=== PATIENT | female | born 1955 | race Caucasian/White ===

== ENCOUNTER → 2018-01-26 15:00 | Outpatient (CLI) | payer OTHER, MEDICAID, SELFPAY ==
--- NOTE | 2018-01-26 15:03 | DI.RAD.S_ITS ---
PROCEDURE: XR KNEE LT 3V INDICATIONS: s/p fall and hip replacement TECHNIQUE: 3 views of the knee were acquired. COMPARISON: [facility], , FEMUR TWO OR MORE VIEWS LEFT, 05/24/2016, 10:37. [facility], , PELVIS 1 OR 2 VIEWS, 05/24/2016, 10:37. FINDINGS: Bones: Extensive distal femoral ORIF is noted. There is no visualized hardware fracture. There is an approximate 1.5 mm area of lucency within the cortex of the femur distal to the middle screw, identified as fourth from the most inferior screw. It is not well-visualized if there appears to be retraction from the plate, as lateral view of this region is partially obscured. Soft tissues: No joint effusion. No suspicious soft tissue calcifications. IMPRESSION: Postsurgical changes as above. Area of lucency distal to the middle screw as above. This could represent focal area of loosening or screw retraction. However, evaluation is limited. Dictated by: Camelia Sandra M.D. on 01/26/2018 at 16:32 Approved by: Camelia Sandra M.D. on 01/26/2018 at 16:36
--- NOTE | 2018-01-26 15:03 | DI.RAD.S_ITS ---
PROCEDURE: XR HIP W PEL IF DONE RT 2V INDICATIONS: fall and hip replacement TECHNIQUE: AP pelvis with lateral view(s) of the right hip(s). COMPARISON: [facility], , FEMUR TWO OR MORE VIEWS LEFT, 05/24/2016, 10:37. [facility], , PELVIS 1 OR 2 VIEWS, 05/24/2016, 10:37. FINDINGS: Bones: No fractures or dislocations. Bilateral hip arthroplasties in expected alignment, revised since 05/24/16. Pelvic ring appears intact. There is prominent right acetabular lucency, grossly unchanged. 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 No suspicious bony lesions. Lower lumbar spine discogenic changes and facet arthropathy. Screw fragment projects in the subtrochanteric right femur as before. Soft tissues: The visualized bowel gas pattern is normal. No suspicious soft tissue calcifications. IMPRESSION: Bilateral hip arthroplasties since 05/24/16. Expected postoperative alignment. No definite fracture although suboptimal evaluation given the advanced degenerative changes. Dictated by: Magdi Antony M.D. on 01/26/2018 at 15:47 Approved by: Magdi Antony M.D. on 01/26/2018 at 15:51
== END ==
PROVIDERS: PCP Physician Assistant; Visit Provider Nurse Practitioner Family
DX: M47.816 Spondylosis without myelopathy or radiculopathy, lumbar region (principal); Z96.643 Presence of artificial hip joint, bilateral; W19.XXXA Unspecified fall, initial encounter
CPT/HCPCS: 73502; 73562

== ENCOUNTER 2018-04-17 14:30 | Outpatient (RCR) | payer OTHER, MEDICAID, SELFPAY ==
--- NOTE | 2017-08-16 15:05 | PT.OTN ---
On August 16, 2017 our therapy services consisting of Speech, Occupational, and Physical therapy transitioned from [employer] electronic documentation system to a new [employer] electronic system. All documentation prior to August 16 can be found under [employer] saved data. From August 16 forward, all medical record documentation will be in [employer] 6[employer]1.
--- NOTE | 2017-08-23 15:53 | PT.OTN ---
Current Diagnoses Presence of unspecified artificial hip joint (09/06/17) Physical Therapy Treatment Note PT-OP-A Visit Information Start: 08/23/17 15:37 Freq: Status: Active Protocol: Activity Type Activity Date Activity User E-Sign Co-Sign Detail Recorded Client Recorded Date Recorded By Document 08/23/17 15:38 EA [id number] 08/23/17 15:52 EA 08/23/17 15:38 Out-Patient Physical Therapy Visit Information [Visit Information] -Visit Type Treatment Note -Visit Number 09/08 PT-OP-C Subjective Start: 08/23/17 15:37 Freq: Status: Active Protocol: Activity Type Activity Date Activity User E-Sign Co-Sign Detail Recorded Client Recorded Date Recorded By Document 08/23/17 15:38 JUANCHO [id number] 08/23/17 15:52 EA 08/23/17 15:38 OP-PT Subjective [Patient Comments] -Patient Comments Patient presented w/ no HIP brace and stated allowed by her surgeon. Patient denies any pain though daily activities is increased, however states that she feels left hip is shorter than right and thats why she feels tipping to left foot frequently happenned. Patient reports compliant w/ HEP and feels she is improving. -Patient Reported Progress Improving PT-OP-Q Treatments Start: 08/23/17 15:37 Freq: Status: Active Protocol: Activity Type Activity Date Activity User E-Sign Co-Sign Detail Recorded Client Recorded Date Recorded By Document 08/23/17 15:38 EA [id number] 08/23/17 15:52 EA 08/23/17 15:38 Cardio Equipment [Recumbent Stepper (Sci-Fit)] -Duration (Minutes) 7 -Resistance 3 Gym Equipment [Cable Column (Body Solid)] Leg Extension -Resistance 2 plates -Reps/Time 12-15 reps x 13 Hip Adduction -Resistance 1.5 plates -Reps/Time 12-15 x 3 Hip Abduction -Resistance 2 plates -Reps/Time 12-15 reps x 3 [Shuttle Recovery] Unilateral Squats -Details right -Resistance 2 cords -Shuttle Recovery Platform Stable -Reps/Time 15 x 2 Bilateral Squats -Resistance 4 cords -Shuttle Recovery Platform Stable -Reps/Time 15 x 3 Therapeutic Exercises [Sitting Exercises] 2 -Sitting Exercise Name hip flexion -Side left -Resistance 2 lbs AW 1 -Sitting Exercise Name BTB hip ER/IR rotation -Side bilateral -Resistance BTB -Equipment Used theraband -Reps/Minutes 12 x 2 [Standing Exercises] 1 -Standing Exercise Name Side step squat w/ heel raises -Side bilateral -Resistance YTB -Reps/Minutes x 2 lines Gait Training [Gait Activity] 1 -Description Heel to toe gait -Device Used cane -Surface flat -Treatment Focus foot-hip alignment PT-OP-T Assessment and Plan Start: 08/23/17 15:37 Freq: Status: Active Protocol: Activity Type Activity Date Activity User E-Sign Co-Sign Detail Recorded Client Recorded Date Recorded By Document 08/23/17 15:38 EA [id number] 08/23/17 15:52 EA 08/23/17 15:38 Physical Therapy Assessment [Assessment Summary] -Assessment Patient exhibit left foot tipping and right hip IR at stance phase, however corrected with cues. Left hip pain noted w/ left hip flexion against gravity and no to less pain with hip flexion gravity eliminated. Possible strain to hip flexor muscle and recommended patient w/ ICE and soft issue massage to ant groin. Patient progressing well to fucntional mobility tolerance but still requires further strengthening as hip weakness still evident. Physical Therapy Plan [Next Visit Focus/Plan] -Next Visit Plan Cont. with current plan.
--- NOTE | 2017-09-12 09:03 | PT.OTRE ---
Addendum entered and electronically signed by Kevan Mcnair PT, D.C. 09/13/17 16:40: This note was late documented on 09/07/2017; however, the session date was 09/06/17 Original Note: Current Diagnoses Presence of unspecified artificial hip joint (08/26/17) Presence of unspecified artificial hip joint (09/06/17) Provider Visit Care Team Role Provider Type Susie Miller PA-C Family Provider Advanced Practioner Clinician Primary Care Provider Specialty: Medical Address: [address] [place] [id number] Email: [email or web address] Kishor Terrell MD Attending Provider Physician Specialty: Family Practice Address: [address] [place] [address], [id number] Email: [email or web address] Physical Therapy Re-Evaluation PT-OP-A Visit Information Start: 08/23/17 15:37 Freq: Status: Active Protocol: Document 09/07/17 08:21 EA (Rec: 09/12/17 09:03 EA [id number]) Out-Patient Physical Therapy Visit Information Visit Information Visit Type Treatment Note Visit Note No charge Re-assessment performed to this visit Visit Start Time 13:45 Visit Stop Time 14:30 Total Visit Minutes 45 Visit Number 10/09 Number of TINNING EQUIPMENT TENDER Visits 0 PT-OP-B Current Condition Start: 08/23/17 15:37 Freq: Status: Active Protocol: Document 09/07/17 08:21 EA (Rec: 09/12/17 09:03 EA [id number]) Current Condition History of Current Condition Onset Date 05/12/17 Current Complaints C/O difficulty in all weight bearing mobility d/t R hip weakness and pain History of Current Condition S/P R HYACINTH revision 05/12/17 with disclocation 4 days after revision. Prior Treatments and Tests Patient has undergone 6 skilled PT visits since Future Testing and Treatments Planned Had seen surgeun 2 weeks from todays date and removed hip adductor brace. Treatment Goals Patient/Caregiver Goals Patient wants to be able to wlak more than 2 miles with no hip discomfort, no assistive device and no gait difficulty. Prior Functional Status Baseline Function- ADL's Independent Baseline Function- Mobility Independent Baseline Function- Gait Unlimited amb. with no AD with near to normal gait. 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 Baseline Function- Recreation/Hobbies unable Current Functional Impairments (Reported) Functional Limitations- ADL's Indep Functional Limitations- Mobility/Gait Able to ambulate 3/4 a mile with STC to left hand Functional Limitations- Work/School Indep with difficulty Functional Limitations- Recreation/ Unable Hobbies PT-OP-C Subjective Start: 08/23/17 15:37 Freq: Status: Active Protocol: Document 09/07/17 08:21 EA (Rec: 09/12/17 09:03 EA [id number]) OP-PT Subjective Patient Comments Patient Comments Patient stated that she has increased her walking to ~ 3/ 4 a mile on even surface and less 1/4 a mile on uneven surface;states still have to use cane due to hip instability and pain to left knee. Patient Reported Progress Improving Patient Questionnaires Lower Extremity Functional Scale LEFS Impairment 40 to 59% Impaired (Score 32- 47) PT-OP-F Manual Assessment Start: 08/23/17 15:37 Freq: Status: Active Protocol: Document 09/07/17 08:21 EA (Rec: 09/12/17 09:03 EA [id number]) Manual Assessments Soft Tissue Assessment Soft Tissue Mobility Assessment Right: Limited hip ER/IR, Hip extension by ~ 10 degrees. Hip flexion ~ 0-100 with pain to groin area. Left: Limited knee flexion to 0-110 degrees w/ pain to anterolat knee upon passive overpressure. Joint Mobility Assessment Joint Mobility Assessment Hip joint limitation to right hip flexion with empty enfeel. Limitation to hip ER/IR rotation with empty endfeel. PT-OP-G Mobility & Gait Start: 08/23/17 15:37 Freq: Status: Active Protocol: Document 09/07/17 08:21 EA (Rec: 09/12/17 09:03 EA [id number]) OP Mobility Evaluation Bed Mobility Rolling indep Supine to and from Sit indep Functional Movements Lifting and Carrying With moderate difficulty Squats With High difficulty Running Assessment unable PT-OP-K Range of Motion Start: 08/23/17 15:37 Freq: Status: Active Protocol: Document 09/07/17 08:21 EA (Rec: 09/12/17 09:03 EA [id number]) Hip Goniometric Range of Motion Hip Measured in Degrees Right Active Hip ROM WFL No Testing Position Supine Flexion w/Knee Flexed 100 Extension 5 Internal Rotation 20 External Rotation 25 Knee Goniometric Range of Motion Knee Measured in Degrees Left Flexion Active (degrees) 110 PT-OP-M Strength Start: 08/23/17 15:37 Freq: Status: Active Protocol: Document 09/07/17 08:21 EA (Rec: 09/12/17 09:03 EA [id number]) Hip Strength Hip Manual Muscle Testing Right Flexion (L2) 3+ Fair+ Extension (S1) 3+ Fair+ Adduction 3+ Fair+ External Rotation 3 Fair Internal Rotation 3- Fair- Comments Manual ms Test to HIP IR is limited to 20 deg range PT-OP-Q Treatments Start: 08/23/17 15:37 Freq: Status: Active Protocol: Document 09/07/17 08:21 EA (Rec: 09/12/17 09:03 EA [id number]) Cardio Equipment Recumbent Stepper (Sci-Fit) Duration (Minutes) 7 Resistance 3 Gym Equipment Cable Column (Body Solid) Leg Extension Resistance 2-3 plates Reps/Time 12-15 reps x 13 Hip Adduction Resistance 1.5 plates Reps/Time 12-15 x 3 Hip Abduction Resistance 2 plates Reps/Time 12-15 reps x 3 Shuttle Recovery Unilateral Squats Details right Resistance 2-3 cords Shuttle Recovery Platform Stable Reps/Time 15 x 2 Bilateral Squats Resistance 4-6cords Shuttle Recovery Platform Stable Reps/Time 15 x 3 Therapeutic Exercises Sitting Exercises 2 Sitting Exercise Name hip flexion Side left Resistance 2 lbs AW 1 Sitting Exercise Name BTB hip ER/IR rotation Side bilateral Resistance BTB Equipment Used theraband Reps/Minutes 12 x 2 Standing Exercises 1 Standing Exercise Name Side step squat w/ heel raises Side bilateral Resistance YTB Reps/Minutes x 2 lines Gait Training Gait Activity 1 Description Heel to toe gait Device Used without the cane Surface flat Treatment Focus foot-hip alignment PT-OP-T Assessment and Plan Start: 08/23/17 15:37 Freq: Status: Active Protocol: Document 09/07/17 08:21 EA (Rec: 09/12/17 09:03 EA [id number]) Physical Therapy Assessment Rehab Potential Rehabilitation Potential Good Impairments Impairments Functional Activities Gait Pain ROM Soft Tissue Mobility Strength Goals Five Impairment Distance ambulation of less than 1 mile Long-Term Goal (LTG) Patient will exhibit > 1.5 mile distance ambulation. Four Impairment Antalgic gait w/ decreased WB to RLE Seismograph Computer Goal (LTG) Patient will exhibit near to normal gait with no AD on uneven/even surfaces LTG Duration 4 wks. Three Impairment LEFS score of 35 Short Term Goal (STG) Patient will reports LEFS score of > 50 STG Duration 4 wks Two Impairment Hip Flexion/EXT/ ER/IR limited by 5-10 degrees Seismograph Computer Goal (LTG) Patient will exhibit increase HIP ROM of 5-10 degrees for improve for functional squatting and lifting. LTG Duration 4wks One Impairment Hip Flexors/ ABD/ ADD/ Extensors/ Rotators strength of 3+/5 Long-Term Goal (LTG) Patient will exhibit increase hip strength by 1 level for improvement gait and functional mobility LTG Duration 4 wks Assessment Summary Assessment Patient demonstrates improved gait and distance ambulation during the course of 1/12 month skilled PT. Patient is now able to tolerated 4-6 hours of work related activities, however with limited bending and lifting activities due to weakness of right hip. Patient at this will continue to benefit with skilled PT to address the aforementioned impairement. Physical Therapy Plan Frequency and Duration Frequency of Treatment 2 Plan of Care Start Date 09/06/17 Plan of Care End Date 10/18/17 Therapeutic Interventions Therapeutic Interventions Balance Training Gait Training Home Exercise Program Joint Mobilizations Manual Therapy Self-Care/Home Management Soft Tissue Mobilization Therapeutic Activities Therapeutic Exercises Next Visit Focus/Plan Next Visit Plan Advanced as tolerated Please Sign and Return: I have reviewed this Plan of Care and certify that the skilled therapy services above are required to meet the patient???s needs. Physician Signature Date Printed Name and Credentials Clinical Instructor Signature Printed Name and Credentials
--- NOTE | 2017-09-12 09:06 | PT.OPPOC ---
Current Diagnoses Presence of unspecified artificial hip joint (08/26/17) Presence of unspecified artificial hip joint (09/06/17) Provider Visit Care Team Role Provider Type Susie Miller PA-C Family Provider Advanced Practioner Clinician Primary Care Provider Specialty: Medical Address: [address] [place] [address], [id number] Email: [email or web address] Kishor Terrell MD Attending Provider Physician Specialty: Family Practice Address: [address] [place] [address], [address] Email: [email or web address] Plan Of Care PT-OP-T Assessment and Plan Start: 08/23/17 15:37 Freq: Status: Active Protocol: Document 09/07/17 08:21 EA (Rec: 09/12/17 09:03 EA [id number]) Physical Therapy Assessment Rehab Potential Rehabilitation Potential Good Impairments Impairments Functional Activities Gait Pain ROM Soft Tissue Mobility Strength Goals Five Impairment Distance ambulation of less than 1 mile Residential Goal (LTG) Patient will exhibit > 1.5 mile distance ambulation. Four Impairment Antalgic gait w/ decreased WB to RLE Residential Goal (LTG) Patient will exhibit near to nomal gait with no AD on uneven/even surfaces LTG Duration 4 wks. Three Impairment LEFS score of 35 Short Term Goal (STG) Patient will reports LEFS score of > 50 STG Duration 4 wks Two Impairment Hip Flexion/EXT/ ER/IR limited by 5-10 degrees Cutting Machine Operator Helper Goal (LTG) Patient will exhibit increase HIP ROM of 5-10 degrees for improve for functional squatting and lifting. LTG Duration 4wks One Impairment Hip Flexors/ ABD/ ADD/ Extensors/ Rotators strength of 3+/5 Residential Goal (LTG) Patient will exhibit increase hip strength by 1 level for improvement gait and functional mobility LTG Duration 4 wks Assessment Summary Assessment Patient demonstrates improved gait and distance ambulation during the course of 1/12 month skilled PT. Patient is now able to tolerated 4-6 hours of work related activities, however with limited bending and lifting activities due to weakness of right hip. Patient at this will continue to benefit with skilled PT to address the aforementioned impairement. Physical Therapy Plan Frequency and Duration Frequency of Treatment 2 Plan of Care Start Date 09/06/17 Plan of Care End Date 10/18/17 Therapeutic Interventions Therapeutic Interventions Balance Training Gait Training Home Exercise Program Joint Mobilizations Manual Therapy Self-Care/Home Management Soft Tissue Mobilization Therapeutic Activities Therapeutic Exercises Next Visit Focus/Plan Next Visit Plan Advanced as tolerated Plan of Care Dates Plan of Care Start Date 09/06/17 Plan of Care End Date 10/18/17 Please Sign and Return: I have reviewed this Plan of Care and certify that the skilled therapy services above are required to meet the patient???s needs. Physician Signature Date Printed Name and Credentials Clinical Instructor Signature Printed Name and Credentials
--- NOTE | 2017-09-20 15:08 | PT.OTN ---
Current Diagnoses Presence of unspecified artificial hip joint (08/26/17) Presence of unspecified artificial hip joint (09/20/17) Physical Therapy Treatment Note PT-OP-A Visit Information Start: 08/23/17 15:37 Freq: Status: Active Protocol: Document 09/20/17 14:27 EA (Rec: 09/20/17 14:33 EA [id number]) Out-Patient Physical Therapy Visit Information Visit Information Visit Type Treatment Note Visit Start Time 13:45 Visit Stop Time 14:30 Total Visit Minutes 40 Visit Number 11/08 PT-OP-B Current Condition Start: 08/23/17 15:37 Freq: Status: Active Protocol: Document 09/07/17 08:21 EA (Rec: 09/12/17 09:03 EA [id number]) Current Condition History of Current Condition Onset Date 05/12/17 Current Complaints C/O difficulty in all weight bearing mobility d/t R hip weakness and pain History of Current Condition S/P R HYACINTH revision 05/12/17 with disclocation 4 days after revision. Prior Treatments and Tests Patient has undergone 6 skilled PT visits since Future Testing and Treatments Planned Had seen surgeun 2 weeks from todays date and removed hip adductor brace. Treatment Goals Patient/Caregiver Goals Patient wants to be able to wlak more than 2 miles with no hip discomfort, no assistive device and no gait difficulty. Prior Functional Status Baseline Function- ADL's Independent Baseline Function- Mobility Independent Baseline Function- Gait Unlimited amb. with no AD with near to normal gait. 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 Baseline Function- Recreation/Hobbies unable Current Functional Impairments (Reported) Functional Limitations- ADL's Indep Functional Limitations- Mobility/Gait Able to ambulate 3/4 a mile with STC to left hand Functional Limitations- Work/School Indep with difficulty Functional Limitations- Recreation/ Unable Hobbies PT-OP-C Subjective Start: 08/23/17 15:37 Freq: Status: Active Protocol: Document 09/20/17 14:27 EA (Rec: 09/20/17 14:33 EA [id number]) OP-PT Subjective Patient Comments Patient Comments Pt reports pain to hip region is improving; states both is quite achy and though might be from arthritis. 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 Patient Reported Progress Improving PT-OP-F Manual Assessment Start: 08/23/17 15:37 Freq: Status: Active Protocol: Document 09/07/17 08:21 EA (Rec: 09/12/17 09:03 EA [id number]) Manual Assessments Soft Tissue Assessment Soft Tissue Mobility Assessment Right: Limited hip ER/IR, Hip extension by ~ 10 degrees. Hip flexion ~ 0-100 with pain to groin area. Left: Limited knee flexion to 0-110 degress w/ pain to anterolat knee upon passive overpressure. Joint Mobility Assessment Joint Mobility Assessment Hip joint limitation to right hip flexion with empty enfeel. Limitation to hip ER/IR rotation with empty endfeel. PT-OP-G Mobility & Gait Start: 08/23/17 15:37 Freq: Status: Active Protocol: Document 09/07/17 08:21 EA (Rec: 09/12/17 09:03 EA [id number]) OP Mobility Evaluation Bed Mobility Rolling indep Supine to and from Sit indep Functional Movements Lifting and Carrying With moderate difficulty Squats With High diffcilty Running Assessment unable PT-OP-K Range of Motion Start: 08/23/17 15:37 Freq: Status: Active Protocol: Document 09/07/17 08:21 EA (Rec: 09/12/17 09:03 EA [id number]) Hip Goniometric Range of Motion Hip Measured in Degrees Right Active Hip ROM WFL No Testing Position Supine Flexion w/Knee Flexed 100 Extension 5 Internal Rotation 20 External Rotation 25 Knee Goniometric Range of Motion Knee Measured in Degrees Left Flexion Active (degrees) 110 PT-OP-M Strength Start: 08/23/17 15:37 Freq: Status: Active Protocol: Document 09/07/17 08:21 EA (Rec: 09/12/17 09:03 EA [id number]) Hip Strength Hip Manual Muscle Testing Right Flexion (L2) 3+ Fair+ Extension (S1) 3+ Fair+ Adduction 3+ Fair+ External Rotation 3 Fair Internal Rotation 3- Fair- Comments Manual ms Test to HIP IR is limited to 20 deg range PT-OP-Q Treatments Start: 08/23/17 15:37 Freq: Status: Active Protocol: Document 09/20/17 14:27 EA (Rec: 09/20/17 14:33 EA [id number]) Cardio Equipment Recumbent Stepper (Sci-Fit) Duration (Minutes) 10 Resistance 3 Other no hand support Gym Equipment Cable Column (Body Solid) Leg Extension Resistance 2-3 plates Reps/Time 12-15 reps x 13 Hip Adduction Resistance 1.5 plates Reps/Time 12-15 x 3 Hip Abduction Resistance 2 plates Reps/Time 12-15 reps x 3 Shuttle Recovery Unilateral Squats Details right Resistance 2-3 cords Shuttle Recovery Platform Stable Reps/Time 15 x 2 Bilateral Squats Resistance 4-6cords Shuttle Recovery Platform Stable Reps/Time 15 x 3 Therapeutic Exercises Sitting Exercises 2 Sitting Exercise Name hip flexion Side left Resistance 2 lbs AW 1 Sitting Exercise Name BTB hip ER/IR rotation Side bilateral Resistance BTB Equipment Used theraband Reps/Minutes 12 x 2 Standing Exercises 2 Standing Exercise Name Steady lunges: full Reps/Minutes x 10 reps x 2 sets 1 Standing Exercise Name Side step squat w/ heel raises Side bilateral Resistance YTB/BTB Reps/Minutes x 2 lines PT-OP-T Assessment and Plan Start: 08/23/17 15:37 Freq: Status: Active Protocol: Document 09/20/17 15:06 JUANCHO (Rec: 09/20/17 15:08 JUANCHO [id number]) Physical Therapy Assessment Assessment Summary Assessment Noted improved hip ROM, strength and decreased hip pain during therapeutic exercises. Patient is progressing well. Physical Therapy Plan Next Visit Focus/Plan Next Note Type Treatment Note Next Visit Plan Advance as tolerated. Please Sign and Return: I have reviewed this Plan of Care and certify that the skilled therapy services above are required to meet the patient?s needs. Physician Signature Date Printed Name and Credentials Clinical Instructor Signature Printed Name and Credentials
--- NOTE | 2017-09-29 15:54 | PT.OTN ---
Current Diagnoses Presence of unspecified artificial hip joint (08/26/17) Presence of unspecified artificial hip joint (09/29/17) Physical Therapy Treatment Note PT-OP-A Visit Information Start: 08/23/17 15:37 Freq: Status: Active Protocol: Document 09/29/17 14:35 EA (Rec: 09/29/17 14:50 EA [id number]) Out-Patient Physical Therapy Visit Information Visit Information Visit Type Treatment Note Visit Start Time 13:45 Visit Stop Time 14:30 Total Visit Minutes 40 Visit Number 12/09 PT-OP-B Current Condition Start: 08/23/17 15:37 Freq: Status: Active Protocol: Document 09/07/17 08:21 EA (Rec: 09/12/17 09:03 EA [id number]) Current Condition History of Current Condition Onset Date 05/12/17 Current Complaints C/O difficulty in all weight bearing mobility d/t R hip weakness and pain History of Current Condition S/P R HYACINTH revision 05/12/17 with disclocation 4 days after revision. Prior Treatments and Tests Patient has undergone 6 skilled PT visits since Future Testing and Treatments Planned Had seen surgeun 2 weeks from todays date and removed hip adductor brace. Treatment Goals Patient/Caregiver Goals Patient wants to be able to wlak more than 2 miles with no hip discomfort, no assistive device and no gait difficulty. Prior Functional Status Baseline Function- ADL's Independent Baseline Function- Mobility Independent Baseline Function- Gait Unlimited amb. with no AD with near to normal gait. 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 Baseline Function- Recreation/Hobbies unable Current Functional Impairments (Reported) Functional Limitations- ADL's Indep Functional Limitations- Mobility/Gait Able to ambulate 3/4 a mile with STC to left hand Functional Limitations- Work/School Indep with difficulty Functional Limitations- Recreation/ Unable Hobbies PT-OP-C Subjective Start: 08/23/17 15:37 Freq: Status: Active Protocol: Document 09/29/17 14:35 EA (Rec: 09/29/17 14:50 EA [id number]) OP-PT Subjective Patient Comments Patient Comments Pt reports she had a lot of wlaking while out of state vacation; states she was not able to perform HEP and is commited to get back on track. Patient denies hip pain but left knee pain cont. to bother her. PT-OP-F Manual Assessment Start: 08/23/17 15:37 Freq: Status: Active Protocol: Document 09/07/17 08:21 EA (Rec: 09/12/17 09:03 EA [id number]) Manual Assessments Soft Tissue Assessment Soft Tissue Mobility Assessment Right: Limited hip ER/IR, Hip extension by ~ 10 degrees. Hip flexion ~ 0-100 with pain to groin area. Left: Limited knee flexion to 0-110 degress w/ pain to anterolat knee upon passive overpressure. Joint Mobility Assessment Joint Mobility Assessment Hip joint limitation to right hip flexion with empty enfeel. Limitation to hip ER/IR rotation with empty endfeel. PT-OP-G Mobility & Gait Start: 08/23/17 15:37 Freq: Status: Active Protocol: Document 09/07/17 08:21 EA (Rec: 09/12/17 09:03 EA [id number]) OP Mobility Evaluation Bed Mobility Rolling indep Supine to and from Sit indep Functional Movements Lifting and Carrying With moderate difficulty Squats With High diffcilty Running Assessment unable PT-OP-K Range of Motion Start: 08/23/17 15:37 Freq: Status: Active Protocol: Document 09/07/17 08:21 EA (Rec: 09/12/17 09:03 EA [id number]) Hip Goniometric Range of Motion Hip Measured in Degrees Right Active Hip ROM WFL No Testing Position Supine Flexion w/Knee Flexed 100 Extension 5 Internal Rotation 20 External Rotation 25 Knee Goniometric Range of Motion Knee Measured in Degrees Left Flexion Active (degrees) 110 PT-OP-M Strength Start: 08/23/17 15:37 Freq: Status: Active Protocol: Document 09/07/17 08:21 EA (Rec: 09/12/17 09:03 EA [id number]) Hip Strength Hip Manual Muscle Testing Right Flexion (L2) 3+ Fair+ Extension (S1) 3+ Fair+ Adduction 3+ Fair+ External Rotation 3 Fair Internal Rotation 3- Fair- Comments Manual ms Test to HIP IR is limited to 20 deg range PT-OP-Q Treatments Start: 08/23/17 15:37 Freq: Status: Active Protocol: Document 09/29/17 14:35 EA (Rec: 09/29/17 14:50 EA [id number]) Cardio Equipment Recumbent Stepper (Sci-Fit) Duration (Minutes) 10 Resistance 3 Seat Position 9 Other no hand support Gym Equipment Cable Column (Body Solid) Leg Extension Resistance 2-3 plates Reps/Time 12-15 reps x 13 Hip Adduction Resistance 1.5 plates Reps/Time 12-15 x 3 Hip Abduction Resistance 2 plates Reps/Time 12-15 reps x 3 Shuttle Recovery Bilateral Squats Resistance 4-6cords Shuttle Recovery Platform Stable Reps/Time 15 x 3 Self-Care/Home Management Treatment Education Patient Education Home Exercise Program Other Education Written HEP PT-OP-T Assessment and Plan Start: 08/23/17 15:37 Freq: Status: Active Protocol: Document 09/29/17 14:35 EA (Rec: 09/29/17 14:50 EA [id number]) Physical Therapy Assessment Assessment Summary Assessment Patient is progressing with mobility endurance well; however, abnormal gait still noted and recommended patient to get back to [facility] to improved gait pattern. Weakness to both hip major muscle group still noted during quick assessment. Physical Therapy Plan Next Visit Focus/Plan Next Visit Plan Cont. with bilaterl hip strengthening as tolerated. ER/ IR hip ROM progression. Please Sign and Return: I have reviewed this Plan of Care and certify that the skilled therapy services above are required to meet the patient?s needs. Physician Signature Date Printed Name and Credentials Clinical Instructor Signature Printed Name and Credentials
--- NOTE | 2017-10-18 16:01 | PT.OTN ---
Current Diagnoses Presence of unspecified artificial hip joint (08/26/17) Presence of unspecified artificial hip joint (10/18/17) Physical Therapy Treatment Note PT-OP-A Visit Information Start: 08/23/17 15:37 Freq: Status: Active Protocol: Document 10/18/17 14:30 GGD (Rec: 10/18/17 16:00 GGD [email or web address]) Out-Patient Physical Therapy Visit Information Visit Information Visit Type Treatment Note Visit Start Time 14:30 Visit Stop Time 15:15 Total Visit Minutes 40 Visit Number 01/09 Number of COMPLAINT INSPECTOR Visits 1 PT-OP-B Current Condition Start: 08/23/17 15:37 Freq: Status: Active Protocol: Document 09/07/17 08:21 EA (Rec: 09/12/17 09:03 EA [id number]) Current Condition History of Current Condition Onset Date 05/12/17 Current Complaints C/O difficulty in all weight bearing mobility d/t R hip weakness and pain History of Current Condition S/P R HYACINTH revision 05/12/17 with disclocation 4 days after revision. Prior Treatments and Tests Patient has undergone 6 skilled PT visits since Future Testing and Treatments Planned Had seen surgeun 2 weeks from todays date and removed hip adductor brace. Treatment Goals Patient/Caregiver Goals Patient wants to be able to wlak more than 2 miles with no hip discomfort, no assistive device and no gait difficulty. Prior Functional Status Baseline Function- ADL's Independent Baseline Function- Mobility Independent Baseline Function- Gait Unlimited amb. with no AD with near to normal gait. 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 Baseline Function- Recreation/Hobbies unable Current Functional Impairments (Reported) Functional Limitations- ADL's Indep Functional Limitations- Mobility/Gait Able to ambulate 3/4 a mile with STC to left hand Functional Limitations- Work/School Indep with difficulty Functional Limitations- Recreation/ Unable Hobbies PT-OP-C Subjective Start: 08/23/17 15:37 Freq: Status: Active Protocol: Document 10/18/17 14:30 GGD (Rec: 10/18/17 16:00 GGD [email or web address]) OP-PT Subjective Patient Comments Patient Comments Pt states she feels her motion hasn't improved very much. She has been doing HEP. She been walking without AD and able to walk 2 blocks. Patient Questionnaires Lower Extremity Functional Scale LEFS Score 50/80, 62.5% LEFS Impairment 20 to 39% Impaired (Score 48- 62) PT-OP-F Manual Assessment Start: 08/23/17 15:37 Freq: Status: Active Protocol: Document 09/07/17 08:21 EA (Rec: 09/12/17 09:03 EA [id number]) Manual Assessments Soft Tissue Assessment Soft Tissue Mobility Assessment Right: Limited hip ER/IR, Hip extension by ~ 10 degrees. Hip flexion ~ 0-100 with pain to groin area. Left: Limited knee flexion to 0-110 degress w/ pain to anterolat knee upon passive overpressure. Joint Mobility Assessment Joint Mobility Assessment Hip joint limitation to right hip flexion with empty enfeel. Limitation to hip ER/IR rotation with empty endfeel. PT-OP-G Mobility & Gait Start: 08/23/17 15:37 Freq: Status: Active Protocol: Document 09/07/17 08:21 EA (Rec: 09/12/17 09:03 EA [id number]) OP Mobility Evaluation Bed Mobility Rolling indep Supine to and from Sit indep Functional Movements Lifting and Carrying With moderate difficulty Squats With High diffcilty Running Assessment unable PT-OP-K Range of Motion Start: 08/23/17 15:37 Freq: Status: Active Protocol: Document 10/18/17 14:30 GGD (Rec: 10/18/17 16:00 GGD [email or web address]) Hip Goniometric Range of Motion Hip Measured in Degrees Right Active Testing Position Supine Flexion w/Knee Flexed 100 Extension 5 Internal Rotation 25 External Rotation 30 PT-OP-M Strength Start: 08/23/17 15:37 Freq: Status: Active Protocol: Document 10/18/17 14:30 GGD (Rec: 10/18/17 16:00 GGD [email or web address]) Hip Strength Hip Manual Muscle Testing Right Flexion (L2) 3+ Fair+ Extension (S1) 4- Good- Adduction 4- Good- External Rotation 3+ Fair+ Internal Rotation 3 Fair PT-OP-Q Treatments Start: 08/23/17 15:37 Freq: Status: Active Protocol: Document 10/18/17 14:30 GGD (Rec: 10/18/17 16:00 GGD [email or web address]) Cardio Equipment Recumbent Stepper (Sci-Fit) Duration (Minutes) 10 Resistance 3 Seat Position 9 Other no hand support Gym Equipment Cable Column (Body Solid) Leg Extension Resistance 2-3 plates Reps/Time 12-15 reps x 13 Hip Adduction Resistance 1.5 plates Reps/Time 12-15 x 3 Hip Abduction Resistance 2 plates Reps/Time 12-15 reps x 3 Shuttle Recovery Bilateral Squats Resistance 4-6cords Shuttle Recovery Platform Stable Reps/Time 15 x 3 PT-OP-T Assessment and Plan Start: 08/23/17 15:37 Freq: Status: Active Protocol: Document 10/18/17 14:30 GGD (Rec: 10/18/17 16:00 GGD [email or web address]) Physical Therapy Assessment Goals Five Impairment Distance abulation of less than 1 mile Braille Coder Goal (LTG) Patient will exhibit > 1.5 mile distance ambulation. Four Impairment Antalgic gait w/ decreased WB to RLE Braille Coder Goal (LTG) Patient will exhibit near to nomal gait with no AD on uneven/even surfaces LTG Duration 4 wks. Three Impairment LEFS score of 35 Short Term Goal (STG) Patient will reports LEFS score of > 50 STG Duration 4 wks Two Impairment Hip Flexion/EXT/ ER/IR limited by 5-10 degrees Halfway Goal (LTG) Patient will exhibit increase HIP ROM of 5-10 degrees for improve for functional squating and lifting. LTG Duration 4wks One Impairment Hip Flexors/ ABD/ ADD/ Extensrs/ Rotators strength of 3+/5 Braille Coder Goal (LTG) Patient will exhibit increse hip strength by 1 level for improvement gait and functional mobility LTG Duration 4 wks Assessment Summary Assessment Pt is progessing slowly with strength and ROM. She still has abnormal gait pattern Physical Therapy Plan Frequency and Duration Frequency of Treatment 2 Plan of Care Start Date 09/06/17 Plan of Care End Date 10/18/17 Next Visit Focus/Plan Next Note Type Re-Evaluation Next Visit Plan Cont. with bilaterl hip strengtheing as tolerated. ER/ IR hip ROM progressiong.
--- NOTE | 2017-10-18 17:53 | PT.OPPN ---
Current Diagnoses Presence of unspecified artificial hip joint (08/26/17) Presence of unspecified artificial hip joint (10/18/17) Physical Therapy Progress Note PT-OP-A Visit Information Start: 08/23/17 15:37 Freq: Status: Active Protocol: Document 10/18/17 14:30 GGD (Rec: 10/18/17 16:00 GGD [email or web address]) Out-Patient Physical Therapy Visit Information Visit Information Visit Type Treatment Note Visit Start Time 14:30 Visit Stop Time 15:15 Total Visit Minutes 40 Visit Number 01/09 Number of GARAGE CONSTRUCTION EQUIPMENT MECHANIC Visits 1 PT-OP-B Current Condition Start: 08/23/17 15:37 Freq: Status: Active Protocol: Document 09/07/17 08:21 EA (Rec: 09/12/17 09:03 EA [id number]) Current Condition History of Current Condition Onset Date 05/12/17 Current Complaints C/O difficulty in all weight bearing mobility d/t R hip weakness and pain History of Current Condition S/P R HYACINTH revision 05/12/17 with disclocation 4 days after revision. Prior Treatments and Tests Patient has undergone 6 skilled PT visits since Future Testing and Treatments Planned Had seen surgeun 2 weeks from todays date and removed hip adductor brace. Treatment Goals Patient/Caregiver Goals Patient wants to be able to wlak more than 2 miles with no hip discomfort, no assistive device and no gait difficulty. Prior Functional Status Baseline Function- ADL's Independent Baseline Function- Mobility Independent Baseline Function- Gait Unlimited amb. with no AD with near to normal gait. 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 Baseline Function- Recreation/Hobbies unable Current Functional Impairments (Reported) Functional Limitations- ADL's Indep Functional Limitations- Mobility/Gait Able to ambulate 3/4 a mile with STC to left hand Functional Limitations- Work/School Indep with difficulty Functional Limitations- Recreation/ Unable Hobbies PT-OP-C Subjective Start: 08/23/17 15:37 Freq: Status: Active Protocol: Document 10/18/17 14:30 GGD (Rec: 10/18/17 16:00 GGD [email or web address]) OP-PT Subjective Patient Comments Patient Comments Pt states she feels her motion hasn't improved very much. She has been doing HEP. She been walking without AD and able to walk 2 blocks. Patient Questionnaires Lower Extremity Functional Scale LEFS Score 50/80, 62.5% LEFS Impairment 20 to 39% Impaired (Score 48- 62) PT-OP-F Manual Assessment Start: 08/23/17 15:37 Freq: Status: Active Protocol: Document 09/07/17 08:21 EA (Rec: 09/12/17 09:03 EA [id number]) Manual Assessments Soft Tissue Assessment Soft Tissue Mobility Assessment Right: Limited hip ER/IR, Hip extension by ~ 10 degrees. Hip flexion ~ 0-100 with pain to groin area. Left: Limited knee flexion to 0-110 degress w/ pain to anterolat knee upon passive overpressure. Joint Mobility Assessment Joint Mobility Assessment Hip joint limitation to right hip flexion with empty enfeel. Limitation to hip ER/IR rotation with empty endfeel. PT-OP-G Mobility & Gait Start: 08/23/17 15:37 Freq: Status: Active Protocol: Document 09/07/17 08:21 EA (Rec: 09/12/17 09:03 EA [id number]) OP Mobility Evaluation Bed Mobility Rolling indep Supine to and from Sit indep Functional Movements Lifting and Carrying With moderate difficulty Squats With High diffcilty Running Assessment unable PT-OP-K Range of Motion Start: 08/23/17 15:37 Freq: Status: Active Protocol: Document 10/18/17 14:30 GGD (Rec: 10/18/17 16:00 GGD [email or web address]) Hip Goniometric Range of Motion Hip Measured in Degrees Right Active Testing Position Supine Flexion w/Knee Flexed 100 Extension 5 Internal Rotation 25 External Rotation 30 PT-OP-M Strength Start: 08/23/17 15:37 Freq: Status: Active Protocol: Document 10/18/17 14:30 GGD (Rec: 10/18/17 16:00 GGD [email or web address]) Hip Strength Hip Manual Muscle Testing Right Flexion (L2) 3+ Fair+ Extension (S1) 4- Good- Adduction 4- Good- External Rotation 3+ Fair+ Internal Rotation 3 Fair PT-OP-T Assessment and Plan Start: 08/23/17 15:37 Freq: Status: Active Protocol: Document 10/18/17 14:30 GGD (Rec: 10/18/17 16:00 GGD [email or web address]) Physical Therapy Assessment Goals Five Impairment Distance abulation of less than 1 mile Alf Goal (LTG) Patient will exhibit > 1.5 mile distance ambulation. Four Impairment Antalgic gait w/ decreased WB to RLE Regional Sales Coordinator Goal (LTG) Patient will exhibit near to nomal gait with no AD on uneven/even surfaces LTG Duration 4 wks. Three Impairment LEFS score of 35 Short Term Goal (STG) Patient will reports LEFS score of > 50 STG Duration 4 wks Two Impairment Hip Flexion/EXT/ ER/IR limited by 5-10 degrees Alf Goal (LTG) Patient will exhibit increase HIP ROM of 5-10 degrees for improve for functional squating and lifting. LTG Duration 4wks One Impairment Hip Flexors/ ABD/ ADD/ Extensrs/ Rotators strength of 3+/5 Regional Sales Coordinator Goal (LTG) Patient will exhibit increse hip strength by 1 level for improvement gait and functional mobility LTG Duration 4 wks Assessment Summary Assessment Pt is progessing slowly with strength and ROM. She still has abnormal gait pattern Physical Therapy Plan Frequency and Duration Frequency of Treatment 2 Plan of Care Start Date 09/06/17 Plan of Care End Date 10/18/17 Next Visit Focus/Plan Next Note Type Re-Evaluation Next Visit Plan Cont. with bilaterl hip strengtheing as tolerated. ER/ IR hip ROM progressiong.
--- NOTE | 2017-10-18 17:53 | PT.OPPOC ---
Current Diagnoses Presence of unspecified artificial hip joint (08/26/17) Presence of unspecified artificial hip joint (10/18/17) Provider Visit Care Team Role Provider Type Susie Miller PA-C Family Provider Advanced Practioner Clinician Primary Care Provider Specialty: Medical Address: [address] [place] [address], [id number] Email: [email or web address] Terrell MD Attending Provider Physician Specialty: Family Practice Address: [address] [place] [address], [id number] Email: Plan Of Care PT-OP-T Assessment and Plan Start: 08/23/17 15:37 Freq: Status: Active Protocol: Document 10/18/17 14:30 GGD (Rec: 10/18/17 16:00 GGD [email or web address]) Physical Therapy Assessment Goals Five Impairment Distance abulation of less than 1 mile Transportation Mechanic Goal (LTG) Patient will exhibit > 1.5 mile distance ambulation. Four Impairment Antalgic gait w/ decreased WB to RLE Transportation Mechanic Goal (LTG) Patient will exhibit near to nomal gait with no AD on uneven/even surfaces LTG Duration 4 wks. Three Impairment LEFS score of 35 Short Term Goal (STG) Patient will reports LEFS score of > 50 STG Duration 4 wks Two Impairment Hip Flexion/EXT/ ER/IR limited by 5-10 degrees Transportation Mechanic Goal (LTG) Patient will exhibit increase HIP ROM of 5-10 degrees for improve for functional squating and lifting. LTG Duration 4wks One Impairment Hip Flexors/ ABD/ ADD/ Extensrs/ Rotators strength of 3+/5 Halfway Goal (LTG) Patient will exhibit increse hip strength by 1 level for improvement gait and functional mobility LTG Duration 4 wks Assessment Summary Assessment Pt is progessing slowly with strength and ROM. She still has abnormal gait pattern Physical Therapy Plan Frequency and Duration Frequency of Treatment 2 Plan of Care Start Date 09/06/17 Plan of Care End Date 10/18/17 Next Visit Focus/Plan Next Note Type Re-Evaluation Next Visit Plan Cont. with bilaterl hip strengtheing as tolerated. ER/ IR hip ROM progressiong. Plan of Care Dates Plan of Care Start Date 10/18/17 Plan of Care End Date 12/19/17 Please Sign and Return: I have reviewed this Plan of Care and certify that the skilled therapy services above are required to meet the patient?s needs. Physician Signature Date Printed Name and Credentials Clinical Instructor Signature Printed Name and Credentials
--- NOTE | 2017-10-25 15:18 | PT.OTN ---
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 Prior Treatments and Tests Patient has undergone 6 skilled PT visits since Future Testing and Treatments Planned Had seen surgeun 2 weeks from todays date and removed hip adductor brace. Treatment Goals Patient/Caregiver Goals Patient wants to be able to wlak more than 2 miles with no hip discomfort, no assistive device and no gait difficulty. Prior Functional Status Baseline Function- ADL's Independent Baseline Function- Mobility Independent Baseline Function- Gait Unlimited amb. with no AD with near to normal gait. 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 Baseline Function- Recreation/Hobbies unable Current Functional Impairments (Reported) Functional Limitations- ADL's Indep Functional Limitations- Mobility/Gait Able to ambulate 3/4 a mile with STC to left hand Functional Limitations- Work/School Indep with difficulty Functional Limitations- Recreation/ Unable Hobbies PT-OP-C Subjective Start: 08/23/17 15:37 Freq: Status: Active Protocol: Document 10/25/17 14:36 [facility] (Rec: 10/25/17 15:18 [facility] [id number]) OP-PT Subjective Patient Comments Patient Comments Pt reports she cannot squat down without falling over and knows that she needs more strengthening. PT-OP-F Manual Assessment Start: 08/23/17 15:37 Freq: Status: Active Protocol: Document 09/07/17 08:21 EA (Rec: 09/12/17 09:03 EA [id number]) Manual Assessments Soft Tissue Assessment Soft Tissue Mobility Assessment Right: Limited hip ER/IR, Hip extension by ~ 10 degrees. Hip flexion ~ 0-100 with pain to groin area. Left: Limited knee flexion to 0-110 degress w/ pain to anterolat knee upon passive overpressure. Joint Mobility Assessment Joint Mobility Assessment Hip joint limitation to right hip flexion with empty enfeel. Limitation to hip ER/IR rotation with empty endfeel. PT-OP-G Mobility & Gait Start: 08/23/17 15:37 Freq: Status: Active Protocol: Document 09/07/17 08:21 EA (Rec: 09/12/17 09:03 EA [id number]) OP Mobility Evaluation Bed Mobility Rolling indep Supine to and from Sit indep Functional Movements Lifting and Carrying With moderate difficulty Squats With High diffcilty Running Assessment unable PT-OP-K Range of Motion Start: 08/23/17 15:37 Freq: Status: Active Protocol: Document 10/18/17 14:30 GGD (Rec: 10/18/17 16:00 GGD [email or web address]) Hip Goniometric Range of Motion Hip Measured in Degrees Right Active Testing Position Supine Flexion w/Knee Flexed 100 Extension 5 Internal Rotation 25 External Rotation 30 PT-OP-M Strength Start: 08/23/17 15:37 Freq: Status: Active Protocol: Document 10/18/17 14:30 GGD (Rec: 10/18/17 16:00 GGD [email or web address]) Hip Strength Hip Manual Muscle Testing Right Flexion (L2) 3+ Fair+ Extension (S1) 4- Good- Adduction 4- Good- External Rotation 3+ Fair+ Internal Rotation 3 Fair PT-OP-Q Treatments Start: 08/23/17 15:37 Freq: Status: Active Protocol: Document 10/25/17 14:36 [facility] (Rec: 10/25/17 15:18 [facility] [id number]) Cardio Equipment Recumbent Stepper (Sci-Fit) Duration (Minutes) 10 Resistance 3 Seat Position 9 Other no hand support Gym Equipment Cable Column (Body Solid) Hip Abduction Resistance 2 plates Reps/Time 12-15 reps x 3 Shuttle Recovery Unilateral Squats Details Bilat Resistance 62 to 75 Reps/Time 2x15 Bilateral Squats Resistance 4-6cords Shuttle Recovery Platform Stable Reps/Time 15 x 3 Gait Training Gait Activity 3 Description amb in mirror Comments VC with push off & dec lat lean 2 Description SLS Comments in mirror with alt hip flex for focus on push off with gait-counter prn 1 Description gait press at wall PT-OP-T Assessment and Plan Start: 08/23/17 15:37 Freq: Status: Active Protocol: Document 10/25/17 14:36 [facility] (Rec: 10/25/17 15:18 [facility] [id number]) Physical Therapy Assessment Goals Five Impairment Distance abulation of less than 1 mile Long-Term Goal (LTG) Patient will exhibit > 1.5 mile distance ambulation. LTG Duration 12/19/17 Four Impairment Antalgic gait w/ decreased WB to RLE Long-Term Goal (LTG) Patient will exhibit near to nomal gait with no AD on uneven/even surfaces LTG Duration 12/19/17 Three Impairment LEFS score of 35 Short Term Goal (STG) Patient will reports LEFS score of > 50 STG Duration 11/18/17 Two Impairment Hip Flexion/EXT/ ER/IR limited by 5-10 degrees Long-Term Goal (LTG) Patient will exhibit increase HIP ROM of 5-10 degrees for improve for functional squating and lifting. LTG Duration 11/18/17 One Impairment Hip Flexors/ ABD/ ADD/ Extensrs/ Rotators strength of 3+/5 [employer] Concrete Ironworker Goal (LTG) Patient will exhibit increse hip strength by 1 level for improvement gait and functional mobility LTG Duration 11/18/17 Assessment Summary Assessment Pt has poor automatic glute activation with gait & with squatting. Attempted gait press at wall, but pt unable to get glute activation & gets ER of pelvis instead. Able to achieve glute activiation with SLS with alt march with mirror cueing & 1 hand support . Physical Therapy Plan Frequency and Duration Frequency of Treatment 2x/Week Duration of Treatment 2 months Plan of Care Start Date 10/18/17 Plan of Care End Date 12/19/17 Next Visit Focus/Plan Next Note Type Treatment Note Next Visit Plan Cont to work on hip strength & gait mechanics.
--- NOTE | 2017-11-09 17:21 | PT.OTN ---
Current Diagnoses Presence of unspecified artificial hip joint (08/26/17) Presence of unspecified artificial hip joint (11/09/17) Physical Therapy Treatment Note PT-OP-A Visit Information Start: 08/23/17 15:37 Freq: Status: Active Protocol: Document 11/09/17 17:15 EA (Rec: 11/09/17 17:21 EA [id number]) Out-Patient Physical Therapy Visit Information Visit Information Visit Type Treatment Note Visit Start Time 14:30 Visit Stop Time 15:15 Total Visit Minutes 45 Visit Number 03/11 PT-OP-B Current Condition Start: 08/23/17 15:37 Freq: Status: Active Protocol: Document 09/07/17 08:21 EA (Rec: 09/12/17 09:03 EA [id number]) Current Condition History of Current Condition Onset Date 05/12/17 Current Complaints C/O difficulty in all weight bearing mobility d/t R hip weakness and pain History of Current Condition S/P R HYACINTH revision 05/12/17 with disclocation 4 days after revision. Prior Treatments and Tests Patient has undergone 6 skilled PT visits since Future Testing and Treatments Planned Had seen surgeun 2 weeks from todays date and removed hip adductor brace. Treatment Goals Patient/Caregiver Goals Patient wants to be able to wlak more than 2 miles with no hip discomfort, no assistive device and no gait difficulty. Prior Functional Status Baseline Function- ADL's Independent Baseline Function- Mobility Independent Baseline Function- Gait Unlimited amb. with no AD with near to normal gait. 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 Baseline Function- Recreation/Hobbies unable Current Functional Impairments (Reported) Functional Limitations- ADL's Indep Functional Limitations- Mobility/Gait Able to ambulate 3/4 a mile with STC to left hand Functional Limitations- Work/School Indep with difficulty Functional Limitations- Recreation/ Unable Hobbies PT-OP-C Subjective Start: 08/23/17 15:37 Freq: Status: Active Protocol: Document 11/09/17 17:15 EA (Rec: 11/09/17 17:21 EA [id number]) OP-PT Subjective Patient Comments Patient Comments Patient reports did a lot of swimming and feels her legs are much stronger; denies pain and increase in swelling. PT-OP-F Manual Assessment Start: 08/23/17 15:37 Freq: Status: Active Protocol: Document 09/07/17 08:21 EA (Rec: 09/12/17 09:03 EA [id number]) Manual Assessments Soft Tissue Assessment Soft Tissue Mobility Assessment Right: Limited hip ER/IR, Hip extension by ~ 10 degrees. Hip flexion ~ 0-100 with pain to groin area. Left: Limited knee flexion to 0-110 degress w/ pain to anterolat knee upon passive overpressure. Joint Mobility Assessment Joint Mobility Assessment Hip joint limitation to right hip flexion with empty enfeel. Limitation to hip ER/IR rotation with empty endfeel. PT-OP-G Mobility & Gait Start: 08/23/17 15:37 Freq: Status: Active Protocol: Document 09/07/17 08:21 EA (Rec: 09/12/17 09:03 EA [id number]) OP Mobility Evaluation Bed Mobility Rolling indep Supine to and from Sit indep Functional Movements Lifting and Carrying With moderate difficulty Squats With High diffcilty Running Assessment unable PT-OP-K Range of Motion Start: 08/23/17 15:37 Freq: Status: Active Protocol: Document 10/18/17 14:30 GGD (Rec: 10/18/17 16:00 GGD [email or web address]) Hip Goniometric Range of Motion Hip Measured in Degrees Right Active Testing Position Supine Flexion w/Knee Flexed 100 Extension 5 Internal Rotation 25 External Rotation 30 PT-OP-M Strength Start: 08/23/17 15:37 Freq: Status: Active Protocol: Document 10/18/17 14:30 GGD (Rec: 10/18/17 16:00 GGD [email or web address]) Hip Strength Hip Manual Muscle Testing Right Flexion (L2) 3+ Fair+ Extension (S1) 4- Good- Adduction 4- Good- External Rotation 3+ Fair+ Internal Rotation 3 Fair PT-OP-Q Treatments Start: 08/23/17 15:37 Freq: Status: Active Protocol: Document 11/09/17 17:15 EA (Rec: 11/09/17 17:21 EA [id number]) Cardio Equipment Recumbent Stepper (Sci-Fit) Duration (Minutes) 10 Resistance 3 Seat Position 9 Other no hand support Gym Equipment Cable Column (Body Solid) Leg Extension Resistance 2-3 plates Reps/Time 12-15 reps x 13 Hip Adduction Resistance 1.5 plates Reps/Time 12-15 x 3 Hip Abduction Resistance 2 plates Reps/Time 12-15 reps x 3 Shuttle Recovery Unilateral Squats Details Bilat Resistance 75-100 Reps/Time 2x15 Bilateral Squats Resistance 4-6cords Shuttle Recovery Platform Stable Reps/Time 15 x 3 Therapeutic Exercises Sitting Exercises 1 Sitting Exercise Name Sitted bilat TB hip ER/IR Side bilateral Equipment Used BTB Reps/Minutes 10 x 2 PT-OP-T Assessment and Plan Start: 08/23/17 15:37 Freq: Status: Active Protocol: Document 11/09/17 17:15 EA (Rec: 11/09/17 17:21 EA [id number]) Physical Therapy Assessment Assessment Summary Assessment Patient had improved gait with control heel to toe gait training. Physical Therapy Plan Next Visit Focus/Plan Next Note Type Treatment Note Next Visit Plan Cont with current plan.
--- NOTE | 2017-11-15 16:44 | PT.OTN ---
Current Diagnoses Presence of unspecified artificial hip joint (08/26/17) Presence of unspecified artificial hip joint (11/15/17) Physical Therapy Treatment Note PT-OP-A Visit Information Start: 08/23/17 15:37 Freq: Status: Active Protocol: Document 11/15/17 15:58 EA (Rec: 11/15/17 16:02 EA [id number]) Out-Patient Physical Therapy Visit Information Visit Information Visit Type Treatment Note Visit Start Time 15:15 Visit Stop Time 16:00 Total Visit Minutes 38 Visit Number 04/10 PT-OP-B Current Condition Start: 08/23/17 15:37 Freq: Status: Active Protocol: Document 09/07/17 08:21 EA (Rec: 09/12/17 09:03 EA [id number]) Current Condition History of Current Condition Onset Date 05/12/17 Current Complaints C/O difficulty in all weight bearing mobility d/t R hip weakness and pain History of Current Condition S/P R HYACINTH revision 05/12/17 with disclocation 4 days after revision. Prior Treatments and Tests Patient has undergone 6 skilled PT visits since Future Testing and Treatments Planned Had seen surgeun 2 weeks from todays date and removed hip adductor brace. Treatment Goals Patient/Caregiver Goals Patient wants to be able to wlak more than 2 miles with no hip discomfort, no assistive device and no gait difficulty. Prior Functional Status Baseline Function- ADL's Independent Baseline Function- Mobility Independent Baseline Function- Gait Unlimited amb. with no AD with near to normal gait. 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 Baseline Function- Recreation/Hobbies unable Current Functional Impairments (Reported) Functional Limitations- ADL's Indep Functional Limitations- Mobility/Gait Able to ambulate 3/4 a mile with STC to left hand Functional Limitations- Work/School Indep with difficulty Functional Limitations- Recreation/ Unable Hobbies PT-OP-C Subjective Start: 08/23/17 15:37 Freq: Status: Active Protocol: Document 11/15/17 15:58 EA (Rec: 11/15/17 16:02 EA [id number]) OP-PT Subjective Patient Comments Patient Comments Patient reports that she has been doing stationary bike now for more than 20 mins; states hips is getting better. PT-OP-F Manual Assessment Start: 08/23/17 15:37 Freq: Status: Active Protocol: Document 09/07/17 08:21 EA (Rec: 09/12/17 09:03 EA [id number]) Manual Assessments Soft Tissue Assessment Soft Tissue Mobility Assessment Right: Limited hip ER/IR, Hip extension by ~ 10 degrees. Hip flexion ~ 0-100 with pain to groin area. Left: Limited knee flexion to 0-110 degress w/ pain to anterolat knee upon passive overpressure. Joint Mobility Assessment Joint Mobility Assessment Hip joint limitation to right hip flexion with empty enfeel. Limitation to hip ER/IR rotation with empty endfeel. PT-OP-G Mobility & Gait Start: 08/23/17 15:37 Freq: Status: Active Protocol: Document 09/07/17 08:21 EA (Rec: 09/12/17 09:03 EA [id number]) OP Mobility Evaluation Bed Mobility Rolling indep Supine to and from Sit indep Functional Movements Lifting and Carrying With moderate difficulty Squats With High diffcilty Running Assessment unable PT-OP-K Range of Motion Start: 08/23/17 15:37 Freq: Status: Active Protocol: Document 10/18/17 14:30 GGD (Rec: 10/18/17 16:00 GGD [email or web address]) Hip Goniometric Range of Motion Hip Measured in Degrees Right Active Testing Position Supine Flexion w/Knee Flexed 100 Extension 5 Internal Rotation 25 External Rotation 30 PT-OP-M Strength Start: 08/23/17 15:37 Freq: Status: Active Protocol: Document 10/18/17 14:30 GGD (Rec: 10/18/17 16:00 GGD [email or web address]) Hip Strength Hip Manual Muscle Testing Right Flexion (L2) 3+ Fair+ Extension (S1) 4- Good- Adduction 4- Good- External Rotation 3+ Fair+ Internal Rotation 3 Fair PT-OP-Q Treatments Start: 08/23/17 15:37 Freq: Status: Active Protocol: Document 11/15/17 15:58 EA (Rec: 11/15/17 16:02 EA [id number]) Cardio Equipment Recumbent Stepper (Sci-Fit) Duration (Minutes) 10 Resistance 4 Seat Position 9 Other no hand support Gym Equipment Cable Column (Body Solid) Leg Extension Resistance 2-3 plates Reps/Time 12-15 reps x 13 Hip Adduction Resistance 1.5 -3plates Reps/Time 12-15 x 3 Hip Abduction Resistance 2 plates Reps/Time 12-15 reps x 3 Shuttle Recovery Unilateral Squats Details Bilat Resistance 75 Reps/Time 2x15 Bilateral Squats Resistance 4-6cords Shuttle Recovery Platform Stable Reps/Time 15 x 3 Therapeutic Exercises Sitting Exercises 2 Sitting Exercise Name hip ER/IR Side bilateral Resistance BTB Reps/Minutes x 12 reps x 2 1 Sitting Exercise Name Sitted bilat TB hip ER/IR Side bilateral Equipment Used BTB Reps/Minutes 10 x 2 PT-OP-T Assessment and Plan Start: 08/23/17 15:37 Freq: Status: Active Protocol: Document 11/15/17 15:58 EA (Rec: 11/15/17 16:02 EA [id number]) Physical Therapy Assessment Assessment Summary Assessment Tolerated treatment well. Physical Therapy Plan Next Visit Focus/Plan Next Visit Plan Advance as tolerated.
--- NOTE | 2017-11-22 14:21 | PT.OTN ---
Current Diagnoses Presence of unspecified artificial hip joint (08/26/17) Presence of unspecified artificial hip joint (11/22/17) Physical Therapy Treatment Note PT-OP-A Visit Information Start: 08/23/17 15:37 Freq: Status: Active Protocol: Document 11/22/17 13:10 EA (Rec: 11/22/17 13:48 EA [id number]) Out-Patient Physical Therapy Visit Information Visit Information Visit Start Time 13:00 Visit Stop Time 13:45 Total Visit Minutes 38 Visit Number PT-OP-B Current Condition Start: 08/23/17 15:37 Freq: Status: Active Protocol: Document 09/07/17 08:21 EA (Rec: 09/12/17 09:03 EA [id number]) Current Condition History of Current Condition Onset Date 05/12/17 Current Complaints C/O difficulty in all weight bearing mobility d/t R hip weakness and pain History of Current Condition S/P R HYACINTH revision 05/12/17 with disclocation 4 days after revision. Prior Treatments and Tests Patient has undergone 6 skilled PT visits since Future Testing and Treatments Planned Had seen surgeun 2 weeks from todays date and removed hip adductor brace. Treatment Goals Patient/Caregiver Goals Patient wants to be able to wlak more than 2 miles with no hip discomfort, no assistive device and no gait difficulty. Prior Functional Status Baseline Function- ADL's Independent Baseline Function- Mobility Independent Baseline Function- Gait Unlimited amb. with no AD with near to normal gait. 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 Baseline Function- Recreation/Hobbies unable Current Functional Impairments (Reported) Functional Limitations- ADL's Indep Functional Limitations- Mobility/Gait Able to ambulate 3/4 a mile with STC to left hand Functional Limitations- Work/School Indep with difficulty Functional Limitations- Recreation/ Unable Hobbies PT-OP-C Subjective Start: 08/23/17 15:37 Freq: Status: Active Protocol: Document 11/22/17 13:10 EA (Rec: 11/22/17 13:48 EA [id number]) OP-PT Subjective Patient Comments Patient Comments Pt freports consistent with bike exercises and standing resistance exercises; states no hip pain at this time. PT-OP-F Manual Assessment Start: 08/23/17 15:37 Freq: Status: Active Protocol: Document 09/07/17 08:21 EA (Rec: 09/12/17 09:03 EA [id number]) Manual Assessments Soft Tissue Assessment Soft Tissue Mobility Assessment Right: Limited hip ER/IR, Hip extension by ~ 10 degrees. Hip flexion ~ 0-100 with pain to groin area. Left: Limited knee flexion to 0-110 degress w/ pain to anterolat knee upon passive overpressure. Joint Mobility Assessment Joint Mobility Assessment Hip joint limitation to right hip flexion with empty enfeel. Limitation to hip ER/IR rotation with empty endfeel. PT-OP-G Mobility & Gait Start: 08/23/17 15:37 Freq: Status: Active Protocol: Document 09/07/17 08:21 EA (Rec: 09/12/17 09:03 EA [id number]) OP Mobility Evaluation Bed Mobility Rolling indep Supine to and from Sit indep Functional Movements Lifting and Carrying With moderate difficulty Squats With High diffcilty Running Assessment unable PT-OP-K Range of Motion Start: 08/23/17 15:37 Freq: Status: Active Protocol: Document 10/18/17 14:30 GGD (Rec: 10/18/17 16:00 GGD [email or web address]) Hip Goniometric Range of Motion Hip Measured in Degrees Right Active Testing Position Supine Flexion w/Knee Flexed 100 Extension 5 Internal Rotation 25 External Rotation 30 PT-OP-M Strength Start: 08/23/17 15:37 Freq: Status: Active Protocol: Document 10/18/17 14:30 GGD (Rec: 10/18/17 16:00 GGD [email or web address]) Hip Strength Hip Manual Muscle Testing Right Flexion (L2) 3+ Fair+ Extension (S1) 4- Good- Adduction 4- Good- External Rotation 3+ Fair+ Internal Rotation 3 Fair PT-OP-Q Treatments Start: 08/23/17 15:37 Freq: Status: Active Protocol: Document 11/22/17 13:10 EA (Rec: 11/22/17 13:48 EA [id number]) Gym Equipment Cable Column (Body Solid) Leg Extension Resistance 2-3 plates Reps/Time 12-15 reps x 13 Hip Abduction Resistance 3plates Reps/Time 12-15 reps x 3 Shuttle Recovery Unilateral Squats Details Bilat Resistance 100 Reps/Time 2x15 Bilateral Squats Resistance 4-8cords Shuttle Recovery Platform Stable Reps/Time 15 x 3 Shuttle Rebound 1 Exercise Details FWD/BWD tilt Comments arm challenge. Therapeutic Exercises Sitting Exercises 2 Sitting Exercise Name hip ER/IR Side bilateral Resistance BTB Reps/Minutes x 12 reps x 2 1 Sitting Exercise Name Sitted bilat TB hip ER/IR Side bilateral Equipment Used BTB Reps/Minutes 10 x 2 Standing Exercises 1 Standing Exercise Name Standing side step squat Resistance GTB on both ankle PT-OP-T Assessment and Plan Start: 08/23/17 15:37 Freq: Status: Active Protocol: Document 11/22/17 13:10 EA (Rec: 11/22/17 13:48 EA [id number]) Physical Therapy Assessment Assessment Summary Assessment Patient exhibits improved gait at this time; patient is progressing well. Physical Therapy Plan Next Visit Focus/Plan Next Note Type Treatment Note Next Visit Plan Cont. with current plan.
--- NOTE | 2017-12-21 17:18 | PT.OTRE ---
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 Primary Care Provider Specialty: Medical Address: [address] [place] [address], [id number] Email: [email or web address] Uri Yepez MD Attending Provider Physician Specialty: Family Practice Address: [address] [place] [address], [id number] Email: [email or web address] Physical Therapy Re-Evaluation PT-OP-A Visit Information Start: 08/23/17 15:37 Freq: Status: Active Protocol: Document 12/13/17 15:56 EA (Rec: 12/13/17 16:11 EA [id number]) Out-Patient Physical Therapy Visit Information Visit Information Visit Type Treatment Note Visit Start Time 15:00 Visit Stop Time 15:45 Total Visit Minutes 45 Visit Number PT-OP-B Current Condition Start: 08/23/17 15:37 Freq: Status: Active Protocol: Document 09/07/17 08:21 EA (Rec: 09/12/17 09:03 EA [id number]) Current Condition History of Current Condition Onset Date 05/12/17 Current Complaints C/O difficulty in all weight bearing mobility d/t R hip weakness and pain History of Current Condition S/P R HYACINTH revision 05/12/17 with disclocation 4 days after revision. Prior Treatments and Tests Patient has undergone 6 skilled PT visits since Future Testing and Treatments Planned Had seen surgeun 2 weeks from todays date and removed hip adductor brace. Treatment Goals Patient/Caregiver Goals Patient wants to be able to wlak more than 2 miles with no hip discomfort, no assistive device and no gait difficulty. Prior Functional Status Baseline Function- ADL's Independent Baseline Function- Mobility Independent Baseline Function- Gait Unlimited amb. with no AD with near to normal gait. 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 Baseline Function- Recreation/Hobbies unable Current Functional Impairments (Reported) Functional Limitations- ADL's Indep Functional Limitations- Mobility/Gait Able to ambulate 3/4 a mile with STC to left hand Functional Limitations- Work/School Indep with difficulty Functional Limitations- Recreation/ Unable Hobbies PT-OP-C Subjective Start: 08/23/17 15:37 Freq: Status: Active Protocol: Document 12/13/17 15:56 EA (Rec: 12/13/17 16:11 EA [id number]) OP-PT Subjective Patient Comments Patient Comments Patient reports unable to come to last to PT scheduels due to her busy scheduled; states has been compliant with HEP and feels she has been improving. Patient Reported Progress Improving Patient Questionnaires Lower Extremity Functional Scale LEFS Score 70 LEFS Impairment 60 to 79% Impaired (Score 17- 31) PT-OP-F Manual Assessment Start: 08/23/17 15:37 Freq: Status: Active Protocol: Document 09/07/17 08:21 EA (Rec: 09/12/17 09:03 EA [id number]) Manual Assessments Soft Tissue Assessment Soft Tissue Mobility Assessment Right: Limited hip ER/IR, Hip extension by ~ 10 degrees. Hip flexion ~ 0-100 with pain to groin area. Left: Limited knee flexion to 0-110 degress w/ pain to anterolat knee upon passive overpressure. Joint Mobility Assessment Joint Mobility Assessment Hip joint limitation to right hip flexion with empty enfeel. Limitation to hip ER/IR rotation with empty endfeel. PT-OP-G Mobility & Gait Start: 08/23/17 15:37 Freq: Status: Active Protocol: Document 09/07/17 08:21 EA (Rec: 09/12/17 09:03 EA [id number]) OP Mobility Evaluation Bed Mobility Rolling indep Supine to and from Sit indep Functional Movements Lifting and Carrying With moderate difficulty Squats With High diffcilty Running Assessment unable PT-OP-K Range of Motion Start: 08/23/17 15:37 Freq: Status: Active Protocol: Document 10/18/17 14:30 GGD (Rec: 10/18/17 16:00 GGD [email or web address]) Hip Goniometric Range of Motion Hip Measured in Degrees Right Active Testing Position Supine Flexion w/Knee Flexed 100 Extension 5 Internal Rotation 25 External Rotation 30 PT-OP-M Strength Start: 08/23/17 15:37 Freq: Status: Active Protocol: Document 10/18/17 14:30 GGD (Rec: 10/18/17 16:00 GGD [email or web address]) Hip Strength Hip Manual Muscle Testing Right Flexion (L2) 3+ Fair+ Extension (S1) 4- Good- Adduction 4- Good- External Rotation 3+ Fair+ Internal Rotation 3 Fair PT-OP-Q Treatments Start: 08/23/17 15:37 Freq: Status: Active Protocol: Document 12/13/17 15:56 EA (Rec: 12/13/17 16:11 EA [id number]) Cardio Equipment Recumbent Stepper (Sci-Fit) Duration (Minutes) 10 Resistance 3-5 Seat Position 12-8 Other no hand support Gym Equipment Shuttle Recovery Unilateral Squats Details Bilat Resistance 112 Reps/Time 2x15 Bilateral Squats Resistance 4-8cords Shuttle Recovery Platform Stable Reps/Time 15 x 3 Shuttle Balance 1 Details FWD/BWD tilt Therapeutic Exercises Prone Exercises 1 Prone Exercise Name Prone hip ext Side bilateral Resistance 5 lbs Reps/Minutes x 12 reps x 2 sets Sitting Exercises 2 Sitting Exercise Name hip ER/IR Side bilateral Resistance BTB Reps/Minutes x 12 reps x 2 1 Sitting Exercise Name Sitted bilat TB hip ER/IR Side bilateral Equipment Used BTB Reps/Minutes 10 x 2 Standing Exercises 4 Standing Exercise Name 8 step with knee up pause Reps/Minutes x 10 repsx 2 sets 3 Standing Exercise Name 8 step lunges Reps/Minutes x 10 reps x 2 sets 2 Standing Exercise Name BUSO: step in/ou- FWD/SWD Reps/Minutes x 10 reps x 3 sets each 1 Standing Exercise Name Standing side step squat Resistance GTB on both ankle PT-OP-T Assessment and Plan Start: 08/23/17 15:37 Freq: Status: Active Protocol: Document 12/13/17 15:56 EA (Rec: 12/13/17 16:11 EA [id number]) Physical Therapy Assessment Goals Five Impairment Distance ambulation of less than 1 mile Fermenter Champagne Goal (LTG) Patient will exhibit > 1.5 mile distance ambulation. LTG Duration 4 wks Four Impairment Antalgic gait w/ decreased WB to RLE Fermenter [employer]agne Goal (LTG) Patient will exhibit near to nomal gait with no AD on uneven surfaces LTG Duration 4 wks Three Impairment LEFS score of 35 Short Term Goal (STG) Patient will reports LEFS score of > 50 STG Duration reached Fermenter [employer]agne Goal (LTG) LEFS score of > 72 LTG Duration 4 wks One Impairment Hip Flexors/ ABD/ ADD/ Extensors/ Rotators strength of 3+/5 Fermenter [place]agne Goal (LTG) Patient will exhibit increase hip strength by 1 level for improvement gait and functional mobility LTG Duration 4 wks Progress Towards Goals Progress Towards Goals Progressing Toward Goals Progress Comments Patient exhibited improved hip strength and functional mobility tolerance. Assessment Summary Assessment Patient continue to progress with functional mobility on even surfaces. Slight instability noted with uneven surface. Overall, patient is progressing well and continue to benefit with skilled PT. Physical Therapy Plan Frequency and Duration Frequency of Treatment 2x/Week Duration of Treatment 2 months Plan of Care Start Date 12/13/17 Plan of Care End Date 02/07/18 Therapeutic Interventions Therapeutic Interventions Home Exercise Program Joint Mobilizations Manual Therapy Patient/Caregiver Education Self-Care/Home Management Soft Tissue Mobilization Therapeutic Exercises Next Visit Focus/Plan Next Note Type Treatment Note Next Visit Plan advance as tolerated.
--- NOTE | 2017-12-21 17:20 | PT.OPPOC ---
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 Primary Care Provider Specialty: Medical Address: [address] [place] [address], [id number] Email: [email or web address] Yepez MD Attending Provider Physician Specialty: Family Practice Address: [address] [place] [address], [phone] Email: [email or web address] Plan Of Care PT-OP-T Assessment and Plan Start: 08/23/17 15:37 Freq: Status: Active Protocol: Document 12/13/17 15:56 EA (Rec: 12/13/17 16:11 EA [id number]) Physical Therapy Assessment Goals Five Impairment Distance ambulation of less than 1 mile Group Home Goal (LTG) Patient will exhibit > 1.5 mile distance ambulation. LTG Duration 4 wks Four Impairment Antalgic gait w/ decreased WB to RLE Group Home Goal (LTG) Patient will exhibit near to nomal gait with no AD on uneve surfaces LTG Duration 4 wks Three Impairment LEFS score of 35 Short Term Goal (STG) Patient will reports LEFS score of > 50 STG Duration reached Collar Turner Goal (LTG) LEFS score of > 72 LTG Duration 4 wks One Impairment Hip Flexors/ ABD/ ADD/ Extensrs/ Rotators strength of 3+/5 Collar Turner Goal (LTG) Patient will exhibit increse hip strength by 1 level for improvement gait and functional mobility LTG Duration 4 wks Progress Towards Goals Progress Towards Goals Progressing Toward Goals Progress Comments Patient exhibited improved hip strength and functional mobility tolerance. Assessment Summary Assessment Patient continue to progress with functional mobility on even surfaces. Slight instability noted with uneven surface. Overall, patient is progressing well and continue to benefit with skilled PT. Physical Therapy Plan Frequency and Duration Frequency of Treatment 2x/Week Duration of Treatment 2 months Plan of Care Start Date 12/13/17 Plan of Care End Date 02/07/18 Therapeutic Interventions Therapeutic Interventions Home Exercise Program Joint Mobilizations Manual Therapy Patient/Caregiver Education Self-Care/Home Management Soft Tissue Mobilization Therapeutic Exercises Next Visit Focus/Plan Next Note Type Treatment Note Next Visit Plan advance as tolerated. Plan of Care Dates Plan of Care Start Date 12/13/17 Plan of Care End Date 02/07/18 Please Sign and Return: I have reviewed this Plan of Care and certify that the skilled therapy services above are required to meet the patient?s needs. Physician Signature Date Printed Name and Credentials Clinical Instructor Signature Printed Name and Credentials
--- NOTE | 2017-12-27 15:16 | PT.OTN ---
Current Diagnoses Presence of unspecified artificial hip joint (08/26/17) Presence of unspecified artificial hip joint (12/27/17) Physical Therapy Treatment Note PT-OP-A Visit Information Start: 08/23/17 15:37 Freq: Status: Active Protocol: Document 12/13/17 15:56 EA (Rec: 12/13/17 16:11 EA [id number]) Out-Patient Physical Therapy Visit Information Visit Information Visit Type Treatment Note Visit Start Time 15:00 Visit Stop Time 15:45 Total Visit Minutes 45 Visit Number PT-OP-B Current Condition Start: 08/23/17 15:37 Freq: Status: Active Protocol: Document 09/07/17 08:21 EA (Rec: 09/12/17 09:03 EA [id number]) Current Condition History of Current Condition Onset Date 05/12/17 Current Complaints C/O difficulty in all weight bearing mobility d/t R hip weakness and pain History of Current Condition S/P R HYACINTH revision 05/12/17 with disclocation 4 days after revision. Prior Treatments and Tests Patient has undergone 6 skilled PT visits since Future Testing and Treatments Planned Had seen surgeun 2 weeks from todays date and removed hip adductor brace. Treatment Goals Patient/Caregiver Goals Patient wants to be able to wlak more than 2 miles with no hip discomfort, no assistive device and no gait difficulty. Prior Functional Status Baseline Function- ADL's Independent Baseline Function- Mobility Independent Baseline Function- Gait Unlimited amb. with no AD with near to normal gait. 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 Baseline Function- Recreation/Hobbies unable Current Functional Impairments (Reported) Functional Limitations- ADL's Indep Functional Limitations- Mobility/Gait Able to ambulate 3/4 a mile with STC to left hand Functional Limitations- Work/School Indep with difficulty Functional Limitations- Recreation/ Unable Hobbies PT-OP-C Subjective Start: 08/23/17 15:37 Freq: Status: Active Protocol: Document 12/13/17 15:56 EA (Rec: 12/13/17 16:11 EA [id number]) OP-PT Subjective Patient Comments Patient Comments Patient reports unable to come to last to PT scheduels due to her busy scheduled; states has been compliant with HEP and feels she has been improving. Patient Reported Progress Improving Patient Questionnaires Lower Extremity Functional Scale LEFS Score 70 LEFS Impairment 60 to 79% Impaired (Score 17- 31) PT-OP-F Manual Assessment Start: 08/23/17 15:37 Freq: Status: Active Protocol: Document 09/07/17 08:21 EA (Rec: 09/12/17 09:03 EA [id number]) Manual Assessments Soft Tissue Assessment Soft Tissue Mobility Assessment Right: Limited hip ER/IR, Hip extension by ~ 10 degrees. Hip flexion ~ 0-100 with pain to groin area. Left: Limited knee flexion to 0-110 degress w/ pain to anterolat knee upon passive overpressure. Joint Mobility Assessment Joint Mobility Assessment Hip joint limitation to right hip flexion with empty enfeel. Limitation to hip ER/IR rotation with empty endfeel. PT-OP-G Mobility & Gait Start: 08/23/17 15:37 Freq: Status: Active Protocol: Document 09/07/17 08:21 EA (Rec: 09/12/17 09:03 EA [id number]) OP Mobility Evaluation Bed Mobility Rolling indep Supine to and from Sit indep Functional Movements Lifting and Carrying With moderate difficulty Squats With High diffcilty Running Assessment unable PT-OP-K Range of Motion Start: 08/23/17 15:37 Freq: Status: Active Protocol: Document 10/18/17 14:30 GGD (Rec: 10/18/17 16:00 GGD [email or web address]) Hip Goniometric Range of Motion Hip Measured in Degrees Right Active Testing Position Supine Flexion w/Knee Flexed 100 Extension 5 Internal Rotation 25 External Rotation 30 PT-OP-M Strength Start: 08/23/17 15:37 Freq: Status: Active Protocol: Document 10/18/17 14:30 GGD (Rec: 10/18/17 16:00 GGD [email or web address]) Hip Strength Hip Manual Muscle Testing Right Flexion (L2) 3+ Fair+ Extension (S1) 4- Good- Adduction 4- Good- External Rotation 3+ Fair+ Internal Rotation 3 Fair PT-OP-Q Treatments Start: 08/23/17 15:37 Freq: Status: Active Protocol: Document 12/13/17 15:56 EA (Rec: 12/13/17 16:11 EA [id number]) Cardio Equipment Recumbent Stepper (Sci-Fit) Duration (Minutes) 10 Resistance 3-5 Seat Position 12-8 Other no hand support Gym Equipment Shuttle Recovery Unilateral Squats Details Bilat Resistance 112 Reps/Time 2x15 Bilateral Squats Resistance 4-8cords Shuttle Recovery Platform Stable Reps/Time 15 x 3 Shuttle Balance 1 Details FWD/BWD tilt Therapeutic Exercises Prone Exercises 1 Prone Exercise Name Prone hip ext Side bilateral Resistance 5 lbs Reps/Minutes x 12 reps x 2 sets Sitting Exercises 2 Sitting Exercise Name hip ER/IR Side bilateral Resistance BTB Reps/Minutes x 12 reps x 2 1 Sitting Exercise Name Sitted bilat TB hip ER/IR Side bilateral Equipment Used BTB Reps/Minutes 10 x 2 Standing Exercises 4 Standing Exercise Name 8 step with knee up pause Reps/Minutes x 10 repsx 2 sets 3 Standing Exercise Name 8 step lunges Reps/Minutes x 10 reps x 2 sets 2 Standing Exercise Name BUSO: step in/ou- FWD/SWD Reps/Minutes x 10 reps x 3 sets each 1 Standing Exercise Name Standing side step squat Resistance GTB on both ankle PT-OP-T Assessment and Plan Start: 08/23/17 15:37 Freq: Status: Active Protocol: Document 12/13/17 15:56 EA (Rec: 12/13/17 16:11 EA [id number]) Physical Therapy Assessment Goals Five Impairment Distance abulation of less than 1 mile Shelter Goal (LTG) Patient will exhibit > 1.5 mile distance ambulation. LTG Duration 4 wks Four Impairment Antalgic gait w/ decreased WB to RLE Hemming And Tacking Machine Operator Goal (LTG) Patient will exhibit near to nomal gait with no AD on uneve surfaces LTG Duration 4 wks Three Impairment LEFS score of 35 Short Term Goal (STG) Patient will reports LEFS score of > 50 STG Duration reached Shelter Goal (LTG) LEFS score of > 72 LTG Duration 4 wks One Impairment Hip Flexors/ ABD/ ADD/ Extensrs/ Rotators strength of 3+/5 Hemming And Tacking Machine Operator Goal (LTG) Patient will exhibit increse hip strength by 1 level for improvement gait and functional mobility LTG Duration 4 wks Progress Towards Goals Progress Towards Goals Progressing Toward Goals Progress Comments Patient exhbited improved hip strength and functional mobility tolerance. Assessment Summary Assessment Patient continue to progress with funtional mobility on even surfaces. Slight instability noted with uneven surface. Overall, patient is progressing well and continue to benefit with skilled PT. Physical Therapy Plan Frequency and Duration Frequency of Treatment 2x/Week Duration of Treatment 2 months Plan of Care Start Date 12/13/17 Plan of Care End Date 02/07/18 Therapeutic Interventions Therapeutic Interventions Home Exercise Program Joint Mobilizations Manual Therapy Patient/Caregiver Education Self-Care/Home Management Soft Tissue Mobilization Therapeutic Exercises Next Visit Focus/Plan Next Note Type Treatment Note Next Visit Plan advance as tolerated.
--- NOTE | 2017-12-27 16:05 | PT.OTN ---
Current Diagnoses Presence of unspecified artificial hip joint (08/26/17) Presence of unspecified artificial hip joint (12/27/17) Physical Therapy Treatment Note PT-OP-A Visit Information Start: 08/23/17 15:37 Freq: Status: Active Protocol: Document 12/27/17 16:05 EA (Rec: 12/27/17 16:05 EA [id number]) Out-Patient Physical Therapy Visit Information Visit Information Visit Type Treatment Note Visit Start Time 15:15 Visit Stop Time 16:00 Total Visit Minutes 45 Visit Number PT-OP-B Current Condition Start: 08/23/17 15:37 Freq: Status: Active Protocol: Document 09/07/17 08:21 EA (Rec: 09/12/17 09:03 EA [id number]) Current Condition History of Current Condition Onset Date 05/12/17 Current Complaints C/O difficulty in all weight bearing mobility d/t R hip weakness and pain History of Current Condition S/P R HYACINTH revision 05/12/17 with disclocation 4 days after revision. Prior Treatments and Tests Patient has undergone 6 skilled PT visits since Future Testing and Treatments Planned Had seen surgeun 2 weeks from todays date and removed hip adductor brace. Treatment Goals Patient/Caregiver Goals Patient wants to be able to wlak more than 2 miles with no hip discomfort, no assistive device and no gait difficulty. Prior Functional Status Baseline Function- ADL's Independent Baseline Function- Mobility Independent Baseline Function- Gait Unlimited amb. with no AD with near to normal gait. 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 Baseline Function- Recreation/Hobbies unable Current Functional Impairments (Reported) Functional Limitations- ADL's Indep Functional Limitations- Mobility/Gait Able to ambulate 3/4 a mile with STC to left hand Functional Limitations- Work/School Indep with difficulty Functional Limitations- Recreation/ Unable Hobbies PT-OP-C Subjective Start: 08/23/17 15:37 Freq: Status: Active Protocol: Document 12/27/17 15:21 EA (Rec: 12/27/17 16:05 EA [id number]) OP-PT Subjective Patient Comments Patient Comments Pt reports unable to perform HEP due to busy schedule; dnies hip pain except with left knee pain when it bends. Patient reports is willing to get back on exer's. PT-OP-F Manual Assessment Start: 08/23/17 15:37 Freq: Status: Active Protocol: Document 09/07/17 08:21 EA (Rec: 09/12/17 09:03 EA [id number]) Manual Assessments Soft Tissue Assessment Soft Tissue Mobility Assessment Right: Limited hip ER/IR, Hip extension by ~ 10 degrees. Hip flexion ~ 0-100 with pain to groin area. Left: Limited knee flexion to 0-110 degress w/ pain to anterolat knee upon passive overpressure. Joint Mobility Assessment Joint Mobility Assessment Hip joint limitation to right hip flexion with empty enfeel. Limitation to hip ER/IR rotation with empty endfeel. PT-OP-G Mobility & Gait Start: 08/23/17 15:37 Freq: Status: Active Protocol: Document 09/07/17 08:21 EA (Rec: 09/12/17 09:03 EA [id number]) OP Mobility Evaluation Bed Mobility Rolling indep Supine to and from Sit indep Functional Movements Lifting and Carrying With moderate difficulty Squats With High diffcilty Running Assessment unable PT-OP-K Range of Motion Start: 08/23/17 15:37 Freq: Status: Active Protocol: Document 10/18/17 14:30 GGD (Rec: 10/18/17 16:00 GGD [email or web address]) Hip Goniometric Range of Motion Hip Measured in Degrees Right Active Testing Position Supine Flexion w/Knee Flexed 100 Extension 5 Internal Rotation 25 External Rotation 30 PT-OP-M Strength Start: 08/23/17 15:37 Freq: Status: Active Protocol: Document 10/18/17 14:30 GGD (Rec: 10/18/17 16:00 GGD [email or web address]) Hip Strength Hip Manual Muscle Testing Right Flexion (L2) 3+ Fair+ Extension (S1) 4- Good- Adduction 4- Good- External Rotation 3+ Fair+ Internal Rotation 3 Fair PT-OP-Q Treatments Start: 08/23/17 15:37 Freq: Status: Active Protocol: Document 12/27/17 15:21 EA (Rec: 12/27/17 16:05 EA [id number]) Cardio Equipment Recumbent Stepper (Sci-Fit) Duration (Minutes) 10 Resistance 3-5 Seat Position 12-8 Other no hand support Therapeutic Exercises Prone Exercises 1 Prone Exercise Name Prone hip ext Side bilateral Resistance 5 lbs Reps/Minutes x 12 reps x 2 sets Sitting Exercises 2 Sitting Exercise Name hip ER/IR Side bilateral Resistance BTB Reps/Minutes x 12 reps x 2 1 Sitting Exercise Name Sitted bilat TB hip ER/IR Side bilateral Equipment Used BTB Reps/Minutes 10 x 2 Standing Exercises 5 Standing Exercise Name // baRS SUPPORTED LUNGES. Reps/Minutes X 8 REPS X 2 SETS 4 Standing Exercise Name Buso in/out FWD/SWD 3 Standing Exercise Name 8 step lunges Reps/Minutes x 10 reps x 2 sets 2 Standing Exercise Name BUSO: step in/ou- FWD/SWD Reps/Minutes x 10 reps x 3 sets each 1 Standing Exercise Name Standing side step squat Resistance GTB on both ankle PT-OP-T Assessment and Plan Start: 08/23/17 15:37 Freq: Status: Active Protocol: Document 12/27/17 15:21 EA (Rec: 12/27/17 16:05 EA [id number]) Physical Therapy Assessment Assessment Summary Assessment Tolerated treatment well with slight difficulty with balnce exercises. Physical Therapy Plan Next Visit Focus/Plan Next Note Type Treatment Note Next Visit Plan advance as tolerated.
--- NOTE | 2018-01-03 15:58 | PT.OTN ---
Current Diagnoses Presence of unspecified artificial hip joint (08/26/17) Presence of unspecified artificial hip joint (01/03/18) Physical Therapy Treatment Note PT-OP-A Visit Information Start: 08/23/17 15:37 Freq: Status: Active Protocol: Document 01/03/18 15:13 EA (Rec: 01/03/18 15:58 EA [id number]) Out-Patient Physical Therapy Visit Information Visit Information Visit Type Treatment Note Visit Start Time 15:15 Visit Stop Time 16:00 Total Visit Minutes 45 Visit Number PT-OP-B Current Condition Start: 08/23/17 15:37 Freq: Status: Active Protocol: Document 09/07/17 08:21 EA (Rec: 09/12/17 09:03 EA [id number]) Current Condition History of Current Condition Onset Date 05/12/17 Current Complaints C/O difficulty in all weight bearing mobility d/t R hip weakness and pain History of Current Condition S/P R HYACINTH revision 05/12/17 with disclocation 4 days after revision. Prior Treatments and Tests Patient has undergone 6 skilled PT visits since Future Testing and Treatments Planned Had seen surgeun 2 weeks from todays date and removed hip adductor brace. Treatment Goals Patient/Caregiver Goals Patient wants to be able to wlak more than 2 miles with no hip discomfort, no assistive device and no gait difficulty. Prior Functional Status Baseline Function- ADL's Independent Baseline Function- Mobility Independent Baseline Function- Gait Unlimited amb. with no AD with near to normal gait. 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 Baseline Function- Recreation/Hobbies unable Current Functional Impairments (Reported) Functional Limitations- ADL's Indep Functional Limitations- Mobility/Gait Able to ambulate 3/4 a mile with STC to left hand Functional Limitations- Work/School Indep with difficulty Functional Limitations- Recreation/ Unable Hobbies PT-OP-C Subjective Start: 08/23/17 15:37 Freq: Status: Active Protocol: Document 01/03/18 15:13 EA (Rec: 01/03/18 15:58 EA [id number]) OP-PT Subjective Patient Comments Patient Comments Pt [place] more than hour with no hip discomfort; states left knee is bothering her much. PT-OP-F Manual Assessment Start: 08/23/17 15:37 Freq: Status: Active Protocol: Document 09/07/17 08:21 EA (Rec: 09/12/17 09:03 EA [id number]) Manual Assessments Soft Tissue Assessment Soft Tissue Mobility Assessment Right: Limited hip ER/IR, Hip extension by ~ 10 degrees. Hip flexion ~ 0-100 with pain to groin area. Left: Limited knee flexion to 0-110 degress w/ pain to anterolat knee upon passive overpressure. Joint Mobility Assessment Joint Mobility Assessment Hip joint limitation to right hip flexion with empty enfeel. Limitation to hip ER/IR rotation with empty endfeel. PT-OP-G Mobility & Gait Start: 08/23/17 15:37 Freq: Status: Active Protocol: Document 09/07/17 08:21 EA (Rec: 09/12/17 09:03 EA [id number]) OP Mobility Evaluation Bed Mobility Rolling indep Supine to and from Sit indep Functional Movements Lifting and Carrying With moderate difficulty Squats With High diffcilty Running Assessment unable PT-OP-K Range of Motion Start: 08/23/17 15:37 Freq: Status: Active Protocol: Document 10/18/17 14:30 GGD (Rec: 10/18/17 16:00 GGD [email or web address]) Hip Goniometric Range of Motion Hip Measured in Degrees Right Active Testing Position Supine Flexion w/Knee Flexed 100 Extension 5 Internal Rotation 25 External Rotation 30 PT-OP-M Strength Start: 08/23/17 15:37 Freq: Status: Active Protocol: Document 10/18/17 14:30 GGD (Rec: 10/18/17 16:00 GGD [email or web address]) Hip Strength Hip Manual Muscle Testing Right Flexion (L2) 3+ Fair+ Extension (S1) 4- Good- Adduction 4- Good- External Rotation 3+ Fair+ Internal Rotation 3 Fair PT-OP-Q Treatments Start: 08/23/17 15:37 Freq: Status: Active Protocol: Document 01/03/18 15:13 EA (Rec: 01/03/18 15:58 EA [id number]) Cardio Equipment Recumbent Stepper (Sci-Fit) Duration (Minutes) 10 Resistance 3-5 Seat Position 12-8 Other no hand support Gym Equipment Shuttle Recovery Unilateral Squats Details Bilat Resistance 112 Reps/Time 2x15 Therapeutic Exercises Prone Exercises 1 Prone Exercise Name Prone hip ext Side bilateral Resistance 5 lbs Reps/Minutes x 12 reps x 2 sets Sitting Exercises 2 Sitting Exercise Name hip ER/IR Side bilateral Resistance BTB Reps/Minutes x 12 reps x 2 Standing Exercises 5 Standing Exercise Name // baRS SUPPORTED LUNGES. Reps/Minutes X 8 REPS X 2 SETS 4 Standing Exercise Name 8 step with knee up pause Reps/Minutes x 10 repsx 2 sets 3 Standing Exercise Name 8 step lunges Reps/Minutes x 10 reps x 2 sets 2 Standing Exercise Name 4 step board: step in/ou- FWD /SWD Reps/Minutes x 10 reps x 3 sets each 1 Standing Exercise Name Standing side step squat Resistance GTB on both ankle PT-OP-T Assessment and Plan Start: 08/23/17 15:37 Freq: Status: Active Protocol: Document 01/03/18 15:13 EA (Rec: 01/03/18 15:58 EA [id number]) Physical Therapy Assessment Assessment Summary Assessment Patient cont. to progress with hip strength. Recommended to cont. Bilat hip AROM. Physical Therapy Plan Next Visit Focus/Plan Next Note Type Treatment Note Next Visit Plan advance as tolerated.
--- NOTE | 2018-01-10 16:04 | PT.OTN ---
Current Diagnoses Presence of unspecified artificial hip joint (08/26/17) Presence of unspecified artificial hip joint (01/10/18) Physical Therapy Treatment Note PT-OP-A Visit Information Start: 08/23/17 15:37 Freq: Status: Active Protocol: Document 01/10/18 15:58 EA (Rec: 01/10/18 16:04 EA [id number]) Out-Patient Physical Therapy Visit Information Visit Information Visit Type Treatment Note Visit Start Time 15:15 Visit Stop Time 16:00 Total Visit Minutes 40 Visit Number PT-OP-B Current Condition Start: 08/23/17 15:37 Freq: Status: Active Protocol: Document 09/07/17 08:21 EA (Rec: 09/12/17 09:03 EA [id number]) Current Condition History of Current Condition Onset Date 05/12/17 Current Complaints C/O difficulty in all weight bearing mobility d/t R hip weakness and pain History of Current Condition S/P R HYACINTH revision 05/12/17 with disclocation 4 days after revision. Prior Treatments and Tests Patient has undergone 6 skilled PT visits since Future Testing and Treatments Planned Had seen surgeun 2 weeks from todays date and removed hip adductor brace. Treatment Goals Patient/Caregiver Goals Patient wants to be able to wlak more than 2 miles with no hip discomfort, no assistive device and no gait difficulty. Prior Functional Status Baseline Function- ADL's Independent Baseline Function- Mobility Independent Baseline Function- Gait Unlimited amb. with no AD with near to normal gait. 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 Baseline Function- Recreation/Hobbies unable Current Functional Impairments (Reported) Functional Limitations- ADL's Indep Functional Limitations- Mobility/Gait Able to ambulate 3/4 a mile with STC to left hand Functional Limitations- Work/School Indep with difficulty Functional Limitations- Recreation/ Unable Hobbies PT-OP-C Subjective Start: 08/23/17 15:37 Freq: Status: Active Protocol: Document 01/10/18 15:58 EA (Rec: 01/10/18 16:04 EA [id number]) OP-PT Subjective Patient Comments Patient Comments Pt reports walk in the beach for more than an hour and picking up the shell; states hip is getting much better, however feels still difficult when getting up from the ground; has to go back chase PT-OP-F Manual Assessment Start: 08/23/17 15:37 Freq: Status: Active Protocol: Document 09/07/17 08:21 EA (Rec: 09/12/17 09:03 EA [id number]) Manual Assessments Soft Tissue Assessment Soft Tissue Mobility Assessment Right: Limited hip ER/IR, Hip extension by ~ 10 degrees. Hip flexion ~ 0-100 with pain to groin area. Left: Limited knee flexion to 0-110 degress w/ pain to anterolat knee upon passive overpressure. Joint Mobility Assessment Joint Mobility Assessment Hip joint limitation to right hip flexion with empty enfeel. Limitation to hip ER/IR rotation with empty endfeel. PT-OP-G Mobility & Gait Start: 08/23/17 15:37 Freq: Status: Active Protocol: Document 09/07/17 08:21 EA (Rec: 09/12/17 09:03 EA [id number]) OP Mobility Evaluation Bed Mobility Rolling indep Supine to and from Sit indep Functional Movements Lifting and Carrying With moderate difficulty Squats With High diffcilty Running Assessment unable PT-OP-K Range of Motion Start: 08/23/17 15:37 Freq: Status: Active Protocol: Document 10/18/17 14:30 GGD (Rec: 10/18/17 16:00 GGD [email or web address]) Hip Goniometric Range of Motion Hip Measured in Degrees Right Active Testing Position Supine Flexion w/Knee Flexed 100 Extension 5 Internal Rotation 25 External Rotation 30 PT-OP-M Strength Start: 08/23/17 15:37 Freq: Status: Active Protocol: Document 10/18/17 14:30 GGD (Rec: 10/18/17 16:00 GGD [email or web address]) Hip Strength Hip Manual Muscle Testing Right Flexion (L2) 3+ Fair+ Extension (S1) 4- Good- Adduction 4- Good- External Rotation 3+ Fair+ Internal Rotation 3 Fair PT-OP-Q Treatments Start: 08/23/17 15:37 Freq: Status: Active Protocol: Document 01/10/18 15:58 EA (Rec: 01/10/18 16:04 EA [id number]) Cardio Equipment Recumbent Stepper (Sci-Fit) Duration (Minutes) 8 Resistance 3-5 Seat Position 12-8 Other no hand support Gym Equipment Cable Column (Body Solid) Leg Extension Resistance 20lbs Reps/Time x 10 reps x 2 sets Shuttle Recovery Unilateral Squats Details Bilat Resistance 112 Reps/Time 2x15 Shuttle Balance 1 Details FWD/BWD tilt Therapeutic Exercises Prone Exercises 1 Prone Exercise Name Prone hip ext Side bilateral Resistance 5 lbs Reps/Minutes x 12 reps x 2 sets Sitting Exercises 2 Sitting Exercise Name hip ER/IR Side bilateral Resistance BTB Reps/Minutes x 12 reps x 2 Standing Exercises 5 Standing Exercise Name // baRS SUPPORTED LUNGES. Reps/Minutes X 8 REPS X 2 SETS 4 Standing Exercise Name 8 step with knee up pause Reps/Minutes x 10 repsx 2 sets 3 Standing Exercise Name 8 step lunges Reps/Minutes x 10 reps x 2 sets 2 Standing Exercise Name 4 step board: step in/ou- FWD /SWD Reps/Minutes x 10 reps x 3 sets each 1 Standing Exercise Name Standing side step squat Resistance GTB on both ankle Other Exercises 1 Other Exercise Name Hip flexion/ABD, clamshell. Reps/Minutes x 15 reps x 2 sets PT-OP-T Assessment and Plan Start: 08/23/17 15:37 Freq: Status: Active Protocol: Document 01/10/18 15:58 EA (Rec: 01/10/18 16:04 EA [id number]) Physical Therapy Assessment Assessment Summary Assessment Pt tolerated treatment well. requires cues to perform lunges. Physical Therapy Plan Next Visit Focus/Plan Next Note Type Treatment Note Next Visit Plan advance as tolerated.
--- NOTE | 2018-01-31 15:57 | PT.OTN ---
Current Diagnoses Presence of unspecified artificial hip joint (08/26/17) Presence of unspecified artificial hip joint (01/31/18) Physical Therapy Treatment Note PT-OP-A Visit Information Start: 08/23/17 15:37 Freq: Status: Active Protocol: Document 01/31/18 14:30 EA (Rec: 01/31/18 14:50 EA [id number]) Out-Patient Physical Therapy Visit Information Visit Information Visit Type Treatment Note Visit Start Time 15:15 Visit Stop Time 16:00 Total Visit Minutes 45 Visit Number PT-OP-B Current Condition Start: 08/23/17 15:37 Freq: Status: Active Protocol: Document 09/07/17 08:21 EA (Rec: 09/12/17 09:03 EA [id number]) Current Condition History of Current Condition Onset Date 05/12/17 Current Complaints C/O difficulty in all weight bearing mobility d/t R hip weakness and pain History of Current Condition S/P R HYACINTH revision 05/12/17 with disclocation 4 days after revision. Prior Treatments and Tests Patient has undergone 6 skilled PT visits since Future Testing and Treatments Planned Had seen surgeun 2 weeks from todays date and removed hip adductor brace. Treatment Goals Patient/Caregiver Goals Patient wants to be able to wlak more than 2 miles with no hip discomfort, no assistive device and no gait difficulty. Prior Functional Status Baseline Function- ADL's Independent Baseline Function- Mobility Independent Baseline Function- Gait Unlimited amb. with no AD with near to normal gait. 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 Baseline Function- Recreation/Hobbies unable Current Functional Impairments (Reported) Functional Limitations- ADL's Indep Functional Limitations- Mobility/Gait Able to ambulate 3/4 a mile with STC to left hand Functional Limitations- Work/School Indep with difficulty Functional Limitations- Recreation/ Unable Hobbies PT-OP-C Subjective Start: 08/23/17 15:37 Freq: Status: Active Protocol: Document 01/31/18 14:30 EA (Rec: 01/31/18 14:50 EA [id number]) OP-PT Subjective Patient Comments Patient Comments Pt reports had fall on hitting both kness; states went to x-rays and no fracture results , however, mild left knee pain; reports bruises or signs of acute inflammation; states a bit tender to right inner knee. PT-OP-F Manual Assessment Start: 08/23/17 15:37 Freq: Status: Active Protocol: Document 09/07/17 08:21 EA (Rec: 09/12/17 09:03 EA [id number]) Manual Assessments Soft Tissue Assessment Soft Tissue Mobility Assessment Right: Limited hip ER/IR, Hip extension by ~ 10 degrees. Hip flexion ~ 0-100 with pain to groin area. Left: Limited knee flexion to 0-110 degress w/ pain to anterolat knee upon passive overpressure. Joint Mobility Assessment Joint Mobility Assessment Hip joint limitation to right hip flexion with empty enfeel. Limitation to hip ER/IR rotation with empty endfeel. PT-OP-G Mobility & Gait Start: 08/23/17 15:37 Freq: Status: Active Protocol: Document 09/07/17 08:21 EA (Rec: 09/12/17 09:03 EA [id number]) OP Mobility Evaluation Bed Mobility Rolling indep Supine to and from Sit indep Functional Movements Lifting and Carrying With moderate difficulty Squats With High diffcilty Running Assessment unable PT-OP-K Range of Motion Start: 08/23/17 15:37 Freq: Status: Active Protocol: Document 10/18/17 14:30 GGD (Rec: 10/18/17 16:00 GGD [email or web address]) Hip Goniometric Range of Motion Hip Measured in Degrees Right Active Testing Position Supine Flexion w/Knee Flexed 100 Extension 5 Internal Rotation 25 External Rotation 30 PT-OP-M Strength Start: 08/23/17 15:37 Freq: Status: Active Protocol: Document 10/18/17 14:30 GGD (Rec: 10/18/17 16:00 GGD [email or web address]) Hip Strength Hip Manual Muscle Testing Right Flexion (L2) 3+ Fair+ Extension (S1) 4- Good- Adduction 4- Good- External Rotation 3+ Fair+ Internal Rotation 3 Fair PT-OP-Q Treatments Start: 08/23/17 15:37 Freq: Status: Active Protocol: Document 01/31/18 14:50 EA (Rec: 01/31/18 15:17 EA [id number]) Cardio Equipment Recumbent Stepper (Sci-Fit) Duration (Minutes) 8 Resistance 1-2 Seat Position 12-8 Other no hand support Therapeutic Exercises Supine Exercises 2 Supine Exercise Name Bridge with isometric ABD Reps/Minutes x 10 reps 1 Supine Exercise Name SLR Side bilateral Reps/Minutes x 5SH x 10 reps each Prone Exercises 1 Prone Exercise Name Prone hip ext Side bilateral Resistance 5 lbs Reps/Minutes x 12 reps x 2 sets Sidelying Exercises 2 Sidelying Exercise Name clamshell Side bilateral Resistance Lv1 Reps/Minutes x 10 reps 1 Sidelying Exercise Name Hip ABD/ ADD Side bilateral Reps/Minutes x 5SH x 10 reps each leg Sitting Exercises 1 Sitting Exercise Name Sitted bilat TB hip ER/IR Side bilateral Equipment Used BTB Reps/Minutes 10 x 2 PT-OP-R Modalities Start: 08/23/17 15:37 Freq: Status: Active Protocol: Document 01/31/18 14:50 EA (Rec: 01/31/18 15:17 EA [id number]) Electric Stimulation Electric Stimulation Interferential Current (IFC) Body Location left knee Duration (Minutes) 15 Combined With Heat/Cold Cold Pack PT-OP-T Assessment and Plan Start: 08/23/17 15:37 Freq: Status: Active Protocol: Document 01/31/18 14:50 EA (Rec: 01/31/18 15:17 EA [id number]) Physical Therapy Assessment Assessment Summary Assessment Pt tolerated hip exercises with no signs of discomfort; no noted any signs acute inflamm to both knees however tender to palpate left medial knee side. recommends to avoid to any knee strengthening exercises until further review from ortho. Physical Therapy Plan Next Visit Focus/Plan Next Note Type Re-Evaluation Next Visit Plan Cont with hip strengthen exercises in bed.
--- NOTE | 2018-02-07 17:10 | PT.OTRE ---
Current Diagnoses Presence of unspecified artificial hip joint (08/26/17) Presence of unspecified artificial hip joint (02/07/18) Provider Visit Care Team Role Provider Type Susie Miller PA-C Family Provider Advanced Accountant Helper Primary Care Provider Specialty: Medical Address: [address] [place] [address], [id number] Email: [email or web address] Uri Yepez MD Attending Provider Physician Specialty: Family Practice Address: [address] [place] [address], [phone] Email: [email or web address] Physical Therapy Re-Evaluation PT-OP-A Visit Information Start: 08/23/17 15:37 Freq: Status: Active Protocol: Document 02/07/18 15:10 EA (Rec: 02/07/18 15:13 EA [id number]) Out-Patient Physical Therapy Visit Information Visit Information Visit Type Treatment Note Visit Start Time 14:30 Visit Stop Time 15:15 Total Visit Minutes 40 Visit Number PT-OP-B Current Condition Start: 08/23/17 15:37 Freq: Status: Active Protocol: Document 09/07/17 08:21 EA (Rec: 09/12/17 09:03 EA [id number]) Current Condition History of Current Condition Onset Date 05/12/17 Current Complaints C/O difficulty in all weight bearing mobility d/t R hip weakness and pain History of Current Condition S/P R HYACINTH revision 05/12/17 with disclocation 4 days after revision. Prior Treatments and Tests Patient has undergone 6 skilled PT visits since Future Testing and Treatments Planned Had seen surgeun 2 weeks from todays date and removed hip adductor brace. Treatment Goals Patient/Caregiver Goals Patient wants to be able to wlak more than 2 miles with no hip discomfort, no assistive device and no gait difficulty. Prior Functional Status Baseline Function- ADL's Independent Baseline Function- Mobility Independent Baseline Function- Gait Unlimited amb. with no AD with near to normal gait. 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 Baseline Function- Recreation/Hobbies unable Current Functional Impairments (Reported) Functional Limitations- ADL's Indep Functional Limitations- Mobility/Gait Able to ambulate 3/4 a mile with STC to left hand Functional Limitations- Work/School Indep with difficulty Functional Limitations- Recreation/ Unable Hobbies PT-OP-C Subjective Start: 08/23/17 15:37 Freq: Status: Active Protocol: Document 02/07/18 15:10 EA (Rec: 02/07/18 15:13 EA [id number]) OP-PT Subjective Patient Comments Patient Comments Pt reports no pain to both kness with walking but only when kneeling down; states overall she is functionally able at home with some limitation to squatting and low chair sitting due to left knee stiffness. Patient Questionnaires Lower Extremity Functional Scale LEFS Score 70 LEFS Impairment 60 to 79% Impaired (Score 17- 31) PT-OP-F Manual Assessment Start: 08/23/17 15:37 Freq: Status: Active Protocol: Document 02/07/18 16:46 EA (Rec: 02/07/18 17:07 EA [id number]) Manual Assessments Soft Tissue Assessment Soft Tissue Mobility Assessment Right: Limited hip ER/IR, Hip extension by ~50 degrees. Left: Limited knee flexion to 0-110 degress w/ pain to anterolat knee upon passive overpressure. PT-OP-G Mobility & Gait Start: 08/23/17 15:37 Freq: Status: Active Protocol: Document 02/07/18 16:46 EA (Rec: 02/07/18 17:07 EA [id number]) Stair Climbing Evaluation Technique/Endurance Stair Climbing Direction Ascend and Descend Stair Climbing Technique Step Over Step Comments Stair Climbing Comments Right foot descent difficulty due to left knee pain PT-OP-K Range of Motion Start: 08/23/17 15:37 Freq: Status: Active Protocol: Document 02/07/18 16:46 EA (Rec: 02/07/18 17:07 EA [id number]) Hip Goniometric Range of Motion Hip Measured in Degrees Right Active Testing Position Supine Flexion w/Knee Flexed 110 Straight Leg Raise 90 Extension 15 Internal Rotation 30 External Rotation 30 Hip ROM Limitations Hip ROM Limitations Soft Tissue Tightness Knee Goniometric Range of Motion Knee Measured in Degrees Left Flexion Active (degrees) 110 PT-OP-M Strength Start: 08/23/17 15:37 Freq: Status: Active Protocol: Document 02/07/18 16:46 EA (Rec: 02/07/18 17:07 EA [id number]) Hip Strength Hip Manual Muscle Testing Left Flexion (L2) 3+ Fair+ Extension (S1) 4- Good- Abduction 3+ Fair+ Adduction 4- Good- External Rotation 3+ Fair+ Internal Rotation 3+ Fair+ Right Flexion (L2) 3+ Fair+ Extension (S1) 4- Good- Abduction 3+ Fair+ Adduction 4- Good- External Rotation 3+ Fair+ Internal Rotation 3+ Fair+ Knee Strength Knee Manual Muscle Testing Right Flexion (S2) 5 Normal Extension (L3) 5 Normal Left Flexion (S2) 5 Normal Extension (L3) 5 Normal PT-OP-Q Treatments Start: 08/23/17 15:37 Freq: Status: Active Protocol: Document 02/07/18 17:07 EA (Rec: 02/07/18 17:10 EA [id number]) Cardio Equipment Recumbent Stepper (Sci-Fit) Duration (Minutes) 8 Resistance 3 Seat Position 12-8 Other no hand support Gym Equipment Shuttle Recovery Unilateral Squats Details Bilat Resistance 125 Reps/Time 2x15 Shuttle Balance 1 Details FWD/BWD tilt Therapeutic Exercises Supine Exercises 2 Supine Exercise Name Bridge with isometric ABD Reps/Minutes x 10 reps Prone Exercises 1 Prone Exercise Name Prone hip ext Side bilateral Resistance 5 lbs Reps/Minutes x 12 reps x 2 sets Sidelying Exercises 2 Sidelying Exercise Name clamshell Side bilateral Resistance Lv1 Reps/Minutes x 10 reps 1 Sidelying Exercise Name Hip ABD/ ADD Side bilateral Reps/Minutes x 5SH x 10 reps each leg Sitting Exercises 2 Sitting Exercise Name hip ER/IR Side bilateral Resistance BTB Reps/Minutes x 12 reps x 2 Standing Exercises 5 Standing Exercise Name // baRS SUPPORTED LUNGES. Reps/Minutes X 8 REPS X 2 SETS 4 Standing Exercise Name 8 step with knee up pause Reps/Minutes x 10 repsx 2 sets 3 Standing Exercise Name 8 step lunges Reps/Minutes x 10 reps x 2 sets 2 Standing Exercise Name 4 step board: step in/ou- FWD /SWD Reps/Minutes x 10 reps x 3 sets each 1 Standing Exercise Name Standing side step squat Resistance GTB on both ankle PT-OP-R Modalities Start: 08/23/17 15:37 Freq: Status: Active Protocol: Document 01/31/18 14:50 EA (Rec: 01/31/18 15:17 EA [id number]) Electric Stimulation Electric Stimulation Interferential Current (IFC) Body Location left knee Duration (Minutes) 15 Combined With Heat/Cold Cold Pack PT-OP-T Assessment and Plan Start: 08/23/17 15:37 Freq: Status: Active Protocol: Document 02/07/18 16:46 EA (Rec: 02/07/18 17:07 EA [id number]) Physical Therapy Assessment Rehab Potential Rehabilitation Potential Good Impairments Impairments Functional Activities Gait Pain ROM Soft Tissue Mobility Strength Goals Seven Impairment Max difficulty with 16 inches chair/ low chair sit to stand Legal Transcriptionist Goal (LTG) Patient will perform 16/low chair sit to stand x 10 reps with less difficulty LTG Duration 4 wks Six Impairment Impaired functional lunges Legal Transcriptionist Goal (LTG) Patient will perform functional lunges while picking object from the floor 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 LTG Duration Goal reached Four Impairment Antalgic gait w/ decreased WB to RLE Longterm Goal (LTG) Patient will exhibit near to nomal gait with no AD on uneve surfaces LTG Duration Goal reached Three Impairment LEFS score of 35 Short Term Goal (STG) Patient will reports LEFS score of > 50 STG Duration reached Longterm Goal (LTG) LEFS score of > 72 LTG Duration 4 wks (progressing well) Two Impairment Hip Flexion/EXT/ ER/IR limited by 5-10 degrees Legal Transcriptionist Goal (LTG) Patient will exhibit increase HIP ROM of 5-10 degrees for improve for functional squating and lifting. LTG Duration Goal met One Impairment Hip Flexors/ ABD/ Rotators strength of 3+/5 Longterm Goal (LTG) Patient will exhibit increase hip strength by 1 level for gait and functional mobility improvement LTG Duration 4 wks (Slow steady progress) Progress Towards Goals Progress Towards Goals Progressing Toward Goals Progress Comments Patient exhbited improved hip strength and functional mobility tolerance. Assessment Summary Assessment Patient exhibits improved functional mobility with improved walking and standing tolerance. 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 However, MMT strength to both hip still noted significant weakness that is potential to cause injury with extreme mobility. No noted signs of additional injury from fall 3 weeks ago. I recommended to patient to continue HEP and educated with safe mobility. Patient overall is progressing and will continue to benefit with skilled PT. Physical Therapy Plan Frequency and Duration Frequency of Treatment 1x/Week Duration of Treatment 6 Plan of Care Start Date 02/07/18 Plan of Care End Date 03/21/18 Therapeutic Interventions Therapeutic Interventions Home Exercise Program Joint Mobilizations Manual Therapy Patient/Caregiver Education Self-Care/Home Management Soft Tissue Mobilization Therapeutic Exercises Modalities Electric Stimulation Hot Packs Next Visit Focus/Plan Next Note Type Treatment Note Next Visit Plan Functional exercises: Lunges, sit to stand to low chair
--- NOTE | 2018-02-07 17:10 | PT.OPPOC ---
Current Diagnoses Presence of unspecified artificial hip joint (08/26/17) Presence of unspecified artificial hip joint (02/07/18) Provider Visit Care Team Role Provider Type Susie Miller PA-C Family Provider Advanced Diesel Engine I Pipe Fitter Primary Care Provider Specialty: Medical Address: [address] [place] [address], [id number] Email: [email or web address] Uri Yepez MD Attending Provider Physician Specialty: Family Practice Address: [address] [place] [address], [id number] Email: [email or web address] Plan Of Care PT-OP-T Assessment and Plan Start: 08/23/17 15:37 Freq: Status: Active Protocol: Document 02/07/18 16:46 EA (Rec: 02/07/18 17:07 EA [id number]) Physical Therapy Assessment Rehab Potential Rehabilitation Potential Good Impairments Impairments Functional Activities Gait Pain ROM Soft Tissue Mobility Strength Goals Seven Impairment Max difficulty with 16 inches chair/ low chair sit to stand Continuity Writer Goal (LTG) Patient will perform 16/low chair sit to stand x 10 reps with less difficulty LTG Duration 4 wks Six Impairment Impaired functional lunges [facility] Goal (LTG) Patient will perform functional lunges while picking 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 LTG Duration Goal reached Four Impairment Antalgic gait w/ decreased WB to RLE Continuity Writer Goal (LTG) Patient will exhibit near to nomal gait with no AD on uneve surfaces LTG Duration Goal reached Three Impairment LEFS score of 35 Short Term Goal (STG) Patient will reports LEFS score of > 50 STG Duration reached Continuity Writer Goal (LTG) LEFS score of > 72 LTG Duration 4 wks (progressing well) Two Impairment Hip Flexion/EXT/ ER/IR limited by 5-10 degrees Continuity Writer Goal (LTG) Patient will exhibit increase HIP ROM of 5-10 degrees for improve for functional squating and lifting. LTG Duration Goal met One Impairment Hip Flexors/ ABD/ Rotators strength of 3+/5 Continuity Writer Goal (LTG) Patient will exhibit increase hip strength by 1 level for gait and functional mobility improvement LTG Duration 4 wks (Slow steady progress) Progress Towards Goals Progress Towards Goals Progressing Toward Goals Progress Comments Patient exhbited improved hip strength and functional mobility tolerance. Assessment Summary Assessment Patient exhibits improved functional mobility with improved walking and standing tolerance. 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 However, MMT strength to both hip still noted significant weakness that is potential to cause injury with extreme mobility. No noted signs of additional injury from fall 3 weeks ago. I recommended to patient to continue HEP and educated with safe mobility. Patient overall is progressing and will continue to benefit with skilled PT. Physical Therapy Plan Frequency and Duration Frequency of Treatment 1x/Week Duration of Treatment 6 Plan of Care Start Date 02/07/18 Plan of Care End Date 03/21/18 Therapeutic Interventions Therapeutic Interventions Home Exercise Program Joint Mobilizations Manual Therapy Patient/Caregiver Education Self-Care/Home Management Soft Tissue Mobilization Therapeutic Exercises Modalities Electric Stimulation Hot Packs Next Visit Focus/Plan Next Note Type Treatment Note Next Visit Plan Functional exercises: Lunges, sit to stand to low chair Plan of Care Dates Plan of Care Start Date 02/07/18 Plan of Care End Date 03/21/18 Please Sign and Return: I have reviewed this Plan of Care and certify that the skilled therapy services above are required to meet the patient?s needs. Physician Signature Date Printed Name and Credentials Clinical Instructor Signature Printed Name and Credentials
--- NOTE | 2018-02-21 13:49 | PT.OTN ---
Current Diagnoses Presence of unspecified artificial hip joint (08/26/17) Presence of unspecified artificial hip joint (02/21/18) Physical Therapy Treatment Note PT-OP-A Visit Information Start: 08/23/17 15:37 Freq: Status: Active Protocol: Document 02/21/18 13:10 EA (Rec: 02/21/18 13:47 EA [id number]) Out-Patient Physical Therapy Visit Information Visit Information Visit Type Treatment Note Visit Start Time 13:00 Visit Stop Time 13:45 Total Visit Minutes 40 Visit Number PT-OP-B Current Condition Start: 08/23/17 15:37 Freq: Status: Active Protocol: Document 09/07/17 08:21 EA (Rec: 09/12/17 09:03 EA [id number]) Current Condition History of Current Condition Onset Date 05/12/17 Current Complaints C/O difficulty in all weight bearing mobility d/t R hip weakness and pain History of Current Condition S/P R HYACINTH revision 05/12/17 with disclocation 4 days after revision. Prior Treatments and Tests Patient has undergone 6 skilled PT visits since Future Testing and Treatments Planned Had seen surgeun 2 weeks from todays date and removed hip adductor brace. Treatment Goals Patient/Caregiver Goals Patient wants to be able to wlak more than 2 miles with no hip discomfort, no assistive device and no gait difficulty. Prior Functional Status Baseline Function- ADL's Independent Baseline Function- Mobility Independent Baseline Function- Gait Unlimited amb. with no AD with near to normal gait. 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 Baseline Function- Recreation/Hobbies unable Current Functional Impairments (Reported) Functional Limitations- ADL's Indep Functional Limitations- Mobility/Gait Able to ambulate 3/4 a mile with STC to left hand Functional Limitations- Work/School Indep with difficulty Functional Limitations- Recreation/ Unable Hobbies PT-OP-C Subjective Start: 08/23/17 15:37 Freq: Status: Active Protocol: Document 02/21/18 13:10 EA (Rec: 02/21/18 13:47 EA [id number]) OP-PT Subjective Patient Comments Patient Comments Pt reports pain to left knee with stairs descent and kneeling; overall she feels that is more than back to PLOF and happy to her functional status. PT-OP-F Manual Assessment Start: 08/23/17 15:37 Freq: Status: Active Protocol: Document 02/07/18 16:46 EA (Rec: 02/07/18 17:07 EA [id number]) Manual Assessments Soft Tissue Assessment Soft Tissue Mobility Assessment Right: Limited hip ER/IR, Hip extension by ~50 degrees. Left: Limited knee flexion to 0-110 degress w/ pain to anterolat knee upon passive overpressure. PT-OP-G Mobility & Gait Start: 08/23/17 15:37 Freq: Status: Active Protocol: Document 02/07/18 16:46 EA (Rec: 02/07/18 17:07 EA [id number]) Stair Climbing Evaluation Technique/Endurance Stair Climbing Direction Ascend and Descend Stair Climbing Technique Step Over Step Comments Stair Climbing Comments Right foot descent difficulty due to left knee pain PT-OP-K Range of Motion Start: 08/23/17 15:37 Freq: Status: Active Protocol: Document 02/07/18 16:46 EA (Rec: 02/07/18 17:07 EA [id number]) Hip Goniometric Range of Motion Hip Measured in Degrees Right Active Testing Position Supine Flexion w/Knee Flexed 110 Straight Leg Raise 90 Extension 15 Internal Rotation 30 External Rotation 30 Hip ROM Limitations Hip ROM Limitations Soft Tissue Tightness Knee Goniometric Range of Motion Knee Measured in Degrees Left Flexion Active (degrees) 110 PT-OP-M Strength Start: 08/23/17 15:37 Freq: Status: Active Protocol: Document 02/07/18 16:46 EA (Rec: 02/07/18 17:07 EA [id number]) Hip Strength Hip Manual Muscle Testing Left Flexion (L2) 3+ Fair+ Extension (S1) 4- Good- Abduction 3+ Fair+ Adduction 4- Good- External Rotation 3+ Fair+ Internal Rotation 3+ Fair+ Right Flexion (L2) 3+ Fair+ Extension (S1) 4- Good- Abduction 3+ Fair+ Adduction 4- Good- External Rotation 3+ Fair+ Internal Rotation 3+ Fair+ Knee Strength Knee Manual Muscle Testing Right Flexion (S2) 5 Normal Extension (L3) 5 Normal Left Flexion (S2) 5 Normal Extension (L3) 5 Normal PT-OP-Q Treatments Start: 08/23/17 15:37 Freq: Status: Active Protocol: Document 02/21/18 13:10 EA (Rec: 02/21/18 13:47 EA [id number]) Cardio Equipment Recumbent Stepper (Sci-Fit) Duration (Minutes) 8 Resistance 3 Seat Position 12-8 Other no hand support Gym Equipment Shuttle Balance 1 Details FWD/BWD tilt Therapeutic Exercises Supine Exercises 2 Supine Exercise Name Bridge with isometric ABD Reps/Minutes x 10 reps 1 Supine Exercise Name SLR Side bilateral Resistance 1# Reps/Minutes x 5SH x 10 reps each Prone Exercises 1 Prone Exercise Name Prone hip ext Side bilateral Resistance 5 lbs Reps/Minutes x 12 reps x 2 sets Sidelying Exercises 2 Sidelying Exercise Name clamshell Side bilateral Resistance Lv1 Reps/Minutes x 10 reps 1 Sidelying Exercise Name Hip ABD/ ADD Side bilateral Resistance 1# Reps/Minutes x 5SH x 10 reps each leg Sitting Exercises 1 Sitting Exercise Name Sitted bilat TB hip ER/IR Side bilateral Equipment Used BTB Reps/Minutes 10 x 2 Standing Exercises 2 Standing Exercise Name sit to stand 17 stable with no HS Reps/Minutes x 10 x 2 sets Other Exercises 1 Other Exercise Name SHR support steady lunges Reps/Minutes x 7 reps x 2 sets Comments foam knee support PT-OP-R Modalities Start: 08/23/17 15:37 Freq: Status: Active Protocol: Document 01/31/18 14:50 EA (Rec: 01/31/18 15:17 EA [id number]) Electric Stimulation Electric Stimulation Interferential Current (IFC) Body Location left knee Duration (Minutes) 15 Combined With Heat/Cold Cold Pack PT-OP-T Assessment and Plan Start: 08/23/17 15:37 Freq: Status: Active Protocol: Document 02/21/18 13:10 EA (Rec: 02/21/18 13:47 EA [id number]) Physical Therapy Assessment Assessment Summary Assessment Pt tolerated treatment with slight knee discomfort to lunges exercises. Overall patient is progressing well. Physical Therapy Plan Next Visit Focus/Plan Next Note Type Treatment Note Next Visit Plan Functional exercises: Lunges, sit to stand to low chair
--- NOTE | 2018-03-07 16:06 | PT.OTN ---
Current Diagnoses Presence of unspecified artificial hip joint (08/26/17) Presence of unspecified artificial hip joint (03/07/18) Physical Therapy Treatment Note PT-OP-A Visit Information Start: 08/23/17 15:37 Freq: Status: Active Protocol: Document 03/07/18 15:21 EA (Rec: 03/07/18 16:03 EA [id number]) Out-Patient Physical Therapy Visit Information Visit Information Visit Type Treatment Note Visit Start Time 13:00 Visit Stop Time 16:00 Total Visit Minutes 40 Visit Number PT-OP-B Current Condition Start: 08/23/17 15:37 Freq: Status: Active Protocol: Document 09/07/17 08:21 EA (Rec: 09/12/17 09:03 EA [id number]) Current Condition History of Current Condition Onset Date 05/12/17 Current Complaints C/O difficulty in all weight bearing mobility d/t R hip weakness and pain History of Current Condition S/P R HYACINTH revision 05/12/17 with disclocation 4 days after revision. Prior Treatments and Tests Patient has undergone 6 skilled PT visits since Future Testing and Treatments Planned Had seen surgeun 2 weeks from todays date and removed hip adductor brace. Treatment Goals Patient/Caregiver Goals Patient wants to be able to wlak more than 2 miles with no hip discomfort, no assistive device and no gait difficulty. Prior Functional Status Baseline Function- ADL's Independent Baseline Function- Mobility Independent Baseline Function- Gait Unlimited amb. with no AD with near to normal gait. 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 Baseline Function- Recreation/Hobbies unable Current Functional Impairments (Reported) Functional Limitations- ADL's Indep Functional Limitations- Mobility/Gait Able to ambulate 3/4 a mile with STC to left hand Functional Limitations- Work/School Indep with difficulty Functional Limitations- Recreation/ Unable Hobbies PT-OP-C Subjective Start: 08/23/17 15:37 Freq: Status: Active Protocol: Document 03/07/18 15:21 EA (Rec: 03/07/18 16:03 EA [id number]) OP-PT Subjective Patient Comments Patient Comments Pt reports stairs has no problem; states getting up from the floor still difficult at this time. Patient Reported Progress Improving PT-OP-F Manual Assessment Start: 08/23/17 15:37 Freq: Status: Active Protocol: Document 02/07/18 16:46 EA (Rec: 02/07/18 17:07 EA [id number]) Manual Assessments Soft Tissue Assessment Soft Tissue Mobility Assessment Right: Limited hip ER/IR, Hip extension by ~50 degrees. Left: Limited knee flexion to 0-110 degress w/ pain to anterolat knee upon passive overpressure. PT-OP-G Mobility & Gait Start: 08/23/17 15:37 Freq: Status: Active Protocol: Document 02/07/18 16:46 EA (Rec: 02/07/18 17:07 EA [id number]) Stair Climbing Evaluation Technique/Endurance Stair Climbing Direction Ascend and Descend Stair Climbing Technique Step Over Step Comments Stair Climbing Comments Right foot descent difficulty due to left knee pain PT-OP-K Range of Motion Start: 08/23/17 15:37 Freq: Status: Active Protocol: Document 02/07/18 16:46 EA (Rec: 02/07/18 17:07 EA [id number]) Hip Goniometric Range of Motion Hip Measured in Degrees Right Active Testing Position Supine Flexion w/Knee Flexed 110 Straight Leg Raise 90 Extension 15 Internal Rotation 30 External Rotation 30 Hip ROM Limitations Hip ROM Limitations Soft Tissue Tightness Knee Goniometric Range of Motion Knee Measured in Degrees Left Flexion Active (degrees) 110 PT-OP-M Strength Start: 08/23/17 15:37 Freq: Status: Active Protocol: Document 02/07/18 16:46 EA (Rec: 02/07/18 17:07 EA [id number]) Hip Strength Hip Manual Muscle Testing Left Flexion (L2) 3+ Fair+ Extension (S1) 4- Good- Abduction 3+ Fair+ Adduction 4- Good- External Rotation 3+ Fair+ Internal Rotation 3+ Fair+ Right Flexion (L2) 3+ Fair+ Extension (S1) 4- Good- Abduction 3+ Fair+ Adduction 4- Good- External Rotation 3+ Fair+ Internal Rotation 3+ Fair+ Knee Strength Knee Manual Muscle Testing Right Flexion (S2) 5 Normal Extension (L3) 5 Normal Left Flexion (S2) 5 Normal Extension (L3) 5 Normal PT-OP-Q Treatments Start: 08/23/17 15:37 Freq: Status: Active Protocol: Document 03/07/18 15:21 EA (Rec: 03/07/18 16:03 EA [id number]) Cardio Equipment Recumbent Stepper (Sci-Fit) Duration (Minutes) 8 Resistance 3 Seat Position 12-8 Other no hand support Therapeutic Exercises Supine Exercises 2 Supine Exercise Name Bridge with isometric ABD Reps/Minutes x 10 reps 1 Supine Exercise Name SLR Side bilateral Resistance 2# Reps/Minutes x 5SH x 10 reps each Prone Exercises 1 Prone Exercise Name Prone hip ext Side bilateral Resistance 5 lbs Reps/Minutes x 12 reps x 2 sets Sidelying Exercises 2 Sidelying Exercise Name clamshell Side bilateral Resistance Lv1 Reps/Minutes x 10 reps 1 Sidelying Exercise Name Hip ABD/ ADD Side bilateral Resistance 2# Reps/Minutes x 5SH x 10 reps each leg Sitting Exercises 2 Sitting Exercise Name hip ER/IR Side bilateral Resistance BTB Reps/Minutes x 12 reps x 2 Standing Exercises 5 Standing Exercise Name // baRS SUPPORTED LUNGES. Reps/Minutes X 8 REPS X 2 SETS 3 Standing Exercise Name 8 step lunges Reps/Minutes x 10 reps x 2 sets 2 Standing Exercise Name sit tostand 17 stable with no HS Reps/Minutes x 10 x 2 sets PT-OP-R Modalities Start: 08/23/17 15:37 Freq: Status: Active Protocol: Document 01/31/18 14:50 EA (Rec: 01/31/18 15:17 EA [id number]) Electric Stimulation Electric Stimulation Interferential Current (IFC) Body Location left knee Duration (Minutes) 15 Combined With Heat/Cold Cold Pack PT-OP-T Assessment and Plan Start: 08/23/17 15:37 Freq: Status: Active Protocol: Document 03/07/18 15:21 EA (Rec: 03/07/18 16:03 EA [id number]) Physical Therapy Assessment Assessment Summary Assessment Improved strength and hip mobility noted at this time. Patient cont. to progress. Patient to see after 2 weeks. Recommends to cont HEP. Physical Therapy Plan Next Visit Focus/Plan Next Note Type Treatment Note Next Visit Plan Functional exercises: Lunges, sit to stand to low chair
--- NOTE | 2018-04-05 17:00 | PT.OTN ---
Current Diagnoses Presence of unspecified artificial hip joint (08/26/17) Presence of unspecified artificial hip joint (04/04/18) Physical Therapy Treatment Note PT-OP-A Visit Information Start: 08/23/17 15:37 Freq: Status: Active Protocol: Document 04/04/18 17:24 EA (Rec: 04/04/18 17:37 EA [id number]) Out-Patient Physical Therapy Visit Information Visit Information Visit Type Treatment Note Visit Start Time 14:30 Visit Stop Time 15:13 Total Visit Minutes 38 Visit Number PT-OP-B Current Condition Start: 08/23/17 15:37 Freq: Status: Active Protocol: Document 09/07/17 08:21 EA (Rec: 09/12/17 09:03 EA [id number]) Current Condition History of Current Condition Onset Date 05/12/17 Current Complaints C/O difficulty in all weight bearing mobility d/t R hip weakness and pain History of Current Condition S/P R HYACINTH revision 05/12/17 with disclocation 4 days after revision. Prior Treatments and Tests Patient has undergone 6 skilled PT visits since Future Testing and Treatments Planned Had seen surgeun 2 weeks from todays date and removed hip adductor brace. Treatment Goals Patient/Caregiver Goals Patient wants to be able to wlak more than 2 miles with no hip discomfort, no assistive device and no gait difficulty. Prior Functional Status Baseline Function- ADL's Independent Baseline Function- Mobility Independent Baseline Function- Gait Unlimited amb. with no AD with near to normal gait. 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 Baseline Function- Recreation/Hobbies unable Current Functional Impairments (Reported) Functional Limitations- ADL's Indep Functional Limitations- Mobility/Gait Able to ambulate 3/4 a mile with STC to left hand Functional Limitations- Work/School Indep with difficulty Functional Limitations- Recreation/ Unable Hobbies PT-OP-C Subjective Start: 08/23/17 15:37 Freq: Status: Active Protocol: Document 04/04/18 17:24 EA (Rec: 04/04/18 17:37 EA [id number]) OP-PT Subjective Patient Comments Patient Comments Pt reports severe cramps after last session which happen while at the grocery store; states it lasted to 10 mins. Patient Reported Progress Improving Patient Questionnaires Lower Extremity Functional Scale LEFS Score 71 LEFS Impairment 60 to 79% Impaired (Score 17- 31) PT-OP-F Manual Assessment Start: 08/23/17 15:37 Freq: Status: Active Protocol: Document 04/04/18 17:24 EA (Rec: 04/04/18 17:37 EA [id number]) Manual Assessments Soft Tissue Assessment Soft Tissue Mobility Assessment Right: Limited hip ER/IR, Hip extension by ~5 degrees. Left: Limited knee flexion to 0-110 degress w/ pain to anterolat knee upon passive overpressure. Joint Mobility Assessment Joint Mobility Assessment Hip joint limitation to right hip flexion with empty enfeel. Limitation to hip ER/IR rotation with firm endfeel. PT-OP-G Mobility & Gait Start: 08/23/17 15:37 Freq: Status: Active Protocol: Document 04/04/18 17:24 EA (Rec: 04/04/18 17:37 EA [id number]) Stair Climbing Evaluation Technique/Endurance Stair Climbing Direction Ascend and Descend Stair Climbing Technique Step to Step PT-OP-K Range of Motion Start: 08/23/17 15:37 Freq: Status: Active Protocol: Document 04/05/18 17:20 EA (Rec: 04/12/18 09:01 EA [id number]) Hip Goniometric Range of Motion Hip Measured in Degrees Right Active Testing Position Supine Flexion w/Knee Flexed 110 Straight Leg Raise 90 Extension 15 Internal Rotation 30 External Rotation 30 Knee Goniometric Range of Motion Knee Measured in Degrees Right Knee ROM WFL Yes Left Flexion Active (degrees) 110 PT-OP-M Strength Start: 08/23/17 15:37 Freq: Status: Active Protocol: Document 04/04/18 17:30 EA (Rec: 04/12/18 10:58 EA [id number]) Hip Strength Hip Manual Muscle Testing Left Flexion (L2) 3+ Fair+ Extension (S1) 4- Good- Abduction 3+ Fair+ Adduction 4- Good- External Rotation 3+ Fair+ Internal Rotation 3+ Fair+ Right Flexion (L2) 3+ Fair+ Extension (S1) 4- Good- Abduction 3+ Fair+ Adduction 4- Good- External Rotation 3+ Fair+ Internal Rotation 3+ Fair+ Knee Strength Knee Manual Muscle Testing Right Flexion (S2) 5 Normal Extension (L3) 5 Normal Left Flexion (S2) 5 Normal Extension (L3) 5 Normal PT-OP-Q Treatments Start: 08/23/17 15:37 Freq: Status: Active Protocol: Document 04/04/18 17:30 EA (Rec: 04/12/18 10:58 EA [id number]) Cardio Equipment Recumbent Stepper (Sci-Fit) Duration (Minutes) 8 Resistance 3 Seat Position 12-8 Other no hand support Gym Equipment Shuttle Recovery Unilateral Squats Details Bilat Resistance 125 Shuttle Recovery Platform Stable Reps/Time 2x15 Bilateral Squats Resistance 4-8cords Shuttle Recovery Platform Stable Reps/Time 15 x 3 Shuttle Balance 1 Details FWD/BWD tilt Comments arm challenge. Therapeutic Exercises Supine Exercises 2 Supine Exercise Name Bridge with isometric ABD Reps/Minutes x 10 reps 1 Supine Exercise Name SLR Side bilateral Resistance 2# Reps/Minutes x 5SH x 10 reps each Prone Exercises 1 Prone Exercise Name Prone hip ext Side bilateral Resistance 2 lbs Reps/Minutes x 12 reps x 2 sets Sidelying Exercises 2 Sidelying Exercise Name clamshell Side bilateral Resistance Lv1 Reps/Minutes x 10 reps 1 Sidelying Exercise Name Hip ABD/ ADD Side bilateral Resistance 2# Reps/Minutes x 5SH x 10 reps each leg Sitting Exercises 1 Sitting Exercise Name Sitted bilat TB hip ER/IR Side bilateral Equipment Used Lv 1 Reps/Minutes 10 x 2 Standing Exercises 5 Standing Exercise Name Rails single hand support steady lunges Reps/Minutes X 8 REPS X 2 SETS Comments foam under the knee 4 Standing Exercise Name 8 step with knee up pause Reps/Minutes x 10 repsx 2 sets 2 Standing Exercise Name sit to stand 17 stable with no HS Reps/Minutes x 10 x 2 sets 1 Standing Exercise Name Standing side step squat Resistance GTB on both ankle Other Exercises 1 Other Exercise Name SLS Side bilateral Reps/Minutes x 15 SH x 3 reps each PT-OP-R Modalities Start: 08/23/17 15:37 Freq: Status: Active Protocol: Document 01/31/18 14:50 EA (Rec: 01/31/18 15:17 EA [id number]) Electric Stimulation Electric Stimulation Interferential Current (IFC) Body Location left knee Duration (Minutes) 15 Combined With Heat/Cold Cold Pack PT-OP-T Assessment and Plan Start: 08/23/17 15:37 Freq: Status: Active Protocol: Document 04/05/18 17:30 JUANCHO (Rec: 04/12/18 09:01 EA [id number]) Physical Therapy Assessment Impairments Impairments Functional Activities Pain ROM Soft Tissue Mobility Strength Goals Seven Impairment Max difficulty with 16 inches chair/ low chair sit to stand Halfway Goal (LTG) Patient will perform 16/low chair sit to stand x 10 reps with less difficulty LTG Duration 4 wks (Excellent progress) Six Impairment Impaired functional lunges Halfway Goal (LTG) Patient will perform functional lunges while picking 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 LTG Duration Goal reached Four Impairment Antalgic gait w/ decreased WB to RLE Qc Scientist Goal (LTG) Patient will exhibit near to nomal gait with no AD on uneven surfaces LTG Duration Goal reached Three Impairment LEFS score of 35 Short Term Goal (STG) Patient will report LEFS score of > 50 STG Duration reached Halfway Goal (LTG) LEFS score of > 72 LTG Duration 4 wks (progressing well 71/80) Two Impairment Hip Flexion/EXT/ ER/IR limited by 5-10 degrees Halfway Goal (LTG) Patient will exhibit increase HIP ROM of 5-10 degrees for improve for functional squating and lifting. LTG Duration Goal met One Impairment Hip Flexors/ ABD/ Rotators strength of 3+/5 Halfway Goal (LTG) Patient will exhibit increase hip strength by 1 level for gait and functional mobility improvement LTG Duration 4 wks (Slow steady progress) Progress Towards Goals Progress Towards Goals Progressing Toward Goals Assessment Summary Assessment Patient was only seen once in one month duration due to busy schedule at work. She has been compliant with home exercises program and has been functioning almost back to previous level except with functional kneeling and picking/lifting object from the floor due to decreased hip strength and pain to tight left knee. Overall patient is progressing well. She will continue to benefit with skilled PT for safe HEP. Physical Therapy Plan Frequency and Duration Frequency of Treatment 1x/Week Duration of Treatment 3 wks Plan of Care Start Date 04/04/18 Plan of Care End Date 04/17/18 Therapeutic Interventions Therapeutic Interventions Home Exercise Program Joint Mobilizations Manual Therapy Patient/Caregiver Education Self-Care/Home Management Soft Tissue Mobilization Therapeutic Exercises Next Visit Focus/Plan Next Note Type Treatment Note Next Visit Plan Proide and review HEP, education for safe mobility.
--- NOTE | 2018-04-05 17:20 | PT.OPPOC ---
Current Diagnoses Presence of unspecified artificial hip joint (08/26/17) Presence of unspecified artificial hip joint (04/04/18) Provider Visit Care Team Role Provider Type Susie Miller PA-C Family Provider Advanced Material Handling Supervisor Primary Care Provider Specialty: Medical Address: [address] [place] [address], [id number] Email: [email or web address] MD Attending Provider Physician Specialty: Family Practice Address: [address] [place] [address], [address] Email: [email or web address] Plan Of Care PT-OP-T Assessment and Plan Start: 08/23/17 15:37 Freq: Status: Active Protocol: Document 04/05/18 17:30 EA (Rec: 04/12/18 09:01 EA [id number]) Physical Therapy Assessment Impairments Impairments Functional Activities Pain ROM Soft Tissue Mobility Strength Goals Seven Impairment Max difficulty with 16 inches chair/ low chair sit to stand Shelter Goal (LTG) Patient will perform 16/low chair sit to stand x 10 reps with less difficulty LTG Duration 4 wks (Excellent progress) Six Impairment Impaired functional lunges Shelter Goal (LTG) Patient will perform functional lunges while picking 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 LTG Duration Goal reached Four Impairment Antalgic gait w/ decreased WB to RLE Shelter Goal (LTG) Patient will exhibit near to nomal gait with no AD on uneven surfaces LTG Duration Goal reached Three Impairment LEFS score of 35 Short Term Goal (STG) Patient will report LEFS score of > 50 STG Duration reached Shelter Goal (LTG) LEFS score of > 72 LTG Duration 4 wks (progressing well 71/80) Two Impairment Hip Flexion/EXT/ ER/IR limited by 5-10 degrees Shelter Goal (LTG) Patient will exhibit increase HIP ROM of 5-10 degrees for improve for functional squating and lifting. LTG Duration Goal met One Impairment Hip Flexors/ ABD/ Rotators strength of 3+/5 Hvac Sales Engineer Goal (LTG) Patient will exhibit increase hip strength by 1 level for gait and functional mobility improvement LTG Duration 4 wks (Slow steady progress) Progress Towards Goals Progress Towards Goals Progressing Toward Goals Assessment Summary Assessment Patient was only seen once in one month duration due to busy schedule at work. She has been compliant with home exercises program and has been functioning almost back to previous level except with functional kneeling and picking/lifting object from the floor due to decreased hip strength and pain to tight left knee. Overall patient is progressing well. She will continue to benefit with skilled PT for safe HEP. Physical Therapy Plan Frequency and Duration Frequency of Treatment 1x/Week Duration of Treatment 3 wks Plan of Care Start Date 04/04/18 Plan of Care End Date 04/17/18 Therapeutic Interventions Therapeutic Interventions Home Exercise Program Joint Mobilizations Manual Therapy Patient/Caregiver Education Self-Care/Home Management Soft Tissue Mobilization Therapeutic Exercises Next Visit Focus/Plan Next Note Type Treatment Note Next Visit Plan Proide and review HEP, education for safe mobility. Plan of Care Dates Plan of Care Start Date 04/04/18 Plan of Care End Date 04/17/18 Please Sign and Return: I have reviewed this Plan of Care and certify that the skilled therapy services above are required to meet the patient?s needs. Physician Signature Date Printed Name and Credentials Clinical Instructor Signature Printed Name and Credentials
--- NOTE | 2018-04-05 17:20 | PT.OTRE ---
Current Diagnoses Presence of unspecified artificial hip joint (08/26/17) Presence of unspecified artificial hip joint (04/04/18) Provider Visit Care Team Role Provider Type Susie Miller PA-C Family Provider Advanced Poultry Eviscerator Primary Care Provider Specialty: Medical Address: [address] [place] [address], [id number] Email: [email or web address] Uri Yepez MD Attending Provider Physician Specialty: Family Practice Address: [address] [place] [address], [id number] Email: [email or web address] Physical Therapy Re-Evaluation PT-OP-A Visit Information Start: 08/23/17 15:37 Freq: Status: Active Protocol: Document 04/04/18 17:24 EA (Rec: 04/04/18 17:37 EA [id number]) Out-Patient Physical Therapy Visit Information Visit Information Visit Type Treatment Note Visit Start Time 14:30 Visit Stop Time 15:13 Total Visit Minutes 38 Visit Number PT-OP-B Current Condition Start: 08/23/17 15:37 Freq: Status: Active Protocol: Document 09/07/17 08:21 EA (Rec: 09/12/17 09:03 EA [id number]) Current Condition History of Current Condition Onset Date 05/12/17 Current Complaints C/O difficulty in all weight bearing mobility d/t R hip weakness and pain History of Current Condition S/P R HYACINTH revision 05/12/17 with disclocation 4 days after revision. Prior Treatments and Tests Patient has undergone 6 skilled PT visits since Future Testing and Treatments Planned Had seen surgeun 2 weeks from todays date and removed hip adductor brace. Treatment Goals Patient/Caregiver Goals Patient wants to be able to wlak more than 2 miles with no hip discomfort, no assistive device and no gait difficulty. Prior Functional Status Baseline Function- ADL's Independent Baseline Function- Mobility Independent Baseline Function- Gait Unlimited amb. with no AD with near to normal gait. 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 Baseline Function- Recreation/Hobbies unable Current Functional Impairments (Reported) Functional Limitations- ADL's Indep Functional Limitations- Mobility/Gait Able to ambulate 3/4 a mile with STC to left hand Functional Limitations- Work/School Indep with difficulty Functional Limitations- Recreation/ Unable Hobbies PT-OP-C Subjective Start: 08/23/17 15:37 Freq: Status: Active Protocol: Document 04/04/18 17:24 EA (Rec: 04/04/18 17:37 EA [id number]) OP-PT Subjective Patient Comments Patient Comments Pt reports severe cramps after last session which happen while at the grocery store; states it lasted to 10 mins. Patient Reported Progress Improving Patient Questionnaires Lower Extremity Functional Scale LEFS Score 71 LEFS Impairment 60 to 79% Impaired (Score 17- 31) PT-OP-F Manual Assessment Start: 08/23/17 15:37 Freq: Status: Active Protocol: Document 04/04/18 17:24 EA (Rec: 04/04/18 17:37 EA [id number]) Manual Assessments Soft Tissue Assessment Soft Tissue Mobility Assessment Right: Limited hip ER/IR, Hip extension by ~5 degrees. Left: Limited knee flexion to 0-110 degress w/ pain to anterolat knee upon passive overpressure. Joint Mobility Assessment Joint Mobility Assessment Hip joint limitation to right hip flexion with empty enfeel. Limitation to hip ER/IR rotation with firm endfeel. PT-OP-G Mobility & Gait Start: 08/23/17 15:37 Freq: Status: Active Protocol: Document 04/04/18 17:24 EA (Rec: 04/04/18 17:37 EA [id number]) Stair Climbing Evaluation Technique/Endurance Stair Climbing Direction Ascend and Descend Stair Climbing Technique Step to Step PT-OP-K Range of Motion Start: 08/23/17 15:37 Freq: Status: Active Protocol: Document 04/05/18 17:20 EA (Rec: 04/12/18 09:01 EA [id number]) Hip Goniometric Range of Motion Hip Measured in Degrees Right Active Testing Position Supine Flexion w/Knee Flexed 110 Straight Leg Raise 90 Extension 15 Internal Rotation 30 External Rotation 30 Knee Goniometric Range of Motion Knee Measured in Degrees Right Knee ROM WFL Yes Left Flexion Active (degrees) 110 PT-OP-M Strength Start: 08/23/17 15:37 Freq: Status: Active Protocol: Document 04/04/18 17:30 EA (Rec: 04/12/18 10:58 EA [id number]) Hip Strength Hip Manual Muscle Testing Left Flexion (L2) 3+ Fair+ Extension (S1) 4- Good- Abduction 3+ Fair+ Adduction 4- Good- External Rotation 3+ Fair+ Internal Rotation 3+ Fair+ Right Flexion (L2) 3+ Fair+ Extension (S1) 4- Good- Abduction 3+ Fair+ Adduction 4- Good- External Rotation 3+ Fair+ Internal Rotation 3+ Fair+ Knee Strength Knee Manual Muscle Testing Right Flexion (S2) 5 Normal Extension (L3) 5 Normal Left Flexion (S2) 5 Normal Extension (L3) 5 Normal PT-OP-Q Treatments Start: 08/23/17 15:37 Freq: Status: Active Protocol: Document 04/04/18 17:30 EA (Rec: 04/12/18 10:58 EA [id number]) Cardio Equipment Recumbent Stepper (Sci-Fit) Duration (Minutes) 8 Resistance 3 Seat Position 12-8 Other no hand support Gym Equipment Shuttle Recovery Unilateral Squats Details Bilat Resistance 125 Shuttle Recovery Platform Stable Reps/Time 2x15 Bilateral Squats Resistance 4-8cords Shuttle Recovery Platform Stable Reps/Time 15 x 3 Shuttle Balance 1 Details FWD/BWD tilt Comments arm challenge. Therapeutic Exercises Supine Exercises 2 Supine Exercise Name Bridge with isometric ABD Reps/Minutes x 10 reps 1 Supine Exercise Name SLR Side bilateral Resistance 2# Reps/Minutes x 5SH x 10 reps each Prone Exercises 1 Prone Exercise Name Prone hip ext Side bilateral Resistance 2 lbs Reps/Minutes x 12 reps x 2 sets Sidelying Exercises 2 Sidelying Exercise Name clamshell Side bilateral Resistance Lv1 Reps/Minutes x 10 reps 1 Sidelying Exercise Name Hip ABD/ ADD Side bilateral Resistance 2# Reps/Minutes x 5SH x 10 reps each leg Sitting Exercises 1 Sitting Exercise Name Sitted bilat TB hip ER/IR Side bilateral Equipment Used Lv 1 Reps/Minutes 10 x 2 Standing Exercises 5 Standing Exercise Name Rails single hand support steady lunges Reps/Minutes X 8 REPS X 2 SETS Comments foam under the knee 4 Standing Exercise Name 8 step with knee up pause Reps/Minutes x 10 repsx 2 sets 2 Standing Exercise Name sit to stand 17 stable with no HS Reps/Minutes x 10 x 2 sets 1 Standing Exercise Name Standing side step squat Resistance GTB on both ankle Other Exercises 1 Other Exercise Name SLS Side bilateral Reps/Minutes x 15 SH x 3 reps each PT-OP-R Modalities Start: 08/23/17 15:37 Freq: Status: Active Protocol: Document 01/31/18 14:50 EA (Rec: 01/31/18 15:17 EA [id number]) Electric Stimulation Electric Stimulation Interferential Current (IFC) Body Location left knee Duration (Minutes) 15 Combined With Heat/Cold Cold Pack PT-OP-T Assessment and Plan Start: 08/23/17 15:37 Freq: Status: Active Protocol: Document 04/05/18 17:30 EA (Rec: 04/12/18 09:01 EA [id number]) Physical Therapy Assessment Impairments Impairments Functional Activities Pain ROM Soft Tissue Mobility Strength Goals Seven Impairment Max difficulty with 16 inches chair/ low chair sit to stand Director Broadcast Goal (LTG) Patient will perform 16/low chair sit to stand x 10 reps with less difficulty LTG Duration 4 wks (Excellent progress) Six Impairment Impaired functional lunges Director Broadcast Goal (LTG) Patient will perform functional lunges while picking object from the floor 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 LTG Duration Goal reached Four Impairment Antalgic gait w/ decreased WB to RLE Residential Goal (LTG) Patient will exhibit near to nomal gait with no AD on uneven surfaces LTG Duration Goal reached Three Impairment LEFS score of 35 Short Term Goal (STG) Patient will report LEFS score of > 50 STG Duration reached Director Broadcast Goal (LTG) LEFS score of > 72 LTG Duration 4 wks (progressing well 71/80) Two Impairment Hip Flexion/EXT/ ER/IR limited by 5-10 degrees Residential Goal (LTG) Patient will exhibit increase HIP ROM of 5-10 degrees for improve for functional squating and lifting. LTG Duration Goal met One Impairment Hip Flexors/ ABD/ Rotators strength of 3+/5 Residential Goal (LTG) Patient will exhibit increase hip strength by 1 level for gait and functional mobility improvement LTG Duration 4 wks (Slow steady progress) Progress Towards Goals Progress Towards Goals Progressing Toward Goals Assessment Summary Assessment Patient was only seen once in one month duration due to busy schedule at work. She has been compliant with home exercises program and has been functioning almost back to previous level except with functional kneeling and picking/lifting object from the floor due to decreased hip strength and pain to tight left knee. Overall patient is progressing well. She will continue to benefit with skilled PT for safe HEP. Physical Therapy Plan Frequency and Duration Frequency of Treatment 1x/Week Duration of Treatment 3 wks Plan of Care Start Date 04/04/18 Plan of Care End Date 04/17/18 Therapeutic Interventions Therapeutic Interventions Home Exercise Program Joint Mobilizations Manual Therapy Patient/Caregiver Education Self-Care/Home Management Soft Tissue Mobilization Therapeutic Exercises Next Visit Focus/Plan Next Note Type Treatment Note Next Visit Plan Proide and review HEP, education for safe mobility.
--- NOTE | 2018-04-17 17:22 | PT.OTN ---
Current Diagnoses Presence of unspecified artificial hip joint (08/26/17) Presence of unspecified artificial hip joint (04/17/18) Physical Therapy Treatment Note PT-OP-A Visit Information Start: 08/23/17 15:37 Freq: Status: Active Protocol: Document 04/17/18 16:46 EA (Rec: 04/17/18 16:59 EA [id number]) Out-Patient Physical Therapy Visit Information Visit Information Visit Type Treatment Note Visit Note discharge summary performed Visit Start Time 14:30 Visit Stop Time 15:10 Total Visit Minutes 40 Visit Number PT-OP-B Current Condition Start: 08/23/17 15:37 Freq: Status: Active Protocol: Document 09/07/17 08:21 EA (Rec: 09/12/17 09:03 EA [id number]) Current Condition History of Current Condition Onset Date 05/12/17 Current Complaints C/O difficulty in all weight bearing mobility d/t R hip weakness and pain History of Current Condition S/P R HYACINTH revision 05/12/17 with disclocation 4 days after revision. Prior Treatments and Tests Patient has undergone 6 skilled PT visits since Future Testing and Treatments Planned Had seen surgeun 2 weeks from todays date and removed hip adductor brace. Treatment Goals Patient/Caregiver Goals Patient wants to be able to wlak more than 2 miles with no hip discomfort, no assistive device and no gait difficulty. Prior Functional Status Baseline Function- ADL's Independent Baseline Function- Mobility Independent Baseline Function- Gait Unlimited amb. with no AD with near to normal gait. 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 Baseline Function- Recreation/Hobbies unable Current Functional Impairments (Reported) Functional Limitations- ADL's Indep Functional Limitations- Mobility/Gait Able to ambulate 3/4 a mile with STC to left hand Functional Limitations- Work/School Indep with difficulty Functional Limitations- Recreation/ Unable Hobbies PT-OP-C Subjective Start: 08/23/17 15:37 Freq: Status: Active Protocol: Document 04/17/18 16:46 EA (Rec: 04/17/18 16:59 EA [id number]) OP-PT Subjective Patient Comments Patient Comments Pt reports she has keven functional at home mostly except when kneeling down when picking object from the floor ; states left knee still painfull with low chairs and kneeling down. Patient reports she will be seeing her physician for left knee check up. Patient agreeable to to discharge today. Patient Reported Progress Improving PT-OP-F Manual Assessment Start: 08/23/17 15:37 Freq: Status: Active Protocol: Document 04/04/18 17:24 EA (Rec: 04/04/18 17:37 EA [id number]) Manual Assessments Soft Tissue Assessment Soft Tissue Mobility Assessment Right: Limited hip ER/IR, Hip extension by ~5 degrees. Left: Limited knee flexion to 0-110 degress w/ pain to anterolat knee upon passive overpressure. Joint Mobility Assessment Joint Mobility Assessment Hip joint limitation to right hip flexion with empty enfeel. Limitation to hip ER/IR rotation with firm endfeel. PT-OP-G Mobility & Gait Start: 08/23/17 15:37 Freq: Status: Active Protocol: Document 04/04/18 17:24 EA (Rec: 04/04/18 17:37 EA [id number]) Stair Climbing Evaluation Technique/Endurance Stair Climbing Direction Ascend and Descend Stair Climbing Technique Step to Step PT-OP-K Range of Motion Start: 08/23/17 15:37 Freq: Status: Active Protocol: Document 04/05/18 17:20 EA (Rec: 04/12/18 09:01 EA [id number]) Hip Goniometric Range of Motion Hip Measured in Degrees Right Active Testing Position Supine Flexion w/Knee Flexed 110 Straight Leg Raise 90 Extension 15 Internal Rotation 30 External Rotation 30 Knee Goniometric Range of Motion Knee Measured in Degrees Right Knee ROM WFL Yes Left Flexion Active (degrees) 110 PT-OP-M Strength Start: 08/23/17 15:37 Freq: Status: Active Protocol: Document 04/04/18 17:30 EA (Rec: 04/12/18 10:58 EA [id number]) Hip Strength Hip Manual Muscle Testing Left Flexion (L2) 3+ Fair+ Extension (S1) 4- Good- Abduction 3+ Fair+ Adduction 4- Good- External Rotation 3+ Fair+ Internal Rotation 3+ Fair+ Right Flexion (L2) 3+ Fair+ Extension (S1) 4- Good- Abduction 3+ Fair+ Adduction 4- Good- External Rotation 3+ Fair+ Internal Rotation 3+ Fair+ Knee Strength Knee Manual Muscle Testing Right Flexion (S2) 5 Normal Extension (L3) 5 Normal Left Flexion (S2) 5 Normal Extension (L3) 5 Normal PT-OP-Q Treatments Start: 08/23/17 15:37 Freq: Status: Active Protocol: Document 04/17/18 16:46 EA (Rec: 04/17/18 16:59 EA [id number]) Cardio Equipment Treadmill Duration (Minutes) 7 Speed 2.5 Incline 7-10 Gym Equipment Shuttle Recovery Other- 1 Resistance 1 cords Shuttle Recovery Platform Stable Reps/Time plyometric single Unilateral Squats Details Bilat Resistance 125 Shuttle Recovery Platform Stable Reps/Time 2x15 Bilateral Squats Resistance 4-8cords Shuttle Recovery Platform Stable Reps/Time 15 x 3 Shuttle Balance 1 Details FWD/BWD tilt Comments arm challenge. Therapeutic Exercises Supine Exercises 2 Supine Exercise Name Bridge with isometric ABD Reps/Minutes x 10 reps x 2 1 Supine Exercise Name SLR Side bilateral Resistance 2# Reps/Minutes x 5SH x 10 reps each Prone Exercises 1 Prone Exercise Name Prone hip ext Side bilateral Resistance 3 lbs Reps/Minutes x 12 reps x 2 sets Sidelying Exercises 2 Sidelying Exercise Name clamshell Side bilateral Resistance Lv1 Reps/Minutes x 10 reps x 2 1 Sidelying Exercise Name Hip ABD/ ADD Side bilateral Resistance 2# Reps/Minutes x 5SH x 10 reps each leg Sitting Exercises 2 Sitting Exercise Name hip ER/IR Side bilateral Resistance BTB Reps/Minutes x 12 reps x 2 Standing Exercises 5 Standing Exercise Name Rails single hand support steady lunges with floor object picking. Reps/Minutes X 8 REPS X 2 SETS Comments foam under the knee 3 Standing Exercise Name 8 step lunges Reps/Minutes x 10 reps x 2 sets 2 Standing Exercise Name sit to stand 17 stable with no HS Reps/Minutes x 10 x 2 sets Other Exercises 2 Other Exercise Name 4-6 step down and back up Reps/Minutes x 10 reps x 2 sets with single hand support 1 Other Exercise Name SLS Side bilateral Reps/Minutes x 15 SH x 3 reps each Self-Care/Home Management Treatment Education Patient Education Home Exercise Program Joint Protection Pain Management PT-OP-R Modalities Start: 08/23/17 15:37 Freq: Status: Active Protocol: Document 01/31/18 14:50 EA (Rec: 01/31/18 15:17 EA [id number]) Electric Stimulation Electric Stimulation Interferential Current (IFC) Body Location left knee Duration (Minutes) 15 Combined With Heat/Cold Cold Pack PT-OP-T Assessment and Plan Start: 08/23/17 15:37 Freq: Status: Active Protocol: Document 04/17/18 16:46 EA (Rec: 04/17/18 16:59 EA [id number]) Physical Therapy Assessment Assessment Summary Assessment Patient exhibits improved functional mobility. Gait correction still required as patient developed the habit of antalgic gait which she mentioned that it has been like that more than 10 years ago. Left knee decreased ROM with possible quad tendinitis limits patient full squat and sitting in low chair. Overall patiente is much improved at the the time of discharge. Physical Therapy Plan Discharge Physical Therapy Discharge Reasons Plateau in Progress
--- NOTE | 2018-04-17 17:22 | PT.OPDS ---
Current Diagnoses Presence of unspecified artificial hip joint (08/26/17) Presence of unspecified artificial hip joint (04/17/18) Provider Visit Care Team Role Provider Type Susie Miller PA-C Family Provider Advanced Head Tennis Professional Primary Care Provider Specialty: Medical Address: [address] [place] [address], [address] Email: [email or web address] Uri Yepez MD Attending Provider Physician Specialty: Family Practice Address: [address] [place] [address], [address] Email: [email or web address] Visit Number Visit Number Discharge Summary PT-OP-B Current Condition Start: 08/23/17 15:37 Freq: Status: Active Protocol: Document 09/07/17 08:21 EA (Rec: 09/12/17 09:03 EA [id number]) Current Condition History of Current Condition Onset Date 05/12/17 Current Complaints C/O difficulty in all weight bearing mobility d/t R hip weakness and pain History of Current Condition S/P R HYACINTH revision 05/12/17 with disclocation 4 days after revision. Prior Treatments and Tests Patient has undergone 6 skilled PT visits since Future Testing and Treatments Planned Had seen surgeun 2 weeks from todays date and removed hip adductor brace. Treatment Goals Patient/Caregiver Goals Patient wants to be able to wlak more than 2 miles with no hip discomfort, no assistive device and no gait difficulty. Prior Functional Status Baseline Function- ADL's Independent Baseline Function- Mobility Independent Baseline Function- Gait Unlimited amb. with no AD with near to normal gait. 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 Baseline Function- Recreation/Hobbies unable Current Functional Impairments (Reported) Functional Limitations- ADL's Indep Functional Limitations- Mobility/Gait Able to ambulate 3/4 a mile with STC to left hand Functional Limitations- Work/School Indep with difficulty Functional Limitations- Recreation/ Unable Hobbies PT-OP-C Subjective Start: 08/23/17 15:37 Freq: Status: Active Protocol: Document 04/17/18 16:46 EA (Rec: 04/17/18 16:59 EA [id number]) OP-PT Subjective Patient Comments Patient Comments Pt reports she has keven functional at home mostly except when kneeling down when picking object from the floor ; states left knee still painfull with low chairs and kneeling down. Patient reports she will be seeing her physician for left knee check up. Patient agreeable to to discharge today. Patient Reported Progress Improving PT-OP-F Manual Assessment Start: 08/23/17 15:37 Freq: Status: Active Protocol: Document 04/04/18 17:24 EA (Rec: 04/04/18 17:37 EA [id number]) Manual Assessments Soft Tissue Assessment Soft Tissue Mobility Assessment Right: Limited hip ER/IR, Hip extension by ~5 degrees. Left: Limited knee flexion to 0-110 degress w/ pain to anterolat knee upon passive overpressure. Joint Mobility Assessment Joint Mobility Assessment Hip joint limitation to right hip flexion with empty enfeel. Limitation to hip ER/IR rotation with firm endfeel. PT-OP-G Mobility & Gait Start: 08/23/17 15:37 Freq: Status: Active Protocol: Document 04/04/18 17:24 EA (Rec: 04/04/18 17:37 EA [id number]) Stair Climbing Evaluation Technique/Endurance Stair Climbing Direction Ascend and Descend Stair Climbing Technique Step to Step PT-OP-K Range of Motion Start: 08/23/17 15:37 Freq: Status: Active Protocol: Document 04/05/18 17:20 EA (Rec: 04/12/18 09:01 EA [id number]) Hip Goniometric Range of Motion Hip Measured in Degrees Right Active Testing Position Supine Flexion w/Knee Flexed 110 Straight Leg Raise 90 Extension 15 Internal Rotation 30 External Rotation 30 Knee Goniometric Range of Motion Knee Measured in Degrees Right Knee ROM WFL Yes Left Flexion Active (degrees) 110 PT-OP-M Strength Start: 08/23/17 15:37 Freq: Status: Active Protocol: Document 04/04/18 17:30 EA (Rec: 04/12/18 10:58 EA [id number]) Hip Strength Hip Manual Muscle Testing Left Flexion (L2) 3+ Fair+ Extension (S1) 4- Good- Abduction 3+ Fair+ Adduction 4- Good- External Rotation 3+ Fair+ Internal Rotation 3+ Fair+ Right Flexion (L2) 3+ Fair+ Extension (S1) 4- Good- Abduction 3+ Fair+ Adduction 4- Good- External Rotation 3+ Fair+ Internal Rotation 3+ Fair+ Knee Strength Knee Manual Muscle Testing Right Flexion (S2) 5 Normal Extension (L3) 5 Normal Left Flexion (S2) 5 Normal Extension (L3) 5 Normal PT-OP-T Assessment and Plan Start: 08/23/17 15:37 Freq: Status: Active Protocol: Document 04/17/18 16:46 EA (Rec: 04/17/18 16:59 EA [id number]) Physical Therapy Assessment Assessment Summary Assessment Patient exhibits improved functional mobility. Gait correction still required as patient developed the habit of antalgic gait which she mentioned that it has been like that more than 10 years ago. Left knee decreased ROM with possible quad tendinitis limits patient full squat and sitting in low chair. Overall patient is much improved at the time of discharge. Physical Therapy Plan Discharge Physical Therapy Discharge Reasons Plateau in Progress
== END 2018-05-01 12:16 ==
LOC: PHYS 14:30
PROVIDERS: Family Provider Physician Assistant; PCP Physician Assistant; Visit Provider Family Medicine
DX: Z96.649 Presence of unspecified artificial hip joint (principal)
CPT/HCPCS: 97014; 97110; 97116; 97535; G0283

== ENCOUNTER → 2018-07-19 13:00 | Outpatient (CLI) | payer OTHER, MEDICAID, SELFPAY ==
--- NOTE | 2018-07-19 13:02 | DI.RAD.S_ITS ---
PROCEDURE: FL BARIUM SWALLOW W SPEECH INDICATIONS: Difficulty swallowing; liquids worse than solids TECHNIQUE: Examination was conducted in conjunction with speech pathology per standard protocol. In the lateral projection, filming was performed of the patient swallowing. AP projection filming was performed with patient swallowing. COMPARISON: [facility], , CHEST 1 VIEW, 05/24/2016, 10:37. FINDINGS: Function: The oral preparatory phase appears normal, with proper containment. The subsequent oral propulsive phase, pharyngeal phase, and esophageal phase of swallowing also appear normal with all proffered substances. There are occasional quick laryngeal penetrations when swallowing substances rapidly, which immediately clear with subsequent swallows. No fabian tracheal aspiration. No pathologic vallecular pooling. The patient successfully swallowed a calibrated barium tablet with no difficulty, which quickly passed through the esophagus into the stomach. 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 No cervical esophageal webs. No Zenker's diverticulum. No strictures. IMPRESSION: 1. Occasional quick laryngeal penetrations which immediately clear with subsequent swallows. No tracheal aspiration identified. 2. Cricopharyngeal bar noted. 3. Please see separate concurrent speech pathology report for further details. Dictated by: Cristi Lopez M.D. on 07/19/2018 at 15:31 Approved by: Cristi Lopez M.D. on 07/19/2018 at 15:49
--- NOTE | 2018-07-19 13:02 | DI.US.S_ITS ---
PROCEDURE: US THYROID INDICATIONS: Difficulty swallowing; liquids worse than solids TECHNIQUE: Real-time scanning was performed of the thyroid gland, with image documentation. COMPARISON: [facility], US, THYROID, 06/12/2014, 11:07. FINDINGS: Right: Thyroid lobe measures 4.8 x 1.2 x 1.8 cm, and is homogeneous in echotexture. Left: Thyroid lobe measures 4.6 x 2.2 x 2.5 cm, and is homogenous in echotexture. Isthmus: 2 mm thick. Nodule number: #1 Location: Mid pole of right thyroid lobe Size: 0.5 x 0.3 x 0.3 cm. Composition: Solid Echogenicity: Hypoechoic Shape: Wider than tall Margins: Smooth Echogenic foci: None Total points: 4 ACR TI-RADS category: 4 Nodule number: #2 Location: Mid pole of right thyroid lobe Size: 0.4 x 0.3 x 0.3 cm. Composition: Solid Echogenicity: Hypoechoic Shape: Wider than tall Margins: Smooth Echogenic foci: None Total points: 4 ACR TI-RADS category: 4 Nodule number: #3 Location: Mid pole of right thyroid lobe Size: 4.1 x 2.1 x 2.4 cm. Composition: Predominantly solid Echogenicity: Isoechoic Shape: Wider than tall Margins: Smooth Echogenic foci: Macrocalcifications are seen Total points: 4 ACR TI-RADS category: 4 IMPRESSION: 3 nodules seen in bilateral thyroid lobes as described above. Consider fine needle aspiration of the midpole left thyroid lobe nodule for further evaluation. ACR TI-RADS definitions and recommendations: TI-RADS 1 (benign): 0 points. FNA not needed. TI-RADS 2 (not suspicious): 2 points. FNA not needed. TI-RADS 3 (mildly suspicious): 3 points. * FNA if 2.5 cm or larger, follow up if 1.5 cm or larger (at 1, 3, and 5 years). TI-RADS 4 (moderately suspicious): 4-6 points. * FNA if 1.5 cm or larger, follow up if 1 cm or larger (at 1, 2, 3, and 5 years). TI-RADS 5 (highly suspicious): 7 points or more. * FNA if 1 cm or larger, follow up if 0.5 cm or larger (every year for 5 years). Dictated by: Dylan Santizo M.D. on 07/21/2018 at 15:38 Approved by: Dylan Santizo M.D. on 07/21/2018 at 15:42
--- NOTE | 2018-07-19 16:38 | ST.SWALLOW ---
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 She states this has been occurring for the last year or so and may occur 2-3x in a day and then not at all for several days. She has had 2 surgeries in the last 2 years (a year apart), and cannot recall if swallow problems started before or after her last surgery, which was for her leg. She also has a mass on her thyroid that was diagnosed ~2 yrs ago, and she will go from MBS procedure directly to have an ultrasound of her thyroid. Subjective Observations The pt arrived on time. She was self-ambulatory and provided case history. Patient Positioning Position View Lat-A/P Imaging Lateral View Textures Administered Trials Presented Thin Liquid via Spoon Thin Liquid via Cup Hartline Liquid via Spoon Hartline Liquid via Cup Honey Liquid via Spoon Pudding Thick Liquid via Spoon Dysphagia Blenderized Textures Regular Textures Oral Phase Source: MBSIMP (TM) (C) Bolus Specific Scoring Grid Lip Closure No Impairment (WNL) Tongue Control During Bolus Hold No Impairment (WNL) Bolus Prep/Mastication No Impairment (WNL) Bolus Transport/Lingual Motion No Impairment (WNL) A/P Lingual Propulsion Delay No Oral Residue Minimal Impairment Residue Clearing WFL Nasal Regurgitation No Additional Oral Phase Observations Oral Peripheral Exam: All features were symmetrical and WNL of strength, coordination and ROM. Pt has complete natural dentition in adequate condition. Oral Phase: WNL. Minimal oral residue present and spilled occasionally to vallecula post -swallow. Good clearance with subsequent swallow. Pharyngeal Phase Source: MBSIMP (TM) (C) Bolus Specific Scoring Grid Delayed Initiation of Pharyngeal Swallow No: With regular texture only to level of vallecula Soft Palate Elevation No Impairment (WNL) Tongue Base Strength/Range of Motion Minimal Impairment Residue Along the Tongue Base Yes: Trace to mild, greater with liquids than solids Clearance of Residue Along Tongue Base No Impairment (WNL) Laryngeal Elevation Moderate Impairment Vallecular Residue Yes: Mild to trace Clearance of Vallecular Residue WFL Laryngeal Vestibular Closure Mild Impairment Pharyngeal Stripping Wave Moderate Impairment Pharyngeal Contraction No Impairment (WNL) Posterior Pharyngeal Wall Residue No Upper Esophageal Sphincter Opening No Impairment (WNL) Residue in the Pyriform Sinuses No Esophageal Clearance Upright Position No Impairment (WNL) Pharyngoesophageal Backflow Observed No Additional Pharyngeal Phase Observations Timely passage of NTL, pudding , and 14 mm barium tablet through esophagus to stomach. A/P View Textures Administered Trials Presented Hartline Liquid via Cup Pudding Thick Liquid via Spoon Barium Tablet A/P View Observations Pharyngeal Contraction No Impairment (WNL) Esophageal Function No Impairment (WNL) Esophageal Clearance Upright Position No Impairment (WNL) Additional Observations Flash penetration (Penetration -Aspiration Scale score 2) was observed with consecutive sips of thin liquid in 1 of 2 trials, with consecutive sips of NTL in 1 trial, and with single cup sip of thin liquid in 1 of 3 trials, including swallow without penetration with use of chin tuck. No aspiration or residue of penetrated contrast in the laryngeal vestibule was observed. Cricopharyngeal bar noted; this did not impede bolus flow . Upon close [id number] video review, air pockets were observed with swallows of thin liquid. The pt reported no sensation of swallowing air or associated discomfort throughout the evaluation. Clinical Impressions Dysphagia Type Mild Pharyngeal Dysphagia. Findings Mild pharyngeal dysphgia secondary to reduced strength and/or ROM of pharyngeal musculature, resulting in reduced pharyngeal stripping wave, reduced hyolaryngeal elevation and anterior excursion, incomplete epiglottic inversion, and inconsistent airway closure allowing for occasional penetration of thin and nectar -thick liquids, particularly during consecutive sips. Pockets of air were observed with intake of thin liquid, which is the suspected result of incomplete lingopharyngeal seal and reduced stripping wave. Cricopharyngeal bar also observed, which did not impede bolus flow. Rehabilitation Potential Excellent Patient Appropriate for Therapy Yes: Pt informed of recommendation and in agreement Recommendations Diet Liquids Order Thin Diet Order Regular Medication Recommendation As Tolerated Additional Dietary Needs Controlled Sips Aspiration Precautions Recommended Precautions Upright at 90 Degrees Small Bites/Sips Treatment Plan Therapy Recommendations Outpatient Speech Therapy Compensatory Strategies Recommendations Sitting Upright (90 deg) Small Bites and Sips Short Term Goals 1. The pt will complete swallow exercises targeting increasing strength and ROM of pharyngeal and laryngeal musculature to improve swallow function and reduce discomfort. 2. The pt will use compensatory swallow strategies as needed to increase swallow safety and comfort. Mcfp Goals 1. The pt will demonstrate independent production of swallow exercises and compensatory swallow strategies to improve swallow function, reduce risk of aspiration, and increase comfort and confidence with oral intake. 2. The pt will tolerate regular texture and thin liquids without overt s/sx of aspiration, including abnormal intake of air with swallow. Placement Recommendation After Discharge Home
== END ==
PROVIDERS: Family Provider Physician Assistant; PCP Physician Assistant; Visit Provider Physician Assistant
DX: R13.10 Dysphagia, unspecified (principal); E04.2 Nontoxic multinodular goiter
CPT/HCPCS: 74230; 76536; 92611

== ENCOUNTER → 2018-08-11 09:53 | Outpatient (CLI) | payer OTHER, MEDICAID, SELFPAY ==
[2018-08-11 11:10] LABS: Alanine Aminotransferase 28 IU/L (9-52); Albumin 4.2 g/dL (3.5-5.0); Albumin Globulin Ratio 1.7 (1.0-2.8); Alkaline Phosphatase 84 U/L (38-126); Aspartate Aminotransferase 29 IU/L (14-36); BUN Creatinine Ratio 16.7 (6-22); Bilirubin Total 0.9 mg/dL (0.2-1.3); Blood Urea Nitrogen 15 mg/dL (7-17); Calcium 9.6 mg/dL (8.4-10.2); Carbon Dioxide 29 mmol/L (22-32); Chloride 104 mmol/L (98-107); Cholesterol 238 mg/dL (140-199); Estimated Glomerular Filt Rate > 60.0 mL/min (>60); Globulin 2.5 g/dL (1.7-4.1); Glucose 90 mg/dL (80-110); HDL Cholesterol 77 mg/dL (40-60); HEMOLYSIS < 15 (0-50); LDL Cholesterol Calculated 149 mg/dL (<100); Potassium 5.3 mmol/L (3.4-5.1); Sodium 140 mmol/L (137-145); Total Protein 6.7 g/dL (6.3-8.2); Triglycerides 58 mg/dL (35-150)
[2018-08-11 11:48] LABS: Thyroid Stimulating Hormone 1.19 uIU/mL (0.47-4.68)
== END ==
PROVIDERS: Family Provider Physician Assistant; PCP Physician Assistant; Visit Provider Physician Assistant
DX: E04.1 Nontoxic single thyroid nodule (principal); E78.5 Hyperlipidemia, unspecified; R13.10 Dysphagia, unspecified
CPT/HCPCS: 36415; 80053; 80061; 84443

== ENCOUNTER → 2018-09-14 14:43 | Outpatient (CLI) | payer MEDICAID, SELFPAY ==
[2018-09-14 16:14] LABS: Vitamin D 25 Hydroxy (D3) 27.9 ng/mL (30.0-100.0)
== END ==
PROVIDERS: Family Provider Physician Assistant; PCP Physician Assistant; Visit Provider Physician Assistant
DX: E55.9 Vitamin D deficiency, unspecified (principal); M81.0 Age-related osteoporosis without current pathological fracture
CPT/HCPCS: 36415; 82306

== ENCOUNTER 2018-09-14 15:15 | Outpatient (RCR) | payer MEDICAID, MEDICARE, OTHER, SELFPAY ==
--- NOTE | 2018-08-30 16:45 | PT.OPPOC ---
Current Diagnoses Unspecified mononeuropathy of left lower limb (08/30/18) Other symptoms and signs involving the musculoskeletal system (08/30/18) Provider Visit Care Team Role Provider Type Susie Miller PA-C Attending Provider Advanced Senior Chemical Process Engineer Family Provider Primary Care Provider Specialty: Medical Address: [address] [place] [address], [phone] Email: [email or web address] Plan Of Care PT-OP-T Assessment and Plan Start: 08/30/18 16:42 Freq: Status: Active Protocol: Document 08/30/18 16:44 EA (Rec: 08/30/18 17:35 EA [id number]) Physical Therapy Assessment Rehab Potential Rehabilitation Potential Good Evaluation Complexity Number of Personal Factors/Comorbidities 1-2 Number of Body Systems Impaired 3 Clinical Presentation at Evaluation Evolving Impairments Impairments Activity Tolerance Functional Activities Gait Pain ROM Soft Tissue Mobility Strength Goals Four Impairment LEFS Set Up Mechanic Coil Winding Machines Goal (LTG) Patient reach > 60 score on LEFS LTG Duration 5 wks Three Impairment standard height stairs difficulty Half-Way Goal (LTG) Patient will ascend and descend standard stairs without difficulty and pain Two Impairment Impaired ability to pick object from the floor Set Up Mechanic Coil Winding Machines Goal (LTG) Patient will learn to pick object through modified technique without difficulty LTG Duration 4 wks One Impairment Impaired car transfer Half-Way Goal (LTG) Patient will get in and out of the car without pain LTG Duration 5 wks Assessment Summary Assessment Pleasant 62 y/o F patient with a referring diagnosis of left knee pain. Today patient exhibits significant weakness to both hip, LOM to left hip and knee with significant tightness to left quads. Gait anyalysis reveals increased toe out and vaulting during left stance phase with decreased stride length. Due to above mentioned dysfunction, patient is impaired to perform activities such as stairs navigation, in and out of the car, picking object from the floor, and getting up from the floor. Patient would greatly benefit with skilled PT to improve function. Physical Therapy Plan Frequency and Duration Frequency of Treatment 2x/Week Duration of Treatment 8 wks Plan of Care Start Date 08/30/18 Plan of Care End Date 11/01/18 Therapeutic Interventions Therapeutic Interventions Balance Training Gait Training Home Exercise Program Joint Mobilizations Manual Therapy Neuromuscular Re-education Patient/Caregiver Education Self-Care/Home Management Soft Tissue Mobilization Taping Therapeutic Activities Therapeutic Exercises Modalities Cold Pack/Ice Massage Electric Stimulation Hot Packs Next Visit Focus/Plan Next Note Type Treatment Note Next Visit Plan Review previous hip HEP. Quads stretching and increasing ROM . Plan of Care Dates Plan of Care Start Date 08/30/18 Plan of Care End Date 11/01/18 Please Sign and Return: I have reviewed this Plan of Care and certify that the skilled therapy services above are required to meet the patient?s needs. Physician Signature Date Printed Name and Credentials Clinical Instructor Signature Printed Name and Credentials
--- NOTE | 2018-08-30 16:45 | PT.OIE ---
Current Diagnoses Unspecified mononeuropathy of left lower limb (08/30/18) Other symptoms and signs involving the musculoskeletal system (08/30/18) Provider Visit Care Team Role Provider Type Susie Miller PA-C Attending Provider Advanced Oracle Erp Architect Family Provider Primary Care Provider Specialty: Medical Address: [address] [place] [address], [phone] Email: [email or web address] Physical Therapy Initial Evaluation PT-OP-A Visit Information Start: 08/30/18 16:42 Freq: Status: Active Protocol: Document 08/30/18 16:44 EA (Rec: 08/30/18 17:35 EA [id number]) Out-Patient Physical Therapy Visit Information Visit Information Visit Type Initial Evaluation Visit Start Time 16:00 Visit Stop Time 16:45 Total Visit Minutes 40 Visit Number 1 Evaluation Information Evaluation Date 08/30/18 Precautions Precautions Previous history of femoral prosthetic fracture PT-OP-B Current Condition Start: 08/30/18 16:42 Freq: Status: Active Protocol: Document 08/30/18 16:44 EA (Rec: 08/30/18 17:35 EA [id number]) Current Condition History of Current Condition Onset Date 2017 Current Complaints Left knee pain and both hip weakness History of Current Condition Patient had formal PT in 2016 for left knee due to femoral prosthetic fracture. Discharged to PT due to insurance limitation with left knee ROM limitation deficits. Patient came back to PT in May 2017 after right hip replacement and again discharged due to insurance limitation with a deficits of both hip major muscle group weakness. Today patient reports that she has not been doing HEP due to busy schedule at work and other family acquaintance. PT states that pain to left knee is getting worst and hip muscle strength is not progressing well. Prior Treatments and Tests Formal PT: 2017 left knee and hip Formal PT: 2018 right replacement Future Testing and Treatments Planned None identified Treatment Goals Patient/Caregiver Goals 1. I would like to be able to kneel down and pick object from the floor 2. I would like to get up in the floor without so much difficulty 3. 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 Functional Limitations- Recreation/ Difficulty walking in the Hobbies beach andpicking shells PT-OP-C Subjective Start: 08/30/18 16:42 Freq: Status: Active Protocol: Document 08/30/18 16:44 EA (Rec: 08/30/18 17:35 EA [id number]) OP-PT Subjective Patient Comments Patient Comments My left knee pain mostly increased in stairs climbing up/down Patient Reported Progress Same Patient Questionnaires Lower Extremity Functional Scale LEFS Score 53 LEFS Impairment 20 to 39% Impaired (Score 48- 62) PT-OP-F Manual Assessment Start: 08/30/18 16:42 Freq: Status: Active Protocol: Document 08/30/18 16:44 EA (Rec: 08/30/18 17:35 EA [id number]) Manual Assessments Soft Tissue Assessment Soft Tissue Mobility Assessment Tight left hip rotators, tight left quads, left hip flexors PT-OP-G Mobility & Gait Start: 08/30/18 16:42 Freq: Status: Active Protocol: Document 08/30/18 16:44 EA (Rec: 08/30/18 17:35 EA [id number]) OP Gait Assessment Gait Gait Assistance Required: Independent Able to Maintain Weight Bearing Status Yes During Gait Assistive Devices Assistive Device None Gait Deviations General Gait Pattern Decreased Stride Length Factors Limiting Gait Function Factors Limiting Gait Function Decreased Strength Limited Range of Motion Pain Comments Gait Comments Increased left toe out with vaulting to left side stance phase. PT-OP-J Posture/Palpation/Skin Start: 08/30/18 16:42 Freq: Status: Active Protocol: Document 08/30/18 16:44 EA (Rec: 08/30/18 17:35 EA [id number]) Palpation Assessment Location One Palpation Location left distal quads Palpation Findings Soft Tissue Tightness Tenderness Skin Assessment Other Assessments Skin Assessment Comments Scars to left knee and hip shows no active inflammation PT-OP-K Range of Motion Start: 08/30/18 16:42 Freq: Status: Active Protocol: Document 08/30/18 16:44 EA (Rec: 08/30/18 17:35 EA [id number]) Hip Goniometric Range of Motion Hip Measured in Degrees Left Active Testing Position Supine Flexion w/Knee Flexed 105 Extension 5 Abduction 35 Internal Rotation 5 External Rotation 5 Right Active Hip ROM WFL Yes Testing Position Supine Flexion w/Knee Flexed 125 Extension 5 Abduction 35 Internal Rotation 30 External Rotation 30 Hip ROM Limitations Hip ROM Limitations Soft Tissue Tightness Knee Goniometric Range of Motion Knee Measured in Degrees Right Knee ROM WFL Yes Patient Position Supine Flexion Active (degrees) 140 Left Patient Position Supine Flexion Active (degrees) 95 Knee ROM Limitations Knee ROM Limitations Soft Tissue Tightness Pain PT-OP-L Special Tests Start: 08/30/18 16:42 Freq: Status: Active Protocol: Document 08/30/18 16:45 EA (Rec: 09/14/18 08:03 EA [id number]) Special Tests Knee Special Tests Varus- 25 Degrees Test Results - Valgus- 25 Degrees Test Results - Pillo's Sign Test Results L positive PT-OP-M Strength Start: 08/30/18 16:42 Freq: Status: Active Protocol: Document 08/30/18 16:44 EA (Rec: 08/30/18 17:35 EA [id number]) Hip Strength Hip Manual Muscle Testing Left Flexion (L2) 3+ Fair+ Extension (S1) 4- Good- Abduction 3+ Fair+ Adduction 3+ Fair+ External Rotation 3 Fair Internal Rotation 3 Fair Right Flexion (L2) 3+ Fair+ Extension (S1) 4- Good- Abduction 4- Good- Adduction 3+ Fair+ External Rotation 4 Good Internal Rotation 4- Good- Knee Strength Knee Manual Muscle Testing Right Reason Not Measured WFL Left Reason Not Measured WFL PT-OP-Q Treatments Start: 08/30/18 16:42 Freq: Status: Active Protocol: Document 08/30/18 16:44 EA (Rec: 08/30/18 17:35 EA [id number]) Self-Care/Home Management Treatment Education Patient Education Home Exercise Program Joint Protection Pain Management Safety PT-OP-T Assessment and Plan Start: 08/30/18 16:42 Freq: Status: Active Protocol: Document 08/30/18 16:44 EA (Rec: 08/30/18 17:35 EA [id number]) Physical Therapy Assessment Rehab Potential Rehabilitation Potential Good Evaluation Complexity Number of Personal Factors/Comorbidities 1-2 Number of Body Systems Impaired 3 Clinical Presentation at Evaluation Evolving Impairments Impairments Activity Tolerance Functional Activities Gait Pain ROM Soft Tissue Mobility Strength Goals Four Impairment LEFS Detention Goal (LTG) Patient reach > 60 score on LEFS LTG Duration 5 wks Three Impairment standard height stairs difficulty Detention Goal (LTG) Patient will ascend and descend standard stairs without difficulty and pain Two Impairment Impaired ability to pick object from the floor Instructional Technology Teacher Goal (LTG) Patient will learn to pick object through modified technique without difficulty LTG Duration 4 wks One Impairment Impaired car transfer Detention Goal (LTG) Patient will get in and out of the car without pain LTG Duration 5 wks Assessment Summary Assessment Pleasant 62 y/o F patient with a referring diagnosis of left knee pain. Today patient exhibits significant weakness to both hip, LOM to left hip and knee with significant tightness to left quads. Gait analysis reveals increased toe out and vaulting during left stance phase with decreased stride length. Due to above mentioned dysfunction, patient is impaired to perform activities such as stairs navigation, in and out of the car, picking object from the floor, and getting up from the floor. Patient would greatly benefit with skilled PT to improve function. Physical Therapy Plan Frequency and Duration Frequency of Treatment 2x/Week Duration of Treatment 8 wks Plan of Care Start Date 08/30/18 Plan of Care End Date 11/01/18 Therapeutic Interventions Therapeutic Interventions Balance Training Gait Training Home Exercise Program Joint Mobilizations Manual Therapy Neuromuscular Re-education Patient/Caregiver Education Self-Care/Home Management Soft Tissue Mobilization Taping Therapeutic Activities Therapeutic Exercises Modalities Cold Pack/Ice Massage Electric Stimulation Hot Packs Next Visit Focus/Plan Next Note Type Treatment Note Next Visit Plan Review previous hip HEP. Quads stretching and increasing ROM .
--- NOTE | 2018-09-14 15:25 | PT.OTN ---
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 Discharged to PT due to insurance limitation with left knee ROM limitation deficits. Patient came back to PT in May 2017 after right hip replacement and again discharged due to insurance limitation with a deficits of both hip major muscle group weakness. Today patient reports that she has not been doing HEP due to busy schedule at work and other family acquaintance. PT states that pain to left knee is getting worst and hip muscle strength is not progressing well. Prior Treatments and Tests Formal PT: 2017 left knee and hip Formal PT: 2018 right replacement Future Testing and Treatments Planned None identified Treatment Goals Patient/Caregiver Goals 1. I would like to be able to kneel down and pick object from the floor 2. I would like to get up in the floor without so much difficulty 3. 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 Functional Limitations- Recreation/ Difficulty walking in the [place] andpicking shells PT-OP-C Subjective Start: 08/30/18 16:42 Freq: Status: Active Protocol: Document 09/14/18 15:25 DLM (Rec: 09/14/18 17:04 DLM [id number]) OP-PT Subjective Patient Comments Patient Comments She has been doing a [employer] class that she likes. She has not been doing any of her exercises from prior PT. PT-OP-F Manual Assessment Start: 08/30/18 16:42 Freq: Status: Active Protocol: Document 08/30/18 16:44 EA (Rec: 08/30/18 17:35 EA [id number]) Manual Assessments Soft Tissue Assessment Soft Tissue Mobility Assessment Tight left hip rotators, tight left quads, left hip flexors PT-OP-G Mobility & Gait Start: 08/30/18 16:42 Freq: Status: Active Protocol: Document 08/30/18 16:44 EA (Rec: 08/30/18 17:35 EA [id number]) OP Gait Assessment Gait Gait Assistance Required: Independent Able to Maintain Weight Bearing Status Yes During Gait Assistive Devices Assistive Device None Gait Deviations General Gait Pattern Decreased Stride Length Factors Limiting Gait Function Factors Limiting Gait Function Decreased Strength Limited Range of Motion Pain Comments Gait Comments Increased left toe out with vaulting to left side stance phase. PT-OP-J Posture/Palpation/Skin Start: 08/30/18 16:42 Freq: Status: Active Protocol: Document 08/30/18 16:44 EA (Rec: 08/30/18 17:35 EA [id number]) Palpation Assessment Location One Palpation Location left distal quads Palpation Findings Soft Tissue Tightness Tenderness Skin Assessment Other Assessments Skin Assessment Comments Scars to left knee and hip shows no active inflammation PT-OP-K Range of Motion Start: 08/30/18 16:42 Freq: Status: Active Protocol: Document 08/30/18 16:44 EA (Rec: 08/30/18 17:35 EA [id number]) Hip Goniometric Range of Motion Hip Measured in Degrees Left Active Testing Position Supine Flexion w/Knee Flexed 105 Extension 5 Abduction 35 Internal Rotation 5 External Rotation 5 Right Active Hip ROM WFL Yes Testing Position Supine Flexion w/Knee Flexed 125 Extension 5 Abduction 35 Internal Rotation 30 External Rotation 30 Hip ROM Limitations Hip ROM Limitations Soft Tissue Tightness Knee Goniometric Range of Motion Knee Measured in Degrees Right Knee ROM WFL Yes Patient Position Supine Flexion Active (degrees) 140 Left Patient Position Supine Flexion Active (degrees) 95 Knee ROM Limitations Knee ROM Limitations Soft Tissue Tightness Pain PT-OP-L Special Tests Start: 08/30/18 16:42 Freq: Status: Active Protocol: Document 08/30/18 16:45 EA (Rec: 09/14/18 08:03 EA [id number]) Special Tests Knee Special Tests Varus- 25 Degrees Test Results - Valgus- 25 Degrees Test Results - Pillo's Sign Test Results L positive PT-OP-M Strength Start: 08/30/18 16:42 Freq: Status: Active Protocol: Document 08/30/18 16:44 EA (Rec: 08/30/18 17:35 EA [id number]) Hip Strength Hip Manual Muscle Testing Left Flexion (L2) 3+ Fair+ Extension (S1) 4- Good- Abduction 3+ Fair+ Adduction 3+ Fair+ External Rotation 3 Fair Internal Rotation 3 Fair Right Flexion (L2) 3+ Fair+ Extension (S1) 4- Good- Abduction 4- Good- Adduction 3+ Fair+ External Rotation 4 Good Internal Rotation 4- Good- Knee Strength Knee Manual Muscle Testing Right Reason Not Measured WFL Left Reason Not Measured WFL PT-OP-Q Treatments Start: 08/30/18 16:42 Freq: Status: Active Protocol: Document 09/14/18 15:25 DLM (Rec: 09/14/18 17:04 DLM [id number]) Cardio Equipment Recumbent Stepper (Sci-Fit) Duration (Minutes) 7 Resistance 1.0 Seat Position 12 Other LE's only Gym Equipment Cable Column (Body Solid) Hip Adduction Details limited hip abduction ROM Resistance 2 plates Reps/Time x 15 reps Hip Abduction Details limited hip ROM Resistance 2 plates Reps/Time x 15 reps Shuttle Recovery Unilateral Squats Resistance 50# Shuttle Recovery Platform Stable Reps/Time x 15 each Bilateral Squats Resistance 75# Shuttle Recovery Platform Stable Reps/Time x 20 reps Therapeutic Exercises Standing Exercises 3 Standing Exercise Name Sit-stands Side bilateral Equipment Used chair Reps/Minutes x 10 reps Comments no UE support, no compensation on left knee 2 Standing Exercise Name Placing foot on/off step (hip flexion) Side left Equipment Used 6 step and second 4step Reps/Minutes x 10 each Comments UE support, v.c to avoid compensations 1 Standing Exercise Name knee flexion stretch on stair, lunge Side left Equipment Used on second 6 step with UE support Reps/Minutes 30 sec hold x 3 reps Manual Therapy Treatment Soft Tissue Mobilization 1 Body Location left distal quad Mobilization Type Cross-Friction Myofascial Release Strumming Intensity/Depth Superficial Body Position Supine Comments caution due to pain, scar tissue noted, soft tissue mobility improved with treatment PT-OP-T Assessment and Plan Start: 08/30/18 16:42 Freq: Status: Active Protocol: Document 09/14/18 15:25 DLM (Rec: 09/14/18 17:04 DLM [id number]) Physical Therapy Assessment Goals Four Impairment LEFS Hand Candy Molder Goal (LTG) Patient reach > 60 score on LEFS LTG Duration 5 wks Three Impairment standard height stairs difficulty Care Home Goal (LTG) Patient will ascend and descend standard stairs without difficulty and pain Two Impairment Impaired ability to pick object from the floor Care Home Goal (LTG) Patient will learn to pick object through modified technique without difficulty LTG Duration 4 wks One Impairment Impaired car transfer Hand Candy Molder Goal (LTG) Patient will get in and out of the car without pain LTG Duration 5 wks Progress Towards Goals Progress Towards Goals Progressing Toward Goals Assessment Summary Assessment She tolerated treatment session well with modifications to manage left quad pain. Noted improved knee flexion after stretches and STM. Pt admits to avoiding functional knee flexion at home due to pain. Physical Therapy Plan Frequency and Duration Frequency of Treatment 2x/Week Duration of Treatment 8 wks Plan of Care Start Date 08/30/18 Plan of Care End Date 11/01/18 Therapeutic Interventions Therapeutic Interventions Balance Training Gait Training Home Exercise Program Joint Mobilizations Manual Therapy Neuromuscular Re-education Patient/Caregiver Education Self-Care/Home Management Soft Tissue Mobilization Taping Therapeutic Activities Therapeutic Exercises Modalities Cold Pack/Ice Massage Electric Stimulation Hot Packs Next Visit Focus/Plan Next Note Type Treatment Note Next Visit Plan Continue to advance her exercises
--- NOTE | 2018-12-11 16:26 | PT.OPDS ---
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 Family Provider Primary Care Provider Specialty: Medical Address: [address] [place] [address], [address] [place] [address] Email: [email or web address] Visit Number Visit Number 2 Discharge Summary PT-OP-B Current Condition Start: 08/30/18 16:42 Freq: Status: Active Protocol: Document 08/30/18 16:44 EA (Rec: 08/30/18 17:35 EA [id number]) Current Condition History of Current Condition Onset Date 2016 Current Complaints Left knee pain and both hip weakness History of Current Condition Patient had formal PT in 2016 for left knee due to femoral prosthetic fracture. Discharged to PT due to insurance limitation with left knee ROM limitation deficits. Patient came back to PT in May 2017 after right hip replacement and again discharged due to insurance limitation with a deficits of both hip major muscle group weakness. Today patient reports that she has not been doing HEP due to busy schedule at work and other family acquaintance. PT states that pain to left knee is getting worst and hip muscle strength is not progressing well. Prior Treatments and Tests Formal PT: 2016 left knee and hip Formal PT: 2018 right replacement Future Testing and Treatments Planned None identified Treatment Goals Patient/Caregiver Goals 1. I would like to be able to kneel down and pick object from the floor 2. I would like to get up in the floor without so much difficulty 3. 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 Functional Limitations- Recreation/ Difficulty walking in the [place] beach andpicking shells PT-OP-C Subjective Start: 08/30/18 16:42 Freq: Status: Active Protocol: Document 12/11/18 16:24 EA (Rec: 12/11/18 16:26 EA [id number]) OP-PT Subjective Patient Comments Patient Comments Spoke by phone today and would like to d/c from PT; states she has been active almost everyday and the difficulty is maily kneeeling to the floor. PT-OP-F Manual Assessment Start: 08/30/18 16:42 Freq: Status: Active Protocol: Document 08/30/18 16:44 EA (Rec: 08/30/18 17:35 EA [id number]) Manual Assessments Soft Tissue Assessment Soft Tissue Mobility Assessment Tight left hip rotators, tight left quads, left hip flexors PT-OP-G Mobility & Gait Start: 08/30/18 16:42 Freq: Status: Active Protocol: Document 08/30/18 16:44 EA (Rec: 08/30/18 17:35 EA [id number]) OP Gait Assessment Gait Gait Assistance Required: Independent Able to Maintain Weight Bearing Status Yes During Gait Assistive Devices Assistive Device None Gait Deviations General Gait Pattern Decreased Stride Length Factors Limiting Gait Function Factors Limiting Gait Function Decreased Strength Limited Range of Motion Pain Comments Gait Comments Increased left toe out with vaulting to left side stance phase. PT-OP-J Posture/Palpation/Skin Start: 08/30/18 16:42 Freq: Status: Active Protocol: Document 08/30/18 16:44 EA (Rec: 08/30/18 17:35 EA [id number]) Palpation Assessment Location One Palpation Location left distal quads Palpation Findings Soft Tissue Tightness Tenderness Skin Assessment Other Assessments Skin Assessment Comments Scars to left knee and hip shows no active inflammation PT-OP-K Range of Motion Start: 08/30/18 16:42 Freq: Status: Active Protocol: Document 08/30/18 16:44 EA (Rec: 08/30/18 17:35 EA [id number]) Hip Goniometric Range of Motion Hip Left Active Testing Position Supine Flexion w/Knee Flexed 105 Extension 5 Abduction 35 Internal Rotation 5 External Rotation 5 Right Active Hip ROM WFL Yes Testing Position Supine Flexion w/Knee Flexed 125 Extension 5 Abduction 35 Internal Rotation 30 External Rotation 30 Hip ROM Limitations Hip ROM Limitations Soft Tissue Tightness Knee Goniometric Range of Motion Knee Right Knee ROM WFL Yes Patient Position Supine Flexion Active (degrees) 140 Left Patient Position Supine Flexion Active (degrees) 95 Knee ROM Limitations Knee ROM Limitations Soft Tissue Tightness Pain PT-OP-L Special Tests Start: 08/30/18 16:42 Freq: Status: Active Protocol: Document 08/30/18 16:45 EA (Rec: 09/14/18 08:03 EA [id number]) Special Tests Knee Special Tests Varus- 25 Degrees Test Results - Valgus- 25 Degrees Test Results - Pillo's Sign Test Results L positive PT-OP-M Strength Start: 08/30/18 16:42 Freq: Status: Active Protocol: Document 08/30/18 16:44 EA (Rec: 08/30/18 17:35 EA [id number]) Hip Strength Hip Manual Muscle Testing Left Flexion (L2) 3+ Fair+ Extension (S1) 4- Good- Abduction 3+ Fair+ Adduction 3+ Fair+ External Rotation 3 Fair Internal Rotation 3 Fair Right Flexion (L2) 3+ Fair+ Extension (S1) 4- Good- Abduction 4- Good- Adduction 3+ Fair+ External Rotation 4 Good Internal Rotation 4- Good- Knee Strength Knee Manual Muscle Testing Right Reason Not Measured WFL Left Reason Not Measured WFL PT-OP-T Assessment and Plan Start: 08/30/18 16:42 Freq: Status: Active Protocol: Document 12/11/18 16:24 EA (Rec: 12/11/18 16:26 EA [id number]) Physical Therapy Assessment Assessment Summary Assessment D/C today per patient request. Patient has been daily active in her lifestyle. Physical Therapy Plan Discharge Physical Therapy Discharge Reasons Patient Request
== END 2018-12-15 09:09 | disposition home or self-care (01) ==
LOC: PHYS 15:15
PROVIDERS: Family Provider Physician Assistant; PCP Physician Assistant; Visit Provider Physician Assistant
DX: G57.92 Unspecified mononeuropathy of left lower limb (principal); R29.898 Other symptoms and signs involving the musculoskeletal system
CPT/HCPCS: 97110; 97140; 97162; 97535

== ENCOUNTER → 2018-11-13 10:50 | Outpatient (CLI) | payer MEDICARE, MEDICAID, SELFPAY ==
--- NOTE | 2018-11-13 10:53 | DI.RAD.S_ITS ---
PROCEDURE: XR FOOT LT MIN 3V INDICATIONS: Pain top of left foot x 3 weeks, getting worse TECHNIQUE: 3 views of the foot were acquired. COMPARISON: [facility], , FOOT 3V LEFT, 07/25/2013, 10:07. FINDINGS: Bones: No fractures or dislocations. No suspicious bony lesions. Large dorsal osteophyte is noted in the anterior process of talus at the talonavicular joint. There is moderate first metatarsophalangeal joint degeneration and mild degeneration of multiple interphalangeal joints. Bipartite medial sesamoid. Soft tissues: No tibiotalar joint effusion. Achilles tendon appears normal. IMPRESSION: 1. No fractures. 2. Degenerative joint disease as described. 3. Large dorsal osteophyte is seen in the anterior process of talus at the talonavicular joint. Recommend patient has focal pain and tenderness. 4. Bipartite medial sesamoid. Dictated by: Galo Chaidez M.D. on 11/13/2018 at 17:16 Approved by: Galo Chaidez M.D. on 11/13/2018 at 17:22
== END ==
PROVIDERS: Family Provider Physician Assistant; PCP Physician Assistant; Visit Provider Physician Assistant
DX: M19.072 Primary osteoarthritis, left ankle and foot (principal); M25.872 Other specified joint disorders, left ankle and foot; M79.672 Pain in left foot
CPT/HCPCS: 73630

== ENCOUNTER → 2019-10-11 14:52 | Outpatient (CLI) | payer MEDICARE, MEDICAID, SELFPAY ==
[2019-10-11 16:25] LABS: Hematocrit 41.4 % (36-46); Hemoglobin 14.2 g/dL (12.0-16.0); Mean Corpuscular HGB Conc 34.2 % (30-36); Mean Corpuscular Hemoglobin 32.5 PG (26-34); Mean Corpuscular Volume 95.1 fL (80-100); Platelet Count 225 X10^3/uL (150-400); Red Blood Cell Count 4.35 X10^6/uL (4.0-5.2); Red Cell Distribution Width 12.7 % (11.6-14.8); White Blood Cell Count 4.3 X10^3/uL (4.5-11.0)
[2019-10-11 16:48] LABS: Alanine Aminotransferase 21 IU/L (<35); Albumin 4.3 g/dL (3.5-5.0); Albumin Globulin Ratio 1.5 (1.0-2.8); Alkaline Phosphatase 73 U/L (38-126); Aspartate Aminotransferase 32 IU/L (14-36); BUN Creatinine Ratio 23.3 (6-22); Bilirubin Total 0.9 mg/dL (0.2-1.3); Blood Urea Nitrogen 20 mg/dL (7-17); Calcium 9.6 mg/dL (8.4-10.2); Carbon Dioxide 26 mmol/L (22-32); Chloride 108 mmol/L (98-107); Estimated Glomerular Filt Rate > 60.0 mL/min (>60); Globulin 2.8 g/dL (1.7-4.1); Glucose 92 mg/dL (80-110); HEMOLYSIS < 15 (0-50); Potassium 4.4 mmol/L (3.4-5.1); Sodium 139 mmol/L (137-145); Total Protein 7.1 g/dL (6.3-8.2)
[2019-10-11 17:16] LABS: TSH w/ Reflex to FT4 0.78 uIU/mL (0.47-4.68)
== END ==
PROVIDERS: Family Provider Physician Assistant; PCP Nurse Practitioner Family; Referring Provider Nurse Practitioner Family; Visit Provider Nurse Practitioner Family
DX: Z00.00 Encounter for general adult medical examination without abnormal findings (principal); K62.5 Hemorrhage of anus and rectum; R10.2 Pelvic and perineal pain; R14.0 Abdominal distension (gaseous); R19.4 Change in bowel habit
CPT/HCPCS: 36415; 80053; 84443; 85027

== ENCOUNTER → 2019-11-02 12:43 | Outpatient (CLI) | payer MEDICARE, MEDICAID, SELFPAY ==
--- NOTE | 2019-11-02 12:45 | DI.US.S_ITS ---
PROCEDURE: US ABDOMEN COMPLETE INDICATIONS: PRESSURE TECHNIQUE: Real-time scanning was performed of the abdominal and retroperitoneal organs, with image documentation. COMPARISON: None. FINDINGS: Liver: Liver is normal in size and homogeneous in echotexture. Gallbladder: 5.1 mm gallbladder polyp; otherwise normal gallbladder. Biliary ducts: Intrahepatic bile ducts are non-dilated. Extrahepatic bile duct caliber measures 3.9 mm. Normal is 6-7 mm or less in diameter, or 10 mm or less post-cholecystectomy. Pancreas: Visualized portions of the pancreas are sonographically normal. Spleen: Spleen is normal in size and homogeneous in echotexture. Kidneys: Kidneys are normal in size and echotexture. Right kidney measures 9.3 cm long; left kidney measures 8.6 cm long. No hydronephrosis or nephrolithiasis. No solid masses. Aorta: Visualized aorta is normal in caliber at less than 3 cm. Iliacs: Proximal common iliac arteries are normal in caliber at less than 2.5 cm. IVC: Intrahepatic inferior vena cava is patent. Miscellaneous: No free abdominal fluid. IMPRESSION: 5 mm gallbladder polyp; otherwise no source for abdominal pain identified. Dictated by: Job Bain [facility] Interpreted: Smitha Luis MD on 11/02/2019 at 14:33 Approved by: Smitha Luis M.D. on 11/02/2019 at 15:20
--- NOTE | 2019-11-02 12:45 | DI.US.S_ITS ---
PROCEDURE: US PELVIC COMPLETE INDICATIONS: PRESSURE TECHNIQUE: Real-time scanning was performed of the pelvic organs, with image documentation. Additional endovaginal scanning was necessary due to incomplete visualization of the adnexal and endometrial structures by transabdominal scanning. COMPARISON: None. FINDINGS: Transabdominal scanning: Limited scanning through the kidneys shows no hydronephrosis. No pathologic free abdominal or pelvic fluid. Endovaginal scanning: Uterus: Uterus is normal in size at 4.5 x 2.5 x 4.2 cm. The endometrium measures 2.3 mm in combined thickness. Endometrial fluid and 9 mm polypoid echogenic endometrial mass. Ovaries: Ovaries not identified. IMPRESSION: Small amount of endometrial fluid and 9 mm polypoid endometrial mass which may represent a polyp; however differential would include both benign and malignant etiologies. Recommend gynecologic consultation. Dictated by: Job PEREZ Interpreted: Smitha Luis MD on 11/02/2019 at 14:54 Approved by: Smitha Luis M.D. on 11/02/2019 at 15:21
== END ==
PROVIDERS: Family Provider Physician Assistant; PCP Nurse Practitioner Family; Referring Provider Nurse Practitioner Family; Visit Provider Nurse Practitioner Family
DX: K62.5 Hemorrhage of anus and rectum (principal); K82.4 Cholesterolosis of gallbladder; N85.9 Noninflammatory disorder of uterus, unspecified; R10.2 Pelvic and perineal pain; R14.0 Abdominal distension (gaseous); R19.4 Change in bowel habit
CPT/HCPCS: 76700; 76830; 76856

== ENCOUNTER → 2019-11-03 16:05 | Outpatient (CLI) | payer MEDICARE, MEDICAID, SELFPAY ==
[2019-11-04 23:03] LABS: COVID19 Sendout Not Detected (Not Detect)
== END ==
PROVIDERS: Family Provider Physician Assistant; PCP Nurse Practitioner Family; Visit Provider Physician Assistant
DX: Z01.812 Encounter for preprocedural laboratory examination (principal)
CPT/HCPCS: 87635

== ENCOUNTER 2019-11-06 07:01 | Day surgery (SDC) | payer MEDICARE, MEDICAID, SELFPAY ==
[2019-11-06 08:04] VITALS: BMI 26.8
[2019-11-06 08:12] VITALS: BP 122/72; PULSE 72; RESP 16; TEMP 36.3; O2SAT 99
[2019-11-06] MEDS: LACTATED RINGERS 1,000 ML 42 ML IV (08:21)
--- NOTE | 2019-11-06 09:06 | PM.PREOP ---
Pre-operative Note COVID-19 COVID-19 status: Negative Result date/Date tested (Pos, Neg/Pending): 11/03/19 Interval Note History & Physical reviewed/Exam performed by Physician: Yes Changes to H&P: No ASA Class (for procedural sedation): I
[2019-11-06] MEDS: fentaNYL 250 MCG/5 ML INJ IV (09:19)
[2019-11-06] MEDS: MIDAZOLAM 5 MG/5 ML VIAL IV (09:19)
--- NOTE | 2019-11-06 09:40 | PM.OP.ENDO ---
Operative Date/Time/Diagnoses Date of procedure: 11/06/19 Time of procedure: 09:40 Pre-op diagnosis: Chronic diarrhea Post-op diagnosis: same (Normal examination. Stool sent for study) Procedure & Clinicians Study performed: Colonoscopy Same procedure as scheduled: Yes Indications: Evaluate patient's symptoms which include chronic intermittent diarrhea Surgeon: Juan David Siddiqi Procedure Notes SCOAP/Timeout: Performed Procedure in detail: The patient was placed in the left lateral decubitus position and underwent IV sedation directed by the surgeon consisting of fentanyl and Versed. Digital exam was unremarkable. The scope was inserted and advanced through the rectum into the sigmoid, descending, transverse, and ascending colon. No lesions were seen.. The cecum was reached identified by the ileocecal valve and the appendiceal opening. The ileocecal valve was successfully cannulated. The terminal ileum was normal in appearance. The scope was gradually brought out. No Polyps were found. The scope ultimately was retroflexed in the rectum. The appearance was remarkable for internal hemorrhoids without ulceration.. The scope was removed and the patient tolerated the procedure well. The prep was very good Scope withdrawal time: Uncertain(timer malfunction) Sedation minutes: 18 Specimen(s): other (Stool for GI panel and culture) Complications: none Impression: Normal exam Post-procedure Recommendations: Colonscopy in 10 years Follow up: as needed Disposition: PACU
[2019-11-06 09:41] VITALS: BP 107/73; PULSE 86; RESP 13; TEMP 37; O2SAT 96
[2019-11-06 09:46] VITALS: BP 116/70; PULSE 84; RESP 18; O2SAT 96
[2019-11-06 09:51] VITALS: BP 114/70; PULSE 98; RESP 12; O2SAT 97
[2019-11-06 09:58] VITALS: BP 125/72; PULSE 86; RESP 16; TEMP 36.1; O2SAT 95
[2019-11-06 11:10] LABS: Adenovirus F 40/41 Not Detected (Not Detect); Astrovirus Not Detected (Not Detect); Campylobacter Not Detected (Not Detect); Clostridium difficile toxin AB Not Detected (Not Detect); Cryptosporidium Not Detected (Not Detect); Cyclospora cayetanensis Not Detected (Not Detect); Entamoeba histolytica Not Detected (Not Detect); Enteroaggregative E.coli Not Detected (Not Detect); Enteropathogenic E.coli Not Detected (Not Detect); Enterotoxigenic E.coli It/st Not Detected (Not Detect); Giardia lamblia Not Detected (Not Detect); Norovirus GI/GII Not Detected (Not Detect); Plesiomonsa shigelloides Not Detected (Not Detect); Rotavirus A Not Detected (Not Detect); Salmonella Not Detected (Not Detect); Sapovirus Not Detected (Not Detect); Shiga-like toxin-prod E.coli Not Detected (Not Detect); Shigella/Enteroinvasive E.coli Not Detected (Not Detect); Vibrio Not Detected (Not Detect); Vibrio cholerae Not Detected (Not Detect); Yersinia enterocolitica Not Detected (Not Detect)
[2019-11-06 14:24] VITALS: BP 118/68; PULSE 66; RESP 20; TEMP 36.8; O2SAT 97
== END 2019-11-06 10:37 | disposition home or self-care (01) ==
PROVIDERS: Family Provider Physician Assistant; PCP Nurse Practitioner Family; Referring Provider Specialist; Visit Provider Specialist
PROC: 0DJD8ZZ Inspection of Lower Intestinal Tract, Via Natural or Artificial Opening Endoscopic (ICD-10-PCS; CPT 45378; principal; 2019-11-06 08:45)
DX: K52.9 Noninfective gastroenteritis and colitis, unspecified (principal); K62.5 Hemorrhage of anus and rectum; R10.9 Unspecified abdominal pain; K64.8 Other hemorrhoids
CPT/HCPCS: 45378; 87045; 87507; 87899; 99152; J2250; J3010

== ENCOUNTER → 2020-01-28 11:45 | Outpatient (CLI) | payer MEDICARE, MEDICAID, SELFPAY ==
[2020-01-29 10:23] LABS: COVID19 Sendout Not Detected (Not Detect)
== END ==
PROVIDERS: Family Provider Physician Assistant; PCP Nurse Practitioner; Visit Provider Physician Assistant
DX: Z01.812 Encounter for preprocedural laboratory examination (principal)
CPT/HCPCS: 87635

== ENCOUNTER 2020-01-31 09:51 | Day surgery (SDC) | payer MEDICARE, MEDICAID, OTHER, SELFPAY ==
[2020-01-29 07:52] VITALS: BMI 27.0
[2020-01-31] VITALS (13 sets, daily range): BP systolic 122–148; BP diastolic 73–94; PULSE 55–98; RESP 8–16; TEMP 36.1–36.6; O2SAT 97–100; BMI 26.7
--- NOTE | 2020-01-31 | PATH_ITS ---
[facility] Accession Number: [id number] . 01 Material submitted: . endometrium - ENDOMETRIAL POLYP AND CURETTINGS . 02 Diagnosis: Endometrial Polyp and Curettings: Portions of benign polyp, favor lower uterine segment/endometrial origin; negative for glandular hyperplasia, cytologic atypia, or malignancy. Endometrial tissue with cystic atrophy. MRV 02/04/2020 1104 Local . 02 Electronically signed: . Joan Tejada MD, Pathologist NPI- [id number] . 01 Gross description: . Received in formalin, labeled endometrial polyps and endometrial curettings, and consists of multiple garcia-pink fragments of soft tissue measuring 0.8 x 0.7 x 0.2 cm in aggregate. The specimen is filtered and entirely submitted in cassette A1. ([id number]) /MRV 02/01/2020 1316 Local . 02 Pathologist provided ICD-10: N84.0 . 02 CPT . 302698 Performed at: 01 [facility] [address], [place], [place] [id number] MD Wilber Mooyd MD Phone: [phone] Performed at: 02 [facility] [address] [place], [place] [id number] MD Patricia Burton MD Phone: [phone]
[2020-01-31] MEDS: LACTATED RINGERS 1,000 ML 100 ML IV (10:31)
--- NOTE | 2020-01-31 10:49 | PM.PREOP ---
Pre-operative Note COVID-19 COVID-19 status: Negative Result date/Date tested (Pos, Neg/Pending): 01/28/20 Interval Note History & Physical reviewed/Exam performed by Physician: Yes Changes to H&P: No H&P completed within 30 days and has changed as indicated here:: 01/31/20
--- NOTE | 2020-01-31 10:54 | PM.HP.1 ---
History of Present Illness History of Present Illness Date Patient Seen: 01/31/20 Time Patient Seen: 10:55 Chief complaint: D&C HYSTEROSCOPY W/POLYPECTOMY Narrative: Patient is a 64-year-old 4 para 4 who presents for a D&C hysteroscopy due to a polypoid mass on ultrasound Patient History Medical History (Updated 01/11/20 @ 11:48 by EMERSON Mcclain) Abdominal bloating (Acute) Abnormal pelvic ultrasound (Acute) Breast cancer screening (Acute) Change in bowel habits (Acute) Encounter for HCV screening test for high risk patient (Acute) History of retinal hemorrhage (Acute) Hx of fracture of femur (Acute) Osteopenia (Acute) Pelvic pressure in female (Acute) Rectal bleed (Acute) Snoring (Acute) Uterine mass (Acute) Surgical History (Updated 01/29/20 @ 07:57 by Lisbeth Crhistopher RN) History of arthroplasty of both hips (Acute) Family & Social History Family History Father Diabetes mellitus Social History: household members significant other Tobacco & Substance use: Smoking Status Former smoker alcohol intake current alcohol intake frequency a few times a week Substance Use Type does not use Meds Home Medications and Allergies Home Medications Medication Instructions Recorded Confirmed Type cholecalciferol (vitamin D3) 25 1,000 unit PO DAILY 06/28/18 01/31/20 History mcg (1,000 unit) capsule ascorbate calcium (vitamin C) 500 500 mg PO DAILY tab 10/11/19 01/31/20 History mg tablet magnesium 30 mg PO DAILY 11/06/19 01/31/20 History Allergies Allergy/AdvReac Type Severity Reaction Status Date / Time No Known Drug Allergies Allergy Verified 12/25/19 14:15 Exam Vital Signs (past 8 hours): - 01/31/20 10:14 Temperature 97.0 F L Pulse Rate 63 Respiratory Rate 16 Blood Pressure 145/73 H Pulse Oximetry 99 Oxygen Delivery Method Room Air Narrative Exam Narrative: HEENT: No thyromegaly, no anterior cervical or supraclavicular lymphadenopathy. Lungs:Clear to auscultation bilaterally, no wheezes. Cardiovascular: Regular rate and rhythm, no murmurs, rubs, or gallops. Abdomen: No scars. No hepatosplenomegaly. No masses palpable. External genitalia: Normal Vagina: Atrophic Cervix: Parous Bimanual exam: 5 Week size anteverted uterus. Mobile. Rectal: No masses. Assessment & Plan Assessment & Plan narrative: Assessment: 64-year-old 4 para 4 with a polypoid mass on ultrasound Plan: D&C hysteroscopy with possible polypectomy The risks, benefits, and alternatives to the procedure were explained to the patient. The risks including bleeding, infection, and uterine perforation. She understands these risks and agrees to proceed. A full par Q was held and consent form was signed. COVID-19 COVID-19 status: Negative Result date/Date tested (Pos, Neg/Pending): 01/28/20 Time Spent With Patient Time with patient: less than 15 minutes
--- NOTE | 2020-01-31 11:28 | SUR.OPER ---
Lithotomy on padded OR bed, head on pillow, arms secured on padded arm boards at <90 degrees abduction. Legs secured in padded yellow fins stirrups.
--- NOTE | 2020-01-31 11:53 | PM.GYNOP.1 ---
Operative Date/Time/Diagnoses Date of procedure: 01/31/20 Time of procedure: 11:53 Pre-op diagnosis: Uterine mass Post-op diagnosis: same Procedure & Clinicians Procedure: Procedures Operation Date: 01/31/20 11:15 Actual Procedures Side Surgeon p D&C Hysteroscopy with Polypectomy Anahy Miranda MD Indications: Endometrial mass seen on ultrasound Surgeon: Anahy Miranda Anesthesia Type: General (LMA) Operative Notes Findings: 5-6 week size anteverted uterus Both fallopian tube ostia observed Approximately 0.75 x 0.75 cm vascular polyp in right cornua. Closure Type: not applicable Specimen(s): endometrial curettings and endometrial polyp Estimated blood loss (mL): 5 Blood products transfused: none Procedure in detail: After informed consent was obtained, the patient was taken to the operating room where she was placed in the dorsal supine position. After adequate LMA general anesthesia was achieved, she was placed in the dorsal lithotomy position, and prepped and draped in the usual sterile fashion. A time-out was performed. A bivalve speculum was placed into the vagina and the anterior lip of the cervix grasped with a single-tooth tenaculum. The cervical os was sequentially dilated to the # 8 Hegar dilator. The hysteroscope passed easily into the endometrial cavity. Both fallopian tube ostia were observed. There was a polyp at the right cornua. The hysteroscope was removed. The cervix was dilated to the # 9 Hegar dilator. The resectoscope passed easily into the endometrial cavity the fluid was changed from saline to sorbitol. The polyp was resected in 2 pieces with settings at 40 cut and 60 cautery. The resectoscope was removed from the uterus. Gentle sharp curettage was performed yielding minimal amount of endometrial curettings. The instruments were removed from the uterus. The single-tooth tenaculum was removed from the anterior lip of the cervix. The bivalve speculum was removed from the vagina. Sponge, lap, and instrument counts were correct x2. Patient tolerated the procedure well, and was taken to PACU in stable condition. Complications: none Post-operative Condition: stable Disposition: PACU Plan for aftercare: Home after recovery
[2020-01-31] MEDS: fentaNYL 100 MCG/2 ML INJ IV ×2 (12:13→12:22)
[2020-01-31] MEDS: OXYCODONE/ACETAMINOPHEN 5/325 TABLET 1 TAB PO (12:27)
== END 2020-01-31 13:30 | disposition home or self-care (01) ==
PROVIDERS: Family Provider Physician Assistant; PCP Nurse Practitioner; Referring Provider Nurse Practitioner; Visit Provider Obstetrics & Gynecology
PROC: 0UDB8ZZ Extraction of Endometrium, Via Natural or Artificial Opening Endoscopic (ICD-10-PCS; CPT 58558; principal; 2020-01-31 11:15)
DX: N84.0 Polyp of corpus uteri (principal)
CPT/HCPCS: 58558; J1100; J1885; J2405; J2704; J3010

== ENCOUNTER → 2020-07-04 14:22 | Outpatient (CLI) | payer MEDICARE, MEDICAID, OTHER, SELFPAY ==
[2020-07-04] MEDS: COVID-19 VACC #1, MRNA(MOD) 100 MCG/0.5 ML VIAL IM (14:26)
== END ==
PROVIDERS: Family Provider Physician Assistant; PCP Nurse Practitioner; Visit Provider Internal Medicine
DX: Z23 Encounter for immunization (principal)
CPT/HCPCS: 0011A; 91301

== ENCOUNTER → 2020-08-01 14:20 | Outpatient (CLI) | payer MEDICARE, MEDICAID, OTHER, SELFPAY ==
[2020-08-01] MEDS: COVID-19 VACC #2, MRNA(MOD) 100 MCG/0.5 ML VIAL IM (14:27)
== END ==
PROVIDERS: Family Provider Physician Assistant; PCP Nurse Practitioner; Visit Provider Internal Medicine
DX: Z23 Encounter for immunization (principal)
CPT/HCPCS: 0012A; 91301

== ENCOUNTER → 2020-10-14 12:38 | Outpatient (CLI) | payer MEDICARE, MEDICAID, OTHER, SELFPAY ==
--- NOTE | 2020-10-14 | DI.MG.S_ITS ---
BILATERAL DIGITAL SCREENING MAMMOGRAM 3D/2D WITH CAD: 10/14/2020 CLINICAL: Routine screening. Comparison is made to exams dated: 08/05/2017 mammogram, 06/12/2014 mammogram - [facility], and 07/01/2008 mammogram - [facility]. There are scattered fibroglandular elements in both breasts. Current study was also evaluated with a Computer Aided Detection (CAD) system. No significant masses, calcifications, or other findings are seen in either breast. There has been no significant interval change. IMPRESSION: NEGATIVE There is no mammographic evidence of malignancy. A 1 year screening mammogram is recommended. This exam was interpreted at Station ID: [id number]. NOTE: For mammograms, a report in lay terms will be sent to the patient. Approximately 15% of breast malignancies will not be visualized mammographically. In the management of a palpable breast mass, a negative mammogram must not discourage biopsy of a clinically suspicious lesion. Electronically Signed By: Ramirez Earl M.D., jr/marycarmen:10/14/2020 15:20:50 letter sent: Normal Exam ACR BI-RADS Category 1: Negative [id number]
== END ==
PROVIDERS: Family Provider Physician Assistant; PCP Nurse Practitioner; Referring Provider Nurse Practitioner; Visit Provider Nurse Practitioner
DX: Z12.31 Encounter for screening mammogram for malignant neoplasm of breast (principal)
CPT/HCPCS: 77063; 77067

== ENCOUNTER → 2020-12-10 14:53 | Outpatient (CLI) | payer MEDICARE, OTHER, MEDICAID, SELFPAY ==
--- NOTE | 2020-12-10 14:55 | DI.RAD.S_ITS ---
PROCEDURE: XR SHOULDER RT MIN 2V INDICATIONS: Right shoulder pain TECHNIQUE: 3 views of the shoulder were acquired. COMPARISON: [facility], , SHOULDER MINIMUM 2VIEW RIGHT, 07/25/2013, 10:07. CR, CHEST 1 VIEW, 05/24/2016, 10:37. FINDINGS: Bones: No fractures or dislocations. No suspicious bony lesions. Visualized ribs appear intact. Mild joint narrowing with periarticular osteophyte formation of the acromioclavicular and glenohumeral joint. Soft tissues: No suspicious soft tissue calcifications. IMPRESSION: Mild acromioclavicular and glenohumeral joint degeneration, minimal progression. Dictated by: Job Bain [facility] Interpreted: Smitha Luis MD on 12/10/2020 at 15:15 Transcribed by: SHANNON on 12/10/2020 at 15:16 Approved by: Smitha Luis M.D. on 12/10/2020 at 17:53
== END ==
PROVIDERS: Family Provider Physician Assistant; PCP Nurse Practitioner; Referring Provider Student in an Organized Health Care Education/Training Program; Visit Provider Student in an Organized Health Care Education/Training Program
DX: M25.511 Pain in right shoulder (principal); M19.011 Primary osteoarthritis, right shoulder
CPT/HCPCS: 73030

== ENCOUNTER → 2020-12-27 13:16 | Outpatient (CLI) | payer MEDICARE, OTHER, MEDICAID, SELFPAY ==
--- NOTE | 2020-12-27 13:21 | DI.MRI.S_ITS ---
PROCEDURE: MR SHOULDER RT WO CON INDICATIONS: RT Shoulder pain TECHNIQUE: Noncontrast oblique coronal T2 fast spin echo with fat saturation, oblique sagittal T1 spin echo and T2 fast spin echo with fat saturation, axial T1 spin echo and T2 fast spin echo with fat saturation through the shoulder. COMPARISON: None. FINDINGS: Rotator cuff: Full-thickness tear involving the supraspinatus footprint measuring approximately 1 cm AP dimension seen on image 5/10. Additional slit-like full-thickness pinpoint perforation of the critical zone, seen on image 12/8. Infraspinatus tendinopathy and thickening with low-grade bursal surface fraying. Partial-thickness low-grade articular sided tear also noted. The teres minor tendon appears intact. Subscapularis tendinopathy and mild thickening is seen, with low-grade bursal surface fraying. Atrophy of the supraspinatus and infraspinatus muscles noted. Bones and bursae: No bone marrow contusions or fractures. Large joint effusion. Severe hypertrophic acromioclavicular joint degeneration. Acromion demonstrates conventional anatomy, without an os acromiale. Capsule and soft tissues: Labrum: Ill-defined fraying of the superior labral segment. Incidental sublabral foramen noted. Blunted appearance of the posterior segment. Mild intrasubstance signal changes and frayed appearance of the anterior inferior segment. This could be age appropriate. There is circumferential diffuse glenoid rim mild spurring. There is minimal partial-thickness loss and fissuring of the anterior glenoid cartilage. Glenohumeral ligaments: Inferior and superior glenohumeral ligaments are intact. Biceps tendon: Long head of the biceps tendon intact. Rotator interval: Normal signal intensity. Coracohumeral ligament: Intact. IMPRESSION: Full-thickness rotator cuff tear as above. Atrophy of the supraspinatus and infraspinatus muscles. Circumferential degenerative fraying of the labrum as above. Large joint effusion. Dictated by: Magdi Antony M.D. on 12/29/2020 at 8:19 Approved by: Magdi Antony M.D. on 12/29/2020 at 8:36
== END ==
PROVIDERS: Family Provider Physician Assistant; PCP Nurse Practitioner; Referring Provider Student in an Organized Health Care Education/Training Program; Visit Provider Student in an Organized Health Care Education/Training Program
DX: M25.511 Pain in right shoulder (principal); M75.121 Complete rotator cuff tear or rupture of right shoulder, not specified as traumatic; M62.511 Muscle wasting and atrophy, not elsewhere classified, right shoulder; M25.411 Effusion, right shoulder
CPT/HCPCS: 73221

== ENCOUNTER → 2021-07-27 15:13 | Outpatient (CLI) | payer MEDICARE, MEDICAID, SELFPAY ==
--- NOTE | 2021-07-27 15:15 | DI.MRI.S_ITS ---
PROCEDURE: MR CERVICAL SPINE WO CON INDICATIONS: Pain in neck and left arm and shoulder TECHNIQUE: Noncontrast sagittal T1 spin echo and T2 fast spin echo, sagittal STIR, foraminal oblique sagittal T2 fast spin echo, and axial gradient echo or T2 fast spin echo through the cervical spine. COMPARISON: None. FINDINGS: Image quality: Excellent. Alignment and Curvature: Straightening the normal cervical lordosis may related to muscle spasm or patient positioning. Bone Marrow: Marrow demonstrates normal overall signal. Spinal Cord: Visualized spinal cord has normal size and signal. No cerebellar tonsillar herniation. Paraspinous Soft Tissues: No paravertebral masses. Prevertebral soft tissues are normal in thickness. C2-C3: Normal appearance. C3-C4: Disc height is preserved. No central or foraminal stenosis. C4-C5: Normal appearance. C5-C6: Disc space narrowing with posterior disc osteophyte complex results in mild central stenosis. Hypertrophic uncovertebral joints noted particularly on the right. Moderate right and no left foraminal stenosis. C6-C7: Disc space narrowing and posterior disc osteophyte complex results in mild central stenosis without cord deformation. No foraminal stenosis. C7-T1: Disc height is preserved. No central or foraminal stenosis. IMPRESSION: 1. Multilevel degenerative disc disease and arthropathy results in moderate right foraminal stenosis at C5-6 Approved by: Angel Rose M.D. on 07/27/2021 at 16:01
--- NOTE | 2021-07-27 15:15 | DI.MRI.S_ITS ---
PROCEDURE: MR SHOULDER LT WO CON INDICATIONS: Pain in neck and left arm and shoulder TECHNIQUE: Noncontrast oblique coronal T2 fast spin echo with fat saturation, oblique sagittal T1 spin echo and T2 fast spin echo with fat saturation, axial T1 spin echo and T2 fast spin echo with fat saturation through the shoulder. COMPARISON: [facility], MR, MR SHOULDER RT WO CON, 12/27/2020, 13:33. FINDINGS: Image quality: Excellent. Rotator cuff: Moderate supraspinatus tendinopathy with full-thickness tear, measuring approximately 7.4 x 5.3 mm. Mild to moderate infraspinatus tendinopathy with small, partial bursal surface tear (9-8). Mild subscapularis tendinopathy with interstitial tear. At least grade 2 atrophy of the supraspinatus muscle. Bones and bursae: No bone marrow contusions or fractures. Guul-ba-[id number] acromioclavicular joint degeneration. No os acromiale. Small amount of subacromial-subdeltoid bursal fluid is present. Capsule and soft tissues: Degenerative change of the labrum with deficiency of the superior, posterior aspect. No definitive labral tear is appreciated. The long head of the biceps tendon demonstrates normal location and morphology. Small glenohumeral joint effusion. The coracohumeral ligament is normal in thickness. IMPRESSION: 1. Moderate supraspinatus tendinopathy with full-thickness tear. 2. Mild to moderate infraspinatus tendinopathy with small, partial bursal surface tear. 3. Degenerative change of the labrum as detailed above. 4. At least grade 2 atrophy of the supraspinatus muscle. 5. Mild subscapularis tendinopathy with interstitial tear. 6. Mild to moderate AC joint degeneration. Dictated by: Zachery Darby M.D. on 07/27/2021 at 16:18 Approved by: Zachery Darby M.D. on 07/27/2021 at 16:36
== END ==
PROVIDERS: Family Provider Nurse Practitioner; PCP Nurse Practitioner; Referring Provider Nurse Practitioner; Visit Provider Nurse Practitioner
DX: M75.122 Complete rotator cuff tear or rupture of left shoulder, not specified as traumatic (principal); M19.012 Primary osteoarthritis, left shoulder; M50.322 Other cervical disc degeneration at C5-C6 level; M48.02 Spinal stenosis, cervical region; M47.812 Spondylosis without myelopathy or radiculopathy, cervical region; M25.512 Pain in left shoulder
CPT/HCPCS: 72141; 73221

== ENCOUNTER 2021-09-11 16:00 | Outpatient (RCR) | payer MEDICARE, MEDICAID, SELFPAY ==
--- NOTE | 2021-05-19 15:15 | PT.OIE ---
Current Diagnoses Pain in right shoulder (05/19/21) Pain in left shoulder (05/19/21) Sciatica, right side (05/19/21) Low back pain, unspecified (05/19/21) Pain in thoracic spine (05/19/21) Other abnormalities of gait and mobility (05/19/21) Other injury of muscle(s) and tendon(s) of the rotator cuff of right shoulder, subsequent encounter (05/19/21) Other injury of muscle(s) and tendon(s) of the rotator cuff of left shoulder, subsequent encounter (05/19/21) Past Medical History (Last Reviewed 04/15/21 @ 11:26 by EMERSON Mcclain) Abdominal bloating Abnormal pelvic ultrasound Breast cancer screening Change in bowel habits Encounter for HCV screening test for high risk patient Fractures (~2005) History of arthroplasty of both hips History of hip surgery History of retinal hemorrhage History of revision of total hip arthroplasty (~2017) Hx of fracture of femur Insomnia due to medical condition Obstructive sleep apnea, adult (~12/15/20) Osteopenia Pelvic pressure in female Rectal bleed Retinal vein occlusion (~2004) Shoulder pain Snoring Uterine mass Past Surgical History (Last Reviewed 04/15/21 @ 11:26 by EMERSON Mcclain) Anesthesia Femur fracture (~2015) History of arthroplasty of both hips History of hip surgery History of revision of total hip arthroplasty (~2017) Visit Care Team Role Provider Type EMERSON Mcclain Attending Provider Advanced Nursing Information Systems Coordinator Family Provider Primary Care Provider Referring Provider Specialty: Family Practice Address: [address] [place] [address], [facility] Email: [email or web address] Physical Therapy Initial Evaluation PT-OP-A Visit Information Start: 05/19/21 15:12 Freq: Status: Active Protocol: Document 05/19/21 14:35 DCW (Rec: 05/19/21 17:57 DCW [id number]) Out-Patient Physical Therapy Visit Information Visit Information Visit Type Initial Evaluation Visit Start Time 14:35 Visit Stop Time 15:15 Total Visit Minutes 40 Visit Number 1 Number of POLITICAL SCIENCE INSTRUCTOR Visits 0 Evaluation Information Evaluation Date 05/19/21 PT-OP-B Current Condition Start: 05/19/21 15:12 Freq: Status: Active Protocol: Document 05/19/21 14:35 DCW (Rec: 05/20/21 11:34 DCW [id number]) Current Condition History of Current Condition Onset Date Multi-year history Current Complaints B shoulder pain, low back pain , B hip pain, LE weakness History of Current Condition Pt is a 65 year old female presenting to skilled therapy with a multitude of complaints , including bilateral shoulder pain, low back pain, bilateral hip pain, LE weakness, hip misalignment, and gait difficulty. Pt notes she had an MRI that showed a torn rotator cuff in her right shoulder, but it was too late to do anything for it. Pt then reports her left shoulder has begun hurting even more than the right, but she has not been able to get an MRI. Pt notes she has had back pain off and on throughout the years, likely due to her multiple hip problems. 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 Notes that her left femur also broke at one point due to the HYACINTH implant, and she now how wire and mesh holding it together. Pt also presents with a leg length discrepancy, which alters her gait pattern. Prior Treatments and Tests R shoulder MRI: IMPRESSION: Full-thickness rotator cuff tear as above. Atrophy of the supraspinatus and infraspinatus muscles. Circumferential degenerative fraying of the labrum as above . Large joint effusion. per Magdi Antony M.D. on 2020 Treatment Goals Patient/Caregiver Goals I want to get my muscles stronger to decrease the pain. PT-OP-C Subjective Start: 05/19/21 15:12 Freq: Status: Active Protocol: Document 05/19/21 14:35 DCW (Rec: 05/20/21 09:43 DCW [id number]) OP-PT Subjective Patient Comments Patient Comments My left shoulder is now as bad as my right, and I really wanted an MRI of it, because by the time they found out my right rotator cuff was torn, they said it was too late to do anything, but they still don't want to do anything with it. Patient Questionnaires Oswestry Low Back Index Oswestry Score 13/50 = 26% Oswestry Impairment 20 to 39% Impaired (Score 20- 39) Quick Dash- Upper Extremity Quick Dash UE Score 37.5% Quick Dash UE Impairment 20 to 39% Impaired (Score 20- 39) OP-PT Pain Assessment Pain Assessment Grid Paper Pain Assessment Grid Completed Yes: See scan PT-OP-E Functional Tests Start: 05/19/21 15:12 Freq: Status: Active Protocol: Document 05/19/21 14:35 DCW (Rec: 05/20/21 11:40 DCW [id number]) Functional Tests Apley's Scratch Test Action 2- Left T3 Action 2- Right T3 Action 3- Left PSIS Action 3- Right L3 PT-OP-F Manual Assessment Start: 05/20/21 11:40 Freq: Status: Active Protocol: Document 05/19/21 14:35 DCW (Rec: 05/20/21 11:41 DCW [id number]) Manual Assessments Other Manual Assessments Other Manual Assessments Leg length measurements from ASIS to medial malleoli: L: 90.4 R: 91.6 PT-OP-G Mobility & Gait Start: 05/20/21 11:41 Freq: Status: Active Protocol: Document 05/19/21 14:35 DCW (Rec: 05/20/21 11:44 DCW [id number]) OP Gait Assessment Gait Gait Assistance Required: Independent Assistive Devices Assistive Device None Gait Deviations General Gait Pattern Antalgic,Decreased Stride Length,Decreased Feet Clearance,Lateral Trunk Lean Comments Gait Comments Left trunk lean, right heel whip for clearance secondary to right>left LLD PT-OP-J Posture/Palpation/Skin Start: 05/20/21 11:41 Freq: Status: Active Protocol: Document 05/19/21 14:35 DCW (Rec: 05/20/21 11:44 DCW [id number]) Posture Evaluation Position Standing Evaluation View Posterior Pelvis Posture (R) Iliac Crest Superior Weight Distribution Weight Shifted Left PT-OP-K Range of Motion Start: 05/19/21 15:12 Freq: Status: Active Protocol: Document 05/19/21 14:35 DCW (Rec: 05/20/21 11:40 DCW [id number]) Hip Goniometric Range of Motion Hip Right Passive Internal Rotation 18 External Rotation 26 Hip ROM Limitations Hip ROM Limitations Soft Tissue Tightness,Bony Restriction,Muscle Weakness PT-OP-L Special Tests Start: 05/19/21 15:12 Freq: Status: Active Protocol: Document 05/19/21 14:35 DCW (Rec: 05/20/21 11:40 DCW [id number]) Special Tests Shoulder Special Tests Painful Arc Test Results Positive B Passive ER Rotator Cuff Test Results Positive L Lift-Off Rotator Cuff Test Results Unable to position L [place] Impingement Test Results Positive B Empty Can Test Results Positive B Drop Arm Rotator Cuff Test Results Negative Belly Press Test Results Positive L Hip Special Tests Straight Leg Raise Test Results Negative PT-OP-M Strength Start: 05/19/21 15:12 Freq: Status: Active Protocol: Document 05/19/21 14:35 DCW (Rec: 05/20/21 11:40 DCW [id number]) Shoulder Strength Shoulder Manual Muscle Testing Right Flexion 4 Good Abduction (C5) 4- Good- External Rotation 4 Good Internal Rotation 4 Good Left Flexion 4 Good Abduction (C5) 4- Good- External Rotation 4 Good Internal Rotation 4 Good Hip Strength Hip Manual Muscle Testing Right Flexion (L2) 4 Good Abduction 4 Good Adduction 4 Good External Rotation 4 Good Internal Rotation 4 Good Left Flexion (L2) 3+ Fair+ Abduction 3+ Fair+ Adduction 4- Good- External Rotation 3+ Fair+ Internal Rotation 4- Good- Knee Strength Knee Manual Muscle Testing Right Flexion (S2) 4 Good Extension (L3) 4 Good Left Flexion (S2) 4- Good- Extension (L3) 4- Good- Ankle/Foot Strength Ankle and Foot Manual Muscle Testing Right Dorsiflexion (L4) 4+ Good+ Plantarflexion (S1) 4+ Good+ Left Dorsiflexion (L4) 4+ Good+ Plantarflexion (S1) 4+ Good+ PT-OP-Q Treatments Start: 05/19/21 15:12 Freq: Status: Active Protocol: Document 05/19/21 14:35 DCW (Rec: 05/19/21 15:14 DCW [id number]) Orthotic/Prosthetic Management and Training Treatment Details of Training manufacture, insertion, and explanation of heel lift PT-OP-T Assessment and Plan Start: 05/19/21 15:12 Freq: Status: Active Protocol: Document 05/19/21 14:35 DCW (Rec: 05/19/21 17:54 DCW [id number]) Physical Therapy Assessment Rehab Potential Rehabilitation Potential Fair Evaluation Complexity Number of Personal Factors/Comorbidities 3 or More Number of Body Systems Impaired 4 or More Clinical Presentation at Evaluation Unstable Impairments Impairments Functional Activities, Functional Mobility,Gait,Pain, Posture,ROM,Soft Tissue Mobility,Strength,Tone Goals Three Impairment Pt ambulates with antalgic gait and mod-severe left trunk lean Usp Goal (LTG) Pt to ambulate with minimal trunk lean and no limp in order to improve ability to advance right foot during swing phase. LTG Duration 08/16/21 Two Impairment Pt struggles to don/doff jacket due to shoulder pain Usp Goal (LTG) Pt to improve bilateral UE internal rotation to be able to reach T8 in order to improve ability to don clothing LTG Duration 08/16/21 One Impairment Pt does not have an appropriate home exercise program Short Term Goal (STG) Pt to be independent and compliant with an appropriate HEP Assessment Summary Assessment Pt presents to skilled therapy with multiple complaints within a variety of body systems. Pt notes she has had an MRI, which showed a full- thickness R rotator cuff tear, and now her L shoulder feels just as bad, if not worse. Her shoulder pain limits her mobility, struggles to don/ doff clothing, and has pain when cleaning. Additionally, pt displays hip weakness, left worse than right, and has a slight LLD with a right leg presenting longer than her left. This has led to an elevated right pelvis, and during gait causes a left trunk lean, and pt has a right heel whip attempting to advance right leg. Pt should benefit from skilled therapy focusing on both UE and LE strengthening, as well as gait training to improve functional movement patterns. Physical Therapy Plan Frequency and Duration Frequency of Treatment 2x/Week Duration of Treatment Three months Plan of Care Start Date 05/19/21 Plan of Care End Date 08/16/21 Therapeutic Interventions Therapeutic Interventions Aquatic Therapy,Gait Training, Home Exercise Program,Manual Therapy,Neuromuscular Re- education,Orthotic/Prosthetic Management,Patient/Caregiver Education,Self-Care/Home Management,Soft Tissue Mobilization,Therapeutic Activities,Therapeutic Exercises Modalities Cold Pack/Ice Massage,Electric Stimulation,Hot Packs, Ultrasound Next Visit Focus/Plan Next Note Type Treatment Note Next Visit Plan LE/UE strengthening, gait training
--- NOTE | 2021-05-19 15:15 | PT.OPPOC ---
Physical, Occupational & Speech Therapy At [facility] Current Diagnoses Pain in right shoulder (05/19/21) Pain in left shoulder (05/19/21) Sciatica, right side (05/19/21) Low back pain, unspecified (05/19/21) Pain in thoracic spine (05/19/21) Other abnormalities of gait and mobility (05/19/21) Other injury of muscle(s) and tendon(s) of the rotator cuff of right shoulder, subsequent encounter (05/19/21) Other injury of muscle(s) and tendon(s) of the rotator cuff of left shoulder, subsequent encounter (05/19/21) Visit Care Team Role Provider Type EMERSON Mcclain Attending Provider Advanced Community Development Technician Family Provider Primary Care Provider Referring Provider Specialty: Family Practice Address: [address] [place] [address], [facility] Email: [email or web address] Plan Of Care PT-OP-T Assessment and Plan Start: 05/19/21 15:12 Freq: Status: Active Protocol: Document 05/19/21 14:35 DCW (Rec: 05/19/21 17:54 DCW [id number]) Physical Therapy Assessment Rehab Potential Rehabilitation Potential Fair Evaluation Complexity Number of Personal Factors/Comorbidities 3 or More Number of Body Systems Impaired 4 or More Clinical Presentation at Evaluation Unstable Impairments Impairments Functional Activities, Functional Mobility,Gait,Pain, Posture,ROM,Soft Tissue Mobility,Strength,Tone Goals Three Impairment Pt ambulates with antalgic gait and mod-severe left trunk lean Plater Apprentice Goal (LTG) Pt to ambulate with minimal trunk lean and no limp in order to improve ability to advance right foot during swing phase. LTG Duration 08/16/21 Two Impairment Pt struggles to don/doff jacket due to shoulder pain Plater Apprentice Goal (LTG) Pt to improve bilateral UE internal rotation to be able to reach T8 in order to improve ability to don clothing LTG Duration 08/16/21 One Impairment Pt does not have an appropriate home exercise program Short Term Goal (STG) Pt to be independent and compliant with an appropriate HEP Assessment Summary Assessment Pt presents to skilled therapy with multiple complaints within a variety of body systems. Pt notes she has had an MRI, which showed a full- thickness R rotator cuff tear, and now her L shoulder feels just as bad, if not worse. Her shoulder pain limits her mobility, struggles to don/ doff clothing, and has pain when cleaning. Additionally, pt displays hip weakness, left worse than right, and has a slight LLD with a right leg presenting longer than her left. This has led to an elevated right pelvis, and during gait causes a left trunk lean, and pt has a right heel whip attempting to advance right leg. Pt should benefit from skilled therapy focusing on both UE and LE strengthening, as well as gait training to improve functional movement patterns. Physical Therapy Plan Frequency and Duration Frequency of Treatment 2x/Week Duration of Treatment Three months Plan of Care Start Date 05/19/21 Plan of Care End Date 08/16/21 Therapeutic Interventions Therapeutic Interventions Aquatic Therapy,Gait Training, Home Exercise Program,Manual Therapy,Neuromuscular Re- education,Orthotic/Prosthetic Management,Patient/Caregiver Education,Self-Care/Home Management,Soft Tissue Mobilization,Therapeutic Activities,Therapeutic Exercises Modalities Cold Pack/Ice Massage,Electric Stimulation,Hot Packs, Ultrasound Next Visit Focus/Plan Next Note Type Treatment Note Next Visit Plan LE/UE strengthening, gait training Plan of Care Dates Plan of Care Start Date 05/19/21 Plan of Care End Date 08/16/21 Electronically Signed by: [place], PT 05/20/21 3023 Please Sign and Return: I have reviewed this Plan of Care and certify that the skilled therapy services above are required to meet the patient?s needs. Physician Signature Date Printed Name and Credentials Clinical Instructor Signature Printed Name and Credentials
--- NOTE | 2021-05-22 14:30 | PT.OTN ---
Current Diagnoses Pain in right shoulder (05/22/21) Pain in left shoulder (05/22/21) Sciatica, right side (05/22/21) Low back pain, unspecified (05/22/21) Pain in thoracic spine (05/22/21) Other abnormalities of gait and mobility (05/22/21) Other injury of muscle(s) and tendon(s) of the rotator cuff of right shoulder, subsequent encounter (05/22/21) Other injury of muscle(s) and tendon(s) of the rotator cuff of left shoulder, subsequent encounter (05/22/21) Physical Therapy Treatment Note PT-OP-A Visit Information Start: 05/19/21 15:12 Freq: Status: Active Protocol: Document 05/22/21 13:56 DCW (Rec: 05/22/21 14:29 DCW [id number]) Out-Patient Physical Therapy Visit Information Visit Information Visit Type Treatment Note Visit Note Late arrival Visit Start Time 13:56 Visit Stop Time 14:30 Total Visit Minutes 34 Visit Number 2 Number of SUBGRADE ROLLER OPERATOR Visits 0 Evaluation Information Evaluation Date 05/19/21 PT-OP-B Current Condition Start: 05/19/21 15:12 Freq: Status: Active Protocol: Document 05/19/21 14:35 DCW (Rec: 05/20/21 11:34 DCW [id number]) Current Condition History of Current Condition Onset Date Multi-year history Current Complaints B shoulder pain, low back pain , B hip pain, LE weakness History of Current Condition Pt is a 65 year old female presenting to skilled therapy with a multitude of complaints , including bilateral shoulder pain, low back pain, bilateral hip pain, LE weakness, hip misalignment, and gait difficulty. Pt notes she had an MRI that showed a torn rotator cuff in her right shoulder, but it was too late to do anything for it. Pt then reports her left shoulder has begun hurting even more than the right, but she has not been able to get an MRI. Pt notes she has had back pain off and on throughout the years, likely due to her multiple hip problems. 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 Notes that her left femur also broke at one point due to the HYACINTH implant, and she now how wire and mesh holding it together. Pt also presents with a leg length discrepancy, which alters her gait pattern. Prior Treatments and Tests R shoulder MRI: IMPRESSION: Full-thickness rotator cuff tear as above. Atrophy of the supraspinatus and infraspinatus muscles. Circumferential degenerative fraying of the labrum as above . Large joint effusion. per Magdi Antony M.D. on 2020 Treatment Goals Patient/Caregiver Goals I want to get my muscles stronger to decrease the pain. PT-OP-C Subjective Start: 05/19/21 15:12 Freq: Status: Active Protocol: Document 05/22/21 13:56 DCW (Rec: 05/22/21 14:29 DCW [id number]) OP-PT Subjective Patient Comments Patient Comments Pt notes she had a rough night due to left shoulder pain, had difficulty sleeping. PT-OP-E Functional Tests Start: 05/19/21 15:12 Freq: Status: Active Protocol: Document 05/19/21 14:35 DCW (Rec: 05/20/21 11:40 DCW [id number]) Functional Tests Apley's Scratch Test Action 2- Left T3 Action 2- Right T3 Action 3- Left PSIS Action 3- Right L3 PT-OP-F Manual Assessment Start: 05/20/21 11:40 Freq: Status: Active Protocol: Document 05/19/21 14:35 DCW (Rec: 05/20/21 11:41 DCW [id number]) Manual Assessments Other Manual Assessments Other Manual Assessments Leg length measurements from ASIS to medial malleoli: L: 90.4 R: 91.6 PT-OP-G Mobility & Gait Start: 05/20/21 11:41 Freq: Status: Active Protocol: Document 05/19/21 14:35 DCW (Rec: 05/20/21 11:44 DCW [id number]) OP Gait Assessment Gait Gait Assistance Required: Independent Assistive Devices Assistive Device None Gait Deviations General Gait Pattern Antalgic,Decreased Stride Length,Decreased Feet Clearance,Lateral Trunk Lean Comments Gait Comments Left trunk lean, right heel whip for clearance secondary to right>left LLD PT-OP-J Posture/Palpation/Skin Start: 05/20/21 11:41 Freq: Status: Active Protocol: Document 05/19/21 14:35 DCW (Rec: 05/20/21 11:44 DCW [id number]) Posture Evaluation Position Standing Evaluation View Posterior Pelvis Posture (R) Iliac Crest Superior Weight Distribution Weight Shifted Left PT-OP-K Range of Motion Start: 05/19/21 15:12 Freq: Status: Active Protocol: Document 05/19/21 14:35 DCW (Rec: 05/20/21 11:40 DCW [id number]) Hip Goniometric Range of Motion Hip Right Passive Internal Rotation 18 External Rotation 26 Hip ROM Limitations Hip ROM Limitations Soft Tissue Tightness,Bony Restriction,Muscle Weakness PT-OP-L Special Tests Start: 05/19/21 15:12 Freq: Status: Active Protocol: Document 05/19/21 14:35 DCW (Rec: 05/20/21 11:40 DCW [id number]) Special Tests Shoulder Special Tests Painful Arc Test Results Positive B Passive ER Rotator Cuff Test Results Positive L Lift-Off Rotator Cuff Test Results Unable to position L [place] Impingement Test Results Positive B Empty Can Test Results Positive B Drop Arm Rotator Cuff Test Results Negative Belly Press Test Results Positive L Hip Special Tests Straight Leg Raise Test Results Negative PT-OP-M Strength Start: 05/19/21 15:12 Freq: Status: Active Protocol: Document 05/19/21 14:35 DCW (Rec: 05/20/21 11:40 DCW [id number]) Shoulder Strength Shoulder Manual Muscle Testing Right Flexion 4 Good Abduction (C5) 4- Good- External Rotation 4 Good Internal Rotation 4 Good Left Flexion 4 Good Abduction (C5) 4- Good- External Rotation 4 Good Internal Rotation 4 Good Hip Strength Hip Manual Muscle Testing Right Flexion (L2) 4 Good Abduction 4 Good Adduction 4 Good External Rotation 4 Good Internal Rotation 4 Good Left Flexion (L2) 3+ Fair+ Abduction 3+ Fair+ Adduction 4- Good- External Rotation 3+ Fair+ Internal Rotation 4- Good- Knee Strength Knee Manual Muscle Testing Right Flexion (S2) 4 Good Extension (L3) 4 Good Left Flexion (S2) 4- Good- Extension (L3) 4- Good- Ankle/Foot Strength Ankle and Foot Manual Muscle Testing Right Dorsiflexion (L4) 4+ Good+ Plantarflexion (S1) 4+ Good+ Left Dorsiflexion (L4) 4+ Good+ Plantarflexion (S1) 4+ Good+ PT-OP-Q Treatments Start: 05/19/21 15:12 Freq: Status: Active Protocol: Document 05/22/21 13:56 DCW (Rec: 05/22/21 14:29 DCW [id number]) Cardio Equipment Upper Body Ergometer (UBE) Duration (Minutes) 5 RPM 60 Seat Position 14 Height 2.5 Therapeutic Exercises Supine Exercises 2 Supine Exercise Name Serratus Punch Side bilateral 1 Supine Exercise Name Hamstring stretch Side bilateral Sidelying Exercises 2 Sidelying Exercise Name Reverse Clamshell Side bilateral 1 Sidelying Exercise Name Clamshell Side bilateral Standing Exercises 4 Standing Exercise Name Rows Side bilateral Resistance Lv 3 3 Standing Exercise Name Shoulder extension Side bilateral Resistance Lv 3 2 Standing Exercise Name Marching HS curls Side bilateral Resistance 4# 1 Standing Exercise Name Hip extension Side bilateral Resistance Red Equipment Used T-band Other Exercises 1 Other Exercise Name Resisted side-stepping Resistance Red Equipment Used T-band PT-OP-T Assessment and Plan Start: 05/19/21 15:12 Freq: Status: Active Protocol: Document 05/22/21 13:56 DCW (Rec: 05/22/21 14:29 DCW [id number]) Physical Therapy Assessment Impairments Impairments Functional Activities, Functional Mobility,Gait,Pain, Posture,ROM,Soft Tissue Mobility,Strength,Tone Goals Three Impairment Pt ambulates with antalgic gait and mod-severe left trunk lean Group Home Goal (LTG) Pt to ambulate with minimal trunk lean and no limp in order to improve ability to advance right foot during swing phase. LTG Duration 08/16/21 Two Impairment Pt struggles to don/doff jacket due to shoulder pain Material Requisitioner Goal (LTG) Pt to improve bilateral UE internal rotation to be able to reach T8 in order to improve ability to don clothing LTG Duration 08/16/21 One Impairment Pt does not have an appropriate home exercise program Short Term Goal (STG) Pt to be independent and compliant with an appropriate HEP Assessment Summary Assessment Despite shortened treatment session due to late arrival, pt was very fatigued following today session, will likely need to decrease intensity next session. Physical Therapy Plan Frequency and Duration Frequency of Treatment 2x/Week Duration of Treatment Three months Plan of Care Start Date 05/19/21 Plan of Care End Date 08/16/21 Therapeutic Interventions Therapeutic Interventions Aquatic Therapy,Gait Training, Home Exercise Program,Manual Therapy,Neuromuscular Re- education,Orthotic/Prosthetic Management,Patient/Caregiver Education,Self-Care/Home Management,Soft Tissue Mobilization,Therapeutic Activities,Therapeutic Exercises Modalities Cold Pack/Ice Massage,Electric Stimulation,Hot Packs, Ultrasound Next Visit Focus/Plan Next Note Type Treatment Note Next Visit Plan LE/UE strengthening, gait training
--- NOTE | 2021-05-29 15:22 | PT.OTN ---
Current Diagnoses Pain in right shoulder (05/29/21) Pain in left shoulder (05/29/21) Sciatica, right side (05/29/21) Low back pain, unspecified (05/29/21) Pain in thoracic spine (05/29/21) Other abnormalities of gait and mobility (05/29/21) Other injury of muscle(s) and tendon(s) of the rotator cuff of right shoulder, subsequent encounter (05/29/21) Other injury of muscle(s) and tendon(s) of the rotator cuff of left shoulder, subsequent encounter (05/29/21) Physical Therapy Treatment Note PT-OP-A Visit Information Start: 05/19/21 15:12 Freq: Status: Active Protocol: Document 05/29/21 14:33 SP (Rec: 05/29/21 16:00 SP [id number]) Out-Patient Physical Therapy Visit Information Visit Information Visit Type Treatment Note Visit Start Time 14:33 Visit Stop Time 15:22 Total Visit Minutes 49 Visit Number 3 Number of REACTOR KETTLE OPERATOR Visits 1 Evaluation Information Evaluation Date 05/19/21 PT-OP-B Current Condition Start: 05/19/21 15:12 Freq: Status: Active Protocol: Document 05/19/21 14:35 DCW (Rec: 05/20/21 11:34 DCW [id number]) Current Condition History of Current Condition Onset Date Multi-year history Current Complaints B shoulder pain, low back pain , B hip pain, LE weakness History of Current Condition Pt is a 65 year old female presenting to skilled therapy with a multitude of complaints , including bilateral shoulder pain, low back pain, bilateral hip pain, LE weakness, hip misalignment, and gait difficulty. Pt notes she had an MRI that showed a torn rotator cuff in her right shoulder, but it was too late to do anything for it. Pt then reports her left shoulder has begun hurting even more than the right, but she has not been able to get an MRI. Pt notes she has had back pain off and on throughout the years, likely due to her multiple hip problems. 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 Notes that her left femur also broke at one point due to the HYACINTH implant, and she now how wire and mesh holding it together. Pt also presents with a leg length discrepancy, which alters her gait pattern. Prior Treatments and Tests R shoulder MRI: IMPRESSION: Full-thickness rotator cuff tear as above. Atrophy of the supraspinatus and infraspinatus muscles. Circumferential degenerative fraying of the labrum as above . Large joint effusion. per Magdi Antony M.D. on 2020 Treatment Goals Patient/Caregiver Goals I want to get my muscles stronger to decrease the pain. PT-OP-C Subjective Start: 05/19/21 15:12 Freq: Status: Active Protocol: Document 05/29/21 14:33 SP (Rec: 05/29/21 16:00 SP [id number]) OP-PT Subjective Patient Comments Patient Comments Pt arrives R shld elevated, longer stance time and wt shift over L LE with reports R shld and neck really tight and hurts. PT-OP-E Functional Tests Start: 05/19/21 15:12 Freq: Status: Active Protocol: Document 05/19/21 14:35 DCW (Rec: 05/20/21 11:40 DCW [id number]) Functional Tests Apley's Scratch Test Action 2- Left T3 Action 2- Right T3 Action 3- Left PSIS Action 3- Right L3 PT-OP-F Manual Assessment Start: 05/20/21 11:40 Freq: Status: Active Protocol: Document 05/19/21 14:35 DCW (Rec: 05/20/21 11:41 DCW [id number]) Manual Assessments Other Manual Assessments Other Manual Assessments Leg length measurements from ASIS to medial malleoli: L: 90.4 R: 91.6 PT-OP-G Mobility & Gait Start: 05/20/21 11:41 Freq: Status: Active Protocol: Document 05/19/21 14:35 DCW (Rec: 05/20/21 11:44 DCW [id number]) OP Gait Assessment Gait Gait Assistance Required: Independent Assistive Devices Assistive Device None Gait Deviations General Gait Pattern Antalgic,Decreased Stride Length,Decreased Feet Clearance,Lateral Trunk Lean Comments Gait Comments Left trunk lean, right heel whip for clearance secondary to right>left LLD PT-OP-J Posture/Palpation/Skin Start: 05/20/21 11:41 Freq: Status: Active Protocol: Document 05/19/21 14:35 DCW (Rec: 05/20/21 11:44 DCW [id number]) Posture Evaluation Position Standing Evaluation View Posterior Pelvis Posture (R) Iliac Crest Superior Weight Distribution Weight Shifted Left PT-OP-K Range of Motion Start: 05/19/21 15:12 Freq: Status: Active Protocol: Document 05/19/21 14:35 DCW (Rec: 05/20/21 11:40 DCW [id number]) Hip Goniometric Range of Motion Hip Right Passive Internal Rotation 18 External Rotation 26 Hip ROM Limitations Hip ROM Limitations Soft Tissue Tightness,Bony Restriction,Muscle Weakness PT-OP-L Special Tests Start: 05/19/21 15:12 Freq: Status: Active Protocol: Document 05/19/21 14:35 DCW (Rec: 05/20/21 11:40 DCW [id number]) Special Tests Shoulder Special Tests Painful Arc Test Results Positive B Passive ER Rotator Cuff Test Results Positive L Lift-Off Rotator Cuff Test Results Unable to position L [place] Impingement Test Results Positive B Empty Can Test Results Positive B Drop Arm Rotator Cuff Test Results Negative Belly Press Test Results Positive L Hip Special Tests Straight Leg Raise Test Results Negative PT-OP-M Strength Start: 05/19/21 15:12 Freq: Status: Active Protocol: Document 05/19/21 14:35 DCW (Rec: 05/20/21 11:40 DCW [id number]) Shoulder Strength Shoulder Manual Muscle Testing Right Flexion 4 Good Abduction (C5) 4- Good- External Rotation 4 Good Internal Rotation 4 Good Left Flexion 4 Good Abduction (C5) 4- Good- External Rotation 4 Good Internal Rotation 4 Good Hip Strength Hip Manual Muscle Testing Right Flexion (L2) 4 Good Abduction 4 Good Adduction 4 Good External Rotation 4 Good Internal Rotation 4 Good Left Flexion (L2) 3+ Fair+ Abduction 3+ Fair+ Adduction 4- Good- External Rotation 3+ Fair+ Internal Rotation 4- Good- Knee Strength Knee Manual Muscle Testing Right Flexion (S2) 4 Good Extension (L3) 4 Good Left Flexion (S2) 4- Good- Extension (L3) 4- Good- Ankle/Foot Strength Ankle and Foot Manual Muscle Testing Right Dorsiflexion (L4) 4+ Good+ Plantarflexion (S1) 4+ Good+ Left Dorsiflexion (L4) 4+ Good+ Plantarflexion (S1) 4+ Good+ PT-OP-Q Treatments Start: 05/19/21 15:12 Freq: Status: Active Protocol: Document 05/29/21 14:33 SP (Rec: 05/29/21 16:00 SP [id number]) Cardio Equipment Upper Body Ergometer (UBE) Duration (Minutes) 4 RPM 65 Seat Position 13 Height 2.5 Other 30 sec f/b 60>65>85 RPM caused clicking andUT recruit so stopped Therapeutic Exercises Supine Exercises 2 Supine Exercise Name Serratus Punch Side bilateral Reps/Minutes x8 Comments cued 1 punch- little R shld irritation but ok, cued no UT recruit 1 Supine Exercise Name Hamstring stretch Side bilateral Equipment Used grasp towel behind thigh vs strap Reps/Minutes x2 15 sec- stopped Comments caused pain neck and HS cramp Sidelying Exercises open book Sidelying Exercise Name hand on head: added to HEP Side bilateral Reps/Minutes x6 Comments cued slow fluid gentle movement: no UT rectruit- good feedback response Sitting Exercises HS stretch Sitting Exercise Name straight back/ CS chin nod neutral- added to HEP Side bilateral Reps/Minutes 30 x2 Comments cued tall posture hip hinge gentle slow post thigh stretch - good feedback Standing Exercises 4 Standing Exercise Name Rows- added to HEP Side bilateral Resistance Lv 1 Reps/Minutes x10 Comments cued scap retraction depression awareness no UT recruit- good feedback Manual Therapy Treatment Soft Tissue Mobilization 1 Body Location UT, lev scap, infraspinatus, pec Mobilization Type Cross-Friction,Myofascial Release,Strumming Intensity/Depth Moderate Body Position Hooklying Comments manual, discussion self STMs racquetball on wall with verbalized has in past. Self-Care/Home Management Treatment Education Patient Education Home Exercise Program,Joint Protection,Pain Management, Safety Other Education Extra time for sleep postural positioning and spinal alignment support w/use of pillows:supine: under ischial tuberosities, thighs, calves- this feels really good; sidesleeping: between full LEs , behind back, front between arms, folded towel under lateral ribcage, appropriate level neutral neck alignment pillow thichness (towel roll/ noodle at side neck in pillow case)- good feedback response. States moves around alot but will try suggestions, has many pillows. Gave HOs for recall assist. PT-OP-T Assessment and Plan Start: 05/19/21 15:12 Freq: Status: Active Protocol: Document 05/29/21 14:33 SP (Rec: 05/29/21 16:00 SP [id number]) Physical Therapy Assessment Goals Three Impairment Pt ambulates with antalgic gait and mod-severe left trunk lean Master Technician Goal (LTG) Pt to ambulate with minimal trunk lean and no limp in order to improve ability to advance right foot during swing phase. LTG Duration 08/16/21 Two Impairment Pt struggles to don/doff jacket due to shoulder pain Master Technician Goal (LTG) Pt to improve bilateral UE internal rotation to be able to reach T8 in order to improve ability to don clothing LTG Duration 08/16/21 One Impairment Pt does not have an appropriate home exercise program Short Term Goal (STG) Pt to be independent and compliant with an appropriate HEP Assessment Summary Assessment Had to discontinue UBE due to alot R UT recruitment with set details noted last tx noted, didn't improve with seat position closer or decrease resistance and cues for scap relaxed depressed positioned. Time spent manual with good feedback less R UT and scap comples muscular tension, found comfort in sleeping positioning with pillow assist for alignment support. Reviewed ther ex performed last tx for painfree to complete at home with good feedback: rows and initiated seated seated HS stretch/open book on side with painfree movement with improved self corrections post cues for no UT recruitment and spinal/ postural alignment. Pt stated less R UT tightness than when came in. Physical Therapy Plan Frequency and Duration Frequency of Treatment 2x/Week Duration of Treatment Three months Plan of Care Start Date 05/19/21 Plan of Care End Date 08/16/21 Therapeutic Interventions Therapeutic Interventions Aquatic Therapy,Gait Training, Home Exercise Program,Manual Therapy,Neuromuscular Re- education,Orthotic/Prosthetic Management,Patient/Caregiver Education,Self-Care/Home Management,Soft Tissue Mobilization,Therapeutic Activities,Therapeutic Exercises Modalities Cold Pack/Ice Massage,Electric Stimulation,Hot Packs, Ultrasound Next Visit Focus/Plan Next Note Type Treatment Note Next Visit Plan Assess posture for assist manual and tolerant proper form painfree ther ex. POC:LE/UE strengthening, gait training
--- NOTE | 2021-06-09 16:46 | PT.OTN ---
Current Diagnoses Pain in right shoulder (06/09/21) Pain in left shoulder (06/09/21) Sciatica, right side (06/09/21) Low back pain, unspecified (06/09/21) Pain in thoracic spine (06/09/21) Other abnormalities of gait and mobility (06/09/21) Other injury of muscle(s) and tendon(s) of the rotator cuff of right shoulder, subsequent encounter (06/09/21) Other injury of muscle(s) and tendon(s) of the rotator cuff of left shoulder, subsequent encounter (06/09/21) Physical Therapy Treatment Note PT-OP-A Visit Information Start: 05/19/21 15:12 Freq: Status: Active Protocol: Document 06/09/21 16:00 DCW (Rec: 06/09/21 16:46 DCW [id number]) Out-Patient Physical Therapy Visit Information Visit Information Visit Type Treatment Note Visit Start Time 16:00 Visit Stop Time 16:45 Total Visit Minutes 45 Visit Number 4 Number of DEAF/HARD OF HEARING SPECIALIST Visits 0 Evaluation Information Evaluation Date 05/19/21 PT-OP-B Current Condition Start: 05/19/21 15:12 Freq: Status: Active Protocol: Document 05/19/21 14:35 DCW (Rec: 05/20/21 11:34 DCW [id number]) Current Condition History of Current Condition Onset Date Multi-year history Current Complaints B shoulder pain, low back pain , B hip pain, LE weakness History of Current Condition Pt is a 65 year old female presenting to skilled therapy with a multitude of complaints , including bilateral shoulder pain, low back pain, bilateral hip pain, LE weakness, hip misalignment, and gait difficulty. Pt notes she had an MRI that showed a torn rotator cuff in her right shoulder, but it was too late to do anything for it. Pt then reports her left shoulder has begun hurting even more than the right, but she has not been able to get an MRI. Pt notes she has had back pain off and on throughout the years, likely due to her multiple hip problems. 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 Notes that her left femur also broke at one point due to the HYACINTH implant, and she now how wire and mesh holding it together. Pt also presents with a leg length discrepancy, which alters her gait pattern. Prior Treatments and Tests R shoulder MRI: IMPRESSION: Full-thickness rotator cuff tear as above. Atrophy of the supraspinatus and infraspinatus muscles. Circumferential degenerative fraying of the labrum as above . Large joint effusion. per Magdi Antony M.D. on 2020 Treatment Goals Patient/Caregiver Goals I want to get my muscles stronger to decrease the pain. PT-OP-C Subjective Start: 05/19/21 15:12 Freq: Status: Active Protocol: Document 06/09/21 16:00 DCW (Rec: 06/09/21 16:46 DCW [id number]) OP-PT Subjective Patient Comments Patient Comments Everything is kind of the same, this (left) shoulder is really really bad. Does note that her leg hasn't been as sore recently. PT-OP-E Functional Tests Start: 05/19/21 15:12 Freq: Status: Active Protocol: Document 05/19/21 14:35 DCW (Rec: 05/20/21 11:40 DCW [id number]) Functional Tests Apley's Scratch Test Action 2- Left T3 Action 2- Right T3 Action 3- Left PSIS Action 3- Right L3 PT-OP-F Manual Assessment Start: 05/20/21 11:40 Freq: Status: Active Protocol: Document 05/19/21 14:35 DCW (Rec: 05/20/21 11:41 DCW [id number]) Manual Assessments Other Manual Assessments Other Manual Assessments Leg length measurements from ASIS to medial malleoli: L: 90.4 R: 91.6 PT-OP-G Mobility & Gait Start: 05/20/21 11:41 Freq: Status: Active Protocol: Document 05/19/21 14:35 DCW (Rec: 05/20/21 11:44 DCW [id number]) OP Gait Assessment Gait Gait Assistance Required: Independent Assistive Devices Assistive Device None Gait Deviations General Gait Pattern Antalgic,Decreased Stride Length,Decreased Feet Clearance,Lateral Trunk Lean Comments Gait Comments Left trunk lean, right heel whip for clearance secondary to right>left LLD PT-OP-J Posture/Palpation/Skin Start: 05/20/21 11:41 Freq: Status: Active Protocol: Document 05/19/21 14:35 DCW (Rec: 05/20/21 11:44 DCW [id number]) Posture Evaluation Position Standing Evaluation View Posterior Pelvis Posture (R) Iliac Crest Superior Weight Distribution Weight Shifted Left PT-OP-K Range of Motion Start: 05/19/21 15:12 Freq: Status: Active Protocol: Document 05/19/21 14:35 DCW (Rec: 05/20/21 11:40 DCW [id number]) Hip Goniometric Range of Motion Hip Right Passive Internal Rotation 18 External Rotation 26 Hip ROM Limitations Hip ROM Limitations Soft Tissue Tightness,Bony Restriction,Muscle Weakness PT-OP-L Special Tests Start: 05/19/21 15:12 Freq: Status: Active Protocol: Document 05/19/21 14:35 DCW (Rec: 05/20/21 11:40 DCW [id number]) Special Tests Shoulder Special Tests Painful Arc Test Results Positive B Passive ER Rotator Cuff Test Results Positive L Lift-Off Rotator Cuff Test Results Unable to position L [place] Impingement Test Results Positive B Empty Can Test Results Positive B Drop Arm Rotator Cuff Test Results Negative Belly Press Test Results Positive L Hip Special Tests Straight Leg Raise Test Results Negative PT-OP-M Strength Start: 05/19/21 15:12 Freq: Status: Active Protocol: Document 05/19/21 14:35 DCW (Rec: 05/20/21 11:40 DCW [id number]) Shoulder Strength Shoulder Manual Muscle Testing Right Flexion 4 Good Abduction (C5) 4- Good- External Rotation 4 Good Internal Rotation 4 Good Left Flexion 4 Good Abduction (C5) 4- Good- External Rotation 4 Good Internal Rotation 4 Good Hip Strength Hip Manual Muscle Testing Right Flexion (L2) 4 Good Abduction 4 Good Adduction 4 Good External Rotation 4 Good Internal Rotation 4 Good Left Flexion (L2) 3+ Fair+ Abduction 3+ Fair+ Adduction 4- Good- External Rotation 3+ Fair+ Internal Rotation 4- Good- Knee Strength Knee Manual Muscle Testing Right Flexion (S2) 4 Good Extension (L3) 4 Good Left Flexion (S2) 4- Good- Extension (L3) 4- Good- Ankle/Foot Strength Ankle and Foot Manual Muscle Testing Right Dorsiflexion (L4) 4+ Good+ Plantarflexion (S1) 4+ Good+ Left Dorsiflexion (L4) 4+ Good+ Plantarflexion (S1) 4+ Good+ PT-OP-Q Treatments Start: 05/19/21 15:12 Freq: Status: Active Protocol: Document 06/09/21 16:00 DCW (Rec: 06/09/21 16:46 DCW [id number]) Cardio Equipment Upper Body Ergometer (UBE) Duration (Minutes) 6 RPM 60 Seat Position 14 Height 2.5 Therapeutic Exercises Standing Exercises 1 Standing Exercise Name Hip extension Side bilateral Resistance Red Equipment Used T-band Other Exercises 1 Other Exercise Name Resisted side-stepping Resistance Red Equipment Used T-band Manual Therapy Treatment Soft Tissue Mobilization 1 Body Location UT, lev scap, infraspinatus, pec Mobilization Type Cross-Friction,Myofascial Release,Strumming Intensity/Depth Moderate Body Position Hooklying PT-OP-T Assessment and Plan Start: 05/19/21 15:12 Freq: Status: Active Protocol: Document 06/09/21 16:00 DCW (Rec: 06/09/21 16:46 DCW [id number]) Physical Therapy Assessment Impairments Impairments Functional Activities, Functional Mobility,Gait,Pain, Posture,ROM,Soft Tissue Mobility,Strength,Tone Goals Three Impairment Pt ambulates with antalgic gait and mod-severe left trunk lean Group Home Goal (LTG) Pt to ambulate with minimal trunk lean and no limp in order to improve ability to advance right foot during swing phase. LTG Duration 08/16/21 Two Impairment Pt struggles to don/doff jacket due to shoulder pain Group Home Goal (LTG) Pt to improve bilateral UE internal rotation to be able to reach T8 in order to improve ability to don clothing LTG Duration 08/16/21 One Impairment Pt does not have an appropriate home exercise program Short Term Goal (STG) Pt to be independent and compliant with an appropriate HEP Assessment Summary Assessment focused a lot today on STM, pt tolerated very well, noticeable difference after treatment. Pt especially high tone in left parascapular muscles and right levator scap . Physical Therapy Plan Frequency and Duration Frequency of Treatment 2x/Week Duration of Treatment Three months Plan of Care Start Date 05/19/21 Plan of Care End Date 08/16/21 Therapeutic Interventions Therapeutic Interventions Aquatic Therapy,Gait Training, Home Exercise Program,Manual Therapy,Neuromuscular Re- education,Orthotic/Prosthetic Management,Patient/Caregiver Education,Self-Care/Home Management,Soft Tissue Mobilization,Therapeutic Activities,Therapeutic Exercises Modalities Cold Pack/Ice Massage,Electric Stimulation,Hot Packs, Ultrasound Next Visit Focus/Plan Next Note Type Treatment Note Next Visit Plan Assess posture for assist manual and tolerant proper form painfree ther ex. POC:LE/UE strengthening, gait training
--- NOTE | 2021-06-12 14:29 | PT.OTN ---
Current Diagnoses Pain in right shoulder (06/12/21) Pain in left shoulder (06/12/21) Sciatica, right side (06/12/21) Low back pain, unspecified (06/12/21) Pain in thoracic spine (06/12/21) Other abnormalities of gait and mobility (06/12/21) Other injury of muscle(s) and tendon(s) of the rotator cuff of right shoulder, subsequent encounter (06/12/21) Other injury of muscle(s) and tendon(s) of the rotator cuff of left shoulder, subsequent encounter (06/12/21) Physical Therapy Treatment Note PT-OP-A Visit Information Start: 05/19/21 15:12 Freq: Status: Active Protocol: Document 06/12/21 13:46 DCW (Rec: 06/12/21 14:29 DCW [id number]) Out-Patient Physical Therapy Visit Information Visit Information Visit Type Treatment Note Visit Start Time 13:46 Visit Stop Time 14:30 Total Visit Minutes 44 Visit Number 5 Number of OYSTER CULTIVATOR Visits 0 Evaluation Information Evaluation Date 05/19/21 PT-OP-B Current Condition Start: 05/19/21 15:12 Freq: Status: Active Protocol: Document 05/19/21 14:35 DCW (Rec: 05/20/21 11:34 DCW [id number]) Current Condition History of Current Condition Onset Date Multi-year history Current Complaints B shoulder pain, low back pain , B hip pain, LE weakness History of Current Condition Pt is a 65 year old female presenting to skilled therapy with a multitude of complaints , including bilateral shoulder pain, low back pain, bilateral hip pain, LE weakness, hip misalignment, and gait difficulty. Pt notes she had an MRI that showed a torn rotator cuff in her right shoulder, but it was too late to do anything for it. Pt then reports her left shoulder has begun hurting even more than the right, but she has not been able to get an MRI. Pt notes she has had back pain off and on throughout the years, likely due to her multiple hip problems. 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 Notes that her left femur also broke at one point due to the HYACINTH implant, and she now how wire and mesh holding it together. Pt also presents with a leg length discrepancy, which alters her gait pattern. Prior Treatments and Tests R shoulder MRI: IMPRESSION: Full-thickness rotator cuff tear as above. Atrophy of the supraspinatus and infraspinatus muscles. Circumferential degenerative fraying of the labrum as above . Large joint effusion. per Magdi Antony M.D. on 2020 Treatment Goals Patient/Caregiver Goals I want to get my muscles stronger to decrease the pain. PT-OP-C Subjective Start: 05/19/21 15:12 Freq: Status: Active Protocol: Document 06/12/21 13:46 DCW (Rec: 06/12/21 14:29 DCW [id number]) OP-PT Subjective Patient Comments Patient Comments My shoulder is still really bad. It did feel a lot better Tuesday after my appointment, but by the next day, it was just back to feeling sore. PT-OP-E Functional Tests Start: 05/19/21 15:12 Freq: Status: Active Protocol: Document 05/19/21 14:35 DCW (Rec: 05/20/21 11:40 DCW [id number]) Functional Tests Apley's Scratch Test Action 2- Left T3 Action 2- Right T3 Action 3- Left PSIS Action 3- Right L3 PT-OP-F Manual Assessment Start: 05/20/21 11:40 Freq: Status: Active Protocol: Document 05/19/21 14:35 DCW (Rec: 05/20/21 11:41 DCW [id number]) Manual Assessments Other Manual Assessments Other Manual Assessments Leg length measurements from ASIS to medial malleoli: L: 90.4 R: 91.6 PT-OP-G Mobility & Gait Start: 05/20/21 11:41 Freq: Status: Active Protocol: Document 05/19/21 14:35 DCW (Rec: 05/20/21 11:44 DCW [id number]) OP Gait Assessment Gait Gait Assistance Required: Independent Assistive Devices Assistive Device None Gait Deviations General Gait Pattern Antalgic,Decreased Stride Length,Decreased Feet Clearance,Lateral Trunk Lean Comments Gait Comments Left trunk lean, right heel whip for clearance secondary to right>left LLD PT-OP-J Posture/Palpation/Skin Start: 05/20/21 11:41 Freq: Status: Active Protocol: Document 05/19/21 14:35 DCW (Rec: 05/20/21 11:44 DCW [id number]) Posture Evaluation Position Standing Evaluation View Posterior Pelvis Posture (R) Iliac Crest Superior Weight Distribution Weight Shifted Left PT-OP-K Range of Motion Start: 05/19/21 15:12 Freq: Status: Active Protocol: Document 05/19/21 14:35 DCW (Rec: 05/20/21 11:40 DCW [id number]) Hip Goniometric Range of Motion Hip Right Passive Internal Rotation 18 External Rotation 26 Hip ROM Limitations Hip ROM Limitations Soft Tissue Tightness,Bony Restriction,Muscle Weakness PT-OP-L Special Tests Start: 05/19/21 15:12 Freq: Status: Active Protocol: Document 05/19/21 14:35 DCW (Rec: 05/20/21 11:40 DCW [id number]) Special Tests Shoulder Special Tests Painful Arc Test Results Positive B Passive ER Rotator Cuff Test Results Positive L Lift-Off Rotator Cuff Test Results Unable to position L [place] Impingement Test Results Positive B Empty Can Test Results Positive B Drop Arm Rotator Cuff Test Results Negative Belly Press Test Results Positive L Hip Special Tests Straight Leg Raise Test Results Negative PT-OP-M Strength Start: 05/19/21 15:12 Freq: Status: Active Protocol: Document 05/19/21 14:35 DCW (Rec: 05/20/21 11:40 DCW [id number]) Shoulder Strength Shoulder Manual Muscle Testing Right Flexion 4 Good Abduction (C5) 4- Good- External Rotation 4 Good Internal Rotation 4 Good Left Flexion 4 Good Abduction (C5) 4- Good- External Rotation 4 Good Internal Rotation 4 Good Hip Strength Hip Manual Muscle Testing Right Flexion (L2) 4 Good Abduction 4 Good Adduction 4 Good External Rotation 4 Good Internal Rotation 4 Good Left Flexion (L2) 3+ Fair+ Abduction 3+ Fair+ Adduction 4- Good- External Rotation 3+ Fair+ Internal Rotation 4- Good- Knee Strength Knee Manual Muscle Testing Right Flexion (S2) 4 Good Extension (L3) 4 Good Left Flexion (S2) 4- Good- Extension (L3) 4- Good- Ankle/Foot Strength Ankle and Foot Manual Muscle Testing Right Dorsiflexion (L4) 4+ Good+ Plantarflexion (S1) 4+ Good+ Left Dorsiflexion (L4) 4+ Good+ Plantarflexion (S1) 4+ Good+ PT-OP-Q Treatments Start: 05/19/21 15:12 Freq: Status: Active Protocol: Document 06/12/21 13:46 DCW (Rec: 06/12/21 14:29 DCW [id number]) Cardio Equipment Upper Body Ergometer (UBE) Duration (Minutes) 6 RPM 60 Seat Position 14 Height 2.5 Therapeutic Exercises Standing Exercises 1 Standing Exercise Name Hip extension Side bilateral Resistance Red Equipment Used T-band Other Exercises 1 Other Exercise Name Resisted side-stepping Resistance Red Equipment Used T-band Manual Therapy Treatment Soft Tissue Mobilization 1 Body Location UT, lev scap, infraspinatus, pec Mobilization Type Cross-Friction,Myofascial Release,Strumming Intensity/Depth Moderate Body Position Hooklying Joint Mobilizations 1 Joint L Scapulothoracic Direction Lateral Grade III Body Position Supine PT-OP-T Assessment and Plan Start: 05/19/21 15:12 Freq: Status: Active Protocol: Document 06/12/21 13:46 DCW (Rec: 06/12/21 14:29 DCW [id number]) Physical Therapy Assessment Impairments Impairments Functional Activities, Functional Mobility,Gait,Pain, Posture,ROM,Soft Tissue Mobility,Strength,Tone Goals Three Impairment Pt ambulates with antalgic gait and mod-severe left trunk lean Remote Recruiter Goal (LTG) Pt to ambulate with minimal trunk lean and no limp in order to improve ability to advance right foot during swing phase. LTG Duration 08/16/21 Two Impairment Pt struggles to don/doff jacket due to shoulder pain Remote Recruiter Goal (LTG) Pt to improve bilateral UE internal rotation to be able to reach T8 in order to improve ability to don clothing LTG Duration 08/16/21 One Impairment Pt does not have an appropriate home exercise program Short Term Goal (STG) Pt to be independent and compliant with an appropriate HEP STG Duration 07/17/21 Assessment Summary Assessment Pt felt like her shoulder is significantly loosened following STM today, improved mobility. Physical Therapy Plan Frequency and Duration Frequency of Treatment 2x/Week Duration of Treatment Three months Plan of Care Start Date 05/19/21 Plan of Care End Date 08/16/21 Therapeutic Interventions Therapeutic Interventions Aquatic Therapy,Gait Training, Home Exercise Program,Manual Therapy,Neuromuscular Re- education,Orthotic/Prosthetic Management,Patient/Caregiver Education,Self-Care/Home Management,Soft Tissue Mobilization,Therapeutic Activities,Therapeutic Exercises Modalities Cold Pack/Ice Massage,Electric Stimulation,Hot Packs, Ultrasound Next Visit Focus/Plan Next Note Type Treatment Note Next Visit Plan Assess posture for assist manual and tolerant proper form painfree ther ex. POC:LE/UE strengthening, gait training
--- NOTE | 2021-06-16 17:36 | PT.OTN ---
Current Diagnoses Pain in right shoulder (06/16/21) Pain in left shoulder (06/16/21) Sciatica, right side (06/16/21) Low back pain, unspecified (06/16/21) Pain in thoracic spine (06/16/21) Other abnormalities of gait and mobility (06/16/21) Other injury of muscle(s) and tendon(s) of the rotator cuff of right shoulder, subsequent encounter (06/16/21) Other injury of muscle(s) and tendon(s) of the rotator cuff of left shoulder, subsequent encounter (06/16/21) Physical Therapy Treatment Note PT-OP-A Visit Information Start: 05/19/21 15:12 Freq: Status: Active Protocol: Document 06/16/21 16:45 DCW (Rec: 06/16/21 17:36 DCW [id number]) Out-Patient Physical Therapy Visit Information Visit Information Visit Type Treatment Note Visit Start Time 16:45 Visit Stop Time 17:30 Total Visit Minutes 45 Visit Number 6 Number of ENVELOPE PRESS OPERATOR Visits 0 Evaluation Information Evaluation Date 05/19/21 PT-OP-B Current Condition Start: 05/19/21 15:12 Freq: Status: Active Protocol: Document 05/19/21 14:35 DCW (Rec: 05/20/21 11:34 DCW [id number]) Current Condition History of Current Condition Onset Date Multi-year history Current Complaints B shoulder pain, low back pain , B hip pain, LE weakness History of Current Condition Pt is a 65 year old female presenting to skilled therapy with a multitude of complaints , including bilateral shoulder pain, low back pain, bilateral hip pain, LE weakness, hip misalignment, and gait difficulty. Pt notes she had an MRI that showed a torn rotator cuff in her right shoulder, but it was too late to do anything for it. Pt then reports her left shoulder has begun hurting even more than the right, but she has not been able to get an MRI. Pt notes she has had back pain off and on throughout the years, likely due to her multiple hip problems. 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 Notes that her left femur also broke at one point due to the HYACINTH implant, and she now how wire and mesh holding it together. Pt also presents with a leg length discrepancy, which alters her gait pattern. Prior Treatments and Tests R shoulder MRI: IMPRESSION: Full-thickness rotator cuff tear as above. Atrophy of the supraspinatus and infraspinatus muscles. Circumferential degenerative fraying of the labrum as above . Large joint effusion. per Magdi Antony M.D. on 2020 Treatment Goals Patient/Caregiver Goals I want to get my muscles stronger to decrease the pain. PT-OP-C Subjective Start: 05/19/21 15:12 Freq: Status: Active Protocol: Document 06/16/21 16:45 DCW (Rec: 06/16/21 17:36 DCW [id number]) OP-PT Subjective Patient Comments Patient Comments Pt notes her shoulder has been better during the day, but still really problematic during the night. PT-OP-E Functional Tests Start: 05/19/21 15:12 Freq: Status: Active Protocol: Document 05/19/21 14:35 DCW (Rec: 05/20/21 11:40 DCW [id number]) Functional Tests Apley's Scratch Test Action 2- Left T3 Action 2- Right T3 Action 3- Left PSIS Action 3- Right L3 PT-OP-F Manual Assessment Start: 05/20/21 11:40 Freq: Status: Active Protocol: Document 05/19/21 14:35 DCW (Rec: 05/20/21 11:41 DCW [id number]) Manual Assessments Other Manual Assessments Other Manual Assessments Leg length measurements from ASIS to medial malleoli: L: 90.4 R: 91.6 PT-OP-G Mobility & Gait Start: 05/20/21 11:41 Freq: Status: Active Protocol: Document 05/19/21 14:35 DCW (Rec: 05/20/21 11:44 DCW [id number]) OP Gait Assessment Gait Gait Assistance Required: Independent Assistive Devices Assistive Device None Gait Deviations General Gait Pattern Antalgic,Decreased Stride Length,Decreased Feet Clearance,Lateral Trunk Lean Comments Gait Comments Left trunk lean, right heel whip for clearance secondary to right>left LLD PT-OP-J Posture/Palpation/Skin Start: 05/20/21 11:41 Freq: Status: Active Protocol: Document 05/19/21 14:35 DCW (Rec: 05/20/21 11:44 DCW [id number]) Posture Evaluation Position Standing Evaluation View Posterior Pelvis Posture (R) Iliac Crest Superior Weight Distribution Weight Shifted Left PT-OP-K Range of Motion Start: 05/19/21 15:12 Freq: Status: Active Protocol: Document 05/19/21 14:35 DCW (Rec: 05/20/21 11:40 DCW [id number]) Hip Goniometric Range of Motion Hip Right Passive Internal Rotation 18 External Rotation 26 Hip ROM Limitations Hip ROM Limitations Soft Tissue Tightness,Bony Restriction,Muscle Weakness PT-OP-L Special Tests Start: 05/19/21 15:12 Freq: Status: Active Protocol: Document 05/19/21 14:35 DCW (Rec: 05/20/21 11:40 DCW [id number]) Special Tests Shoulder Special Tests Painful Arc Test Results Positive B Passive ER Rotator Cuff Test Results Positive L Lift-Off Rotator Cuff Test Results Unable to position L [place] Impingement Test Results Positive B Empty Can Test Results Positive B Drop Arm Rotator Cuff Test Results Negative Belly Press Test Results Positive L Hip Special Tests Straight Leg Raise Test Results Negative PT-OP-M Strength Start: 05/19/21 15:12 Freq: Status: Active Protocol: Document 05/19/21 14:35 DCW (Rec: 05/20/21 11:40 DCW [id number]) Shoulder Strength Shoulder Manual Muscle Testing Right Flexion 4 Good Abduction (C5) 4- Good- External Rotation 4 Good Internal Rotation 4 Good Left Flexion 4 Good Abduction (C5) 4- Good- External Rotation 4 Good Internal Rotation 4 Good Hip Strength Hip Manual Muscle Testing Right Flexion (L2) 4 Good Abduction 4 Good Adduction 4 Good External Rotation 4 Good Internal Rotation 4 Good Left Flexion (L2) 3+ Fair+ Abduction 3+ Fair+ Adduction 4- Good- External Rotation 3+ Fair+ Internal Rotation 4- Good- Knee Strength Knee Manual Muscle Testing Right Flexion (S2) 4 Good Extension (L3) 4 Good Left Flexion (S2) 4- Good- Extension (L3) 4- Good- Ankle/Foot Strength Ankle and Foot Manual Muscle Testing Right Dorsiflexion (L4) 4+ Good+ Plantarflexion (S1) 4+ Good+ Left Dorsiflexion (L4) 4+ Good+ Plantarflexion (S1) 4+ Good+ PT-OP-Q Treatments Start: 05/19/21 15:12 Freq: Status: Active Protocol: Document 06/16/21 16:45 DCW (Rec: 06/16/21 17:36 DCW [id number]) Cardio Equipment Upper Body Ergometer (UBE) Duration (Minutes) 6 RPM 60 Seat Position 14 Height 2.5 Therapeutic Exercises Standing Exercises 1 Standing Exercise Name Hip extension Side bilateral Resistance Red Equipment Used T-band Other Exercises 1 Other Exercise Name Resisted side-stepping Resistance Red Equipment Used T-band Manual Therapy Treatment Soft Tissue Mobilization 1 Body Location UT, lev scap, infraspinatus, pec Mobilization Type Cross-Friction,Myofascial Release,Strumming Intensity/Depth Moderate Body Position Hooklying Joint Mobilizations 1 Joint L Scapulothoracic Direction Lateral Grade III Body Position Supine PT-OP-T Assessment and Plan Start: 05/19/21 15:12 Freq: Status: Active Protocol: Document 06/16/21 16:45 DCW (Rec: 06/16/21 17:36 DCW [id number]) Physical Therapy Assessment Impairments Impairments Functional Activities, Functional Mobility,Gait,Pain, Posture,ROM,Soft Tissue Mobility,Strength,Tone Goals Three Impairment Pt ambulates with antalgic gait and mod-severe left trunk lean Penitentiary Goal (LTG) Pt to ambulate with minimal trunk lean and no limp in order to improve ability to advance right foot during swing phase. LTG Duration 08/16/21 Two Impairment Pt struggles to don/doff jacket due to shoulder pain Penitentiary Goal (LTG) Pt to improve bilateral UE internal rotation to be able to reach T8 in order to improve ability to don clothing LTG Duration 08/16/21 One Impairment Pt does not have an appropriate home exercise program Short Term Goal (STG) Pt to be independent and compliant with an appropriate HEP STG Duration 07/17/21 Assessment Summary Assessment Pt still having significant pain with don/doff clothes and sleeping. Discussed potential of return to PCP for request of imaging if pt does not improve over the next week or two. Physical Therapy Plan Frequency and Duration Frequency of Treatment 2x/Week Duration of Treatment Three months Plan of Care Start Date 05/19/21 Plan of Care End Date 08/16/21 Therapeutic Interventions Therapeutic Interventions Aquatic Therapy,Gait Training, Home Exercise Program,Manual Therapy,Neuromuscular Re- education,Orthotic/Prosthetic Management,Patient/Caregiver Education,Self-Care/Home Management,Soft Tissue Mobilization,Therapeutic Activities,Therapeutic Exercises Modalities Cold Pack/Ice Massage,Electric Stimulation,Hot Packs, Ultrasound Next Visit Focus/Plan Next Note Type Treatment Note Next Visit Plan Posture training, STM POC:LE/UE strengthening, gait training
--- NOTE | 2021-06-19 14:30 | PT.OTN ---
Current Diagnoses Pain in right shoulder (06/19/21) Pain in left shoulder (06/19/21) Sciatica, right side (06/19/21) Low back pain, unspecified (06/19/21) Pain in thoracic spine (06/19/21) Other abnormalities of gait and mobility (06/19/21) Other injury of muscle(s) and tendon(s) of the rotator cuff of right shoulder, subsequent encounter (06/19/21) Other injury of muscle(s) and tendon(s) of the rotator cuff of left shoulder, subsequent encounter (06/19/21) Physical Therapy Treatment Note PT-OP-A Visit Information Start: 05/19/21 15:12 Freq: Status: Active Protocol: Document 06/19/21 13:50 SP (Rec: 06/19/21 14:33 SP [id number]) Out-Patient Physical Therapy Visit Information Visit Information Visit Type Treatment Note Visit Start Time 13:50 Visit Stop Time 14:30 Total Visit Minutes 40 Visit Number 7 Number of WARDROBE ASSISTANT Visits 1 Evaluation Information Evaluation Date 05/19/21 PT-OP-B Current Condition Start: 05/19/21 15:12 Freq: Status: Active Protocol: Document 05/19/21 14:35 DCW (Rec: 05/20/21 11:34 DCW [id number]) Current Condition History of Current Condition Onset Date Multi-year history Current Complaints B shoulder pain, low back pain , B hip pain, LE weakness History of Current Condition Pt is a 65 year old female presenting to skilled therapy with a multitude of complaints , including bilateral shoulder pain, low back pain, bilateral hip pain, LE weakness, hip misalignment, and gait difficulty. Pt notes she had an MRI that showed a torn rotator cuff in her right shoulder, but it was too late to do anything for it. Pt then reports her left shoulder has begun hurting even more than the right, but she has not been able to get an MRI. Pt notes she has had back pain off and on throughout the years, likely due to her multiple hip problems. 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 Notes that her left femur also broke at one point due to the HYACINTH implant, and she now how wire and mesh holding it together. Pt also presents with a leg length discrepancy, which alters her gait pattern. Prior Treatments and Tests R shoulder MRI: IMPRESSION: Full-thickness rotator cuff tear as above. Atrophy of the supraspinatus and infraspinatus muscles. Circumferential degenerative fraying of the labrum as above . Large joint effusion. per Magdi Antony M.D. on 2020 Treatment Goals Patient/Caregiver Goals I want to get my muscles stronger to decrease the pain. PT-OP-C Subjective Start: 05/19/21 15:12 Freq: Status: Active Protocol: Document 06/19/21 13:50 SP (Rec: 06/19/21 14:33 SP [id number]) OP-PT Subjective Patient Comments Patient Comments Pt states loosening up better, not having pain in arm just in shlds today. PT-OP-E Functional Tests Start: 05/19/21 15:12 Freq: Status: Active Protocol: Document 05/19/21 14:35 DCW (Rec: 05/20/21 11:40 DCW [id number]) Functional Tests Apley's Scratch Test Action 2- Left T3 Action 2- Right T3 Action 3- Left PSIS Action 3- Right L3 PT-OP-F Manual Assessment Start: 05/20/21 11:40 Freq: Status: Active Protocol: Document 05/19/21 14:35 DCW (Rec: 05/20/21 11:41 DCW [id number]) Manual Assessments Other Manual Assessments Other Manual Assessments Leg length measurements from ASIS to medial malleoli: L: 90.4 R: 91.6 PT-OP-G Mobility & Gait Start: 05/20/21 11:41 Freq: Status: Active Protocol: Document 05/19/21 14:35 DCW (Rec: 05/20/21 11:44 DCW [id number]) OP Gait Assessment Gait Gait Assistance Required: Independent Assistive Devices Assistive Device None Gait Deviations General Gait Pattern Antalgic,Decreased Stride Length,Decreased Feet Clearance,Lateral Trunk Lean Comments Gait Comments Left trunk lean, right heel whip for clearance secondary to right>left LLD PT-OP-J Posture/Palpation/Skin Start: 05/20/21 11:41 Freq: Status: Active Protocol: Document 05/19/21 14:35 DCW (Rec: 05/20/21 11:44 DCW [id number]) Posture Evaluation Position Standing Evaluation View Posterior Pelvis Posture (R) Iliac Crest Superior Weight Distribution Weight Shifted Left PT-OP-K Range of Motion Start: 05/19/21 15:12 Freq: Status: Active Protocol: Document 05/19/21 14:35 DCW (Rec: 05/20/21 11:40 DCW [id number]) Hip Goniometric Range of Motion Hip Right Passive Internal Rotation 18 External Rotation 26 Hip ROM Limitations Hip ROM Limitations Soft Tissue Tightness,Bony Restriction,Muscle Weakness PT-OP-L Special Tests Start: 05/19/21 15:12 Freq: Status: Active Protocol: Document 05/19/21 14:35 DCW (Rec: 05/20/21 11:40 DCW [id number]) Special Tests Shoulder Special Tests Painful Arc Test Results Positive B Passive ER Rotator Cuff Test Results Positive L Lift-Off Rotator Cuff Test Results Unable to position L [place] Impingement Test Results Positive B Empty Can Test Results Positive B Drop Arm Rotator Cuff Test Results Negative Belly Press Test Results Positive L Hip Special Tests Straight Leg Raise Test Results Negative PT-OP-M Strength Start: 05/19/21 15:12 Freq: Status: Active Protocol: Document 05/19/21 14:35 DCW (Rec: 05/20/21 11:40 DCW [id number]) Shoulder Strength Shoulder Manual Muscle Testing Right Flexion 4 Good Abduction (C5) 4- Good- External Rotation 4 Good Internal Rotation 4 Good Left Flexion 4 Good Abduction (C5) 4- Good- External Rotation 4 Good Internal Rotation 4 Good Hip Strength Hip Manual Muscle Testing Right Flexion (L2) 4 Good Abduction 4 Good Adduction 4 Good External Rotation 4 Good Internal Rotation 4 Good Left Flexion (L2) 3+ Fair+ Abduction 3+ Fair+ Adduction 4- Good- External Rotation 3+ Fair+ Internal Rotation 4- Good- Knee Strength Knee Manual Muscle Testing Right Flexion (S2) 4 Good Extension (L3) 4 Good Left Flexion (S2) 4- Good- Extension (L3) 4- Good- Ankle/Foot Strength Ankle and Foot Manual Muscle Testing Right Dorsiflexion (L4) 4+ Good+ Plantarflexion (S1) 4+ Good+ Left Dorsiflexion (L4) 4+ Good+ Plantarflexion (S1) 4+ Good+ PT-OP-Q Treatments Start: 05/19/21 15:12 Freq: Status: Active Protocol: Document 06/19/21 13:50 SP (Rec: 06/19/21 14:33 SP [id number]) Therapeutic Exercises Sidelying Exercises open book Sidelying Exercise Name hand on head: reviewed HEP Side bilateral Equipment Used provided HO Reps/Minutes x5 Comments cued slow fluid gentle movement: no UT rectruit- good feedback response Sitting Exercises HS stretch Sitting Exercise Name straight back/ CS chin nod neutral- reviewed HEP Side bilateral Reps/Minutes 30 x2 Comments cued tall posture hip hinge soft knee, AP smallslow range painfree Standing Exercises resisted row Standing Exercise Name added to HEP Side bilateral Equipment Used Tb #1 Reps/Minutes x10 Comments cued elbows at side/bend/ straighten, tall posture, wider ANTHONY Other Exercises 1 Other Exercise Name Resisted fwd/bwd side-stepping Resistance Red TB (PT), pink #2 latex free band home- No latex inclinic right now Equipment Used rail contact as needed Reps/Minutes 20 ft Comments cued tall posture, level pelvis/shlds, clear trailing LE Manual Therapy Treatment Soft Tissue Mobilization L piriformis Comments good feedback, less tightness post. Next tx: instruct self w/ ballwall if needed PT-OP-T Assessment and Plan Start: 05/19/21 15:12 Freq: Status: Active Protocol: Document 06/19/21 13:50 SP (Rec: 06/19/21 14:33 SP [id number]) Physical Therapy Assessment Goals Three Impairment Pt ambulates with antalgic gait and mod-severe left trunk lean Leather Belt Maker Goal (LTG) Pt to ambulate with minimal trunk lean and no limp in order to improve ability to advance right foot during swing phase. LTG Duration 08/16/21 Two Impairment Pt struggles to don/doff jacket due to shoulder pain Leather Belt Maker Goal (LTG) Pt to improve bilateral UE internal rotation to be able to reach T8 in order to improve ability to don clothing LTG Duration 08/16/21 One Impairment Pt does not have an appropriate home exercise program Short Term Goal (STG) Pt to be independent and compliant with an appropriate HEP STG Duration 07/17/21 Assessment Summary Assessment Pt improved hip abd facilitation during band walks with self corrections post education for posture and no SB, trailing foot clearance, reported hip abd soreness R. Pt decrease tightness post manual and AROM open book review for scapular ROM reporte helped decrease shld discomfort. PRovided HO and TB for HEP reviewed today, pt stated felt more confident to perform at home. Physical Therapy Plan Frequency and Duration Frequency of Treatment 2x/Week Duration of Treatment Three months Plan of Care Start Date 05/19/21 Plan of Care End Date 08/16/21 Therapeutic Interventions Therapeutic Interventions Aquatic Therapy,Gait Training, Home Exercise Program,Manual Therapy,Neuromuscular Re- education,Orthotic/Prosthetic Management,Patient/Caregiver Education,Self-Care/Home Management,Soft Tissue Mobilization,Therapeutic Activities,Therapeutic Exercises Modalities Cold Pack/Ice Massage,Electric Stimulation,Hot Packs, Ultrasound Next Visit Focus/Plan Next Note Type Treatment Note Next Visit Plan Next tx: instruct self w/ ballwall if needed, recheck band walk/ TB rows HEP. POC: Posture training, STM POC:LE/UE strengthening, gait training
--- NOTE | 2021-06-23 16:00 | PT.OTN ---
Current Diagnoses Pain in right shoulder (06/23/21) Pain in left shoulder (06/23/21) Sciatica, right side (06/23/21) Low back pain, unspecified (06/23/21) Pain in thoracic spine (06/23/21) Other abnormalities of gait and mobility (06/23/21) Other injury of muscle(s) and tendon(s) of the rotator cuff of right shoulder, subsequent encounter (06/23/21) Other injury of muscle(s) and tendon(s) of the rotator cuff of left shoulder, subsequent encounter (06/23/21) Physical Therapy Treatment Note PT-OP-A Visit Information Start: 05/19/21 15:12 Freq: Status: Active Protocol: Document 06/23/21 15:15 DCW (Rec: 06/23/21 16:00 DCW [id number]) Out-Patient Physical Therapy Visit Information Visit Information Visit Type Treatment Note Visit Start Time 15:15 Visit Stop Time 16:00 Total Visit Minutes 45 Visit Number 8 Number of SECURITY SYSTEM ANALYST Visits 0 Evaluation Information Evaluation Date 05/19/21 PT-OP-B Current Condition Start: 05/19/21 15:12 Freq: Status: Active Protocol: Document 05/19/21 14:35 DCW (Rec: 05/20/21 11:34 DCW [id number]) Current Condition History of Current Condition Onset Date Multi-year history Current Complaints B shoulder pain, low back pain , B hip pain, LE weakness History of Current Condition Pt is a 65 year old female presenting to skilled therapy with a multitude of complaints , including bilateral shoulder pain, low back pain, bilateral hip pain, LE weakness, hip misalignment, and gait difficulty. Pt notes she had an MRI that showed a torn rotator cuff in her right shoulder, but it was too late to do anything for it. Pt then reports her left shoulder has begun hurting even more than the right, but she has not been able to get an MRI. Pt notes she has had back pain off and on throughout the years, likely due to her multiple hip problems. 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 Notes that her left femur also broke at one point due to the HYACINTH implant, and she now how wire and mesh holding it together. Pt also presents with a leg length discrepancy, which alters her gait pattern. Prior Treatments and Tests R shoulder MRI: IMPRESSION: Full-thickness rotator cuff tear as above. Atrophy of the supraspinatus and infraspinatus muscles. Circumferential degenerative fraying of the labrum as above . Large joint effusion. per Magdi Antony M.D. on 2020 Treatment Goals Patient/Caregiver Goals I want to get my muscles stronger to decrease the pain. PT-OP-C Subjective Start: 05/19/21 15:12 Freq: Status: Active Protocol: Document 06/23/21 15:15 DCW (Rec: 06/23/21 16:00 DCW [id number]) OP-PT Subjective Patient Comments Patient Comments Everything is pretty good except for the left arm. Notes she did have increased left arm pain after focusing more on it during her last PT visit PT-OP-E Functional Tests Start: 05/19/21 15:12 Freq: Status: Active Protocol: Document 05/19/21 14:35 DCW (Rec: 05/20/21 11:40 DCW [id number]) Functional Tests Apley's Scratch Test Action 2- Left T3 Action 2- Right T3 Action 3- Left PSIS Action 3- Right L3 PT-OP-F Manual Assessment Start: 05/20/21 11:40 Freq: Status: Active Protocol: Document 05/19/21 14:35 DCW (Rec: 05/20/21 11:41 DCW [id number]) Manual Assessments Other Manual Assessments Other Manual Assessments Leg length measurements from ASIS to medial malleoli: L: 90.4 R: 91.6 PT-OP-G Mobility & Gait Start: 05/20/21 11:41 Freq: Status: Active Protocol: Document 05/19/21 14:35 DCW (Rec: 05/20/21 11:44 DCW [id number]) OP Gait Assessment Gait Gait Assistance Required: Independent Assistive Devices Assistive Device None Gait Deviations General Gait Pattern Antalgic,Decreased Stride Length,Decreased Feet Clearance,Lateral Trunk Lean Comments Gait Comments Left trunk lean, right heel whip for clearance secondary to right>left LLD PT-OP-J Posture/Palpation/Skin Start: 05/20/21 11:41 Freq: Status: Active Protocol: Document 05/19/21 14:35 DCW (Rec: 05/20/21 11:44 DCW [id number]) Posture Evaluation Position Standing Evaluation View Posterior Pelvis Posture (R) Iliac Crest Superior Weight Distribution Weight Shifted Left PT-OP-K Range of Motion Start: 05/19/21 15:12 Freq: Status: Active Protocol: Document 05/19/21 14:35 DCW (Rec: 05/20/21 11:40 DCW [id number]) Hip Goniometric Range of Motion Hip Right Passive Internal Rotation 18 External Rotation 26 Hip ROM Limitations Hip ROM Limitations Soft Tissue Tightness,Bony Restriction,Muscle Weakness PT-OP-L Special Tests Start: 05/19/21 15:12 Freq: Status: Active Protocol: Document 05/19/21 14:35 DCW (Rec: 05/20/21 11:40 DCW [id number]) Special Tests Shoulder Special Tests Painful Arc Test Results Positive B Passive ER Rotator Cuff Test Results Positive L Lift-Off Rotator Cuff Test Results Unable to position L [place] Impingement Test Results Positive B Empty Can Test Results Positive B Drop Arm Rotator Cuff Test Results Negative Belly Press Test Results Positive L Hip Special Tests Straight Leg Raise Test Results Negative PT-OP-M Strength Start: 05/19/21 15:12 Freq: Status: Active Protocol: Document 05/19/21 14:35 DCW (Rec: 05/20/21 11:40 DCW [id number]) Shoulder Strength Shoulder Manual Muscle Testing Right Flexion 4 Good Abduction (C5) 4- Good- External Rotation 4 Good Internal Rotation 4 Good Left Flexion 4 Good Abduction (C5) 4- Good- External Rotation 4 Good Internal Rotation 4 Good Hip Strength Hip Manual Muscle Testing Right Flexion (L2) 4 Good Abduction 4 Good Adduction 4 Good External Rotation 4 Good Internal Rotation 4 Good Left Flexion (L2) 3+ Fair+ Abduction 3+ Fair+ Adduction 4- Good- External Rotation 3+ Fair+ Internal Rotation 4- Good- Knee Strength Knee Manual Muscle Testing Right Flexion (S2) 4 Good Extension (L3) 4 Good Left Flexion (S2) 4- Good- Extension (L3) 4- Good- Ankle/Foot Strength Ankle and Foot Manual Muscle Testing Right Dorsiflexion (L4) 4+ Good+ Plantarflexion (S1) 4+ Good+ Left Dorsiflexion (L4) 4+ Good+ Plantarflexion (S1) 4+ Good+ PT-OP-Q Treatments Start: 05/19/21 15:12 Freq: Status: Active Protocol: Document 06/23/21 15:15 DCW (Rec: 06/23/21 16:00 DCW [id number]) Cardio Equipment Upper Body Ergometer (UBE) Duration (Minutes) 6 RPM 60 Seat Position 14 Height 2.5 Therapeutic Exercises Standing Exercises 1 Standing Exercise Name Hip extension Side bilateral Resistance Green Equipment Used T-band Other Exercises 1 Other Exercise Name Resisted side-stepping, fwd/ bkwd Resistance Green Equipment Used T-band Manual Therapy Treatment Soft Tissue Mobilization L piriformis Body Location Instruction /c self STM using tennis ball 1 Body Location UT, lev scap, infraspinatus, pec Mobilization Type Cross-Friction,Myofascial Release,Strumming Intensity/Depth Moderate Body Position Hooklying Joint Mobilizations 1 Joint L Scapulothoracic Direction Lateral Grade III Body Position Supine PT-OP-T Assessment and Plan Start: 05/19/21 15:12 Freq: Status: Active Protocol: Document 06/23/21 15:15 DCW (Rec: 06/23/21 16:00 NMW [id number]) Physical Therapy Assessment Impairments Impairments Functional Activities, Functional Mobility,Gait,Pain, Posture,ROM,Soft Tissue Mobility,Strength,Tone Goals Three Impairment Pt ambulates with antalgic gait and mod-severe left trunk lean Care Home Goal (LTG) Pt to ambulate with minimal trunk lean and no limp in order to improve ability to advance right foot during swing phase. LTG Duration 08/16/21 Two Impairment Pt struggles to don/doff jacket due to shoulder pain Care Home Goal (LTG) Pt to improve bilateral UE internal rotation to be able to reach T8 in order to improve ability to don clothing LTG Duration 08/16/21 One Impairment Pt does not have an appropriate home exercise program Short Term Goal (STG) Pt to be independent and compliant with an appropriate HEP STG Duration 07/17/21 Assessment Summary Assessment Took it easy today on pt's left shoulder due to increased pain over the weekend, tolerated STM well. Physical Therapy Plan Frequency and Duration Frequency of Treatment 2x/Week Duration of Treatment Three months Plan of Care Start Date 05/19/21 Plan of Care End Date 08/16/21 Therapeutic Interventions Therapeutic Interventions Aquatic Therapy,Gait Training, Home Exercise Program,Manual Therapy,Neuromuscular Re- education,Orthotic/Prosthetic Management,Patient/Caregiver Education,Self-Care/Home Management,Soft Tissue Mobilization,Therapeutic Activities,Therapeutic Exercises Modalities Cold Pack/Ice Massage,Electric Stimulation,Hot Packs, Ultrasound Next Visit Focus/Plan Next Note Type Treatment Note Next Visit Plan Next tx: instruct self w/ ballwall if needed, recheck band walk/ TB rows HEP. POC: Posture training, STM POC:LE/UE strengthening, gait training
--- NOTE | 2021-06-26 14:32 | PT.OTN ---
Current Diagnoses Pain in right shoulder (06/26/21) Pain in left shoulder (06/26/21) Sciatica, right side (06/26/21) Low back pain, unspecified (06/26/21) Pain in thoracic spine (06/26/21) Other abnormalities of gait and mobility (06/26/21) Other injury of muscle(s) and tendon(s) of the rotator cuff of right shoulder, subsequent encounter (06/26/21) Other injury of muscle(s) and tendon(s) of the rotator cuff of left shoulder, subsequent encounter (06/26/21) Physical Therapy Treatment Note PT-OP-A Visit Information Start: 05/19/21 15:12 Freq: Status: Active Protocol: Document 06/26/21 13:49 DCW (Rec: 06/26/21 14:32 DCW [id number]) Out-Patient Physical Therapy Visit Information Visit Information Visit Type Treatment Note Visit Start Time 13:49 Visit Stop Time 14:30 Total Visit Minutes 41 Visit Number 9 Number of UNDER GROUND MINER Visits 0 Evaluation Information Evaluation Date 05/19/21 PT-OP-B Current Condition Start: 05/19/21 15:12 Freq: Status: Active Protocol: Document 05/19/21 14:35 DCW (Rec: 05/20/21 11:34 DCW [id number]) Current Condition History of Current Condition Onset Date Multi-year history Current Complaints B shoulder pain, low back pain , B hip pain, LE weakness History of Current Condition Pt is a 65 year old female presenting to skilled therapy with a multitude of complaints , including bilateral shoulder pain, low back pain, bilateral hip pain, LE weakness, hip misalignment, and gait difficulty. Pt notes she had an MRI that showed a torn rotator cuff in her right shoulder, but it was too late to do anything for it. Pt then reports her left shoulder has begun hurting even more than the right, but she has not been able to get an MRI. Pt notes she has had back pain off and on throughout the years, likely due to her multiple hip problems. 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 Notes that her left femur also broke at one point due to the HYACINTH implant, and she now how wire and mesh holding it together. Pt also presents with a leg length discrepancy, which alters her gait pattern. Prior Treatments and Tests R shoulder MRI: IMPRESSION: Full-thickness rotator cuff tear as above. Atrophy of the supraspinatus and infraspinatus muscles. Circumferential degenerative fraying of the labrum as above . Large joint effusion. per Magdi Antony M.D. on 2020 Treatment Goals Patient/Caregiver Goals I want to get my muscles stronger to decrease the pain. PT-OP-C Subjective Start: 05/19/21 15:12 Freq: Status: Active Protocol: Document 06/26/21 13:49 DCW (Rec: 06/26/21 14:32 DCW [id number]) OP-PT Subjective Patient Comments Patient Comments My arm almost works today. It was really bad yesterday, it was really aching all the way down, I could barely use it. I woke up today,it is pretty much fine. PT-OP-E Functional Tests Start: 05/19/21 15:12 Freq: Status: Active Protocol: Document 05/19/21 14:35 DCW (Rec: 05/20/21 11:40 DCW [id number]) Functional Tests Apley's Scratch Test Action 2- Left T3 Action 2- Right T3 Action 3- Left PSIS Action 3- Right L3 PT-OP-F Manual Assessment Start: 05/20/21 11:40 Freq: Status: Active Protocol: Document 05/19/21 14:35 DCW (Rec: 05/20/21 11:41 DCW [id number]) Manual Assessments Other Manual Assessments Other Manual Assessments Leg length measurements from ASIS to medial malleoli: L: 90.4 R: 91.6 PT-OP-G Mobility & Gait Start: 05/20/21 11:41 Freq: Status: Active Protocol: Document 05/19/21 14:35 DCW (Rec: 05/20/21 11:44 DCW [id number]) OP Gait Assessment Gait Gait Assistance Required: Independent Assistive Devices Assistive Device None Gait Deviations General Gait Pattern Antalgic,Decreased Stride Length,Decreased Feet Clearance,Lateral Trunk Lean Comments Gait Comments Left trunk lean, right heel whip for clearance secondary to right>left LLD PT-OP-J Posture/Palpation/Skin Start: 05/20/21 11:41 Freq: Status: Active Protocol: Document 05/19/21 14:35 DCW (Rec: 05/20/21 11:44 DCW [id number]) Posture Evaluation Position Standing Evaluation View Posterior Pelvis Posture (R) Iliac Crest Superior Weight Distribution Weight Shifted Left PT-OP-K Range of Motion Start: 05/19/21 15:12 Freq: Status: Active Protocol: Document 05/19/21 14:35 DCW (Rec: 05/20/21 11:40 DCW [id number]) Hip Goniometric Range of Motion Hip Right Passive Internal Rotation 18 External Rotation 26 Hip ROM Limitations Hip ROM Limitations Soft Tissue Tightness,Bony Restriction,Muscle Weakness PT-OP-L Special Tests Start: 05/19/21 15:12 Freq: Status: Active Protocol: Document 05/19/21 14:35 DCW (Rec: 05/20/21 11:40 DCW [id number]) Special Tests Shoulder Special Tests Painful Arc Test Results Positive B Passive ER Rotator Cuff Test Results Positive L Lift-Off Rotator Cuff Test Results Unable to position L [place] Impingement Test Results Positive B Empty Can Test Results Positive B Drop Arm Rotator Cuff Test Results Negative Belly Press Test Results Positive L Hip Special Tests Straight Leg Raise Test Results Negative PT-OP-M Strength Start: 05/19/21 15:12 Freq: Status: Active Protocol: Document 05/19/21 14:35 DCW (Rec: 05/20/21 11:40 DCW [id number]) Shoulder Strength Shoulder Manual Muscle Testing Right Flexion 4 Good Abduction (C5) 4- Good- External Rotation 4 Good Internal Rotation 4 Good Left Flexion 4 Good Abduction (C5) 4- Good- External Rotation 4 Good Internal Rotation 4 Good Hip Strength Hip Manual Muscle Testing Right Flexion (L2) 4 Good Abduction 4 Good Adduction 4 Good External Rotation 4 Good Internal Rotation 4 Good Left Flexion (L2) 3+ Fair+ Abduction 3+ Fair+ Adduction 4- Good- External Rotation 3+ Fair+ Internal Rotation 4- Good- Knee Strength Knee Manual Muscle Testing Right Flexion (S2) 4 Good Extension (L3) 4 Good Left Flexion (S2) 4- Good- Extension (L3) 4- Good- Ankle/Foot Strength Ankle and Foot Manual Muscle Testing Right Dorsiflexion (L4) 4+ Good+ Plantarflexion (S1) 4+ Good+ Left Dorsiflexion (L4) 4+ Good+ Plantarflexion (S1) 4+ Good+ PT-OP-Q Treatments Start: 05/19/21 15:12 Freq: Status: Active Protocol: Document 06/26/21 13:49 DCW (Rec: 06/26/21 14:32 DCW [id number]) Cardio Equipment Upper Body Ergometer (UBE) Duration (Minutes) 6 RPM 60 Seat Position 14 Height 2.5 Therapeutic Exercises Sidelying Exercises open book Side bilateral Equipment Used provided HO Reps/Minutes x5 Comments Stopped after a few, pt worried this caused flair-up last time. Manual Therapy Treatment Soft Tissue Mobilization 1 Body Location UT, lev scap, infraspinatus, pec Mobilization Type Cross-Friction,Myofascial Release,Strumming Intensity/Depth Moderate Body Position Hooklying Joint Mobilizations 2 Joint L Acetabular /c strap Direction Lateral Grade III Body Position Hooklying 1 Joint L Scapulothoracic Direction Lateral Grade III Body Position Supine PT-OP-T Assessment and Plan Start: 05/19/21 15:12 Freq: Status: Active Protocol: Document 06/26/21 13:49 DCW (Rec: 06/26/21 14:32 DCW [id number]) Physical Therapy Assessment Impairments Impairments Functional Activities, Functional Mobility,Gait,Pain, Posture,ROM,Soft Tissue Mobility,Strength,Tone Goals Three Impairment Pt ambulates with antalgic gait and mod-severe left trunk lean Correction Goal (LTG) Pt to ambulate with minimal trunk lean and no limp in order to improve ability to advance right foot during swing phase. LTG Duration 08/16/21 Two Impairment Pt struggles to don/doff jacket due to shoulder pain Grinding Wheel Dresser Goal (LTG) Pt to improve bilateral UE internal rotation to be able to reach T8 in order to improve ability to don clothing LTG Duration 08/16/21 One Impairment Pt does not have an appropriate home exercise program Short Term Goal (STG) Pt to be independent and compliant with an appropriate HEP STG Duration 07/17/21 Assessment Summary Assessment Pt feeling a bit better today, but had a rough day yesterday . Unclear of the cause of increased shoulder pain. Pt notes she is still hoping for an MRI of left shoulder. Physical Therapy Plan Frequency and Duration Frequency of Treatment 2x/Week Duration of Treatment Three months Plan of Care Start Date 05/19/21 Plan of Care End Date 08/16/21 Therapeutic Interventions Therapeutic Interventions Aquatic Therapy,Gait Training, Home Exercise Program,Manual Therapy,Neuromuscular Re- education,Orthotic/Prosthetic Management,Patient/Caregiver Education,Self-Care/Home Management,Soft Tissue Mobilization,Therapeutic Activities,Therapeutic Exercises Modalities Cold Pack/Ice Massage,Electric Stimulation,Hot Packs, Ultrasound Next Visit Focus/Plan Next Note Type Treatment Note Next Visit Plan Next tx: instruct self w/ ballwall if needed, recheck band walk/ TB rows HEP. POC: Posture training, STM POC:LE/UE strengthening, gait training
--- NOTE | 2021-07-13 17:34 | PT.OTN ---
Current Diagnoses Pain in right shoulder (07/13/21) Pain in left shoulder (07/13/21) Sciatica, right side (07/13/21) Low back pain, unspecified (07/13/21) Pain in thoracic spine (07/13/21) Other abnormalities of gait and mobility (07/13/21) Other injury of muscle(s) and tendon(s) of the rotator cuff of right shoulder, subsequent encounter (07/13/21) Other injury of muscle(s) and tendon(s) of the rotator cuff of left shoulder, subsequent encounter (07/13/21) Physical Therapy Treatment Note PT-OP-A Visit Information Start: 05/19/21 15:12 Freq: Status: Active Protocol: Document 07/13/21 16:45 DCW (Rec: 07/13/21 17:34 DCW [id number]) Out-Patient Physical Therapy Visit Information Visit Information Visit Type Treatment Note Visit Start Time 16:45 Visit Stop Time 17:30 Total Visit Minutes 45 Visit Number 10 Number of DEMONSTRATOR KNITTING Visits 0 Evaluation Information Evaluation Date 05/19/21 PT-OP-B Current Condition Start: 05/19/21 15:12 Freq: Status: Active Protocol: Document 05/19/21 14:35 DCW (Rec: 05/20/21 11:34 DCW [id number]) Current Condition History of Current Condition Onset Date Multi-year history Current Complaints B shoulder pain, low back pain , B hip pain, LE weakness History of Current Condition Pt is a 65 year old female presenting to skilled therapy with a multitude of complaints , including bilateral shoulder pain, low back pain, bilateral hip pain, LE weakness, hip misalignment, and gait difficulty. Pt notes she had an MRI that showed a torn rotator cuff in her right shoulder, but it was too late to do anything for it. Pt then reports her left shoulder has begun hurting even more than the right, but she has not been able to get an MRI. Pt notes she has had back pain off and on throughout the years, likely due to her multiple hip problems. 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 Notes that her left femur also broke at one point due to the HYACINTH implant, and she now how wire and mesh holding it together. Pt also presents with a leg length discrepancy, which alters her gait pattern. Prior Treatments and Tests R shoulder MRI: IMPRESSION: Full-thickness rotator cuff tear as above. Atrophy of the supraspinatus and infraspinatus muscles. Circumferential degenerative fraying of the labrum as above . Large joint effusion. per Magdi Antony M.D. on 2020 Treatment Goals Patient/Caregiver Goals I want to get my muscles stronger to decrease the pain. PT-OP-C Subjective Start: 05/19/21 15:12 Freq: Status: Active Protocol: Document 07/13/21 16:45 DCW (Rec: 07/13/21 17:34 DCW [id number]) OP-PT Subjective Patient Comments Patient Comments Pt notes her left arm is not good, reports she has a call in to her PCP, is waiting to hear back. PT-OP-E Functional Tests Start: 05/19/21 15:12 Freq: Status: Active Protocol: Document 05/19/21 14:35 DCW (Rec: 05/20/21 11:40 DCW [id number]) Functional Tests Apley's Scratch Test Action 2- Left T3 Action 2- Right T3 Action 3- Left PSIS Action 3- Right L3 PT-OP-F Manual Assessment Start: 05/20/21 11:40 Freq: Status: Active Protocol: Document 05/19/21 14:35 DCW (Rec: 05/20/21 11:41 DCW [id number]) Manual Assessments Other Manual Assessments Other Manual Assessments Leg length measurements from ASIS to medial malleoli: L: 90.4 R: 91.6 PT-OP-G Mobility & Gait Start: 05/20/21 11:41 Freq: Status: Active Protocol: Document 05/19/21 14:35 DCW (Rec: 05/20/21 11:44 DCW [id number]) OP Gait Assessment Gait Gait Assistance Required: Independent Assistive Devices Assistive Device None Gait Deviations General Gait Pattern Antalgic,Decreased Stride Length,Decreased Feet Clearance,Lateral Trunk Lean Comments Gait Comments Left trunk lean, right heel whip for clearance secondary to right>left LLD PT-OP-J Posture/Palpation/Skin Start: 05/20/21 11:41 Freq: Status: Active Protocol: Document 05/19/21 14:35 DCW (Rec: 05/20/21 11:44 DCW [id number]) Posture Evaluation Position Standing Evaluation View Posterior Pelvis Posture (R) Iliac Crest Superior Weight Distribution Weight Shifted Left PT-OP-K Range of Motion Start: 05/19/21 15:12 Freq: Status: Active Protocol: Document 05/19/21 14:35 DCW (Rec: 05/20/21 11:40 DCW [id number]) Hip Goniometric Range of Motion Hip Right Passive Internal Rotation 18 External Rotation 26 Hip ROM Limitations Hip ROM Limitations Soft Tissue Tightness,Bony Restriction,Muscle Weakness PT-OP-L Special Tests Start: 05/19/21 15:12 Freq: Status: Active Protocol: Document 05/19/21 14:35 DCW (Rec: 05/20/21 11:40 DCW [id number]) Special Tests Shoulder Special Tests Painful Arc Test Results Positive B Passive ER Rotator Cuff Test Results Positive L Lift-Off Rotator Cuff Test Results Unable to position L [place] Impingement Test Results Positive B Empty Can Test Results Positive B Drop Arm Rotator Cuff Test Results Negative Belly Press Test Results Positive L Hip Special Tests Straight Leg Raise Test Results Negative PT-OP-M Strength Start: 05/19/21 15:12 Freq: Status: Active Protocol: Document 05/19/21 14:35 DCW (Rec: 05/20/21 11:40 DCW [id number]) Shoulder Strength Shoulder Manual Muscle Testing Right Flexion 4 Good Abduction (C5) 4- Good- External Rotation 4 Good Internal Rotation 4 Good Left Flexion 4 Good Abduction (C5) 4- Good- External Rotation 4 Good Internal Rotation 4 Good Hip Strength Hip Manual Muscle Testing Right Flexion (L2) 4 Good Abduction 4 Good Adduction 4 Good External Rotation 4 Good Internal Rotation 4 Good Left Flexion (L2) 3+ Fair+ Abduction 3+ Fair+ Adduction 4- Good- External Rotation 3+ Fair+ Internal Rotation 4- Good- Knee Strength Knee Manual Muscle Testing Right Flexion (S2) 4 Good Extension (L3) 4 Good Left Flexion (S2) 4- Good- Extension (L3) 4- Good- Ankle/Foot Strength Ankle and Foot Manual Muscle Testing Right Dorsiflexion (L4) 4+ Good+ Plantarflexion (S1) 4+ Good+ Left Dorsiflexion (L4) 4+ Good+ Plantarflexion (S1) 4+ Good+ PT-OP-Q Treatments Start: 05/19/21 15:12 Freq: Status: Active Protocol: Document 07/13/21 16:45 DCW (Rec: 07/13/21 17:34 DCW [id number]) Cardio Equipment Upper Body Ergometer (UBE) Duration (Minutes) 6 RPM 60 Seat Position 14 Height 2.5 Therapeutic Exercises Standing Exercises 1 Standing Exercise Name Hip extension Side bilateral Resistance Green Equipment Used T-band Other Exercises 1 Other Exercise Name Resisted side-stepping, fwd/ bkwd Resistance Green Equipment Used T-band Manual Therapy Treatment Soft Tissue Mobilization 1 Body Location UT, lev scap, infraspinatus, pec Mobilization Type Cross-Friction,Myofascial Release,Strumming Intensity/Depth Moderate Body Position Hooklying Joint Mobilizations 1 Joint L Scapulothoracic Direction Lateral Grade III Body Position Supine PT-OP-T Assessment and Plan Start: 05/19/21 15:12 Freq: Status: Active Protocol: Document 07/13/21 16:45 DCW (Rec: 07/13/21 17:34 DCW [id number]) Physical Therapy Assessment Impairments Impairments Functional Activities, Functional Mobility,Gait,Pain, Posture,ROM,Soft Tissue Mobility,Strength,Tone Goals Three Impairment Pt ambulates with antalgic gait and mod-severe left trunk lean Fdc Goal (LTG) Pt to ambulate with minimal trunk lean and no limp in order to improve ability to advance right foot during swing phase. LTG Duration 08/16/21 Two Impairment Pt struggles to don/doff jacket due to shoulder pain Fdc Goal (LTG) Pt to improve bilateral UE internal rotation to be able to reach T8 in order to improve ability to don clothing LTG Duration 08/16/21 One Impairment Pt does not have an appropriate home exercise program Short Term Goal (STG) Pt to be independent and compliant with an appropriate HEP STG Duration 07/17/21 Assessment Summary Assessment Pt showing increased pain with reaching behind her/internal rotation. Notes pain down into lateral upper arm. Improvement following treatment today. Physical Therapy Plan Frequency and Duration Frequency of Treatment 2x/Week Duration of Treatment Three months Plan of Care Start Date 05/19/21 Plan of Care End Date 08/16/21 Therapeutic Interventions Therapeutic Interventions Aquatic Therapy,Gait Training, Home Exercise Program,Manual Therapy,Neuromuscular Re- education,Orthotic/Prosthetic Management,Patient/Caregiver Education,Self-Care/Home Management,Soft Tissue Mobilization,Therapeutic Activities,Therapeutic Exercises Modalities Cold Pack/Ice Massage,Electric Stimulation,Hot Packs, Ultrasound Next Visit Focus/Plan Next Note Type Treatment Note Next Visit Plan Next tx: instruct self w/ ballwall if needed, recheck band walk/ TB rows HEP. POC: Posture training, STM POC:LE/UE strengthening, gait training
--- NOTE | 2021-07-23 16:03 | PT.OTN ---
Current Diagnoses Pain in right shoulder (07/23/21) Pain in left shoulder (07/23/21) Sciatica, right side (07/23/21) Low back pain, unspecified (07/23/21) Pain in thoracic spine (07/23/21) Other abnormalities of gait and mobility (07/23/21) Other injury of muscle(s) and tendon(s) of the rotator cuff of right shoulder, subsequent encounter (07/23/21) Other injury of muscle(s) and tendon(s) of the rotator cuff of left shoulder, subsequent encounter (07/23/21) Physical Therapy Treatment Note PT-OP-A Visit Information Start: 05/19/21 15:12 Freq: Status: Active Protocol: Document 07/23/21 15:18 SP (Rec: 07/23/21 16:09 SP [id number]) Out-Patient Physical Therapy Visit Information Visit Information Visit Type Treatment Note Visit Start Time 15:18 Visit Stop Time 16:03 Total Visit Minutes 45 Visit Number 11 Number of GREETING CARD WRITER Visits 1 Evaluation Information Evaluation Date 05/19/21 PT-OP-B Current Condition Start: 05/19/21 15:12 Freq: Status: Active Protocol: Document 05/19/21 14:35 DCW (Rec: 05/20/21 11:34 DCW [id number]) Current Condition History of Current Condition Onset Date Multi-year history Current Complaints B shoulder pain, low back pain , B hip pain, LE weakness History of Current Condition Pt is a 65 year old female presenting to skilled therapy with a multitude of complaints , including bilateral shoulder pain, low back pain, bilateral hip pain, LE weakness, hip misalignment, and gait difficulty. Pt notes she had an MRI that showed a torn rotator cuff in her right shoulder, but it was too late to do anything for it. Pt then reports her left shoulder has begun hurting even more than the right, but she has not been able to get an MRI. Pt notes she has had back pain off and on throughout the years, likely due to her multiple hip problems. 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 Notes that her left femur also broke at one point due to the HYACINTH implant, and she now how wire and mesh holding it together. Pt also presents with a leg length discrepancy, which alters her gait pattern. Prior Treatments and Tests R shoulder MRI: IMPRESSION: Full-thickness rotator cuff tear as above. Atrophy of the supraspinatus and infraspinatus muscles. Circumferential degenerative fraying of the labrum as above . Large joint effusion. per Magdi Antony M.D. on 2020 Treatment Goals Patient/Caregiver Goals I want to get my muscles stronger to decrease the pain. PT-OP-C Subjective Start: 05/19/21 15:12 Freq: Status: Active Protocol: Document 07/23/21 15:18 SP (Rec: 07/23/21 16:09 SP [id number]) OP-PT Subjective Patient Comments Patient Comments Has appt MRI next week, maybe 11 pre PT appt. PT-OP-E Functional Tests Start: 05/19/21 15:12 Freq: Status: Active Protocol: Document 05/19/21 14:35 DCW (Rec: 05/20/21 11:40 DCW [id number]) Functional Tests Apley's Scratch Test Action 2- Left T3 Action 2- Right T3 Action 3- Left PSIS Action 3- Right L3 PT-OP-F Manual Assessment Start: 05/20/21 11:40 Freq: Status: Active Protocol: Document 05/19/21 14:35 DCW (Rec: 05/20/21 11:41 DCW [id number]) Manual Assessments Other Manual Assessments Other Manual Assessments Leg length measurements from ASIS to medial malleoli: L: 90.4 R: 91.6 PT-OP-G Mobility & Gait Start: 05/20/21 11:41 Freq: Status: Active Protocol: Document 05/19/21 14:35 DCW (Rec: 05/20/21 11:44 DCW [id number]) OP Gait Assessment Gait Gait Assistance Required: Independent Assistive Devices Assistive Device None Gait Deviations General Gait Pattern Antalgic,Decreased Stride Length,Decreased Feet Clearance,Lateral Trunk Lean Comments Gait Comments Left trunk lean, right heel whip for clearance secondary to right>left LLD PT-OP-J Posture/Palpation/Skin Start: 05/20/21 11:41 Freq: Status: Active Protocol: Document 05/19/21 14:35 DCW (Rec: 05/20/21 11:44 DCW [id number]) Posture Evaluation Position Standing Evaluation View Posterior Pelvis Posture (R) Iliac Crest Superior Weight Distribution Weight Shifted Left PT-OP-K Range of Motion Start: 05/19/21 15:12 Freq: Status: Active Protocol: Document 05/19/21 14:35 DCW (Rec: 05/20/21 11:40 DCW [id number]) Hip Goniometric Range of Motion Hip Right Passive Internal Rotation 18 External Rotation 26 Hip ROM Limitations Hip ROM Limitations Soft Tissue Tightness,Bony Restriction,Muscle Weakness PT-OP-L Special Tests Start: 05/19/21 15:12 Freq: Status: Active Protocol: Document 05/19/21 14:35 DCW (Rec: 05/20/21 11:40 DCW [id number]) Special Tests Shoulder Special Tests Painful Arc Test Results Positive B Passive ER Rotator Cuff Test Results Positive L Lift-Off Rotator Cuff Test Results Unable to position L [place] Impingement Test Results Positive B Empty Can Test Results Positive B Drop Arm Rotator Cuff Test Results Negative Belly Press Test Results Positive L Hip Special Tests Straight Leg Raise Test Results Negative PT-OP-M Strength Start: 05/19/21 15:12 Freq: Status: Active Protocol: Document 05/19/21 14:35 DCW (Rec: 05/20/21 11:40 DCW [id number]) Shoulder Strength Shoulder Manual Muscle Testing Right Flexion 4 Good Abduction (C5) 4- Good- External Rotation 4 Good Internal Rotation 4 Good Left Flexion 4 Good Abduction (C5) 4- Good- External Rotation 4 Good Internal Rotation 4 Good Hip Strength Hip Manual Muscle Testing Right Flexion (L2) 4 Good Abduction 4 Good Adduction 4 Good External Rotation 4 Good Internal Rotation 4 Good Left Flexion (L2) 3+ Fair+ Abduction 3+ Fair+ Adduction 4- Good- External Rotation 3+ Fair+ Internal Rotation 4- Good- Knee Strength Knee Manual Muscle Testing Right Flexion (S2) 4 Good Extension (L3) 4 Good Left Flexion (S2) 4- Good- Extension (L3) 4- Good- Ankle/Foot Strength Ankle and Foot Manual Muscle Testing Right Dorsiflexion (L4) 4+ Good+ Plantarflexion (S1) 4+ Good+ Left Dorsiflexion (L4) 4+ Good+ Plantarflexion (S1) 4+ Good+ PT-OP-Q Treatments Start: 05/19/21 15:12 Freq: Status: Active Protocol: Document 07/23/21 15:18 SP (Rec: 07/23/21 16:09 SP [id number]) Cardio Equipment Upper Body Ergometer (UBE) Duration (Minutes) 6 RPM 60 Seat Position 13 Height 2.5 Therapeutic Exercises Sitting Exercises hip flexion/ ER HOLLY Side bilateral Reps/Minutes x8 reps each LE Comments slide footup opposite du Standing Exercises 1 Standing Exercise Name Hip extension Side bilateral Resistance TB #3 loop Equipment Used //bars Reps/Minutes x20 Other Exercises 1 Other Exercise Name Resisted side-stepping Resistance TB #3 loop for home- around below knees vs ankles Equipment Used 1 UE contact //bars vs no UE Reps/Minutes 2 laps Comments cued little bigger than normal step, keep tension Manual Therapy Treatment Soft Tissue Mobilization L piriformis Body Location PF, glut med, TFL, psoas, Mobilization Type Strumming,Trigger Point Release Comments manual and verbal review self STM using tennis ball, she performs at home when needed. PT-OP-T Assessment and Plan Start: 05/19/21 15:12 Freq: Status: Active Protocol: Document 07/23/21 15:18 SP (Rec: 07/23/21 16:09 SP [id number]) Physical Therapy Assessment Goals Three Impairment Pt ambulates with antalgic gait and mod-severe left trunk lean Intermediate Goal (LTG) Pt to ambulate with minimal trunk lean and no limp in order to improve ability to advance right foot during swing phase. LTG Duration 08/16/21 Two Impairment Pt struggles to don/doff jacket due to shoulder pain Intermediate Goal (LTG) Pt to improve bilateral UE internal rotation to be able to reach T8 in order to improve ability to don clothing LTG Duration 08/16/21 One Impairment Pt does not have an appropriate home exercise program Short Term Goal (STG) Pt to be independent and compliant with an appropriate HEP STG Duration 07/17/21 Assessment Summary Assessment Pt improved stance phase and decrease lateral trunk lean during gait leaving post manual, stretching and instruction on hip abd facilition HEP review. Physical Therapy Plan Frequency and Duration Frequency of Treatment 2x/Week Duration of Treatment Three months Plan of Care Start Date 05/19/21 Plan of Care End Date 08/16/21 Therapeutic Interventions Therapeutic Interventions Aquatic Therapy,Gait Training, Home Exercise Program,Manual Therapy,Neuromuscular Re- education,Orthotic/Prosthetic Management,Patient/Caregiver Education,Self-Care/Home Management,Soft Tissue Mobilization,Therapeutic Activities,Therapeutic Exercises Modalities Cold Pack/Ice Massage,Electric Stimulation,Hot Packs, Ultrasound Next Visit Focus/Plan Next Note Type Treatment Note Next Visit Plan Next tx: recheck TB rows HEP. POC: Posture training, STM POC:LE/UE strengthening, gait training
--- NOTE | 2021-07-27 14:31 | PT.OTN ---
Current Diagnoses Pain in right shoulder (07/27/21) Pain in left shoulder (07/27/21) Sciatica, right side (07/27/21) Low back pain, unspecified (07/27/21) Pain in thoracic spine (07/27/21) Other abnormalities of gait and mobility (07/27/21) Other injury of muscle(s) and tendon(s) of the rotator cuff of right shoulder, subsequent encounter (07/27/21) Other injury of muscle(s) and tendon(s) of the rotator cuff of left shoulder, subsequent encounter (07/27/21) Physical Therapy Treatment Note PT-OP-A Visit Information Start: 05/19/21 15:12 Freq: Status: Active Protocol: Document 07/27/21 13:45 DCW (Rec: 07/27/21 14:31 DCW [id number]) Out-Patient Physical Therapy Visit Information Visit Information Visit Type Treatment Note Visit Start Time 13:45 Visit Stop Time 14:30 Total Visit Minutes 45 Visit Number 12 Number of PLASTIC SEWER Visits 0 Evaluation Information Evaluation Date 05/19/21 PT-OP-B Current Condition Start: 05/19/21 15:12 Freq: Status: Active Protocol: Document 05/19/21 14:35 DCW (Rec: 05/20/21 11:34 DCW [id number]) Current Condition History of Current Condition Onset Date Multi-year history Current Complaints B shoulder pain, low back pain , B hip pain, LE weakness History of Current Condition Pt is a 65 year old female presenting to skilled therapy with a multitude of complaints , including bilateral shoulder pain, low back pain, bilateral hip pain, LE weakness, hip misalignment, and gait difficulty. Pt notes she had an MRI that showed a torn rotator cuff in her right shoulder, but it was too late to do anything for it. Pt then reports her left shoulder has begun hurting even more than the right, but she has not been able to get an MRI. Pt notes she has had back pain off and on throughout the years, likely due to her multiple hip problems. 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 Notes that her left femur also broke at one point due to the HYACINTH implant, and she now how wire and mesh holding it together. Pt also presents with a leg length discrepancy, which alters her gait pattern. Prior Treatments and Tests R shoulder MRI: IMPRESSION: Full-thickness rotator cuff tear as above. Atrophy of the supraspinatus and infraspinatus muscles. Circumferential degenerative fraying of the labrum as above . Large joint effusion. per Magdi Antony M.D. on 2020 Treatment Goals Patient/Caregiver Goals I want to get my muscles stronger to decrease the pain. PT-OP-C Subjective Start: 05/19/21 15:12 Freq: Status: Active Protocol: Document 07/27/21 13:45 DCW (Rec: 07/27/21 14:31 DCW [id number]) OP-PT Subjective Patient Comments Patient Comments I have two MRIs scheduled today after this, so hopefully I get some answers. PT-OP-E Functional Tests Start: 05/19/21 15:12 Freq: Status: Active Protocol: Document 05/19/21 14:35 DCW (Rec: 05/20/21 11:40 DCW [id number]) Functional Tests Apley's Scratch Test Action 2- Left T3 Action 2- Right T3 Action 3- Left PSIS Action 3- Right L3 PT-OP-F Manual Assessment Start: 05/20/21 11:40 Freq: Status: Active Protocol: Document 05/19/21 14:35 DCW (Rec: 05/20/21 11:41 DCW [id number]) Manual Assessments Other Manual Assessments Other Manual Assessments Leg length measurements from ASIS to medial malleoli: L: 90.4 R: 91.6 PT-OP-G Mobility & Gait Start: 05/20/21 11:41 Freq: Status: Active Protocol: Document 05/19/21 14:35 DCW (Rec: 05/20/21 11:44 DCW [id number]) OP Gait Assessment Gait Gait Assistance Required: Independent Assistive Devices Assistive Device None Gait Deviations General Gait Pattern Antalgic,Decreased Stride Length,Decreased Feet Clearance,Lateral Trunk Lean Comments Gait Comments Left trunk lean, right heel whip for clearance secondary to right>left LLD PT-OP-J Posture/Palpation/Skin Start: 05/20/21 11:41 Freq: Status: Active Protocol: Document 05/19/21 14:35 DCW (Rec: 05/20/21 11:44 DCW [id number]) Posture Evaluation Position Standing Evaluation View Posterior Pelvis Posture (R) Iliac Crest Superior Weight Distribution Weight Shifted Left PT-OP-K Range of Motion Start: 05/19/21 15:12 Freq: Status: Active Protocol: Document 05/19/21 14:35 DCW (Rec: 05/20/21 11:40 DCW [id number]) Hip Goniometric Range of Motion Hip Right Passive Internal Rotation 18 External Rotation 26 Hip ROM Limitations Hip ROM Limitations Soft Tissue Tightness,Bony Restriction,Muscle Weakness PT-OP-L Special Tests Start: 05/19/21 15:12 Freq: Status: Active Protocol: Document 05/19/21 14:35 DCW (Rec: 05/20/21 11:40 DCW [id number]) Special Tests Shoulder Special Tests Painful Arc Test Results Positive B Passive ER Rotator Cuff Test Results Positive L Lift-Off Rotator Cuff Test Results Unable to position L Douglas Garland Impingement Test Results Positive B Empty Can Test Results Positive B Drop Arm Rotator Cuff Test Results Negative Belly Press Test Results Positive L Hip Special Tests Straight Leg Raise Test Results Negative PT-OP-M Strength Start: 05/19/21 15:12 Freq: Status: Active Protocol: Document 05/19/21 14:35 DCW (Rec: 05/20/21 11:40 DCW [id number]) Shoulder Strength Shoulder Manual Muscle Testing Right Flexion 4 Good Abduction (C5) 4- Good- External Rotation 4 Good Internal Rotation 4 Good Left Flexion 4 Good Abduction (C5) 4- Good- External Rotation 4 Good Internal Rotation 4 Good Hip Strength Hip Manual Muscle Testing Right Flexion (L2) 4 Good Abduction 4 Good Adduction 4 Good External Rotation 4 Good Internal Rotation 4 Good Left Flexion (L2) 3+ Fair+ Abduction 3+ Fair+ Adduction 4- Good- External Rotation 3+ Fair+ Internal Rotation 4- Good- Knee Strength Knee Manual Muscle Testing Right Flexion (S2) 4 Good Extension (L3) 4 Good Left Flexion (S2) 4- Good- Extension (L3) 4- Good- Ankle/Foot Strength Ankle and Foot Manual Muscle Testing Right Dorsiflexion (L4) 4+ Good+ Plantarflexion (S1) 4+ Good+ Left Dorsiflexion (L4) 4+ Good+ Plantarflexion (S1) 4+ Good+ PT-OP-Q Treatments Start: 05/19/21 15:12 Freq: Status: Active Protocol: Document 07/27/21 13:45 DCW (Rec: 07/27/21 14:31 DCW [id number]) Cardio Equipment Upper Body Ergometer (UBE) Duration (Minutes) 6 RPM 60 Seat Position 14 Height 3 Therapeutic Exercises Other Exercises 1 Other Exercise Name Resisted side-stepping, fwd/ bkwd Resistance Green Equipment Used T-band Manual Therapy Treatment Soft Tissue Mobilization 1 Body Location UT, lev scap, infraspinatus, pec Mobilization Type Cross-Friction,Myofascial Release,Strumming Intensity/Depth Moderate Body Position Hooklying Joint Mobilizations 1 Joint L Scapulothoracic Direction Lateral Grade III Body Position Supine PT-OP-T Assessment and Plan Start: 05/19/21 15:12 Freq: Status: Active Protocol: Document 07/27/21 13:45 DCW (Rec: 07/27/21 14:31 DCW [id number]) Physical Therapy Assessment Impairments Impairments Functional Activities, Functional Mobility,Gait,Pain, Posture,ROM,Soft Tissue Mobility,Strength,Tone Goals Three Impairment Pt ambulates with antalgic gait and mod-severe left trunk lean Clinical Data Abstractor Goal (LTG) Pt to ambulate with minimal trunk lean and no limp in order to improve ability to advance right foot during swing phase. LTG Duration 08/16/21 Two Impairment Pt struggles to don/doff jacket due to shoulder pain Group Home Goal (LTG) Pt to improve bilateral UE internal rotation to be able to reach T8 in order to improve ability to don clothing LTG Duration 08/16/21 One Impairment Pt does not have an appropriate home exercise program Short Term Goal (STG) Pt to be independent and compliant with an appropriate HEP STG Duration 07/17/21 Assessment Summary Assessment Pt hip and low back largely return to WNL functionally, still experiencing fairly constant left shoulder pain, hopeful MRI will help determine how to proceed. Physical Therapy Plan Frequency and Duration Frequency of Treatment 2x/Week Duration of Treatment Three months Plan of Care Start Date 05/19/21 Plan of Care End Date 08/16/21 Therapeutic Interventions Therapeutic Interventions Aquatic Therapy,Gait Training, Home Exercise Program,Manual Therapy,Neuromuscular Re- education,Orthotic/Prosthetic Management,Patient/Caregiver Education,Self-Care/Home Management,Soft Tissue Mobilization,Therapeutic Activities,Therapeutic Exercises Modalities Cold Pack/Ice Massage,Electric Stimulation,Hot Packs, Ultrasound Next Visit Focus/Plan Next Note Type Treatment Note Next Visit Plan Next tx: recheck TB rows HEP. POC: Posture training, STM POC:LE/UE strengthening, gait training
--- NOTE | 2021-09-04 08:45 | PT-OP ANOTE ---
Pt hasn't been in since seen by PT on 07/27/21. 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 POC , CLINICAL DIRECTOR unable to see Pt this day. Pt has 2 more appts with PT to update POC next week.
--- NOTE | 2021-09-08 16:46 | PT.OTN ---
Current Diagnoses Pain in right shoulder (09/08/21) Pain in left shoulder (09/08/21) Sciatica, right side (09/08/21) Low back pain, unspecified (09/08/21) Pain in thoracic spine (09/08/21) Other abnormalities of gait and mobility (09/08/21) Other injury of muscle(s) and tendon(s) of the rotator cuff of right shoulder, subsequent encounter (09/08/21) Other injury of muscle(s) and tendon(s) of the rotator cuff of left shoulder, subsequent encounter (09/08/21) Physical Therapy Treatment Note PT-OP-A Visit Information Start: 05/19/21 15:12 Freq: Status: Active Protocol: Document 09/08/21 16:00 DCW (Rec: 09/08/21 16:46 DCW [id number]) Out-Patient Physical Therapy Visit Information Visit Information Visit Type Progress Note Visit Start Time 16:00 Visit Stop Time 16:45 Total Visit Minutes 45 Visit Number 13 Number of DRAW FRAME TENDER Visits 0 Evaluation Information Evaluation Date 05/19/21 PT-OP-B Current Condition Start: 05/19/21 15:12 Freq: Status: Active Protocol: Document 05/19/21 14:35 DCW (Rec: 05/20/21 11:34 DCW [id number]) Current Condition History of Current Condition Onset Date Multi-year history Current Complaints B shoulder pain, low back pain , B hip pain, LE weakness History of Current Condition Pt is a 65 year old female presenting to skilled therapy with a multitude of complaints , including bilateral shoulder pain, low back pain, bilateral hip pain, LE weakness, hip misalignment, and gait difficulty. Pt notes she had an MRI that showed a torn rotator cuff in her right shoulder, but it was too late to do anything for it. Pt then reports her left shoulder has begun hurting even more than the right, but she has not been able to get an MRI. Pt notes she has had back pain off and on throughout the years, likely due to her multiple hip problems. 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 Notes that her left femur also broke at one point due to the HYACINTH implant, and she now how wire and mesh holding it together. Pt also presents with a leg length discrepancy, which alters her gait pattern. Prior Treatments and Tests R shoulder MRI: IMPRESSION: Full-thickness rotator cuff tear as above. Atrophy of the supraspinatus and infraspinatus muscles. Circumferential degenerative fraying of the labrum as above . Large joint effusion. per Magdi Antony M.D. on 2020 Treatment Goals Patient/Caregiver Goals I want to get my muscles stronger to decrease the pain. PT-OP-C Subjective Start: 05/19/21 15:12 Freq: Status: Active Protocol: Document 09/08/21 16:00 DCW (Rec: 09/08/21 16:46 DCW [id number]) OP-PT Subjective Patient Comments Patient Comments Pt MRI from last month showed moderate full-thickness supraspinatus tear. PT admits she is still trying to decide if she should undergo surgical repair. PT-OP-E Functional Tests Start: 05/19/21 15:12 Freq: Status: Active Protocol: Document 09/08/21 16:00 DCW (Rec: 09/08/21 16:20 DCW [id number]) Functional Tests Apley's Scratch Test Action 2- Left T3 Action 2- Right T3 Action 3- Left T12 Action 3- Right T9 PT-OP-F Manual Assessment Start: 05/20/21 11:40 Freq: Status: Active Protocol: Document 05/19/21 14:35 DCW (Rec: 05/20/21 11:41 DCW [id number]) Manual Assessments Other Manual Assessments Other Manual Assessments Leg length measurements from ASIS to medial malleoli: L: 90.4 R: 91.6 PT-OP-G Mobility & Gait Start: 05/20/21 11:41 Freq: Status: Active Protocol: Document 09/08/21 16:00 DCW (Rec: 09/08/21 16:20 DCW [id number]) OP Gait Assessment Gait Gait Assistance Required: Independent Assistive Devices Assistive Device None Gait Deviations General Gait Pattern Antalgic,Lateral Trunk Lean Comments Gait Comments Mild left trunk lean, good foot clearance bilaterally PT-OP-J Posture/Palpation/Skin Start: 05/20/21 11:41 Freq: Status: Active Protocol: Document 09/08/21 16:00 DCW (Rec: 09/08/21 16:20 DCW [id number]) Posture Evaluation Position Standing Evaluation View Posterior Pelvis Posture Neutral Weight Distribution Balanced PT-OP-K Range of Motion Start: 05/19/21 15:12 Freq: Status: Active Protocol: Document 05/19/21 14:35 DCW (Rec: 05/20/21 11:40 DCW [id number]) Hip Goniometric Range of Motion Hip Right Passive Internal Rotation 18 External Rotation 26 Hip ROM Limitations Hip ROM Limitations Soft Tissue Tightness,Bony Restriction,Muscle Weakness PT-OP-L Special Tests Start: 05/19/21 15:12 Freq: Status: Active Protocol: Document 09/08/21 16:00 DCW (Rec: 09/08/21 16:20 DCW [id number]) Special Tests Shoulder Special Tests Painful Arc Test Results Positive L Passive ER Rotator Cuff Test Results Negative Lift-Off Rotator Cuff Test Results Can do, but painful Douglas Garland Impingement Test Results Positive L Empty Can Test Results PositiNegativeve B Drop Arm Rotator Cuff Test Results Negative Belly Press Test Results Negative Hip Special Tests Straight Leg Raise Test Results Negative PT-OP-M Strength Start: 05/19/21 15:12 Freq: Status: Active Protocol: Document 09/08/21 16:00 DCW (Rec: 09/08/21 16:20 DCW [id number]) Shoulder Strength Shoulder Manual Muscle Testing Right Flexion 4 Good Abduction (C5) 4 Good External Rotation 4+ Good+ Internal Rotation 4+ Good+ Left Flexion 4 Good Abduction (C5) 4 Good External Rotation 4- Good- Internal Rotation 4+ Good+ Hip Strength Hip Manual Muscle Testing Right Flexion (L2) 4+ Good+ Abduction 4+ Good+ Adduction 4+ Good+ External Rotation 4 Good Internal Rotation 4 Good Left Flexion (L2) 4 Good Abduction 4 Good Adduction 4+ Good+ External Rotation 4 Good Internal Rotation 4- Good- Knee Strength Knee Manual Muscle Testing Right Flexion (S2) 4+ Good+ Extension (L3) 4+ Good+ Left Flexion (S2) 4 Good Extension (L3) 4 Good Ankle/Foot Strength Ankle and Foot Manual Muscle Testing Right Dorsiflexion (L4) 4+ Good+ Plantarflexion (S1) 4+ Good+ Left Dorsiflexion (L4) 4+ Good+ Plantarflexion (S1) 4+ Good+ PT-OP-Q Treatments Start: 05/19/21 15:12 Freq: Status: Active Protocol: Document 09/08/21 16:00 DCW (Rec: 09/08/21 16:46 DCW [id number]) Cardio Equipment Upper Body Ergometer (UBE) Duration (Minutes) 6 RPM 60 Seat Position 14 Height 3 Therapeutic Exercises Other Exercises 1 Other Exercise Name Resisted UE side-stepping Resistance Yellow Equipment Used T-band Manual Therapy Treatment Soft Tissue Mobilization 1 Body Location UT, lev scap, infraspinatus, pec Mobilization Type Cross-Friction,Myofascial Release,Strumming Intensity/Depth Moderate Body Position Hooklying Joint Mobilizations 1 Joint L Scapulothoracic Direction Lateral Grade III Body Position Supine PT-OP-T Assessment and Plan Start: 05/19/21 15:12 Freq: Status: Active Protocol: Document 09/08/21 16:00 DCW (Rec: 09/08/21 16:46 DCW [id number]) Physical Therapy Assessment Impairments Impairments Functional Activities, Functional Mobility,Gait,Pain, Posture,ROM,Soft Tissue Mobility,Strength,Tone Goals Three Impairment Pt ambulates with antalgic gait and mod-severe left trunk lean Cherry Cutter Goal (LTG) Pt to ambulate with minimal trunk lean and no limp in order to improve ability to advance right foot during swing phase. LTG Duration Met Two Impairment Pt struggles to don/doff jacket due to shoulder pain Cherry Cutter Goal (LTG) Pt to improve bilateral UE internal rotation to be able to reach T8 in order to improve ability to don clothing LTG Duration 11/08/21 - Improving One Impairment Pt does not have an appropriate home exercise program Short Term Goal (STG) Pt to be independent and compliant with an appropriate HEP STG Duration Met Assessment Summary Assessment Pt hips and low back showing excellent overall progress, shoulders both also doing much better, but still limited functionally, particularly her left shoulder.Pt would like, and therapist agrees, to continue skilled therapy as long as she is improving in order to hopefully avoid surgery. Focus of PT sessions will switch to largely address shoulder complaints. Physical Therapy Plan Frequency and Duration Frequency of Treatment 2x/Week Duration of Treatment Two months Plan of Care Start Date 09/08/21 Plan of Care End Date 11/08/21 Therapeutic Interventions Therapeutic Interventions Aquatic Therapy,Gait Training, Home Exercise Program,Manual Therapy,Neuromuscular Re- education,Orthotic/Prosthetic Management,Patient/Caregiver Education,Self-Care/Home Management,Soft Tissue Mobilization,Therapeutic Activities,Therapeutic Exercises Modalities Cold Pack/Ice Massage,Electric Stimulation,Hot Packs, Ultrasound Next Visit Focus/Plan Next Note Type Treatment Note Next Visit Plan Next tx: recheck TB rows HEP. POC: Posture training, STM POC:LE/UE strengthening, gait training
--- NOTE | 2021-09-08 16:46 | PT.OPPOC ---
Physical, Occupational & Speech Therapy At [facility] Current Diagnoses Pain in right shoulder (09/08/21) Pain in left shoulder (09/08/21) Sciatica, right side (09/08/21) Low back pain, unspecified (09/08/21) Pain in thoracic spine (09/08/21) Other abnormalities of gait and mobility (09/08/21) Other injury of muscle(s) and tendon(s) of the rotator cuff of right shoulder, subsequent encounter (09/08/21) Other injury of muscle(s) and tendon(s) of the rotator cuff of left shoulder, subsequent encounter (09/08/21) Visit Care Team Role Provider Type EMERSON Mcclain Attending Provider Advanced Sap Basis Architect Family Provider Primary Care Provider Referring Provider Specialty: Family Practice Address: [address] [place] [address], [facility] Email: [email or web address] Plan Of Care PT-OP-T Assessment and Plan Start: 05/19/21 15:12 Freq: Status: Active Protocol: Document 09/08/21 16:00 DCW (Rec: 09/08/21 16:46 DCW [id number]) Physical Therapy Assessment Impairments Impairments Functional Activities, Functional Mobility,Gait,Pain, Posture,ROM,Soft Tissue Mobility,Strength,Tone Goals Three Impairment Pt ambulates with antalgic gait and mod-severe left trunk lean Auto Damage Insurance Appraiser Goal (LTG) Pt to ambulate with minimal trunk lean and no limp in order to improve ability to advance right foot during swing phase. LTG Duration Met Two Impairment Pt struggles to don/doff jacket due to shoulder pain Auto Damage Insurance Appraiser Goal (LTG) Pt to improve bilateral UE internal rotation to be able to reach T8 in order to improve ability to don clothing LTG Duration 11/08/21 - Improving One Impairment Pt does not have an appropriate home exercise program Short Term Goal (STG) Pt to be independent and compliant with an appropriate HEP STG Duration Met Assessment Summary Assessment Pt hips and low back showing excellent overall progress, shoulders both also doing much better, but still limited functionally, particularly her left shoulder.Pt would like, and therapist agrees, to continue skilled therapy as long as she is improving in order to hopefully avoid surgery. Focus of PT sessions will switch to largely address shoulder complaints. Physical Therapy Plan Frequency and Duration Frequency of Treatment 2x/Week Duration of Treatment Two months Plan of Care Start Date 09/08/21 Plan of Care End Date 11/08/21 Therapeutic Interventions Therapeutic Interventions Aquatic Therapy,Gait Training, Home Exercise Program,Manual Therapy,Neuromuscular Re- education,Orthotic/Prosthetic Management,Patient/Caregiver Education,Self-Care/Home Management,Soft Tissue Mobilization,Therapeutic Activities,Therapeutic Exercises Modalities Cold Pack/Ice Massage,Electric Stimulation,Hot Packs, Ultrasound Next Visit Focus/Plan Next Note Type Treatment Note Next Visit Plan Next tx: recheck TB rows HEP. POC: Posture training, STM POC:LE/UE strengthening, gait training Plan of Care Dates Plan of Care Start Date 09/08/21 Plan of Care End Date 11/08/21 Electronically Signed by: [place], PT 09/08/21 2618 If you are in agreement with this Plan of Care, please return a signed and dated copy. I have reviewed this Plan of Care and certify that the skilled therapy services above are required to meet the patient?s needs. Physician Signature Date Printed Name and Credentials Clinical Instructor Signature Printed Name and Credentials
--- NOTE | 2021-09-11 16:46 | PT.OTN ---
Current Diagnoses Pain in right shoulder (09/11/21) Pain in left shoulder (09/11/21) Sciatica, right side (09/11/21) Low back pain, unspecified (09/11/21) Pain in thoracic spine (09/11/21) Other abnormalities of gait and mobility (09/11/21) Other injury of muscle(s) and tendon(s) of the rotator cuff of right shoulder, subsequent encounter (09/11/21) Other injury of muscle(s) and tendon(s) of the rotator cuff of left shoulder, subsequent encounter (09/11/21) Physical Therapy Treatment Note PT-OP-A Visit Information Start: 05/19/21 15:12 Freq: Status: Active Protocol: Document 09/11/21 15:55 DCW (Rec: 09/11/21 16:46 DCW [id number]) Out-Patient Physical Therapy Visit Information Visit Information Visit Type Treatment Note Visit Start Time 15:55 Visit Stop Time 16:40 Total Visit Minutes 45 Visit Number 14 Number of DRAUGHTSMAN Visits 0 Evaluation Information Evaluation Date 05/19/21 PT-OP-B Current Condition Start: 05/19/21 15:12 Freq: Status: Active Protocol: Document 05/19/21 14:35 DCW (Rec: 05/20/21 11:34 DCW [id number]) Current Condition History of Current Condition Onset Date Multi-year history Current Complaints B shoulder pain, low back pain , B hip pain, LE weakness History of Current Condition Pt is a 65 year old female presenting to skilled therapy with a multitude of complaints , including bilateral shoulder pain, low back pain, bilateral hip pain, LE weakness, hip misalignment, and gait difficulty. Pt notes she had an MRI that showed a torn rotator cuff in her right shoulder, but it was too late to do anything for it. Pt then reports her left shoulder has begun hurting even more than the right, but she has not been able to get an MRI. Pt notes she has had back pain off and on throughout the years, likely due to her multiple hip problems. 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 Notes that her left femur also broke at one point due to the HYACINTH implant, and she now how wire and mesh holding it together. Pt also presents with a leg length discrepancy, which alters her gait pattern. Prior Treatments and Tests R shoulder MRI: IMPRESSION: Full-thickness rotator cuff tear as above. Atrophy of the supraspinatus and infraspinatus muscles. Circumferential degenerative fraying of the labrum as above . Large joint effusion. per Magdi Antony M.D. on 2020 Treatment Goals Patient/Caregiver Goals I want to get my muscles stronger to decrease the pain. PT-OP-C Subjective Start: 05/19/21 15:12 Freq: Status: Active Protocol: Document 09/11/21 15:55 DCW (Rec: 09/11/21 16:46 DCW [id number]) OP-PT Subjective Patient Comments Patient Comments Pt notes she is feeling pretty good, I had a small massage yesterday, and my shoulder felt better afterward. PT-OP-E Functional Tests Start: 05/19/21 15:12 Freq: Status: Active Protocol: Document 09/08/21 16:00 DCW (Rec: 09/08/21 16:20 DCW [id number]) Functional Tests Apley's Scratch Test Action 2- Left T3 Action 2- Right T3 Action 3- Left T12 Action 3- Right T9 PT-OP-F Manual Assessment Start: 05/20/21 11:40 Freq: Status: Active Protocol: Document 05/19/21 14:35 DCW (Rec: 05/20/21 11:41 DCW [id number]) Manual Assessments Other Manual Assessments Other Manual Assessments Leg length measurements from ASIS to medial malleoli: L: 90.4 R: 91.6 PT-OP-G Mobility & Gait Start: 05/20/21 11:41 Freq: Status: Active Protocol: Document 09/08/21 16:00 DCW (Rec: 09/08/21 16:20 DCW [id number]) OP Gait Assessment Gait Gait Assistance Required: Independent Assistive Devices Assistive Device None Gait Deviations General Gait Pattern Antalgic,Lateral Trunk Lean Comments Gait Comments Mild left trunk lean, good foot clearance bilaterally PT-OP-J Posture/Palpation/Skin Start: 05/20/21 11:41 Freq: Status: Active Protocol: Document 09/08/21 16:00 DCW (Rec: 09/08/21 16:20 DCW [id number]) Posture Evaluation Position Standing Evaluation View Posterior Pelvis Posture Neutral Weight Distribution Balanced PT-OP-K Range of Motion Start: 05/19/21 15:12 Freq: Status: Active Protocol: Document 05/19/21 14:35 DCW (Rec: 05/20/21 11:40 DCW [id number]) Hip Goniometric Range of Motion Hip Right Passive Internal Rotation 18 External Rotation 26 Hip ROM Limitations Hip ROM Limitations Soft Tissue Tightness,Bony Restriction,Muscle Weakness PT-OP-L Special Tests Start: 05/19/21 15:12 Freq: Status: Active Protocol: Document 09/08/21 16:00 DCW (Rec: 09/08/21 16:20 DCW [id number]) Special Tests Shoulder Special Tests Painful Arc Test Results Positive L Passive ER Rotator Cuff Test Results Negative Lift-Off Rotator Cuff Test Results Can do, but painful Douglas Garland Impingement Test Results Positive L Empty Can Test Results PositiNegativeve B Drop Arm Rotator Cuff Test Results Negative Belly Press Test Results Negative Hip Special Tests Straight Leg Raise Test Results Negative PT-OP-M Strength Start: 05/19/21 15:12 Freq: Status: Active Protocol: Document 09/08/21 16:00 DCW (Rec: 09/08/21 16:20 DCW [id number]) Shoulder Strength Shoulder Manual Muscle Testing Right Flexion 4 Good Abduction (C5) 4 Good External Rotation 4+ Good+ Internal Rotation 4+ Good+ Left Flexion 4 Good Abduction (C5) 4 Good External Rotation 4- Good- Internal Rotation 4+ Good+ Hip Strength Hip Manual Muscle Testing Right Flexion (L2) 4+ Good+ Abduction 4+ Good+ Adduction 4+ Good+ External Rotation 4 Good Internal Rotation 4 Good Left Flexion (L2) 4 Good Abduction 4 Good Adduction 4+ Good+ External Rotation 4 Good Internal Rotation 4- Good- Knee Strength Knee Manual Muscle Testing Right Flexion (S2) 4+ Good+ Extension (L3) 4+ Good+ Left Flexion (S2) 4 Good Extension (L3) 4 Good Ankle/Foot Strength Ankle and Foot Manual Muscle Testing Right Dorsiflexion (L4) 4+ Good+ Plantarflexion (S1) 4+ Good+ Left Dorsiflexion (L4) 4+ Good+ Plantarflexion (S1) 4+ Good+ PT-OP-Q Treatments Start: 05/19/21 15:12 Freq: Status: Active Protocol: Document 09/11/21 15:55 DCW (Rec: 09/11/21 16:46 DC [id number]) Cardio Equipment Upper Body Ergometer (UBE) Duration (Minutes) 6 RPM 60 Seat Position 14 Height 3 Therapeutic Exercises Standing Exercises 4 Standing Exercise Name Rows Side bilateral Resistance Lv 3 Reps/Minutes x10 Comments cued scap retraction depression awareness no UT recruit- good feedback 3 Standing Exercise Name Shoulder extension Side bilateral Resistance Lv 3 Other Exercises 1 Other Exercise Name Resisted UE side-stepping Resistance Yellow Equipment Used T-band Manual Therapy Treatment Soft Tissue Mobilization 1 Body Location UT, lev scap, infraspinatus, pec Mobilization Type Cross-Friction,Myofascial Release,Strumming Intensity/Depth Moderate Body Position Hooklying Joint Mobilizations 1 Joint L Scapulothoracic Direction Lateral Grade III Body Position Supine PT-OP-T Assessment and Plan Start: 05/19/21 15:12 Freq: Status: Active Protocol: Document 09/11/21 15:55 DC (Rec: 09/11/21 16:46 [facility] [id number]) Physical Therapy Assessment Impairments Impairments Functional Activities, Functional Mobility,Gait,Pain, Posture,ROM,Soft Tissue Mobility,Strength,Tone Goals Three Impairment Pt ambulates with antalgic gait and mod-severe left trunk lean Shelter Goal (LTG) Pt to ambulate with minimal trunk lean and no limp in order to improve ability to advance right foot during swing phase. LTG Duration Met Two Impairment Pt struggles to don/doff jacket due to shoulder pain Shelter Goal (LTG) Pt to improve bilateral UE internal rotation to be able to reach T8 in order to improve ability to don clothing LTG Duration 11/08/21 - Improving One Impairment Pt does not have an appropriate home exercise program Short Term Goal (STG) Pt to be independent and compliant with an appropriate HEP STG Duration Met Assessment Summary Assessment Pt shoulders appeared to be more sore today, admitted she had been pretty busy the past few days getting ready for a festival in her neighborhood. Increased wincing with left shoulder mobility. Physical Therapy Plan Frequency and Duration Frequency of Treatment 2x/Week Duration of Treatment Two months Plan of Care Start Date 09/08/21 Plan of Care End Date 11/08/21 Therapeutic Interventions Therapeutic Interventions Aquatic Therapy,Gait Training, Home Exercise Program,Manual Therapy,Neuromuscular Re- education,Orthotic/Prosthetic Management,Patient/Caregiver Education,Self-Care/Home Management,Soft Tissue Mobilization,Therapeutic Activities,Therapeutic Exercises Modalities Cold Pack/Ice Massage,Electric Stimulation,Hot Packs, Ultrasound Next Visit Focus/Plan Next Note Type Treatment Note Next Visit Plan POC: Posture training, STM POC:LE/UE strengthening, gait training
--- NOTE | 2021-10-14 09:30 | PT.OPDS ---
Current Diagnoses Pain in right shoulder (09/11/21) Pain in left shoulder (09/11/21) Sciatica, right side (09/11/21) Low back pain, unspecified (09/11/21) Pain in thoracic spine (09/11/21) Other abnormalities of gait and mobility (09/11/21) Other injury of muscle(s) and tendon(s) of the rotator cuff of right shoulder, subsequent encounter (09/11/21) Other injury of muscle(s) and tendon(s) of the rotator cuff of left shoulder, subsequent encounter (09/11/21) Visit Care Team Role Provider Type EMERSON Mcclain Attending Provider Advanced Certified Coder Family Provider Primary Care Provider Referring Provider Specialty: [facility] Address: [address] [place] [address], [facility] Email: [email or web address] Visit Number Visit Number [id number] Discharge Summary PT-OP-B Current Condition Start: 05/19/21 15:12 Freq: Status: Active Protocol: Document 05/19/21 14:35 DCW (Rec: 05/20/21 11:34 DCW [id number]) Current Condition History of Current Condition Onset Date Multi-year history Current Complaints B shoulder pain, low back pain , B hip pain, LE weakness History of Current Condition Pt is a 65 year old female presenting to skilled therapy with a multitude of complaints , including bilateral shoulder pain, low back pain, bilateral hip pain, LE weakness, hip misalignment, and gait difficulty. Pt notes she had an MRI that showed a torn rotator cuff in her right shoulder, but it was too late to do anything for it. Pt then reports her left shoulder has begun hurting even more than the right, but she has not been able to get an MRI. Pt notes she has had back pain off and on throughout the years, likely due to her multiple hip problems. 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 Notes that her left femur also broke at one point due to the HYACINTH implant, and she now how wire and mesh holding it together. Pt also presents with a leg length discrepancy, which alters her gait pattern. Prior Treatments and Tests R shoulder MRI: IMPRESSION: Full-thickness rotator cuff tear as above. Atrophy of the supraspinatus and infraspinatus muscles. Circumferential degenerative fraying of the labrum as above . Large joint effusion. per Magdi Antony M.D. on 2020 Treatment Goals Patient/Caregiver Goals I want to get my muscles stronger to decrease the pain. PT-OP-C Subjective Start: 05/19/21 15:12 Freq: Status: Active Protocol: Document 09/11/21 15:55 DCW (Rec: 09/11/21 16:46 DCW [id number]) OP-PT Subjective Patient Comments Patient Comments Pt notes she is feeling pretty good, I had a small massage yesterday, and my shoulder felt better afterward. PT-OP-E Functional Tests Start: 05/19/21 15:12 Freq: Status: Active Protocol: Document 09/08/21 16:00 DCW (Rec: 09/08/21 16:20 DCW [id number]) Functional Tests Apley's Scratch Test Action 2- Left T3 Action 2- Right T3 Action 3- Left T12 Action 3- Right T9 PT-OP-F Manual Assessment Start: 05/20/21 11:40 Freq: Status: Active Protocol: Document 05/19/21 14:35 DCW (Rec: 05/20/21 11:41 DCW [id number]) Manual Assessments Other Manual Assessments Other Manual Assessments Leg length measurements from ASIS to medial malleoli: L: 90.4 R: 91.6 PT-OP-G Mobility & Gait Start: 05/20/21 11:41 Freq: Status: Active Protocol: Document 09/08/21 16:00 DCW (Rec: 09/08/21 16:20 DCW [id number]) OP Gait Assessment Gait Gait Assistance Required: Independent Assistive Devices Assistive Device None Gait Deviations General Gait Pattern Antalgic,Lateral Trunk Lean Comments Gait Comments Mild left trunk lean, good foot clearance bilaterally PT-OP-J Posture/Palpation/Skin Start: 05/20/21 11:41 Freq: Status: Active Protocol: Document 09/08/21 16:00 DCW (Rec: 09/08/21 16:20 DCW [id number]) Posture Evaluation Position Standing Evaluation View Posterior Pelvis Posture Neutral Weight Distribution Balanced PT-OP-K Range of Motion Start: 05/19/21 15:12 Freq: Status: Active Protocol: Document 05/19/21 14:35 DCW (Rec: 05/20/21 11:40 DCW [id number]) Hip Goniometric Range of Motion Hip Right Passive Internal Rotation 18 External Rotation 26 Hip ROM Limitations Hip ROM Limitations Soft Tissue Tightness,Bony Restriction,Muscle Weakness PT-OP-L Special Tests Start: 05/19/21 15:12 Freq: Status: Active Protocol: Document 09/08/21 16:00 DCW (Rec: 09/08/21 16:20 DCW [id number]) Special Tests Shoulder Special Tests Painful Arc Test Results Positive L Passive ER Rotator Cuff Test Results Negative Lift-Off Rotator Cuff Test Results Can do, but painful [place]land Impingement Test Results Positive L Empty Can Test Results PositiNegativeve B Drop Arm Rotator Cuff Test Results Negative Belly Press Test Results Negative Hip Special Tests Straight Leg Raise Test Results Negative PT-OP-M Strength Start: 05/19/21 15:12 Freq: Status: Active Protocol: Document 09/08/21 16:00 DCW (Rec: 09/08/21 16:20 DCW [id number]) Shoulder Strength Shoulder Manual Muscle Testing Right Flexion 4 Good Abduction (C5) 4 Good External Rotation 4+ Good+ Internal Rotation 4+ Good+ Left Flexion 4 Good Abduction (C5) 4 Good External Rotation 4- Good- Internal Rotation 4+ Good+ Hip Strength Hip Manual Muscle Testing Right Flexion (L2) 4+ Good+ Abduction 4+ Good+ Adduction 4+ Good+ External Rotation 4 Good Internal Rotation 4 Good Left Flexion (L2) 4 Good Abduction 4 Good Adduction 4+ Good+ External Rotation 4 Good Internal Rotation 4- Good- Knee Strength Knee Manual Muscle Testing Right Flexion (S2) 4+ Good+ Extension (L3) 4+ Good+ Left Flexion (S2) 4 Good Extension (L3) 4 Good Ankle/Foot Strength Ankle and Foot Manual Muscle Testing Right Dorsiflexion (L4) 4+ Good+ Plantarflexion (S1) 4+ Good+ Left Dorsiflexion (L4) 4+ Good+ Plantarflexion (S1) 4+ Good+ PT-OP-T Assessment and Plan Start: 05/19/21 15:12 Freq: Status: Active Protocol: Document 10/14/21 09:28 DCW (Rec: 10/14/21 09:30 DCW [id number]) Physical Therapy Assessment Assessment Summary Assessment Unfortunately yesterday (), pt fell outside the post office, fracturing one wrist and breaking the other. Pt requested cancellation of all remaining appointments. Pt will be discharged at this time, and will require a new referral in order to return. Physical Therapy Plan Discharge Physical Therapy Discharge Reasons Change in Medical Status Next Visit Focus/Plan Next Note Type Discharge Summary
== END 2021-10-21 11:51 ==
LOC: PHYS 16:00
PROVIDERS: Family Provider Nurse Practitioner; PCP Nurse Practitioner; Referring Provider Nurse Practitioner; Visit Provider Nurse Practitioner
DX: M54.31 Sciatica, right side (principal); M25.511 Pain in right shoulder; M25.512 Pain in left shoulder; M54.6 Pain in thoracic spine; M54.50 Low back pain, unspecified; R26.89 Other abnormalities of gait and mobility; S46.092D Other injury of muscle(s) and tendon(s) of the rotator cuff of left shoulder, subsequent encounter; S46.091D Other injury of muscle(s) and tendon(s) of the rotator cuff of right shoulder, subsequent encounter
CPT/HCPCS: 97110; 97140; 97163; 97535; 97760

== ENCOUNTER 2021-10-13 13:04 | Emergency (ER) | payer MEDICARE, MEDICAID, SELFPAY ==
[2021-10-13] VITALS (10 sets, daily range): BP systolic 103–119; BP diastolic 52–75; PULSE 70–87; RESP 18; TEMP 36.2; O2SAT 91–98; BMI 26.4
--- NOTE | 2021-10-13 13:11 | DI.RAD.S_ITS ---
PROCEDURE: XR FOREARM RT 2V INDICATIONS: fall, arm pain TECHNIQUE: 2 views of the forearm were acquired. COMPARISON: None. FINDINGS: Bones: Acute comminuted and impacted distal radial fracture is seen with fracture line extending to radiocarpal joint space. There is significant overlapping at distal radial shaft fracture site with lateral and volar displacement of fractured fragments. Age indeterminate displaced ulnar styloid fracture is also seen. 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 No proximal radial or shaft fracture is seen. Soft tissues: Soft tissue swelling surrounding distal radial fracture site is seen. No suspicious soft tissue calcifications or masses. IMPRESSION: Acute in fact it comminuted and displaced distal radial fracture as above. Dictated by: Dylan Santizo M.D. on 10/13/2021 at 13:55 Approved by: Dylan Santizo M.D. on 10/13/2021 at 13:59
--- NOTE | 2021-10-13 13:13 | ED.FALL ---
HPI - Fall <Sunil Fair PA-C - Last Filed: 10/13/21 16:13> General Chief Complaint: Fall Stated Complaint: GLF, R wrist injury Time Seen by Provider: 10/13/21 13:08 History of Present Illness HPI Narrative: Patient is a 66-year-old female brought in by EMS who fell while stepping up on a curb earlier today. She states that she lost her balance fell forward reached her right hand out and noticed immediate pain after the fall. EMS observed some deformity in the right arm and they splinted the right arm with a sling and LOUISA splint. Patient denies any other complaints. She denies any loss of consciousness. Related Data Home Medications Medication Instructions Recorded Confirmed cholecalciferol (vitamin D3) 25 1,000 unit PO DAILY 06/28/18 09/17/21 mcg (1,000 unit) capsule magnesium 30 mg tablet 30 mg PO DAILY 11/06/19 09/17/21 acetaminophen 500 mg tablet 1,000 mg PO TID PRN 07/16/21 09/17/21 (Tylenol Extra Strength) ibuprofen 200 mg capsule 400 mg PO Q6-8H 07/16/21 09/17/21 Previous Rx's Medication Instructions Recorded lidocaine 5 % topical patch 1 patch topical DAILY #30 ea 12/30/20 gabapentin 100 mg capsule 100 mg PO DAILY #30 caps 08/03/21 oxycodone-acetaminophen 7.5 mg-325 1 tab PO Q6H PRN pain #28 tabs 10/13/21 mg tablet (Percocet) Allergies Allergy/AdvReac Type Severity Reaction Status Date / Time No Known Drug Allergies Allergy Verified 10/13/21 13:13 Review of Systems <Sunil Fair PA-C - Last Filed: 10/13/21 16:13> Review of Systems ROS Unobtainable: All systems reviewed & are unremarkable except as noted in HPI and below Constitutional Constitutional: Denies chills, Denies fatigue, Denies fever(s), Denies frequent falls, Denies lethargy and Denies weakness Eyes Eyes: Denies change in vision, Denies eye discharge, Denies irritation and Denies loss of vision ENT Ears, Nose, Mouth, and Throat: Denies change in voice, Denies dizziness, Denies neck pain, Denies sore throat and Denies throat swelling Cardiovascular Cardiovascular: Denies chest pain, Denies irregular heart rhythm, Denies lightheadedness, Denies palpitations, Denies dyspnea, Denies dyspnea on exertion and Denies orthopnea Respiratory Respiratory: Denies cough, Denies dyspnea, Denies dyspnea on exertion and Denies wheezing Gastrointestinal Gastrointestinal: Denies abdominal pain, Denies change in bowel habits, Denies diarrhea, Denies nausea and Denies vomiting Genitourinary Genitourinary: Denies hematuria, Denies flank pain, Denies urinary incontinence and Denies urinary urgency Musculoskeletal Musculoskeletal: Denies back pain, Reports deformity, Reports arthralgias, Reports limited range of motion, Denies muscle weakness, Denies neck pain, Denies numbness and Denies tingling Integumentary/Breasts Skin/Breast: Denies pruritus, Denies erythema, Denies rash and Denies wounds Neurologic Neurologic: Denies behavioral changes, Denies confusion, Denies dizziness, Denies frequent falls, Denies loss of vision, Denies numbness, Denies tingling and Denies weakness Psychiatric Psychiatric: Denies anxiety, Denies behavioral changes, Denies confusion, Denies depression, Denies homicidal ideation and Denies suicidal ideation Endocrine Endocrine: Denies fatigue, Denies flushing and Denies palpitations Hematologic/Lymphatic Hematologic/Lymphatic: Denies easy bruising Allergic/Immunologic Allergic/Immunologic: Denies urticaria, Denies throat swelling and Denies wheezing Patient History <Sunil Fair PA-C - Last Filed: 10/13/21 16:13> Medical History Abdominal bloating Abnormal pelvic ultrasound Breast cancer screening Change in bowel habits Chronic low back pain Encounter for HCV screening test for high risk patient Fractures (~2005) History of retinal hemorrhage Hx of fracture of femur Insomnia due to medical condition Obstructive sleep apnea, adult (~12/15/20) Osteopenia Pelvic pressure in female Rectal bleed Retinal vein occlusion (~2004) Shoulder pain Snoring Uterine mass Surgical History Anesthesia Femur fracture (~2015) History of arthroplasty of both hips History of hip surgery History of revision of total hip arthroplasty (~2017) Family History Father Diabetes mellitus Mother Dementia Social History household members: significant other Smoking Status: Former smoker second hand exposure: No alcohol intake: current substance use type: does not use Smoking Status: Former smoker alcohol intake frequency: a few times a week Substance Use Type: does not use Exam <Sunil Fair PA-C - Last Filed: 10/13/21 16:13> Initial Vital Signs Initial Vital Signs: Vital Signs Pulse Rate 87 10/13/21 13:09 Pulse Oximetry 96 10/13/21 13:09 Const General: cooperative, healthy appearing, comfortable and well developed Nutritional Appearance: average body habitus and well nourished Orientation: Orientation [facility] Head: normal to inspection, normocephalic and atraumatic Ears: hearing grossly normal bilaterally and external ears normal Nose: external nose normal Resp Effort & Inspection: normal respiratory effort and able to speak in complete sentences Auscultation: clear to auscultation bilaterally Extrem Right upper extremity: elbow/forearm Details: swelling, abnormal ROM, deformity Location: of the mid-shaft forearm and distal pulses intact <Varsha Coats DO - Last Filed: 10/14/21 09:23> Initial Vital Signs Initial Vital Signs: Vital Signs Pulse Rate 87 10/13/21 13:09 Pulse Oximetry 96 10/13/21 13:09 <Varsha Coats DO - Last Filed: 10/14/21 09:23> Nerve Block Nerve Block 1: Amount of anesthesia used (mL): 10 Side: right Nerve Blocks: hematoma block Procedure Successful: Yes Patient Tolerated Procedure: Well and No complications Complications: none Orthopedic Fracture Reduction Fracture #1: Fracture Reduction Location: radius Analgesia: hematoma block Technique: direct manipulation and traction/counter-traction Post Reduction X-rays Demonstrate: acceptable reduction Post-reduction neuro exam: intact Post-reduction vascular exam: intact Splint Applied: Yes Patient Tolerated Procedure: Well and No complications Orthopedic Splinting/Casting Injury #1: Upper Extremity Injury Location: wrist Upper Extremity Immobilizer: sugar tong splint Post splinting neuro exam: intact and no change Post splinting vascular exam: no change Placed by: Provider Course <Sunil Fair PA-C - Last Filed: 10/13/21 16:13> Orders Ordered: Discontinued Medications Fentanyl (Fentanyl 100 Mcg/2 Ml Inj) 50 mcg IV NOW ONE Stop: 10/13/21 13:56 Last Admin: 10/13/21 14:08 Dose: 50 mcg Documented By: TRUNG Lidocaine HCl (Lidocaine 1% (Pf) 5 Ml) 10 ml INJ NOW ONE Stop: 10/13/21 14:37 Morphine Sulfate (Morphine 2 Mg/Ml Inj) 2 mg IV NOW ONE Stop: 10/13/21 14:57 Oxycodone/Acetaminophen (Oxycodone/Acetaminophen 7.5/325 Tablet) 1 tab PO NOW ONE Stop: 10/13/21 15:37 Last Admin: 10/13/21 15:46 Dose: 1 tab Documented By: HELIO Reevaluation(s) Reevaluation #1: Patient reports that the fentanyl that she received from EMS was starting to wear off and her pain returned. She also noticed that she was having some left wrist pain. Reexamination of the left wrist does show some swelling on the distal ulnar side. There is some pain with flexion-extension of the wrist. Distal pulses are intact. Will order an x-ray to confirm. Consultations Consultation #1: Spoke with Dr. Espinal regarding the patient's x-rays. He did review them and will see the patient in his clinic to speak about surgery at a later date. Vital Signs Vital signs: Vital Signs - 8 hr 10/13/21 13:58 10/13/21 13:09 10/13/21 13:30 Temperature 97.1 F L Pulse Rate 87 Respiratory Rate 18 Blood Pressure 109/57 L Pulse Oximetry 98 96 Oxygen Delivery Method Room Air 10/13/21 13:30 10/13/21 14:00 10/13/21 14:01 Temperature Pulse Rate 71 70 Respiratory Rate Blood Pressure 110/61 Pulse Oximetry 94 93 Oxygen Delivery Method 10/13/21 14:01 10/13/21 14:10 10/13/21 14:10 Temperature Pulse Rate 73 70 Respiratory Rate Blood Pressure 103/52 L Pulse Oximetry 93 93 Oxygen Delivery Method 10/13/21 14:20 10/13/21 14:20 10/13/21 14:30 Temperature Pulse Rate 77 76 Respiratory Rate Blood Pressure 119/56 L Pulse Oximetry 93 91 Oxygen Delivery Method 10/13/21 14:40 10/13/21 14:40 Temperature Pulse Rate 79 Respiratory Rate Blood Pressure 112/75 Pulse Oximetry 92 Oxygen Delivery Method <Varsha Botnick, DO - Last Filed: 10/14/21 09:23> Orders Ordered: Discontinued Medications Fentanyl (Fentanyl 100 Mcg/2 Ml Inj) 50 mcg IV NOW ONE Stop: 10/13/21 13:56 Last Admin: 10/13/21 14:08 Dose: 50 mcg Documented By: TRUNG Lidocaine HCl (Lidocaine 1% (Pf) 5 Ml) 10 ml INJ NOW ONE Stop: 10/13/21 14:37 Morphine Sulfate (Morphine 2 Mg/Ml Inj) 2 mg IV NOW ONE Stop: 10/13/21 14:57 Oxycodone/Acetaminophen (Oxycodone/Acetaminophen 7.5/325 Tablet) 1 tab PO NOW ONE Stop: 10/13/21 15:37 Last Admin: 10/13/21 15:46 Dose: 1 tab Documented By: HELIO Vital Signs Vital signs: Vital Signs - 8 hr 10/13/21 13:58 10/13/21 13:09 10/13/21 13:30 Temperature 97.1 F L Pulse Rate 87 Respiratory Rate 18 Blood Pressure 109/57 L Pulse Oximetry 98 96 Oxygen Delivery Method Room Air 10/13/21 13:30 10/13/21 14:00 10/13/21 14:01 Temperature Pulse Rate 71 70 Respiratory Rate Blood Pressure 110/61 Pulse Oximetry 94 93 Oxygen Delivery Method 10/13/21 14:01 10/13/21 14:10 10/13/21 14:10 Temperature Pulse Rate 73 70 Respiratory Rate Blood Pressure 103/52 L Pulse Oximetry 93 93 Oxygen Delivery Method 10/13/21 14:20 10/13/21 14:20 10/13/21 14:30 Temperature Pulse Rate 77 76 Respiratory Rate Blood Pressure 119/56 L Pulse Oximetry 93 91 Oxygen Delivery Method 10/13/21 14:40 10/13/21 14:40 Temperature Pulse Rate 79 Respiratory Rate Blood Pressure 112/75 Pulse Oximetry 92 Oxygen Delivery Method MDM - Fall <Sunil Fair PA-C - Last Filed: 10/13/21 16:13> Differential Diagnosis Differential diagnosis: Likely fracture of wrist Imaging Data Extremity x-ray #1: Radiologist's Impression: [address] [address] XRay Report Signed Patient: Susie Garcia MR#: [id number] : 1955 Acct:[id number] Age/Sex: 66 / F Date of Service: 10/13/21 Loc: ED Accession Number: [id number] ?? Procedure: XR forearm RT 2V Ordering Provider: Sunil Fair P.A-C PROCEDURE:? XR FOREARM RT 2V ? INDICATIONS:? fall, arm pain ? TECHNIQUE:? 2 views of the forearm were acquired.? ? COMPARISON:? None. ? FINDINGS:? ? Bones:? Acute comminuted and impacted distal radial fracture is seen with fracture line extending to radiocarpal joint space.? There is significant overlapping at distal radial shaft fracture site with lateral and volar displacement of fractured fragments.? Age indeterminate displaced ulnar styloid fracture is also seen.? Osteoarthritic changes are noted throughout right wrist.? No proximal radial or shaft fracture is seen. ? Soft tissues:? Soft tissue swelling surrounding distal radial fracture site is seen.? No suspicious soft tissue calcifications or masses.? ? ? IMPRESSION:? Acute in fact it comminuted and displaced distal radial fracture as above. ? Dictated by: Dylan Santizo M.D. on 10/13/2021 at 13:55 ? ? Approved by: Dylan Santizo M.D. on 10/13/2021 at 13:59?? Extremity x-ray #2: Radiologist's Impression: [address] [address]LA[address] ReportSigned Patient: Susie Garcia LMR#: [id number]: 1955cct:[id number]/Sex: 66 / FDate of Service: 10/13/21Loc: EDAccession Number: [id number]? ? Procedure: XR wrist LT 2V Ordering Provider: Sunil Fair P.A-C PROCEDURE:? XR WRIST LT 2V ? INDICATIONS: Fall - Wrist pain ? TECHNIQUE:? 2 views of the wrist were acquired.? ? COMPARISON:? None. ? FINDINGS:? ? Bones:? No fractures or dislocations.? Osteoarthritic changes throughout wrist joints are seen particularly involving 1st CMC joint.? Widened scapholunate interval is noted.? No suspicious bony lesions.? ? Scaphoid view:? Scaphoid is grossly intact. ? Soft tissues:? No suspicious soft tissue calcifications.? ? IMPRESSION:? Left wrist joint osteoarthritis.? No acute fracture or dislocation.? Widened scapholunate interval concerning for injury to scapholunate ligament. ? ? Dictated by: Dylan Santizo M.D. on 10/13/2021 at 14:40? ?? Approved by: Dylan Santizo M.D. on 10/13/2021 at 14:43?? Extremity x-ray #3: Radiologist's Impression: [address] [address] XRay Report Signed Patient: Susie Garcia MR#: [id number] : 1955 Acct:[id number] Age/Sex: 66 / F Date of Service: 10/13/21 Loc: ED Accession Number: [id number] ?? Procedure: XR wrist RT min 3V Ordering Provider: Sunil Fair P.A-C PROCEDURE:? XR WRIST RT MIN 3V ? INDICATIONS: right wrist fx ? TECHNIQUE:? 4 views of the wrist were acquired.? ? COMPARISON:? [facility], CR, XR WRIST LT 2V, 10/13/2021, 13:54. ? FINDINGS:? ? Bones:? Acute comminuted, impacted fracture involving distal radius is seen with fracture line extending to radiocarpal joint space.? There is dorsal and lateral displacement of fractured radial fragments.? Old fracture involving ulnar styloid is seen.? Osteoarthritic changes are noted throughout wrist joints.? No suspicious bony lesions.? ? Scaphoid view:? Scaphoid is grossly intact. ? Soft tissues:? No suspicious soft tissue calcifications.? ? IMPRESSION:? Acute comminuted, displaced and impacted intra-articular fracture of right distal radius as above. ? ? Dictated by: Dylan Santizo M.D. on 10/13/2021 at 15:36 ? ? Approved by: Dylan Santizo M.D. on 10/13/2021 at 15:37?? [facility] Narrative Medical decision making narrative: Patient was seen today for bilateral wrist pain. X-rays do show that the right wrist was fractured and dislocated. Left wrist does not appear to have any fracture however there is some ligament concern in the scapholunate ligament. The extent of the fracture and dislocation of the right wrist was enough to have a reduction. A godwin-block with lidocaine was done and the wrist was reduced and splinted with a ortho glass sugar-tong splint and sling. Patient tolerated the procedure well and a post-reduction x-ray was ordered. Patient's left wrist was placed in a Velcro wrist splint. Patient was medicated with fentanyl for pain control. A prescription for Percocet was sent over to pharmacy of record. Patient prefers to stay within the [facility] orthopedic network. Dr. Espinal will be contacted to be notified and patient will follow up in the clinic for evaluation and treatment. Discharge Plan Departure Patient Disposition: Home Clinical Impression: Fracture of wrist Qualifiers: Encounter type: initial encounter Fracture type: closed Laterality: right Qualified Code(s): S62.101A - Fracture of unspecified carpal bone, right wrist, initial encounter for closed fracture Scapho-lunate dissociation Qualifiers: Laterality: left Qualified Code(s): M25.332 - Other instability, left wrist Instructions: DI for Wrist Fracture, How to Take Care of Your Splint Activity Restrictions/Additional Instructions: You were seen today for your wrist pain. Your right wrist was fractured and did have some dislocation which reduced on postreduction film. Dr. Espinal is the on-call environmental compliance specialist for [facility]. The office , please call the office in the morning to make an appointment to be seen. A prescription for pain medications was sent to [facility] at your request. You can pick it up at your earliest convenience. The splint on the right wrist must stay on at all times and please cover it when taking a bath and avoid getting it wet. The right arm must be in the sling with standing but does not need to be in the sling when lying in bed. Support the right arm with pillows as needed. He can return to the emergency room if you have any further difficulties or concerns. Thank you for the opportunity to care for you today. Prescriptions: New oxycodone-acetaminophen [Percocet] 7.5-325 mg tablet 1 tab PO Q6H PRN (Reason: pain) Qty: 28 0RF No Action cholecalciferol (vitamin D3) 1,000 unit capsule 1,000 unit PO DAILY lidocaine 5 % adhesive patch,medicated 1 patch topical DAILY Qty: 30 1RF Rx Instructions: leave on most painful area for up to 12 hrs gabapentin 100 mg capsule 100 mg PO DAILY Qty: 30 1RF Rx Instructions: Take 1 capsule prior to bedtime daily ibuprofen 200 mg capsule 400 mg PO Q6-8H acetaminophen [Tylenol Extra Strength] 500 mg tablet 1,000 mg PO TID PRN magnesium 30 mg Tablet 30 mg PO DAILY Rx Instructions: unknown dose Referrals: Nirmala Orellana ARNP [Primary Care Provider] - Visit Report Forms: Patient Portal/API <Varsha Coats DO - Last Filed: 10/14/21 09:23> Cosign ED Attending Cosignature Attestation: I was immediately available in the department for consultation. Documentation has been reviewed. I agree with assessment and plan. Patient seen evaluated by myself. Hematoma block and reduction and off all performed by myself. Patient tolerated procedure very well. Acceptable alignment minimal improvement. Orthopedics has been made aware. Neurovascularly intact
--- NOTE | 2021-10-13 13:54 | DI.RAD.S_ITS ---
PROCEDURE: XR WRIST LT 2V INDICATIONS: Fall - Wrist pain TECHNIQUE: 2 views of the wrist were acquired. COMPARISON: None. FINDINGS: Bones: No fractures or dislocations. Osteoarthritic changes throughout wrist joints are seen particularly involving 1st CMC joint. Widened scapholunate interval is noted. No suspicious bony lesions. Scaphoid view: Scaphoid is grossly intact. Soft tissues: No suspicious soft tissue calcifications. IMPRESSION: Left wrist joint osteoarthritis. No acute fracture or dislocation. Widened scapholunate interval concerning for injury to scapholunate ligament. Dictated by: Dylan Santizo M.D. on 10/13/2021 at 14:40 Approved by: Dylan Santizo M.D. on 10/13/2021 at 14:43
--- NOTE | 2021-10-13 14:07 | DI.RAD.S_ITS ---
PROCEDURE: XR WRIST RT MIN 3V INDICATIONS: right wrist fx TECHNIQUE: 4 views of the wrist were acquired. COMPARISON: [facility], CR, XR WRIST LT 2V, 10/13/2021, 13:54. FINDINGS: Bones: Acute comminuted, impacted fracture involving distal radius is seen with fracture line extending to radiocarpal joint space. There is dorsal and lateral displacement of fractured radial fragments. Old fracture involving ulnar styloid is seen. Osteoarthritic changes are noted throughout wrist joints. No suspicious bony lesions. Scaphoid view: Scaphoid is grossly intact. Soft tissues: No suspicious soft tissue calcifications. IMPRESSION: Acute comminuted, displaced and impacted intra-articular fracture of right distal radius as above. Dictated by: Dylan Santizo M.D. on 10/13/2021 at 15:36 Approved by: Dylan Santizo M.D. on 10/13/2021 at 15:37
[2021-10-13] MEDS: fentaNYL 100 MCG/2 ML INJ 50 MCG IV (14:08)
--- NOTE | 2021-10-13 15:28 | DI.RAD.S_ITS ---
PROCEDURE: XR WRIST RT 2V INDICATIONS: post reduction TECHNIQUE: 2 views of the wrist were acquired. COMPARISON: [facility], CR, XR WRIST RT MIN 3V, 10/13/2021, 14:06. FINDINGS: Bones: There is interval reduction of earlier noted impacted and displaced distal radial fracture. Overall alignment of right wrist is not significantly changed from earlier study. There is interval cast placement over right wrist. No new fracture or dislocation. Widened scapholunate interval is seen. Osteoarthritic changes are noted throughout wrist joints. Scaphoid view: Scaphoid is grossly intact. Soft tissues: No suspicious soft tissue calcifications. IMPRESSION: Interval reduction of earlier noted comminuted, impacted and displaced intra-articular fracture of distal radius with minimally improved wrist alignment. No new fracture or dislocation. Widened scapholunate interval concerning for scapholunate ligament injury. Dictated by: Dylan Santizo M.D. on 10/13/2021 at 16:22 Approved by: Dylan Santizo M.D. on 10/13/2021 at 16:23
[2021-10-13] MEDS: OXYCODONE/ACETAMINOPHEN 7.5/325 TABLET 1 TAB PO (15:46)
== END 2021-10-13 16:52 | disposition home or self-care (01) ==
PROVIDERS: Emergency Provider Physician Assistant; Family Provider Nurse Practitioner; PCP Nurse Practitioner
DX: S62.101A Fracture of unspecified carpal bone, right wrist, initial encounter for closed fracture (principal); M25.332 Other instability, left wrist; W10.1XXA Fall (on)(from) sidewalk curb, initial encounter
CPT/HCPCS: 25605; 64450; 73090; 73100; 73110; 99284; J3010

== ENCOUNTER → 2021-10-21 08:48 | Outpatient (CLI) | payer MEDICARE, MEDICAID, SELFPAY ==
--- NOTE | 2021-10-21 08:51 | DI.CT.S_ITS ---
PROCEDURE: CT UE RT WO CON INDICATIONS: FRACTURE OF DISTAL END OF RIGHT RADIUS TECHNIQUE: Noncontrast 1 mm axial sections acquired through the carpal bones, with coronal and sagittal reformats. COMPARISON: [facility], CR, XR WRIST RT 2V, 10/13/2021, 15:27. FINDINGS: Image quality: Excellent. Bones: As seen on wrist radiograph, again noted is acute comminuted fracture involving distal radius with fracture lines extending to radiocarpal joint space and radial styloid. There is impaction at distal radial shaft fracture site with up to 6 mm overlap. Lateral displacement of radial styloid fragment is seen with up to 4 millimeter diastasis at fracture site. Additional dorsal and volar displacement of distal radial fractured fragments are also seen. Old fracture involving ulnar styloid is seen with well corticated fragment. Suggestion of superimposed acute nondisplaced fracture through ulnar styloid fragment is noted. No other fracture or dislocation. Widening of scapholunate interval is seen. No suspicious intraosseous lesion. Soft tissues: There is soft tissue swelling and edema around distal radial fracture site. Small to moderate radiocarpal joint effusion is seen, no gross loose bodies. No abnormal soft tissue calcifications. No gross full-thickness extensor or flexor tendon rupture. IMPRESSION: 1. Acute comminuted, slightly displaced, and impacted distal radial intra-articular fracture as described in detail above. 2. Old ulnar styloid fracture with suggestion of acute nondisplaced fracture involving displaced ulnar styloid fragment. 3. No other fracture or dislocation. Widened scapholunate interval concerning for scapholunate ligament injury. No suspicious bony lesion. 4. Soft tissue swelling around distal radial fracture site. Small to moderate radiocarpal joint effusion, no gross loose bodies. No abnormal soft tissue calcifications. No full-thickness tendon rupture. Dictated by: Dylan Santizo M.D. on 10/21/2021 at 14:16 Approved by: Dylan Santizo M.D. on 10/21/2021 at 14:21
== END ==
PROVIDERS: Family Provider Nurse Practitioner; PCP Nurse Practitioner; Referring Provider Orthopaedic Surgery Orthopaedic Surgery of the Spine; Visit Provider Orthopaedic Surgery Orthopaedic Surgery of the Spine
DX: S52.571A Other intraarticular fracture of lower end of right radius, initial encounter for closed fracture (principal); S52.611S Displaced fracture of right ulna styloid process, sequela; M25.431 Effusion, right wrist; M79.89 Other specified soft tissue disorders; X58.XXXA Exposure to other specified factors, initial encounter
CPT/HCPCS: 73200

== ENCOUNTER → 2021-10-21 14:13 | Outpatient (CLI) | payer MEDICARE, MEDICAID, SELFPAY ==
[2021-10-21 14:42] LABS: COVID19 -Nasal RAPID Negative (Negative)
== END ==
PROVIDERS: Family Provider Nurse Practitioner; PCP Nurse Practitioner; Referring Provider Orthopaedic Surgery Foot and Ankle Surgery; Visit Provider Orthopaedic Surgery Foot and Ankle Surgery
DX: S52.571A Other intraarticular fracture of lower end of right radius, initial encounter for closed fracture (principal); S52.611S Displaced fracture of right ulna styloid process, sequela; M25.431 Effusion, right wrist; M79.89 Other specified soft tissue disorders; Z20.822 Contact with and (suspected) exposure to COVID-19; X58.XXXA Exposure to other specified factors, initial encounter
CPT/HCPCS: 73200; 87635; C9803

== ENCOUNTER 2021-10-22 07:26 | Day surgery (SDC) | payer MEDICARE, MEDICAID, SELFPAY ==
[2021-10-16 14:00] VITALS: BMI 25.8
[2021-10-22 08:05] VITALS: BP 140/68; PULSE 71; RESP 16; TEMP 36.3; O2SAT 96; BMI 25.8
[2021-10-22] MEDS: LACTATED RINGERS 1,000 ML 42 ML IV ×2 (08:15→10:00)
--- NOTE | 2021-10-22 09:36 | PM.PREOP ---
Pre-operative Note COVID-19 COVID-19 status: Negative Interval Note History & Physical reviewed/Exam performed by Physician: Yes Changes to H&P: No
[2021-10-22] MEDS: CEFAZOLIN 2 GM/20 ML SYRINGE IV (10:21)
--- NOTE | 2021-10-22 10:40 | SUR.OPER ---
Supine on padded OR bed, head on pillow, left arm secured on padded arm board at <90 degrees abduction,right arm draped free on clear arm table , legs uncrossed, safety belt at thigh, tape over blanket over lower legs.
[2021-10-22] MEDS: BUPIVACAINE 0.25% (PF) 30 ML, EPINEPHrine 0.15 MG INJ (12:01)
[2021-10-22 12:19] VITALS: BP 160/70; PULSE 102; RESP 16; TEMP 36.8; O2SAT 98
[2021-10-22 12:20] VITALS: TEMP 36.3
[2021-10-22] MEDS: fentaNYL 100 MCG/2 ML INJ IV (12:20)
[2021-10-22] MEDS: OXYCODONE/ACETAMINOPHEN 5/325 TABLET 1 TAB PO ×2 (12:21→12:59)
--- NOTE | 2021-10-22 12:34 | PM.OP.1 ---
Operative Date/Time/Diagnoses Date of procedure: 10/22/21 Time of procedure: 10:45 Pre-op diagnosis: Intra-articular distal radius fracture right with the punch component and severe comminution., closed S52.571A Post-op diagnosis: same Procedure & Clinicians Procedure: 1. Open reduction internal fixation three-part or greater intra-articular distal radius fracture with a punch comminution. Right CPT code 42588 Same procedure as scheduled: Yes Indications: The patient is a 66-year-old [id number] female that fell onto her outstretched hands earlier in the week she sustained a highly comminuted intra-articular right distal radius fracture as well as a trapezial avulsion fracture on the left side. She is in a brace on the left side on the right side she underwent a closed reduction and had a CT scan due to her severe comminution. She is indicated for open reduction internal fixation versus bridge spanning. We discussed possibility of use of bone graft. The risks and benefits of the procedure have been discussed with the patient given the opportunity to ask questions. The risks of surgery include but are not limited to infection, malunion, nonunion, persistence of pain, damage to nerves and blood vessels, posttraumatic arthritis, DVT, PE, cardiopulmonary complications and . Patient understood and expressed a desire to proceed. Consent was signed in the office. Surgeon: Philomena Shepard Click Yes if Unassisted: Yes Anesthesia Type: General, Peripheral nerve block and Local Operative Notes Findings: Highly comminuted intra-articular distal radius fracture shortened with depression of the joint approximately 4 mm. This was carefully elevated through a volar approach and cancellous chips were packed into the area after longitudinal traction reduction maneuver was completed and then provisionally pinned with K-wires. This was then stabilized with a Arthrex volar locking plate. The wrist was taken through range of motion was stable no spanning plate was indicated. Closure Type: primary Specimen(s): none sent Prosthetic devices, grafts, tissues, transplants, or devices: Arthrex narrow locking volar plate. Shaft screws with 3.5 nonlocking and 3.5 locking screws. Distal fixation with locking pegs Estimated Blood Loss (mL): 10 Blood products transfused: none Tourniquet time (min): 72 Procedure in detail: The patient was seen in the site of surgery was marked in the preoperative area. This was the right wrist. The patient was then brought to the operating room placed on the operative table in the supine position. Plexiglass Hand table was placed on the operative side. General anesthesia was administered. SCDs were on the legs and all bony prominence were padded. A well-padded nonsterile brachial tourniquet was placed. A formal time-out procedure was called confirming the patient's side and site of surgery administration of preoperative antibiotics and presence of consent. All agreed. The operative extremity was prepped and draped in the standard sterile fashion. An Esmarch was used for exsanguination and the brachial tourniquet was raised to 250 mm of mercury. Standard FCR approach to the wrist was drawn in the incision made. The FCR was exposed. The sheath was opened and the tendon was retracted ulnar protect the palmar cutaneous branch of the median nerve. Floor of the FCR was opened to expose the deep muscles. The FPL was retracted ulnar and the pronator quadratus was released from the radial border and reflected ulnar to expose the distal radius and distal fracture. Fracture was disimpacted and cleaned. There were 2 separate fracture segments of the metaphyseal bone that were rotated 90?, The fracture was reduced with traction flexion ulnar deviation, once length was established there was a large bone void in the metaphysis. A tamp and [place] were used to elevate the joint depression under fluoroscopic guidance and this left upper hole was then filled with the cancellous bone chips and tamped in place.. 2x 045 K-wire was advanced percutaneously from the radial styloid to the metaphysis to hold the reduction. Reduction was checked fluoroscopy and radial inclination tilt was improved. Three hole narrow Arthrex volar locking plate was selected and positioned and provisionally fixed with K-wires. Once this was satisfactory, nonlocking 3.5 screws placed in the oblong hole and secured. Additional nonlocking and locking screws were placed in the shaft. Distal screws were then placed 1st with locking pegs. These were placed carefully not to penetrate the dorsal cortex. Care was taken to check for prominence. Final intraoperative images were obtained reviewed demonstrating no evidence of hardware prominence. Wrist motion was checked and was full and maintained and stable DRUJ. The wound was then irrigated and closed in layers. Hemostasis was achieved and the tourniquet was released prior to closing. 3-0 Vicryl was used deep and 4-0 Monocryl subcutaneous and 3 O nylon in the skin. 20 cc of 0.25% Marcaine with epinephrine was used as local anesthetic. Sterile dressings with a volar splint were applied. There no immediate complications. Surgical counts were correct. The patient tolerated the procedure and was taken recovery room. A postoperative regional block for postop pain control was performed in the recovery room. Complications: none Post-operative Condition: stable Disposition: PACU Plan for aftercare: Nonweightbearing right upper extremity in splint. Keep splint dry. Use sling as needed. May do range of motion to elbow and wiggle fingers. Follow-up in clinic in 2 weeks for suture removal. Recommend calcium and vitamin-D for bone health. Plan to switch to removable brace and start early range of motion and therapy after 1st postoperative visit
[2021-10-22 12:40] VITALS: BP 160/73; PULSE 86; RESP 16; TEMP 36.9; O2SAT 100
--- NOTE | 2021-10-22 12:45 | SUR.PREOP ---
Addendum entered by Marybel Booth R.N. 10/22/21 12:47: Time out: 1232 Site: Right brachial plexus nerve block Name, , MRN verified. No allergies Marybel Petit RN and FABIOLA Jones assist. Pt tolerated well. End time: 1242 Original Note: Block start time [1232] time out performed. Monitoring initiated and maintained throughout procedure. Oxygen and medications given per anesthesiologist instructions. Patient remained stable throughout procedure, no adverse reactions noted. Block end time [1242].
[2021-10-22] MEDS: KETOROLAC 30 MG/ML VIAL IV (12:52)
--- NOTE | 2021-10-22 12:53 | P.PCN_ITS ---
Procedures Date/Time Date of procedure: 10/22/21 Time of procedure: 12:40 General Procedure description: Ultrasound guided supraclavicular brachial plexus nerve block for post op pain control after right distal radial ORIF by Dr. Shepard. Risk and benefits of procedure discussed with patient. ASA monitoring applied to patient. O2 given v ia nasal cannula. 1 mg Versed and 50 mcg fentanyl given for procedural sedation. Skin site was prepped with chlorhexidine and allowed to fully dry. Sterile gloves, mask, hat and probe cover were used to maintain sterility. 2% lidocaine and 30ga needle was used to make a small skin wheal at needle insertion site. Under ultrasound guidance, a 21ga 50mm Pajunk needle was directed near the subclavian artery at the first rib, just adjacent to the brachial plexus. Patient reported no parasthesias. After negative aspiration, 20 mL 0.5% bupivacaine was injected around brachial plexus. Patient tolerated procedure well.
[2021-10-22 12:55] VITALS: BP 166/72; PULSE 104; RESP 16; TEMP 36.8; O2SAT 100
[2021-10-22 12:59] VITALS: TEMP 36.7
[2021-10-22] MEDS: MIDAZOLAM 2 MG/2 ML VIAL 1 MG IV (13:00)
--- NOTE | 2021-10-22 13:46 | SUR.PHASEII ---
Discharge instructions reviewed with pt and she verbalized understanding.
== END 2021-10-22 14:40 | disposition home or self-care (01) ==
PROVIDERS: Family Provider Nurse Practitioner; PCP Nurse Practitioner; Referring Provider Orthopaedic Surgery Foot and Ankle Surgery; Visit Provider Orthopaedic Surgery Foot and Ankle Surgery
PROC: (CPT 25609; principal; 2021-10-22 09:45)
DX: S52.571A Other intraarticular fracture of lower end of right radius, initial encounter for closed fracture (principal); G47.33 Obstructive sleep apnea (adult) (pediatric); W18.30XA Fall on same level, unspecified, initial encounter; Y92.89 Other specified places as the place of occurrence of the external cause
CPT/HCPCS: 25609; 01830; 64450; C1713; J0171; J0690; J1885; J2250; J2405; J2704; J3010

== ENCOUNTER → 2022-08-11 15:28 | Outpatient (CLI) | payer MEDICARE, MEDICAID, SELFPAY ==
--- NOTE | 2022-08-11 15:29 | DI.MG.S_ITS ---
BILATERAL DIGITAL SCREENING MAMMOGRAM 3D/2D WITH CAD: 08/11/2022 CLINICAL: Routine screening. Comparison is made to exams dated: 10/14/2020 mammogram, 08/05/2017 mammogram, 06/12/2014 mammogram - [facility], and 07/01/2008 mammogram - [facility]. There are scattered areas of fibroglandular density in both breasts (category b / 25%-50% glandular tissue). Current study was also evaluated with a Computer Aided Detection (CAD) system. No significant masses, calcifications, or other findings are seen in either breast. There has been no significant interval change. IMPRESSION: NEGATIVE There is no mammographic evidence of malignancy. A 1 year screening mammogram is recommended. Based on the Tyrer Cuzick model (a risk assessment model) the patient's lifetime risk is 5.3% and her 10 year risk is 2.9%. According to the ACR, ACS, and NCCN guidelines, an annual breast MRI exam along with mammogram is recommended if the patient's lifetime risk is 20% or greater. This exam was interpreted at Station ID: [id number]. NOTE: For mammograms, a report in lay terms will be sent to the patient. Approximately 15% of breast malignancies will not be visualized mammographically. In the management of a palpable breast mass, a negative mammogram must not discourage biopsy of a clinically suspicious lesion. Electronically Signed By: Silvino grijalva/marycarmen:08/12/2022 11:59:08 letter sent: Normal Exam ACR BI-RADS Category 1: Negative [id number]
== END ==
PROVIDERS: Family Provider Nurse Practitioner; PCP Nurse Practitioner; Referring Provider Nurse Practitioner; Visit Provider Nurse Practitioner
DX: Z12.31 Encounter for screening mammogram for malignant neoplasm of breast (principal)
CPT/HCPCS: 77063; 77067

== ENCOUNTER → 2022-11-23 14:49 | Outpatient (CLI) | payer MEDICARE, MEDICAID, SELFPAY ==
--- NOTE | 2022-11-23 14:50 | DI.RAD.S_ITS ---
PROCEDURE: XR FOOT RT MIN 3V INDICATIONS: eval Right foot and ankle pain no trauma TECHNIQUE: 3 views of the foot were acquired. COMPARISON: None. FINDINGS: Bones: No fractures or dislocations. No suspicious bony lesions. 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 Small dorsal calcaneal bone spur. Soft tissues: No tibiotalar joint effusion. Achilles tendon appears normal. IMPRESSION: No osseous lesion. If symptoms and/or clinical suspicion for pathology persists, further assessment with advanced imaging (e.g. CT, MRI or bone scan) should be considered. 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 Calcaneal bone spur. Dictated by: Samia Braga MD, PhD on 11/23/2022 at 15:21 Approved by: Samia Braga MD, PhD on 11/23/2022 at 15:22
--- NOTE | 2022-11-23 14:50 | DI.RAD.S_ITS ---
PROCEDURE: XR ANKLE RT MIN 3V INDICATIONS: Pain. eval Right foot and ankle TECHNIQUE: 3 views of the ankle were acquired. COMPARISON: None. FINDINGS: Bones: No fractures or dislocations. Ankle mortise is normally aligned. No suspicious bony lesions. Dorsal calcaneal bone spur. Mild midfoot osteoarthritis. Soft tissues: No tibiotalar joint effusion. Achilles tendon appears normal. IMPRESSION: No fracture. No osseous lesion. If symptoms and/or clinical suspicion for pathology persists, further assessment with repeat radiographs (7-10 days) or advanced imaging (e.g. CT, MRI or bone scan) should be considered. Calcaneal bone spur. Osteoarthritis. Dictated by: Samia Braga MD, PhD on 11/23/2022 at 15:20 Approved by: Samia Braga MD, PhD on 11/23/2022 at 15:21
== END ==
PROVIDERS: Family Provider Nurse Practitioner; PCP Nurse Practitioner; Referring Provider Registered Nurse Diabetes Educator; Visit Provider Registered Nurse Diabetes Educator
DX: M19.071 Primary osteoarthritis, right ankle and foot (principal); M25.571 Pain in right ankle and joints of right foot; M79.671 Pain in right foot; M77.31 Calcaneal spur, right foot
CPT/HCPCS: 73610; 73630

== ENCOUNTER → 2023-05-11 14:11 | Outpatient (CLI) | payer MEDICARE, MEDICAID, SELFPAY ==
--- NOTE | 2023-05-11 14:14 | DI.RAD.S_ITS ---
PROCEDURE: XR SHOULDER RT MIN 2V INDICATIONS: right shoulder pain, previous rotator cuff tear TECHNIQUE: 3 views of the shoulder were acquired. COMPARISON: [facility], CR, XR SHOULDER RT MIN 2V, 12/10/2020, 14:51. FINDINGS: Bones: No fractures or dislocations. Moderate acromioclavicular joint osteoarthritic changes are seen slightly progressed since previous study. No suspicious bony lesions. Visualized ribs appear intact. Soft tissues: No suspicious soft tissue calcifications. IMPRESSION: Moderate right acromioclavicular joint osteoarthritis worsened since previous study. No fracture or dislocation. No gross soft tissue abnormalities. Dictated by: Dylan Santizo M.D. on 05/11/2023 at 16:02 Approved by: Dylan Santizo M.D. on 05/11/2023 at 16:03
== END ==
PROVIDERS: Family Provider Nurse Practitioner; PCP Nurse Practitioner; Referring Provider Nurse Practitioner; Visit Provider Nurse Practitioner
DX: M19.011 Primary osteoarthritis, right shoulder (principal); M25.511 Pain in right shoulder
CPT/HCPCS: 73030

== ENCOUNTER → 2023-06-01 16:07 | Outpatient (CLI) | payer MEDICARE, MEDICAID, SELFPAY ==
--- NOTE | 2023-06-01 16:10 | DI.MRI.S_ITS ---
PROCEDURE: MR SHOULDER RT WO CON INDICATIONS: SHOULDER IMPINGEMENT / R/O ROTATOR CUFF TEAR TECHNIQUE: Noncontrast oblique coronal T2 fast spin echo with fat saturation, oblique sagittal T1 spin echo and T2 fast spin echo with fat saturation, axial T1 spin echo and T2 fast spin echo with fat saturation through the shoulder. COMPARISON: [facility], MR, MR SHOULDER RT WO CON, 12/27/2020, 13:33. [facility], MR, MR SHOULDER LT WO CON, 07/27/2021, 15:16. [facility], CR, XR SHOULDER RT MIN 2V, 05/11/2023, 14:19. FINDINGS: Image quality: Diagnostic Rotator cuff: Bulk: Infraspinatus and supraspinatus moderate to severe atrophy Teres minor: Intact Supraspinatus: Full-thickness perforating defect at the level of the acromion. The distal tendon is not well seen, likely atrophic and may be retracted. Infraspinatus: High-grade tendinosis and partial-thickness articular sided tears. Full-thickness tear is seen in the anterior fibers at the supraspinatus junction. Subscapularis: Moderate tendinopathy. Partial thickness articular sided tear. Bones and bursae: GH joint: Moderate degenerative changes. Joint space loss is apparent. No high-grade subchondral edema. AC joint: Moderate to severe degenerative changes with edema and capsular hypertrophy. Humeral head: Heterogeneous marrow signal without acute fracture Scapula and acromion: No acute fracture Bursa: Edematous secondary to rotator cuff tears Capsule: Labrum: Circumferential fraying and attenuation. This intact not well assessed on this non-arthrographic study. Suspected small perilabral cysts are seen at the anterior superior aspect, suggesting a superimposed anterior superior labral tear Long head biceps tendon: Intact IGHL: Edema is present at the IGHL Rotator interval: Preserved fat signal Soft tissues: No axillary adenopathy. Lungs are not well seen. IMPRESSION: Moderate glenohumeral and moderate to severe acromioclavicular degenerative changes. The shoulder is cuff deficient. The atrophy has progressed in the infraspinatus and supraspinatus since 2020. Full-thickness supraspinatus tear extends partially into the infraspinatus. Suspected anterior superior labral tear with small paralabral cysts. Bursitis and capsulitis. Dictated by: Angel Barnes M.D. on 06/01/2023 at 17:09 Approved by: Angel Barnes M.D. on 06/01/2023 at 17:16
== END ==
PROVIDERS: Family Provider Nurse Practitioner; PCP Nurse Practitioner; Referring Provider Orthopaedic Surgery; Visit Provider Orthopaedic Surgery
DX: M75.121 Complete rotator cuff tear or rupture of right shoulder, not specified as traumatic (principal); M25.811 Other specified joint disorders, right shoulder; M75.51 Bursitis of right shoulder
CPT/HCPCS: 73221

== ENCOUNTER → 2023-09-21 14:15 | Outpatient (CLI) | payer MEDICARE, SELFPAY ==
--- NOTE | 2023-09-21 14:17 | DI.RAD.S_ITS ---
PROCEDURE: XR CHEST 2V INDICATIONS: Cough TECHNIQUE: 2 views of the chest were acquired. COMPARISON: [facility], , CHEST 1 VIEW, 05/24/2016, 10:37. FINDINGS: Surgical changes and devices: None. Lungs and pleura: Lungs are clear. No pleural effusions or pneumothorax. Mediastinum: Mediastinal contours are normal. Heart size is normal. Bones and chest wall: No suspicious bony abnormalities. Soft tissues appear unremarkable. IMPRESSION: No acute cardiopulmonary abnormality is seen. Dictated by: Kieran Smith M.D. on 09/22/2023 at 9:55 Approved by: Kieran Smith M.D. on 09/22/2023 at 9:55
== END ==
PROVIDERS: Family Provider Nurse Practitioner; PCP Nurse Practitioner; Referring Provider Nurse Practitioner Family; Visit Provider Nurse Practitioner Family
DX: R05.9 Cough, unspecified (principal)
CPT/HCPCS: 71046

== ENCOUNTER 2023-10-16 16:57 | Emergency (ER) | payer MEDICARE, MEDICAID, SELFPAY ==
[2023-10-16 17:00] VITALS: BP 165/79; PULSE 84; RESP 18; TEMP 36.5; O2SAT 94; BMI 24.8
--- NOTE | 2023-10-16 17:04 | DI.RAD.S_ITS ---
PROCEDURE: XR CHEST 2V INDICATIONS: fall, r/o rib fracture TECHNIQUE: 2 views of the chest were acquired. COMPARISON: [facility], [place], XR CHEST 2V, 09/21/2023, 14:22. [facility], [place], CHEST 1 VIEW, 05/24/2016, 10:37. FINDINGS: Surgical changes and devices: None. Lungs and pleura: Lungs are clear. No pleural effusions or pneumothorax. Mediastinum: Mediastinal contours are normal. Heart size is normal. Bones and chest wall: No displaced rib fractures are seen. No suspicious bony abnormalities. Soft tissues appear unremarkable. IMPRESSION: No acute cardiopulmonary abnormality is seen. No displaced rib fractures are seen. Dictated by: Abraham Watkins M.D. on 10/16/2023 at 16:17 Approved by: Abraham Watkins M.D. on 10/16/2023 at 16:17
--- NOTE | 2023-10-16 20:22 | PC.NURSE ---
Patient not in waiting room.
--- NOTE | 2023-10-17 05:30 | ED.BACK ---
HPI - Back Pain/Injury General Chief Complaint: Back Pain/Injury Stated Complaint: Fall, Back Px Source: patient History of Present Illness HPI Narrative: Patient left without seeing provider Related Data Home Medications Medication Instructions Recorded Confirmed cholecalciferol (vitamin D3) 25 1,000 unit PO DAILY 06/28/18 09/22/23 mcg (1,000 unit) capsule magnesium 30 mg tablet 30 mg PO DAILY 11/06/19 09/22/23 acetaminophen 500 mg tablet 1,000 mg PO TID PRN Pain 07/16/21 09/22/23 (Tylenol Extra Strength) Previous Rx's Medication Instructions Recorded meloxicam 15 mg tablet 15 mg PO DAILY #90 tabs 05/11/23 benzonatate 200 mg capsule 200 mg PO BID PRN cough #28 caps 09/21/23 baclofen 10 mg tablet See Rx Instructions .Route 09/22/23 .COMPLEX #60 tabs Allergies Allergy/AdvReac Type Severity Reaction Status Date / Time No Known Drug Allergies Allergy Verified 10/16/23 17:00 Patient History Medical History Hyperlipidemia (04/01/17) Other low back pain Chronic low back pain Obstructive sleep apnea, adult (~12/15/20) Insomnia due to medical condition Shoulder pain Fractures (~2005) Retinal vein occlusion (~2004) Osteopenia Uterine mass Snoring Encounter for HCV screening test for high risk patient Breast cancer screening Abnormal pelvic ultrasound History of retinal hemorrhage Hx of fracture of femur Change in bowel habits Abdominal bloating Pelvic pressure in female Rectal bleed Surgical History Anesthesia History of revision of total hip arthroplasty (~2017) Femur fracture (~2015) History of hip surgery History of arthroplasty of both hips Family History Father Diabetes mellitus Mother Dementia Social History household members: significant other Smoking Status: Former smoker second hand exposure: No alcohol intake: current substance use type: does not use Smoking Status: Former smoker alcohol intake frequency: a few times a week Substance Use Type: does not use Exam Initial Vital Signs Initial Vital Signs: Vital Signs Temperature 97.7 F 10/16/23 17:00 Pulse Rate 84 10/16/23 17:00 Respiratory Rate 18 10/16/23 17:00 Blood Pressure 165/79 H 10/16/23 17:00 Pulse Oximetry 94 10/16/23 17:00 Oxygen Delivery Method Room Air 10/16/23 17:00 Discharge Plan Departure Patient Disposition: Left Without Being Seen Clinical Impression: Patient left without being seen Prescriptions: No Action cholecalciferol (vitamin D3) 1,000 unit capsule 1,000 unit PO DAILY benzonatate 200 mg capsule 200 mg PO BID PRN (Reason: cough) Qty: 28 0RF acetaminophen [Tylenol Extra Strength] 500 mg tablet 1,000 mg PO TID PRN (Reason: Pain) meloxicam 15 mg tablet 15 mg PO DAILY Qty: 90 3RF Rx Instructions: Take 1 tab by mouth daily for shoulder pain baclofen 10 mg tablet See Rx Instructions .ROUTE .COMPLEX Qty: 60 3RF Rx Instructions: Take 1/2 to 1 tab by mouth twice daily as needed for muscle cramps; magnesium 30 mg Tablet 30 mg PO DAILY Rx Instructions: unknown dose
== END 2023-10-16 20:23 | disposition left against medical advice (07) ==
PROVIDERS: Emergency Provider Emergency Medicine; Family Provider Nurse Practitioner; PCP Nurse Practitioner
DX: R07.81 Pleurodynia (principal); W01.0XXA Fall on same level from slipping, tripping and stumbling without subsequent striking against object, initial encounter
CPT/HCPCS: 71046; 99281

== ENCOUNTER → 2023-10-18 17:21 | Outpatient (CLI) | payer MEDICARE, MEDICAID, SELFPAY ==
--- NOTE | 2023-10-18 17:23 | DI.RAD.S_ITS ---
PROCEDURE: XR HIP W PEL IF DONE LT 2V INDICATIONS: fall 10/16 large bruise left hip TECHNIQUE: To views of the hip were acquired. COMPARISON: [facility], [place], XR HIP W PEL IF DONE RT 2V, 01/26/2018, 14:41. FINDINGS: Bones: Bilateral total hip prosthesis with left cerclage wires and evidence of chronic acetabular remodeling, similar to the prior exam. No evidence of acute fracture. Pelvic ring intact. Degenerative changes noted involving the lower lumbar spine and pubic symphysis appears Soft tissues: No suspicious soft tissue calcifications or masses. IMPRESSION: No acute fracture or hardware failure. Bilateral hip arthroplasty with acetabular chronic remodeling Approved by: Angel Rose M.D. on 10/19/2023 at 14:10
--- NOTE | 2023-10-18 17:23 | DI.RAD.S_ITS ---
PROCEDURE: XR LUMBAR SPINE 2-3V INDICATIONS: fall 10/16 large bruise left hip TECHNIQUE: 3 views of the lumbar spine were acquired. COMPARISON: [facility], , L-SPINE 2-3 VIEWS, 11/06/2014, 11:53. FINDINGS: Bones: Generalized decreased osseous mineralization noted. Lower lumbar spine disc space narrowing and hypertrophic facet joints. No evidence of fracture or traumatic malalignment. Soft tissues: Large amount of fecal debris in the rectum and right colon with gaseous distension the small bowel. No obstruction. IMPRESSION: Osteopenia without fracture or traumatic malalignment Approved by: Angel Rose M.D. on 10/19/2023 at 14:13
== END ==
PROVIDERS: Family Provider Nurse Practitioner; PCP Nurse Practitioner; Referring Provider Physician Assistant; Visit Provider Physician Assistant
DX: S79.919A Unspecified injury of unspecified hip, initial encounter (principal); S39.92XA Unspecified injury of lower back, initial encounter; M85.88 Other specified disorders of bone density and structure, other site; W19.XXXA Unspecified fall, initial encounter; Z96.643 Presence of artificial hip joint, bilateral
CPT/HCPCS: 72100; 73502

== ENCOUNTER → 2023-11-10 14:03 | Outpatient (CLI) | payer MEDICARE, MEDICAID, SELFPAY ==
[2023-11-10 14:43] LABS: Add Manual Diff / Slide Review NO; Basophils Absolute Auto 0 /uL (0-100); Basophils Percent Auto 0.6 % (0-2); Eosinophils Absolute Auto 100 /uL (0-450); Eosinophils Percent Auto 2.1 % (2-4); Hematocrit 39.6 % (36-46); Hemoglobin 13.6 g/dL (12.0-16.0); Lymphocytes Absolute Auto 1000 /uL (1100-4500); Lymphocytes Percent Auto 17.6 % (25-40); Mean Corpuscular HGB Conc 34.4 % (30-36); Mean Corpuscular Hemoglobin 32.4 PG (26-34); Mean Corpuscular Volume 94.1 fL (80-100); Monocytes Absolute Auto 400 /uL (0-900); Monocytes Percent Auto 7.5 % (3-14); Neutrophils Absolute Auto 4000 /uL (1500-7000); Neutrophils Percent Auto 72.2 % (50-75); Platelet Count 232 X10^3/uL (150-400); Red Blood Cell Count 4.21 X10^6/uL (4.0-5.2); Red Cell Distribution Width 13.1 % (11.6-14.8); White Blood Cell Count 5.5 X10^3/uL (4.5-11.0)
[2023-11-10 15:10] LABS: Alanine Aminotransferase 19 IU/L (<35); Albumin 4.1 g/dL (3.5-5.0); Albumin Globulin Ratio 1.6 (1.0-2.8); Alkaline Phosphatase 130 U/L (38-126); Aspartate Aminotransferase 24 IU/L (14-36); BUN Creatinine Ratio 19.6 (6-22); Bilirubin Total 0.9 mg/dL (0.2-1.3); Blood Urea Nitrogen 18 mg/dL (7-17); Calcium 9.3 mg/dL (8.4-10.2); Carbon Dioxide 24 mmol/L (22-32); Chloride 109 mmol/L (98-107); Cholesterol 217 mg/dL (140-199); Estimated Glomerular Filt Rate > 60 mL/min (>60); Globulin 2.5 g/dL (1.7-4.1); Glucose 109 mg/dL (80-110); HDL Cholesterol 78 mg/dL (40-60); HEMOLYSIS < 15 (0-50); LDL Cholesterol Calculated 119 mg/dL (<100); Potassium 4.5 mmol/L (3.4-5.1); Sodium 139 mmol/L (137-145); Total Protein 6.6 g/dL (6.3-8.2); Triglycerides 102 mg/dL (35-150)
[2023-11-10 15:23] LABS: Free T3, Triiodothyronine Free 4.51 pg/mL (2.77-5.27); Free T4, Direct Thyroxine 1.35 ng/dL (0.78-2.19)
[2023-11-10 15:37] LABS: Thyroid Stimulating Hormone 0.709 uIU/mL (0.47-4.68)
[2023-11-10 16:55] LABS: Hep C Virus Ab w/Reflex Quant NEGATIVE s/c (NEGATIVE)
== END ==
PROVIDERS: Family Provider Nurse Practitioner; PCP Nurse Practitioner; Referring Provider Nurse Practitioner; Visit Provider Nurse Practitioner
DX: D72.819 Decreased white blood cell count, unspecified (principal); Z79.899 Other long term (current) drug therapy; G57.92 Unspecified mononeuropathy of left lower limb; E78.5 Hyperlipidemia, unspecified; Z11.59 Encounter for screening for other viral diseases; R25.2 Cramp and spasm
CPT/HCPCS: 36415; 80053; 80061; 83735; 84439; 84443; 84481; 85025; 86803

== ENCOUNTER → 2023-11-16 15:49 | Outpatient (CLI) | payer MEDICARE, MEDICAID, SELFPAY ==
--- NOTE | 2023-11-16 15:50 | DI.MG.S_ITS ---
BILATERAL DIGITAL SCREENING MAMMOGRAM 3D/2D WITH CAD: 11/16/2023 CLINICAL: Routine screening. Comparison is made to exams dated: 08/11/2022 mammogram, 10/14/2020 mammogram, and 08/05/2017 mammogram - [facility]. There are scattered areas of fibroglandular density in both breasts (category b / 25%-50% glandular tissue). Current study was also evaluated with a Computer Aided Detection (CAD) system. No significant masses, calcifications, or other findings are seen in either breast. There has been no significant interval change. IMPRESSION: NEGATIVE There is no mammographic evidence of malignancy. A 1 year screening mammogram is recommended. Based on the Tyrer Cuzick model (a risk assessment model) the patient's lifetime risk is 4.8% and her 10 year risk is 3.0%. According to the ACR, ACS, and NCCN guidelines, an annual breast MRI exam along with mammogram is recommended if the patient's lifetime risk is 20% or greater. This exam was interpreted at Station ID: [id number]. NOTE: For mammograms, a report in lay terms will be sent to the patient. Approximately 15% of breast malignancies will not be visualized mammographically. In the management of a palpable breast mass, a negative mammogram must not discourage biopsy of a clinically suspicious lesion. Electronically Signed By: Smitha senior/marycarmen:11/17/2023 16:34:06 letter sent: Normal Exam ACR BI-RADS Category 1: Negative [id number]
== END ==
PROVIDERS: Family Provider Nurse Practitioner; PCP Nurse Practitioner; Referring Provider Nurse Practitioner; Visit Provider Nurse Practitioner
DX: Z12.31 Encounter for screening mammogram for malignant neoplasm of breast (principal); R92.323 Mammographic fibroglandular density, bilateral breasts
CPT/HCPCS: 77063; 77067

== ENCOUNTER 2023-11-18 13:16 | Day surgery (SDC) | payer MEDICARE, MEDICAID, SELFPAY ==
--- NOTE | 2023-11-18 | PATH_ITS ---
[facility] Accession Number: [id number] No. of containers..01 Tissue . 01 Material submitted: . esophagus - ESOPHAGEAL . 01 Diagnosis: ESOPHAGUS, BIOPSY: Squamous epithelium with focal reactive surface epithelial changes. Intraepithelial eosinophils are not increased. A PAS stain is negative for fungal organisms. Negative for dysplasia and malignancy. [facility] 11/21/2023 1113 Local . 01 Electronically signed: . Patricia Burton MD, Pathologist NPI- [id number] . 01 Gross description: . Received in formalin, labeled with two patient identifiers and esophageal biopsy, are four garcia soft tissue fragments measuring 0.3-0.6 cm in greatest dimension. Submitted in cassette A1. ([id number]) /FRR 11/19/2023 1313 Local . 01 Microscopic: . A PAS stain was performed to evaluate for fungal organisms and is negative. The control stain showed appropriate reactivity. . 01 Pathologist provided ICD-10: R13.10 . 01 CPT . 937835, 224985 Specimen Comment: A courtesy copy of this report has been sent to [phone] Performed at: [address] [id number] MD Wilber Moody MD Phone: [phone]
--- NOTE | 2023-11-18 14:49 | P.HP_ITS ---
History of Present Illness History of Present Illness Date Patient Seen: 11/18/23 Time Patient Seen: 14:49 Chief complaint: EGD w/pos bx Narrative: 68-year-old woman with esophageal dysphagia here for diagnostic esophagogastroduodenoscopy. No history of reflux or tobacco use. [facility] Medical History Hyperlipidemia (04/01/17) Other low back pain Chronic low back pain Obstructive sleep apnea, adult (~12/15/20) Insomnia due to medical condition Shoulder pain Fractures (~2005) Retinal vein occlusion (~2004) Osteopenia Uterine mass Snoring Encounter for HCV screening test for high risk patient Breast cancer screening Abnormal pelvic ultrasound History of retinal hemorrhage Hx of fracture of femur Change in bowel habits Abdominal bloating Pelvic pressure in female Rectal bleed Surgical History Anesthesia History of revision of total hip arthroplasty (~2017) Femur fracture (~2015) History of hip surgery History of arthroplasty of both hips Family History Father Diabetes mellitus Mother Dementia Social History household members: significant other Smoking Status: Former smoker second hand exposure: No alcohol intake: current substance use type: does not use Meds Home Medications and Allergies Home Medications Medication Instructions Recorded Confirmed Type cholecalciferol (vitamin D3) 25 1,000 unit PO DAILY 06/28/18 11/18/23 History mcg (1,000 unit) capsule magnesium 30 mg tablet 30 mg PO DAILY 11/06/19 11/18/23 History acetaminophen 500 mg tablet 1,000 mg PO TID PRN Pain 07/16/21 11/18/23 History (Tylenol Extra Strength) Allergies Allergy/AdvReac Type Severity Reaction Status Date / Time No Known Drug Allergies Allergy Verified 11/18/23 14:48 Exam Narrative Exam Narrative: General adult woman alert oriented no acute distress Chest nonlabored respiration Extremities warm well perfused Assessment & Plan Assessment and plan (1) Esophageal dysphagia: Status: Acute Assessment & Plan narrative: 68-year-old woman with a esophageal dysphagia here for diagnostic esophagogastroduodenoscopy with possible esophageal dilation. Overview of the procedure discussed. Procedural risks including hemorrhage, esophageal injury were reviewed. She provides her consent to proceed Time-Based Coding :: [TOTAL MINUTES] spent with patient and on the chart (including review of chart, obtaining history, exam, reviewing outside data, placing orders, documenting exam and treatment plan, and counseling patient) on [DATE].
[2023-11-18 14:50] VITALS: BP 137/69; PULSE 81; RESP 14; TEMP 36.1; O2SAT 98
[2023-11-18] MEDS: LACTATED RINGERS 1,000 ML 42 ML IV (14:55)
[2023-11-18 15:12] VITALS: BP 137/77; PULSE 94; RESP 25; TEMP 36.2; O2SAT 95
[2023-11-18 15:16] VITALS: BP 140/76; PULSE 85; RESP 21; O2SAT 95
[2023-11-18 15:17] VITALS: BP 140/82; PULSE 83; RESP 21; O2SAT 98
[2023-11-18 15:23] VITALS: BP 139/78; PULSE 83; RESP 19; O2SAT 96
--- NOTE | 2023-11-18 15:23 | PM.OP.EGD ---
Operative Date/Time/Diagnoses Date of procedure: 11/18/23 Time of procedure: 15:23 Pre-op diagnosis: Esophageal dysphagia Post-op diagnosis: other (Esophageal stricture) Procedure & Clinicians Study performed: Esophagogastroduodenoscopy with dilation Same procedure as scheduled: Yes Indications: Esophageal dysphagia Surgeon: Raghavendra Remy Procedure Notes Procedure in detail: The history and physical was performed/updated and the patient is ASA class is 2. The procedure was discussed in detail with the patient. Potential risks complications including infection, bleeding, missed diagnosis, perforation, need for surgery, and were explained. Their questions were answered and informed consent was obtained. Patient placed in left lateral decubitus position. Time out was performed. Procedural sedation was administered by Anesthesia. A bite block was placed. the scope was inserted into the mouth and advanced through the esophagus and into the stomach. The pylorus was intubated and the duodenum was examined to the 2nd portion. The scope was then withdrawn into the stomach and was retroflexed. There was a slight narrowing of the distal esophagus 35 cm from the incisors. A balloon dilator was placed across the narrowing and then inflated under direct visualization to 20 mm which was held for 1 minute. Biopsies of the esophagus were performed with forceps. The stomach was decompressed and scope was withdrawn slowly through the esophagus. FINDINGS Hiatal hernia small Slight narrowing of the distal esophagus 35 cm from the incisors dilated to 20 mm The patient tolerated the procedure well and will be discharged when they meet criteria. Specimen(s): other (Esophagus) Impression: Hiatal hernia Esophageal narrowing Post-procedure Plan for aftercare: We will notify with biopsy results Disposition: same day surgery
[2023-11-18 15:29] VITALS: BP 140/68; PULSE 79; RESP 16; O2SAT 96
== END 2023-11-18 15:45 | disposition home or self-care (01) ==
PROVIDERS: Family Provider Nurse Practitioner; PCP Nurse Practitioner; Referring Provider Surgery; Visit Provider Surgery
PROC: 0DJ08ZZ Inspection of Upper Intestinal Tract, Via Natural or Artificial Opening Endoscopic (ICD-10-PCS; CPT 43235; principal; 2023-11-18 14:15)
DX: R13.10 Dysphagia, unspecified (principal); K44.9 Diaphragmatic hernia without obstruction or gangrene
CPT/HCPCS: 43249; 43239; J2704

== ENCOUNTER 2025-01-14 14:07 | Emergency (ER) | payer MEDICARE, MEDICAID, SELFPAY ==
[2025-01-14 14:42] VITALS: BP 148/75; PULSE 85; RESP 16; TEMP 36.3; O2SAT 98; BMI 23.5
--- NOTE | 2025-01-14 14:51 | DI.RAD.S_ITS ---
PROCEDURE: XR CHEST 1V INDICATIONS: Chest Pain TECHNIQUE: One view of the chest was acquired. COMPARISON: [facility], [place], XR CHEST 2V, 10/16/2023, 17:05. FINDINGS: Surgical changes and devices: None. Lungs and pleura: Lungs are clear. No pleural effusions or pneumothorax. Mediastinum: Mediastinal contours appear normal. Heart size is normal. Bones and chest wall: No suspicious bony lesions. Overlying soft tissues appear unremarkable. IMPRESSION: No acute pulmonary process. Dictated by: Camelia Sandra M.D. on 01/14/2025 at 15:26 Approved by: Camelia Sandra M.D. on 01/14/2025 at 15:26
--- NOTE | 2025-01-14 14:51 | EKG_ITS ---
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
[2025-01-14 17:07] VITALS: BP 142/76; PULSE 72; RESP 24; O2SAT 97
--- NOTE | 2025-01-14 17:16 | ED.DIZZY ---
HPI - Dizziness General Chief Complaint: Dizziness Stated Complaint: Dizziness x 1 day' Time Seen by Provider: 01/14/25 17:04 Source: patient Mode of arrival: Ambulatory History of Present Illness HPI Narrative: Patient is a 69-year-old female without any significant past medical history presenting to day with dizziness. She reports she had 1 episode of dizziness awhile ago more than a month or so or go and was feeling fine until yesterday. Yesterday she reports she did not feel quite well she would turn her head or stand up and we get extremely dizzy. Sometimes she felt it was going 1 direction and then another direction. She could find a point of comfort and actually read her book. She is able to go to sleep this morning she woke up feeling much better. 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 She called her PCM who recommended that she come to the ED for evaluation. Overall she is feeling much better today and like symptoms have mostly resolved. She had no chest pain or palpitations, no shortness of breath weakness or fever. Related Data Home Medications ?Medication ?Instructions ?Recorded ?Confirmed cholecalciferol (vitamin D3) 25 1,000 unit PO DAILY 06/28/18 11/22/24 mcg (1,000 unit) capsule magnesium 30 mg tablet 30 mg PO DAILY 11/06/19 11/22/24 acetaminophen 500 mg tablet 1,000 mg PO TID PRN Pain 07/16/21 11/22/24 (Tylenol Extra Strength) glucosamine sulfate 500 mg tablet 500 mg PO DAILY 11/22/24 11/22/24 (Glucosamine) potassium PO DAILY 11/22/24 Previous Rx's ?Medication ?Instructions ?Recorded meclizine 25 mg tablet 25 mg PO TID PRN dizziness #10 tabs 01/14/25 Allergies Allergy/AdvReac Type Severity Reaction Status Date / Time No Known Drug Allergies Allergy Verified 01/14/25 14:43 Patient History Medical History Hyperlipidemia (04/01/17) Other low back pain Chronic low back pain Obstructive sleep apnea, adult (~12/15/20) Insomnia due to medical condition Shoulder pain Fractures (~2005) Retinal vein occlusion (~2004) Osteopenia Uterine mass Snoring Encounter for HCV screening test for high risk patient Breast cancer screening Abnormal pelvic ultrasound History of retinal hemorrhage Hx of fracture of femur Change in bowel habits Abdominal bloating Pelvic pressure in female Rectal bleed Surgical History Anesthesia History of revision of total hip arthroplasty (~2018) Femur fracture (~2016) History of hip surgery History of arthroplasty of both hips Family History Father Diabetes mellitus Mother Dementia Social History household members: significant other Smoking Status: Never smoker second hand exposure: No alcohol intake: current substance use type: does not use Smoking Status: Never smoker alcohol intake frequency: a few times a week Exam Initial Vital Signs Initial Vital Signs: Vital Signs Temperature 97.4 F L 01/14/25 14:42 Pulse Rate 85 01/14/25 14:42 Respiratory Rate 16 01/14/25 14:42 Blood Pressure 148/75 H 01/14/25 14:42 Pulse Oximetry 98 01/14/25 14:42 Oxygen Delivery Method Room Air 01/14/25 14:42 GENERAL: Alert pleasant well-appearing 69-year-old female and in no acute distress. HEENT: Head atraumatic,EOMI, pupils reactive, face symmetric, moist mucous membranes CARDIOVASCULAR: Regular rate and rhythm without murmurs, rubs or gallops. RESPIRATORY: Breath sounds equal bilaterally, no wheezes rales or rhonchi. ABDOMEN: Soft, nontender. Normoactive bowel sounds all 4 quadrants. No guarding or rebound. EXTREMITIES: Normal range of motion, no clubbing or edema. Neurovascularly intact NEUROLOGICAL: Alert and oriented x4.Normal gait and speech. Cranial nerves II through XII grossly intact. 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 Course Orders Ordered: ED Orders 01/14/25 14:51 XR chest 1V Stat EKG-12 Lead Stat 01/14/25 17:19 Complete Blood Count AUTO DIFF Stat Comprehensive Metabolic Panel Stat Lipase Stat Magnesium Stat NT-proBNP (BNP-Adult 18+) Stat PTT Partial Thromboplastin Albino Stat Prothrombin Time INR Stat Troponin & CK Cardiac Panel Stat Discontinued Medications Aspirin (Aspirin 81 Mg Chew Tab) 324 mg PO NOW ONE Stop: 01/14/25 14:52 Last Admin: 01/14/25 17:32 Dose: Not Given Documented By: TRUNG Vital Signs Vital signs: Vital Signs - 8 hr 01/14/25 14:42 01/14/25 17:07 01/14/25 17:07 Temperature 97.4 F L Pulse Rate 85 72 Respiratory Rate 16 24 Blood Pressure 148/75 H 142/76 H Pulse Oximetry 98 97 Oxygen Delivery Method Room Air 01/14/25 17:30 01/14/25 17:30 01/14/25 18:00 Temperature Pulse Rate 72 73 Respiratory Rate 32 H 26 H Blood Pressure 188/86 H Pulse Oximetry 96 94 Oxygen Delivery Method 01/14/25 18:00 Temperature Pulse Rate Respiratory Rate Blood Pressure 164/76 H Pulse Oximetry Oxygen Delivery Method MDM - Dizziness Lab Data 01/14/25 17:19 01/14/25 17:19 Labs: Lab Results 01/14/25 Range/Units 17:19 WBC 4.4 L (4.5-11.0) X10^3/uL RBC 4.41 (4.0-5.2) X10^6/uL Hgb 14.3 (12.0-16.0) g/dL Hct 41.4 (36-46) % MCV 93.9 (80-100) fL MCH 32.6 (26-34) PG MCHC 34.7 (30-36) % RDW 13.0 (11.6-14.8) % Plt Count 217 (150-400) X10^3/uL Neut % (Auto) 65.7 (50-75) % Lymph % (Auto) 22.9 L (25-40) % [place] % (Auto) 8.8 (3-14) % Eos % (Auto) 2.0 (2-4) % Baso % (Auto) 0.6 (0-2) % Neut # (Auto) 2900 (5298-4420) /uL Lymph # (Auto) 1000 L (3927-2324) /uL [place] # (Auto) 400 (0-900) /uL Eos # (Auto) 100 (0-450) /uL Baso # (Auto) 0 (0-100) /uL PT 11.1 (9.4-12.5) SECONDS INR 1.0 (0.9-1.3) APTT 30 (25.1-36.5) SECONDS Sodium 139 (137-145) mmol/L Potassium 4.3 (3.4-5.1) mmol/L Chloride 108 H (98-107) mmol/L Carbon Dioxide 27 (22-32) mmol/L BUN 17 (7-17) mg/dL Creatinine 0.90 (0.52-1.04) mg/dL Estimated GFR > 60 (>60) mL/min BUN/Creatinine Ratio 18.9 (6-22) Glucose 93 (70-99) mg/dL Calcium 9.5 (8.4-10.2) mg/dL Magnesium 1.9 (1.6-2.3) mg/dL Total Bilirubin 0.9 (0.2-1.3) mg/dL AST 28 (14-36) IU/L ALT 20 (<35) IU/L Alkaline Phosphatase 93 (38-126) U/L Total Creatine Kinase 61 (30-135) U/L Troponin I < 0.012 (0.01-0.034) ng/mL NT-Pro-B Natriuret Pep 313 H (<125) pg/mL Total Protein 7.2 (6.3-8.2) g/dL Albumin 4.3 (3.5-5.0) g/dL Globulin 2.9 (1.7-4.1) g/dL Albumin/Globulin Ratio 1.5 (1.0-2.8) Lipase 103 (23-300) U/L Imaging Data Chest x-ray: Radiologist's Impression: PROCEDURE: XR CHEST 1V INDICATIONS: Chest Pain TECHNIQUE: One view of the chest was acquired. COMPARISON: [facility], , XR CHEST 2V, 10/16/2023, 17:05. FINDINGS: Surgical changes and devices: None. Lungs and pleura: Lungs are clear. No pleural effusions or pneumothorax. Mediastinum: Mediastinal contours appear normal. Heart size is normal. Bones and chest wall: No suspicious bony lesions. Overlying soft tissues appear unremarkable. IMPRESSION: No acute pulmonary process. Dictated by: Camelia Sandra M.D. on 01/14/2025 at 15:26 ECG Data Attestation: I personally reviewed and interpreted this ECG as follows: Prior ECG tracings: available for review Interpretation: Normal sinus rhythm rate 75 VA interval 138 QRS [address] changes he does have a Q-wave noted in lead 3 and which is similar to prior EKGs in 2017 MDM Narrative Medical decision making narrative: [facility] CC: Dizziness Complicating co-morbidities: None Data collected from: Patient Medical records reviewed: Differential considered: Vertigo Meniere's disease posterior CVA Exam documented above, pertinent findings include: Alert well-appearing 69-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 Pertinent findings: CBC no leukocytosis no anemia platelets 270 CMP no electrolyte abnormality no CARLOS glucose 93 Troponin negative BNP is 313 Independently reviewed EKG as above Sinus rhythm similar to prior EKGs in 2017 persistent Q-waves in lead 3 only Imaging studies independently reviewed: Chest x-ray no acute cardiopulmonary process Consultations: None Treatments: None Re-evaluations: Discussion: Patient had dizziness yesterday which has self resolved. GCS 15 strength equal no nystagmus At this time no need for any further imaging or workup. She is not on anticoagulation or antiplatelet medication. I suspect benign paroxysmal positional vertigo. Blood work is overall reassuring. Recommend outpatient follow up discussed Jovani maneuver possible ENT evaluation. She does not require any medication in the emergency department she reports that yesterday was much worse. Discharge Plan Departure Patient Disposition: Home Clinical Impression: Benign paroxysmal positional vertigo Instructions: DI for Vertigo Activity Restrictions/Additional Instructions: *You have been diagnosed with vertigo *What to do: At this time your blood work is overall reassuring. May try Eply maneuver at home. You may need evaluation with ENT if this continues to happen but today no further workup indicated *Continue to take medications as directed Meclizine 25 mg every 8 hours if needed for dizziness *Follow up with your primary care provider in 2-3 days or call [phone] *Return to ER if you should have increasing dizziness persistent vomiting weakness numbness tingling or any new, worsening or concerning symptoms Prescriptions: New meclizine 25 mg tablet 25 mg PO TID PRN (Reason: dizziness) Qty: 10 0RF No Action cholecalciferol (vitamin D3) 1,000 unit capsule 1,000 unit PO DAILY acetaminophen [Tylenol Extra Strength] 500 mg tablet 1,000 mg PO TID PRN (Reason: Pain) potassium PO DAILY glucosamine sulfate [Glucosamine] 500 mg tablet 500 mg PO DAILY Rx Instructions: administer with a meal magnesium 30 mg Tablet 30 mg PO DAILY Rx Instructions: unknown dose Referrals: Ramirez Harmon MD [Primary Care Provider, Family Practice] Stand Alone Forms: Patient Portal/API
[2025-01-14 17:28] LABS: Add Manual Diff / Slide Review NO; Hematocrit 41.4 % (36-46); Hemoglobin 14.3 g/dL (12.0-16.0); Lymphocytes Absolute Auto 1000 /uL (1100-4500); Mean Corpuscular HGB Conc 34.7 % (30-36); Mean Corpuscular Hemoglobin 32.6 PG (26-34); Mean Corpuscular Volume 93.9 fL (80-100); Platelet Count 217 X10^3/uL (150-400)
[2025-01-14 17:30] VITALS: BP 188/86; PULSE 72; RESP 32; O2SAT 96
--- NOTE | 2025-01-14 17:32 | PC.NURSE ---
Pt declined 324 ASA due to eye injections that she receives, worried the ASA will cause bleeding in the eye.
[2025-01-14 17:36] LABS: INR 1.0 (0.9-1.3); Prothrombin Time 11.1 SECONDS (9.4-12.5)
[2025-01-14 17:38] LABS: PTT Partial Thromboplastin Tim 30 SECONDS (25.1-36.5)
[2025-01-14 17:39] LABS: Alanine Aminotransferase 20 IU/L (<35); Albumin 4.3 g/dL (3.5-5.0); Albumin Globulin Ratio 1.5 (1.0-2.8); Alkaline Phosphatase 93 U/L (38-126); Blood Urea Nitrogen 17 mg/dL (7-17); Calcium 9.5 mg/dL (8.4-10.2); Carbon Dioxide 27 mmol/L (22-32); Chloride 108 mmol/L (98-107); Creatine Kinase 61 U/L (30-135); Estimated Glomerular Filt Rate > 60 mL/min (>60); Globulin 2.9 g/dL (1.7-4.1); Glucose 93 mg/dL (70-99); HEMOLYSIS < 15 (0-50); Lipase 103 U/L (23-300); Magnesium 1.9 mg/dL (1.6-2.3); Potassium 4.3 mmol/L (3.4-5.1); Sodium 139 mmol/L (137-145); Total Protein 7.2 g/dL (6.3-8.2)
[2025-01-14 17:52] LABS: NT-proBNP (BNP-Adult 18+) 313 pg/mL (<125); Troponin I < 0.012 ng/mL (0.01-0.034)
[2025-01-14 18:00] VITALS: BP 164/76; PULSE 73; RESP 26; O2SAT 94
== END 2025-01-14 18:20 | disposition home or self-care (01) ==
PROVIDERS: Emergency Medicine; Emergency Provider Emergency Medicine; Family Provider Nurse Practitioner; PCP Family Medicine
DX: H81.10 Benign paroxysmal vertigo, unspecified ear (principal); R07.9 Chest pain, unspecified
CPT/HCPCS: 36415; 71045; 80053; 82550; 83690; 83735; 83880; 84484; 85025; 85610; 85730; 93005; 99283; 99284

== ENCOUNTER → 2025-03-21 15:03 | Outpatient (CLI) | payer MEDICARE, MEDICAID, SELFPAY ==
[2025-03-21 15:56] LABS: Hemoglobin A1C% w Est Avg Glu 4.9 % (4.0-6.0)
== END ==
PROVIDERS: Family Provider Nurse Practitioner; PCP Family Medicine; Referring Provider Physician Assistant; Visit Provider Physician Assistant
DX: R39.198 Other difficulties with micturition (principal); N95.2 Postmenopausal atrophic vaginitis; M62.838 Other muscle spasm
CPT/HCPCS: 36415; 83036